=== PATIENT | male | born 1965 | race Caucasian/White ===

== ENCOUNTER 2018-01-01 12:33 | Inpatient (IN) | payer MEDICARE, MEDICAID ==
[~2018-01-01] VITALS: Ht 190.5 cm; Wt 68.2 kg
[2018-01-01] MEDS ORDERED: HYDROmorphone 1mg/ml Carpuject IM ONE (13:00)
[2018-01-01] MEDS ORDERED: Heparin 2000 units/Ns 1000ml INJ ONE (13:15)
[2018-01-01] MEDS ORDERED: Lidocaine 1% Plain 30 ml INJ ONE ×2 (13:15→15:15)
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
[2018-01-01] MEDS ORDERED: Clindamycin 600mg 50 ML IVPB ONE (13:30)
[2018-01-01 13:34] VITALS: BP 93/71
[2018-01-01 13:34] LABS: APPEARANCE,URINE SLIGHTLY CLOUDY; BILIRUBIN, URINE NEGATIVE (NEGATIVE); COLOR,URINE YELLOW; GLUCOSE, URINE (UA) NEGATIVE (NEGATIVE); KETONES,URINE NEGATIVE (NEGATIVE); LEUKOCYTE ESTERASE ,URINE 3+ (NEGATIVE); NITRITE,URINE NEGATIVE (NEGATIVE); PH,URINE 6.5 (4.5-8.0); PROTEIN,URINE 2+ (NEGATIVE); UROBILINOGEN,URINE NORMAL MG/DL (0.0-1.0)
[2018-01-01] MEDS ORDERED: ACETAMINOPHEN325 M1 ORAL (14:00)
[2018-01-01] MEDS ORDERED: MULTIVITAMINS1 EA13 ORAL (14:00)
[2018-01-01] MEDS ORDERED: BACLOFEN10 MG ORAL (14:00)
[2018-01-01] MEDS ORDERED: OXYCODONE HCL10 MG ORAL (14:00)
[2018-01-01] MEDS ORDERED: PEPCID AC20 M2 PO (14:00)
[2018-01-01] MEDS ORDERED: ZINC SULFATE220 M1 ORAL (14:00)
[2018-01-01] MEDS ORDERED: GABAPENTIN600 MG ORAL (14:00)
[2018-01-01] MEDS ORDERED: VITAMIN C500 M1 ORAL (14:00)
[2018-01-01] MEDS ORDERED: NICOTINE1 EAC2 TD (14:02)
[2018-01-01] MEDS ORDERED: MIDODRINE HCL5 MG ORAL (14:02)
[2018-01-01] MEDS ORDERED: BENADRYL25 MG ORAL (14:02)
--- NOTE | 2018-01-01 14:54 | Diagnostic Imaging Report ---
Indication: Chest pain Comparison: None A single view chest radiograph was obtained. Findings: Left hemidiaphragm is elevated. There is a scoliosis versus right convexity of the thoracic spine due to positioning. Heart size is normal. Lungs are clear. Bones are osteopenic. IMPRESSION: No acute disease identified
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
[2018-01-01] MEDS ORDERED: Hydromorphone 0.5mg/0.5ml inj IVP STA (16:30)
[2018-01-01] MEDS ORDERED: Clindamycin 600mg 50 ML IV ONE (16:45)
[2018-01-01 17:10] LABS: HEMATOCRIT 29.9 % (42.0-52.0); HEMOGLOBIN 9.4 G/DL (14.2-18.0); MEAN CORPUSCULAR VOLUME 72 FL (80-99); PLATELET COUNT 716 K/UL (150-450); RED BLOOD COUNT 4.17 M/UL (4.70-6.10); RED CELL DISTRIBUTION WIDTH 18.1 % (11.6-14.8); WHITE BLOOD COUNT 19.2 K/UL (4.8-10.8)
[2018-01-01 17:25] LABS: ANION GAP 13 mmol/L (5-15); BLOOD UREA NITROGEN 35 mg/dL (7-18); CALCIUM 9.7 MG/DL (8.5-10.1); CARBON DIOXIDE 21 MMOL/L (21-32); CHLORIDE 97 MMOL/L (98-107); CREATININE 1.1 MG/DL (0.55-1.30); POTASSIUM 3.7 MMOL/L (3.5-5.1); SODIUM 131 MMOL/L (136-145)
[2018-01-01] MEDS: Docusate 100mg cap ORAL SCH (17:36)
[2018-01-01 17:39] LABS: ALANINE AMINOTRANSFERASE 17 U/L (12-78); ALBUMIN 1.9 G/DL (3.4-5.0); ALBUMIN/GLOBULIN RATIO 0.3 (1.0-2.7); ALKALINE PHOSPHATASE 170 U/L (46-116); ASPARTATE AMINO TRANSFERASE 21 U/L (15-37); BILIRUBIN,TOTAL 0.3 MG/DL (0.2-1.0); CKMB 1.3 NG/ML (0.0-3.6); CREATINE KINASE 50 U/L (26-308)
[2018-01-01 20:00] VITALS: BP 89/56
[2018-01-01] MEDS ORDERED: Dyna-Hex 2% Top Sol 2oz TOPIC SCH (20:00)
[2018-01-01] MEDS: Heparin 5000 units/ml inj SUBQ SCH (20:23)
[2018-01-01] MEDS ORDERED: Ciprofloxacin 500mg tab ORAL SCH (21:00)
[2018-01-02] VITALS (7 sets, daily range): BP systolic 88–125; BP diastolic 51–81
[2018-01-02 06:17] LABS: ANION GAP 10 mmol/L (5-15); BLOOD UREA NITROGEN 26 mg/dL (7-18); CALCIUM 8.4 MG/DL (8.5-10.1); CARBON DIOXIDE 22 MMOL/L (21-32); CHLORIDE 108 MMOL/L (98-107); CREATININE 0.9 MG/DL (0.55-1.30); POTASSIUM 3.3 MMOL/L (3.5-5.1); SODIUM 140 MMOL/L (136-145)
--- NOTE | 2018-01-02 08:33 | Diagnostic Imaging Report ---
Indication: Status post central line insertion Technique: One view of the chest Comparison: 4 hours earlier Findings: Interim placement of right jugular central venous catheter, tip which projects deep within the right atrium. The lungs and pleural spaces are clear. Heart size is normal. There is no pneumothorax Impression: Right jugular central venous catheter placement, tip deep in the right atrium. No radiographically evident complication
[2018-01-02] MEDS: Heparin 5000 units/ml inj SUBQ SCH ×2 (08:52→21:00)
[2018-01-02] MEDS: Docusate 100mg cap ORAL SCH ×2 (08:52→18:00)
[2018-01-02] MEDS ORDERED: Pantoprazole Inj IVP SCH (09:00)
[2018-01-02] MEDS ORDERED: HYDROmorphone 1mg/ml Carpuject IVP SCH (10:45)
[2018-01-02 13:53] LABS: HEMATOCRIT 24.1 % (42.0-52.0); HEMOGLOBIN 7.2 G/DL (14.2-18.0); MEAN CORPUSCULAR VOLUME 71 FL (80-99); PLATELET COUNT 449 K/UL (150-450); RED BLOOD COUNT 3.42 M/UL (4.70-6.10); RED CELL DISTRIBUTION WIDTH 18.2 % (11.6-14.8); WHITE BLOOD COUNT 7.6 K/UL (4.8-10.8)
--- NOTE | 2018-01-02 14:03 | Diagnostic Imaging Report ---
Indication: Reason For Exam: BACT Technique: One view of the chest Comparison: none Findings: Previously demonstrated central venous catheter has pulled back, proximal shaft appearing to be making a loop within the internal jugular vein, tip at the level of the mid superior vena cava. There is a small band of atelectasis at the left lung base. The lungs and pleural spaces are otherwise clear. Heart size is normal. Impression: Unless it has been deliberately pulled back, the right jugular central venous catheter appears to have flipped back upon itself and the proximal shaft is now making a loop within the internal jugular vein. Tip position still satisfactory, at the level of the mid superior vena cava. Otherwise stable findings, as described. Essentially clear lungs
[2018-01-02 14:04] LABS: PHOSPHORUS 2.9 MG/DL (2.5-4.9)
[2018-01-02] MEDS ORDERED: Amikacin Rx to dose MISC PRN (14:45)
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
--- NOTE | 2018-01-02 15:23 | Infectious Diseases Prog Note ---
Assessment/Plan Assessment/Plan Full consult dictated: A) 1) sepsis, gram neg uti, ? gram + bacteremia, leukocytosis 2) hx proteus and enterococcus uti 3) wounds noted - doubt sepsis source 4) pmh noted 5) allergies - pcn, sulfa, zosyn, vancomycin P) 1) amikacin, zyvox 2) f/u on culturs, labs and TTE 3) d/w Dr. Jones 4) thank you Subjective Allergies: Coded Allergies: CEFTRIAXONE (Verified Allergy, Unknown, 01/01/18) CODEINE (Verified Allergy, Unknown, 01/01/18) MORPHINE (Verified Allergy, Unknown, 01/01/18) PIPERACILLIN (Verified Allergy, Unknown, 01/01/18) SULFAMETHOXAZOLE (Verified Allergy, Unknown, 01/01/18) TAZOBACTAM (Verified Allergy, Unknown, 01/01/18) TRIMETHOPRIM (Verified Allergy, Unknown, 01/01/18) VANCOMYCIN (Verified Allergy, Unknown, 01/01/18) Objective Vital Signs Last 24 Hour Vital Signs Date Time Temp Pulse Resp B/P (MAP) Pulse Ox O2 Delivery O2 Flow Rate FiO2 01/02/18 12:00 98.2 95 20 88/59 (69) 100 98.2 01/02/18 12:00 Room Air 01/02/18 08:49 102 01/02/18 08:00 Room Air 01/02/18 08:00 98.5 93 20 104/73 (83) 98 98.5 01/02/18 04:00 Room Air 01/02/18 03:36 113 01/02/18 00:00 98.1 99 20 109/60 (76) 98 98.1 01/02/18 00:00 Room Air 01/01/18 23:32 111 01/01/18 22:22 108 01/01/18 20:00 Room Air 01/01/18 20:00 98.4 101 18 89/56 (67) 97 98.4 01/01/18 20:00 Room Air 01/01/18 19:25 108 01/01/18 18:13 Room Air Height (Feet): 3 Height (Inches): 0.00 Weight (Pounds): 150 Microbiology Date/Time Source Procedure Growth Status 01/01/18 16:20 Blood Blood Culture - Preliminary Resulted 01/01/18 13:15 Urine,Clean Catch Urine Culture - Preliminary Gram Negative Bacillus 1 Resulted Laboratory Tests Test 01/01/18 16:20 01/02/18 05:00 01/02/18 13:30 White Blood Count 19.2 K/UL (4.8-10.8) H 7.6 K/UL (4.8-10.8) # Red Blood Count 4.17 M/UL (4.70-6.10) L 3.42 M/UL (4.70-6.10) L Hemoglobin 9.4 G/DL (14.2-18.0) L 7.2 G/DL (14.2-18.0) L Hematocrit 29.9 % (42.0-52.0) L 24.1 % (42.0-52.0) L Mean Corpuscular Volume 72 FL (80-99) L 71 FL (80-99) L Mean Corpuscular Hemoglobin 22.6 PG (27.0-31.0) L 21.2 PG (27.0-31.0) L Mean Corpuscular Hemoglobin Concent 31.5 G/DL (32.0-36.0) L 30.1 G/DL (32.0-36.0) L Red Cell Distribution Width 18.1 % (11.6-14.8) H 18.2 % (11.6-14.8) H Platelet Count 716 K/UL (150-450) H 449 K/UL (150-450) Mean Platelet Volume 4.8 FL (6.5-10.1) L 4.9 FL (6.5-10.1) L Neutrophils (%) (Auto) % (45.0-75.0) % (45.0-75.0) Lymphocytes (%) (Auto) % (20.0-45.0) % (20.0-45.0) Monocytes (%) (Auto) % (1.0-10.0) % (1.0-10.0) Eosinophils (%) (Auto) % (0.0-3.0) % (0.0-3.0) Basophils (%) (Auto) % (0.0-2.0) % (0.0-2.0) Differential Total Cells Counted 100 100 Neutrophils % (Manual) 78 % (45-75) H 73 % (45-75) Lymphocytes % (Manual) 12 % (20-45) L 15 % (20-45) L Monocytes % (Manual) 6 % (1-10) 9 % (1-10) Eosinophils % (Manual) 3 % (0-3) 3 % (0-3) Basophils % (Manual) 0 % (0-2) 0 % (0-2) Band Neutrophils 1 % (0-8) 0 % (0-8) Platelet Estimate Increased H Adequate Platelet Morphology Normal Normal Polychromasia 1+ Anisocytosis 1+ 2+ Microcytosis 1+ 2+ Sodium Level 131 MMOL/L (136-145) L 140 MMOL/L (136-145) Potassium Level 3.7 MMOL/L (3.5-5.1) 3.3 MMOL/L (3.5-5.1) L Chloride Level 97 MMOL/L (98-107) L 108 MMOL/L (98-107) H Carbon Dioxide Level 21 MMOL/L (21-32) 22 MMOL/L (21-32) Anion Gap 13 mmol/L (5-15) 10 mmol/L (5-15) Blood Urea Nitrogen 35 mg/dL (7-18) H 26 mg/dL (7-18) H Creatinine 1.1 MG/DL (0.55-1.30) 0.9 MG/DL (0.55-1.30) Estimat Glomerular Filtration Rate > 60 mL/min (>60) > 60 mL/min (>60) Glucose Level 104 MG/DL (74-106) 90 MG/DL (74-106) Lactic Acid Level 0.90 mmol/L (0.4-2.0) Calcium Level 9.7 MG/DL (8.5-10.1) 8.4 MG/DL (8.5-10.1) L Magnesium Level 1.9 MG/DL (1.8-2.4) 1.6 MG/DL (1.8-2.4) L Total Bilirubin 0.3 MG/DL (0.2-1.0) Aspartate Amino Transf (AST/SGOT) 21 U/L (15-37) Alanine Aminotransferase (ALT/SGPT) 17 U/L (12-78) Alkaline Phosphatase 170 U/L (46-116) H Total Creatine Kinase 50 U/L (26-308) Creatine Kinase MB 1.3 NG/ML (0.0-3.6) Creatine Kinase MB Relative Index 2.6 Troponin I 0.000 ng/mL (0.000-0.056) Total Protein 8.7 G/DL (6.4-8.2) H Albumin 1.9 G/DL (3.4-5.0) L Globulin 6.8 g/dL Albumin/Globulin Ratio 0.3 (1.0-2.7) L Hypochromasia 3+ Phosphorus Level 2.9 MG/DL (2.5-4.9) Current Medications Medications (Trade) Dose Ordered Sig/Alva Route PRN Reason Start Time Stop Time Status Last Admin Dose Admin Acetaminophen (Tylenol) 650 mg Q6H PRN ORAL Mild Pain/Temp > 100.5 01/02/18 11:00 01/31/18 10:59 Amikacin Protocol (Amikacin pharmacy to dose) 1 ea DAILY PRN MISC Per rx protocol 01/02/18 14:45 02/01/18 14:44 Amikacin Sulfate 600 mg/Sodium Chloride 112.4 ml @ 112.4 mls/ hr ONCE ONCE IV 01/02/18 17:00 01/02/18 17:59 Chlorhexidine Gluconate (Cassandra-Hex 2%) 1 applic DAILY@2000 TOPIC 01/02/18 20:00 01/31/18 19:59 Dextrose (Dextrose 50%) 25 ml Q30M PRN IV Hypoglycemia 01/02/18 10:45 01/31/18 14:44 Dextrose (Dextrose 50%) 50 ml Q30M PRN IV Hypoglycemia 01/02/18 10:45 01/31/18 14:44 Docusate Sodium (Colace) 200 mg TWICE A DAY ORAL 01/02/18 18:00 01/31/18 17:59 Gabapentin (Neurontin) 600 mg QHS ORAL 01/02/18 21:00 01/31/18 20:59 Heparin Sodium (Porcine) (Heparin 5000 units/ml) 5,000 units EVERY 12 HOURS SUBQ 01/02/18 21:00 01/31/18 20:59 Hydromorphone HCl (Dilaudid) 1 mg Q6H PRN IVP SEVERE PAIN 01/02/18 14:03 01/03/18 14:02 Linezolid (Zyvox) 600 mg EVERY 12 HOURS ORAL 01/02/18 21:00 01/07/18 20:59 Multivitamins (Multivitamins) 1 tab DAILY ORAL 01/03/18 09:00 02/01/18 08:59 Nicotine (Nicoderm) 1 patch Q24H TDERMAL 01/02/18 17:00 01/31/18 16:59 Pantoprazole (Protonix) 40 mg DAILY IVP 01/03/18 09:00 02/01/18 08:59 Sodium Chloride 1,000 ml @ 100 mls/hr Q10H IVLG 01/02/18 11:00 01/31/18 10:59 01/02/18 11:17 Joellen Taylor MD Jan 02, 2018 15:23
[2018-01-02] MEDS: HYDROmorphone 1mg/ml Carpuject IVP PRN ×2 (16:12→22:03)
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
[2018-01-02] MEDS ORDERED: Amikacin 600 MG in NS 110 ML IV ONE (17:00)
--- NOTE | 2018-01-02 18:31 | Cardiology Report ---
APPROVED REPORT EKG Measurement Heart [id number] Sinus tachycardia Possible Left atrial enlargement Borderline ECG
[2018-01-02 19:24] LABS: % IRON SATURATION 7 % (15-50); IRON 12 ug/dL (50-175); TOTAL IRON BINDING CAPACITY 178 ug/dL (250-450)
[2018-01-02] MEDS: Dyna-Hex 2% Top Sol 2oz TOPIC SCH (22:21)
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
[2018-01-03] MEDS: HYDROmorphone 1mg/ml Carpuject IVP PRN ×4 (04:07→22:19)
[2018-01-03 04:25] VITALS: BP 98/63
[2018-01-03 05:32] LABS: MEAN CORPUSCULAR VOLUME 71 FL (80-99); PLATELET COUNT 354 K/UL (150-450); RED BLOOD COUNT 2.95 M/UL (4.70-6.10); RED CELL DISTRIBUTION WIDTH 18.9 % (11.6-14.8); WHITE BLOOD COUNT 7.6 K/UL (4.8-10.8)
[2018-01-03 05:35] LABS: ANION GAP 8 mmol/L (5-15); BLOOD UREA NITROGEN 16 mg/dL (7-18); CARBON DIOXIDE 23 MMOL/L (21-32); CHLORIDE 107 MMOL/L (98-107); CREATININE 0.8 MG/DL (0.55-1.30); POTASSIUM 3.4 MMOL/L (3.5-5.1); SODIUM 138 MMOL/L (136-145)
[2018-01-03 06:04] LABS: HEMOGLOBIN 6.5 G/DL (14.2-18.0)
[2018-01-03 08:43] VITALS: BP 89/62
[2018-01-03] MEDS: Heparin 5000 units/ml inj SUBQ SCH ×2 (09:00→22:29)
[2018-01-03] MEDS: Pantoprazole Inj IVP SCH (09:19)
[2018-01-03] MEDS: Docusate 100mg cap ORAL SCH ×2 (09:20→17:51)
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
[2018-01-03 10:29] LABS: HEMATOCRIT 24.8 % (42.0-52.0); HEMOGLOBIN 7.4 G/DL (14.2-18.0); MEAN CORPUSCULAR VOLUME 71 FL (80-99); PLATELET COUNT 366 K/UL (150-450); RED CELL DISTRIBUTION WIDTH 18.5 % (11.6-14.8); WHITE BLOOD COUNT 6.5 K/UL (4.8-10.8)
[2018-01-03 11:06] LABS: % IRON SATURATION 6 % (15-50); IRON 8 ug/dL (50-175); TOTAL IRON BINDING CAPACITY 136 ug/dL (250-450)
[2018-01-03 11:26] VITALS: BP 115/76
--- NOTE | 2018-01-03 13:37 | General Progress Note ---
Assessment/Plan Status: stable Assessment/Plan (1) Anemia of chronic disease due to underlying chronic medical issues. --> Anemia panel has been reviewed. Will trend CBC daily. --> hgb goal >7, transfuse on prn basis --> no etoh or drug abuse, meds reviewed --> Blood tx: 01/03, (2) Leukocytosis is likely due to UTI (urinary tract infection) does have sepsis --> Resolved/Improved. --> smear peripheral has been reviewed --> no schistocytes are noted --> no evidence of malignancy (3) Quadriplegia --> weakness has been chronic (4) Colostomy care (5) Tobacco abuse --> cessation education (6) Dispo --> likely back to [facility] on d/c Greatly appreciate consultation! Subjective Date patient seen: Jan 03, 2018 ROS Limited/Unobtainable: Yes Allergies: Coded Allergies: CEFTRIAXONE (Verified Allergy, Unknown, 01/01/18) CODEINE (Verified Allergy, Unknown, 01/01/18) MORPHINE (Verified Allergy, Unknown, 01/01/18) PIPERACILLIN (Verified Allergy, Unknown, 01/01/18) SULFAMETHOXAZOLE (Verified Allergy, Unknown, 01/01/18) TAZOBACTAM (Verified Allergy, Unknown, 01/01/18) TRIMETHOPRIM (Verified Allergy, Unknown, 01/01/18) VANCOMYCIN (Verified Allergy, Unknown, 01/01/18) Subjective Hgb at 6.5, blood tx ordered. Objective Last 24 Hour Vital Signs Date Time Temp Pulse Resp B/P (MAP) Pulse Ox O2 Delivery O2 Flow Rate FiO2 01/03/18 11:26 98.8 98 18 115/76 (89) 01/03/18 10:37 98.8 01/03/18 08:43 99.6 100 18 89/62 (71) 92 01/03/18 08:30 Room Air 01/03/18 04:25 96.1 108 18 98/63 (75) 96 01/02/18 22:04 98/56 (70) 01/02/18 22:00 Room Air 01/02/18 20:22 97.9 103 18 91/51 (64) 93 01/02/18 17:52 98.1 89 20 125/81 (96) 98 01/02/18 16:00 98.1 89 20 125/81 (96) 98 Intake and Output 01/02/18 01/03/18 19:00 07:00 Intake Total 1550 ml 800 ml Output Total 1200 ml 900 ml Balance 350 ml -100 ml Intake Oral 100 ml IV Total 450 ml 800 ml Other 1000 ml Output Urine Total 1200 ml Other 900 ml Laboratory Tests 01/02/18 19:00: Urine Random Creatinine [Pending], Urine Random Microalbumin [Pending], Urine Microalbumin/Creatinine Ratio [Pending] 01/03/18 05:00: White Blood Count 7.6, Red Blood Count 2.95L, Hemoglobin 6.5*L, Hematocrit 21.0L , Mean Corpuscular Volume 71L, Mean Corpuscular Hemoglobin 21.9L, Mean Corpuscular Hemoglobin Concent 30.8L, Red Cell Distribution Width 18.9H, Platelet Count 354, Mean Platelet Volume 4.9L, Neutrophils (%) (Auto) , Lymphocytes (%) (Auto) , Monocytes (%) (Auto) , Eosinophils (%) (Auto) , Basophils (%) (Auto) , Differential Total Cells Counted 100, Neutrophils % ( Manual) 67, Lymphocytes % (Manual) 27, Monocytes % (Manual) 3, Eosinophils % ( Manual) 3, Basophils % (Manual) 0, Band Neutrophils 0, Platelet Estimate Adequate, Platelet Morphology Normal, Hypochromasia 2+, Anisocytosis 2+, Microcytosis 2+, Sodium Level 138, Potassium Level 3.4L, Chloride Level 107, Carbon Dioxide Level 23, Anion Gap 8, Blood Urea Nitrogen 16, Creatinine 0.8, Estimat Glomerular Filtration Rate > 60, Glucose Level 99, Calcium Level 8.0L, Phosphorus Level 3.4, Magnesium Level 2.2, Iron Level 8L, Total Iron Binding Capacity 136L, Percent Iron Saturation 6L, Unsaturated Iron Binding 128, Free Thyroxine 0.91, Free Triiodothyronine 1.5L, Random Amikacin Level 9.2 01/03/18 10:15: White Blood Count 6.5, Red Blood Count 3.50L, Hemoglobin 7.4L, Hematocrit 24.8L , Mean Corpuscular Volume 71L, Mean Corpuscular Hemoglobin 21.2L, Mean Corpuscular Hemoglobin Concent 30.0L, Red Cell Distribution Width 18.5H, Platelet Count 366, Mean Platelet Volume 4.8L, Neutrophils (%) (Auto) , Lymphocytes (%) (Auto) , Monocytes (%) (Auto) , Eosinophils (%) (Auto) , Basophils (%) (Auto) , Differential Total Cells Counted 100, Neutrophils % ( Manual) 65, Lymphocytes % (Manual) 26, Monocytes % (Manual) 8, Eosinophils % ( Manual) 1, Basophils % (Manual) 0, Band Neutrophils 0, Platelet Estimate Adequate, Platelet Morphology Normal, Hypochromasia 2+, Anisocytosis 1+, Microcytosis 2+ Height (Feet): 3 Height (Inches): 0.00 Weight (Pounds): 150 General Appearance: no apparent distress EENT: PERRL/EOMI Neck: normal alignment Cardiovascular: tachycardia Respiratory/Chest: no respiratory distress Abdomen: soft Rodolfo Scott MD Jan 03, 2018 13:37
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
[2018-01-03 15:27] VITALS: BP 91/63
[2018-01-03] MEDS: DAPTOmycin 400 MG in NS 50 ML IV SCH (15:34)
[2018-01-03] MEDS ORDERED: Amikacin 600 MG in NS 110 ML IV SCH (18:00)
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
[2018-01-03 20:00] VITALS: BP 96/59
[2018-01-03] MEDS: Dyna-Hex 2% Top Sol 2oz TOPIC SCH (22:19)
[2018-01-03] MEDS: Polymyxin B Sulfate 500,000 UNITS in D5W 500ml 550 ML IV SCH (22:36)
[2018-01-04 04:00] VITALS: BP 98/66
[2018-01-04] MEDS: HYDROmorphone 1mg/ml Carpuject IVP PRN ×4 (04:28→22:32)
[2018-01-04 07:38] LABS: ANION GAP 7 mmol/L (5-15); BLOOD UREA NITROGEN 18 mg/dL (7-18); CARBON DIOXIDE 26 MMOL/L (21-32); CHLORIDE 104 MMOL/L (98-107); CREATININE 0.9 MG/DL (0.55-1.30); POTASSIUM 3.4 MMOL/L (3.5-5.1); SODIUM 137 MMOL/L (136-145)
[2018-01-04 07:44] LABS: HEMOGLOBIN 7.9 G/DL (14.2-18.0); MEAN CORPUSCULAR VOLUME 71 FL (80-99); PLATELET COUNT 305 K/UL (150-450); RED BLOOD COUNT 3.66 M/UL (4.70-6.10); RED CELL DISTRIBUTION WIDTH 18.7 % (11.6-14.8); WHITE BLOOD COUNT 6.2 K/UL (4.8-10.8)
[2018-01-04 08:00] VITALS: BP 100/68
[2018-01-04] MEDS: Docusate 100mg cap ORAL SCH ×2 (09:12→17:28)
[2018-01-04] MEDS: Polymyxin B Sulfate 500,000 UNITS in D5W 500ml 550 ML IV SCH ×2 (09:12→20:56)
[2018-01-04] MEDS: Pantoprazole Inj IVP SCH (09:12)
[2018-01-04] MEDS: Heparin 5000 units/ml inj SUBQ SCH ×2 (09:13→20:58)
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
--- NOTE | 2018-01-04 11:06 | General Progress Note ---
Assessment/Plan Status: stable Assessment/Plan (1) Anemia of chronic disease due to underlying chronic medical issues. --> Anemia panel has been reviewed. Will trend CBC daily. --> hgb goal >7, transfuse on prn basis --> no etoh or drug abuse, meds reviewed --> Blood tx: 01/03, (2) Leukocytosis is likely due to UTI (urinary tract infection) does have sepsis --> Resolved/Improved. --> Remains on abx --> smear peripheral has been reviewed --> no schistocytes are noted --> no evidence of malignancy (3) Quadriplegia --> weakness has been chronic (4) Colostomy care (5) Tobacco abuse --> cessation education (6) Dispo --> likely back to [facility] on d/c Greatly appreciate consultation! Subjective Date patient seen: Jan 04, 2018 ROS Limited/Unobtainable: Yes Hematologic/Lymphatic: Reports: anemia Allergies: Coded Allergies: CEFTRIAXONE (Verified Allergy, Unknown, 01/01/18) CODEINE (Verified Allergy, Unknown, 01/01/18) MORPHINE (Verified Allergy, Unknown, 01/01/18) PIPERACILLIN (Verified Allergy, Unknown, 01/01/18) SULFAMETHOXAZOLE (Verified Allergy, Unknown, 01/01/18) TAZOBACTAM (Verified Allergy, Unknown, 01/01/18) TRIMETHOPRIM (Verified Allergy, Unknown, 01/01/18) VANCOMYCIN (Verified Allergy, Unknown, 01/01/18) Subjective Hgb improved to 7.9 Objective Last 24 Hour Vital Signs Date Time Temp Pulse Resp B/P (MAP) Pulse Ox O2 Delivery O2 Flow Rate FiO2 01/04/18 08:00 97.8 99 18 100/68 (79) 98 01/04/18 04:00 99.1 107 18 98/66 (77) 98 01/03/18 21:00 Room Air 01/03/18 20:00 99.9 106 18 96/59 (71) 98 01/03/18 16:37 99.2 01/03/18 15:27 99.2 101 20 91/63 (72) 96 01/03/18 11:26 98.8 98 18 115/76 (89) Intake and Output 01/03/18 01/04/18 18:59 06:59 Intake Total 960 ml 3150 ml Balance 960 ml 3150 ml Intake Oral 960 ml 500 ml IV Total 550 ml Other 2100 ml Laboratory Tests 01/04/18 05:36: White Blood Count 6.2, Red Blood Count 3.66L, Hemoglobin 7.9L, Hematocrit 26.0L , Mean Corpuscular Volume 71L, Mean Corpuscular Hemoglobin 21.6L, Mean Corpuscular Hemoglobin Concent 30.4L, Red Cell Distribution Width 18.7H, Platelet Count 305, Mean Platelet Volume 4.8L, Neutrophils (%) (Auto) , Lymphocytes (%) (Auto) , Monocytes (%) (Auto) , Eosinophils (%) (Auto) , Basophils (%) (Auto) , Differential Total Cells Counted 100, Neutrophils % ( Manual) 79H, Lymphocytes % (Manual) 14L, Monocytes % (Manual) 6, Eosinophils % ( Manual) 1, Basophils % (Manual) 0, Band Neutrophils 0, Platelet Estimate Adequate, Platelet Morphology Normal, Hypochromasia 1+, Anisocytosis 1+, Microcytosis 1+, Sodium Level 137, Potassium Level 3.4L, Chloride Level 104, Carbon Dioxide Level 26, Anion Gap 7, Blood Urea Nitrogen 18, Creatinine 0.9, Estimat Glomerular Filtration Rate > 60, Glucose Level 107H, Calcium Level 8.0L , Phosphorus Level 3.2, Magnesium Level 2.0 Height (Feet): 3 Height (Inches): 0.00 Weight (Pounds): 150 General Appearance: no apparent distress EENT: PERRL/EOMI Neck: normal alignment Cardiovascular: tachycardia Respiratory/Chest: no respiratory distress Abdomen: normal bowel sounds Rodolfo Scott MD Jan 04, 2018 11:06
[2018-01-04 12:00] VITALS: BP 111/93
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
--- NOTE | 2018-01-04 15:21 | General Surgery Progress Note ---
General Surgery-Progress Note Subjective Additional Comments no acute events. stable. tolerating diet. c/o ostomy prolapse Objective Last 24 Hour Vital Signs Date Time Temp Pulse Resp B/P (MAP) Pulse Ox O2 Delivery O2 Flow Rate FiO2 01/04/18 12:00 98.1 97 18 111/93 (99) 98 01/04/18 09:00 Room Air 01/04/18 08:00 97.8 99 18 100/68 (79) 98 01/04/18 04:00 99.1 107 18 98/66 (77) 98 01/03/18 21:00 Room Air 01/03/18 20:00 99.9 106 18 96/59 (71) 98 01/03/18 16:37 99.2 01/03/18 15:27 99.2 101 20 91/63 (72) 96 I&O Intake and Output 01/03/18 01/04/18 19:00 07:00 Intake Total 960 ml 3150 ml Balance 960 ml 3150 ml Intake Oral 960 ml 500 ml IV Total 550 ml Other 2100 ml Dressing: other Wound: other Drains: other Cardiovascular: RSR Respiratory: clear Abdomen: soft, present bowel sounds, other Extremities: other Laboratory Tests Test 01/04/18 05:36 White Blood Count 6.2 K/UL (4.8-10.8) Red Blood Count 3.66 M/UL (4.70-6.10) L Hemoglobin 7.9 G/DL (14.2-18.0) L Hematocrit 26.0 % (42.0-52.0) L Mean Corpuscular Volume 71 FL (80-99) L Mean Corpuscular Hemoglobin 21.6 PG (27.0-31.0) L Mean Corpuscular Hemoglobin Concent 30.4 G/DL (32.0-36.0) L Red Cell Distribution Width 18.7 % (11.6-14.8) H Platelet Count 305 K/UL (150-450) Mean Platelet Volume 4.8 FL (6.5-10.1) L Neutrophils (%) (Auto) % (45.0-75.0) Lymphocytes (%) (Auto) % (20.0-45.0) Monocytes (%) (Auto) % (1.0-10.0) Eosinophils (%) (Auto) % (0.0-3.0) Basophils (%) (Auto) % (0.0-2.0) Differential Total Cells Counted 100 Neutrophils % (Manual) 79 % (45-75) H Lymphocytes % (Manual) 14 % (20-45) L Monocytes % (Manual) 6 % (1-10) Eosinophils % (Manual) 1 % (0-3) Basophils % (Manual) 0 % (0-2) Band Neutrophils 0 % (0-8) Platelet Estimate Adequate Platelet Morphology Normal Hypochromasia 1+ Anisocytosis 1+ Microcytosis 1+ Sodium Level 137 MMOL/L (136-145) Potassium Level 3.4 MMOL/L (3.5-5.1) L Chloride Level 104 MMOL/L (98-107) Carbon Dioxide Level 26 MMOL/L (21-32) Anion Gap 7 mmol/L (5-15) Blood Urea Nitrogen 18 mg/dL (7-18) Creatinine 0.9 MG/DL (0.55-1.30) Estimat Glomerular Filtration Rate > 60 mL/min (>60) Glucose Level 107 MG/DL (74-106) H Calcium Level 8.0 MG/DL (8.5-10.1) L Phosphorus Level 3.2 MG/DL (2.5-4.9) Magnesium Level 2.0 MG/DL (1.8-2.4) Plan Problems: (1) Colostomy prolapse Assessment & Plan: large >10cm prolapse of left lower abdominal ostomy. small stool and gas in bag. patient states present for years and makes him uncomfortable. has desired intervention prior but not discussed or offered long discussion with patient. very complex case given midline wound dehiscence with drainage, prior urostomy, and prolapsed ostomy will review records and see if possible surgical intervention (2) Sepsis (3) Decubital ulcer Assessment & Plan: very large area of skin loss over dorsal trunk, bilateral flank, hips, and amputation stumps, and perineum multiple stages of wounds and healing lots of sloth serous drainage ulcerations please see wound photos bilat AKA. Abd wound noted with moderate amt purulent exudate (L)5cm x (W)3.5cm x (D)1.3cm wound bed pink (+) epibole and with maceration. Periwound skin is pink and intact. Large wound from R to L of buttocks extending into perineum and posterior R thigh (L)15 x (W)25.4cm. Scattered areas of slough, with mixed dusky pink colour in wound bed.(+) maceration.. Moderately exuding serous exudate with mild odor. very complex wounds and case with care. for now was with NS, place xerofoam, and ABDApply Xeroform with Abd pads to wounds on buttocks.Wound cleans with Saline. Apply Xeroform gauze to wound bed .Cavilon wipe applied to borders and cover with ABD pads and reinforced with Transparent drsg. Cleanse abdominal wound with Saline and apply Silvasorb with Calcium alginate. Cavilon skin protectant applied to borders and covered with transparent drsg. skin protectant turn q2h air soft mattress (4) Abdominal wound dehiscence Assessment & Plan: prior distal midline surgical incision wound dehiscences with ulceration and slowly healing wound. some drainage noted. -packing and dressing with gauze BID will follow with recs thank you Atif Luna Jan 04, 2018 15:21
[2018-01-04] MEDS: DAPTOmycin 400 MG in NS 50 ML IV SCH (16:55)
[2018-01-04] MEDS: Dyna-Hex 2% Top Sol 2oz TOPIC SCH (20:56)
[2018-01-04] MEDS: DiphenhydrAMINE 50mg/ml Inj IVP PRN (20:59)
[2018-01-05] VITALS: BP 106/72
[2018-01-05] MEDS: DiphenhydrAMINE 50mg/ml Inj IVP PRN ×3 (03:40→20:11)
[2018-01-05 04:00] VITALS: BP 111/73
[2018-01-05] MEDS: HYDROmorphone 1mg/ml Carpuject IVP PRN ×4 (04:42→22:27)
[2018-01-05 07:40] LABS: HEMATOCRIT 21.1 % (42.0-52.0); MEAN CORPUSCULAR VOLUME 71 FL (80-99); PLATELET COUNT 346 K/UL (150-450); RED BLOOD COUNT 2.98 M/UL (4.70-6.10); RED CELL DISTRIBUTION WIDTH 18.8 % (11.6-14.8); WHITE BLOOD COUNT 6.1 K/UL (4.8-10.8)
[2018-01-05 07:43] LABS: HEMOGLOBIN 6.3 G/DL (14.2-18.0)
[2018-01-05 07:47] LABS: ALANINE AMINOTRANSFERASE 28 U/L (12-78); ALBUMIN 1.4 G/DL (3.4-5.0); ALBUMIN/GLOBULIN RATIO 0.3 (1.0-2.7); ALKALINE PHOSPHATASE 109 U/L (46-116); ANION GAP 7 mmol/L (5-15); ASPARTATE AMINO TRANSFERASE 47 U/L (15-37); BILIRUBIN,TOTAL 0.2 MG/DL (0.2-1.0); BLOOD UREA NITROGEN 21 mg/dL (7-18); CALCIUM 8.4 MG/DL (8.5-10.1); CARBON DIOXIDE 26 MMOL/L (21-32); CHLORIDE 103 MMOL/L (98-107); CREATINE KINASE 14 U/L (26-308); POTASSIUM 4.2 MMOL/L (3.5-5.1); SODIUM 136 MMOL/L (136-145)
[2018-01-05 08:00] VITALS: BP 111/73
[2018-01-05] MEDS: Docusate 100mg cap ORAL SCH ×2 (09:00→17:27)
[2018-01-05] MEDS: Pantoprazole Inj IVP SCH (10:00)
[2018-01-05] MEDS: Polymyxin B Sulfate 500,000 UNITS in D5W 500ml 550 ML IV SCH ×2 (10:02→22:03)
[2018-01-05] MEDS: Heparin 5000 units/ml inj SUBQ SCH ×2 (10:07→21:00)
[2018-01-05] MEDS ORDERED: Tubing IV Secondary IV ONE (10:15)
[2018-01-05] MEDS ORDERED: D5 1/2NS 1000ml IV ONE (10:42)
--- NOTE | 2018-01-05 11:23 | Diagnostic Imaging Report ---
EXAM: CT Abdomen and Pelvis Without Intravenous Contrast CLINICAL HISTORY: ABSCESS TECHNIQUE: Axial computed tomography images of the abdomen and pelvis without intravenous contrast. CTDI is 13.83 mGy and DLP is 703 mGy-cm. One or more of the following dose reduction techniques were used: automated exposure control, adjustment of the mA and/or kV according to patient size, use of iterative reconstruction technique. COMPARISON: No relevant prior studies available. FINDINGS: Lung bases: See below. Pleural space: Trace bilateral dependent pleural effusions, right greater than left. Associated mild adjacent dependent atelectasis. ABDOMEN: Liver: Unremarkable. Gallbladder and bile ducts: Unremarkable. No calcified stones. No ductal dilation. Pancreas: Unremarkable. No ductal dilation. Spleen: Unremarkable. No splenomegaly. Adrenals: Unremarkable. No mass. Kidneys and ureters: Right renal cortical atrophy. Bilateral nephrolithiasis, with largest stone measuring 4 mm in the left lower renal pole. Mild right renal pelviectasis and ureterectasis, nonspecific. No left-sided hydronephrosis. 2.7 cm simple-appearing renal cortical cyst in the mid left kidney. Stomach and bowel: Post surgical changes from ileal conduit formation with right lower quadrant ostomy, partial colonic resection, and left lower quadrant colostomy. Presumed prior cystectomy. Diffuse wall thickening of the rectal pouch, nonspecific. No obstruction. PELVIS: Appendix: The appendix appears normal. Bladder: See above. Reproductive: Unremarkable as visualized. ABDOMEN and PELVIS: Intraperitoneal space: Unremarkable. No free air. No significant fluid collection. Bones/joints: Status post bilateral lower extremity amputation, at the level of the hip joint on the right and at the level of the proximal femoral diaphysis on the left. Associated chronic left hip joint dislocation. Extensive degenerative changes and new bone formation adjacent to left hip and femur. Partial resection of the sacrum. No acute fracture. Soft tissues: Unremarkable. Vasculature: Atherosclerotic calcifications throughout the abdominal aorta and its proximal branches. No abnormal dilatation. Lymph nodes: Unremarkable. No enlarged lymph nodes. Other findings: No visible abscess. IMPRESSION: 1. No visible abscess. 2. Post surgical changes from ileal conduit formation with right lower quadrant ostomy, partial colonic resection, and left lower quadrant colostomy. Presumed prior cystectomy. 3. Diffuse wall thickening of the rectal pouch, nonspecific. 4. Right renal cortical atrophy. 5. Bilateral nephrolithiasis, with largest stone measuring 4 mm in the left lower renal pole. Mild right renal pelviectasis and ureterectasis, nonspecific. No left-sided hydronephrosis. 6. Trace bilateral dependent pleural effusions, right greater than left. Associated mild adjacent dependent atelectasis. 7. Status post bilateral lower extremity amputation, at the level of the hip joint on the right and at the level of the proximal femoral diaphysis on the left. Associated chronic left hip joint dislocation. Extensive degenerative changes and new bone formation adjacent to left hip and femur. Nonspecific abnormal marrow matrix in the residual left femur.
[2018-01-05 12:00] VITALS: BP 102/62
--- NOTE | 2018-01-05 13:16 | General Surgery Progress Note ---
General Surgery-Progress Note Subjective Additional Comments anemia. pain stable. no n/v/f/c. ostomy without significant prolapse today Objective Last 24 Hour Vital Signs Date Time Temp Pulse Resp B/P (MAP) Pulse Ox O2 Delivery O2 Flow Rate FiO2 01/05/18 12:00 98.6 101 18 102/62 (75) 97 01/05/18 11:15 97.9 01/05/18 09:00 Room Air 01/05/18 08:00 97.9 94 21 111/73 (86) 97 01/05/18 04:00 97.9 105 20 111/73 (86) 99 01/05/18 00:00 98.1 109 20 106/72 (83) 95 01/04/18 21:00 Room Air I&O Intake and Output 01/04/18 01/05/18 18:59 06:59 Intake Total 1390 ml Output Total 800 ml 800 ml Balance 590 ml -800 ml Intake Oral 840 ml IV Total 550 ml Output Urine Total 800 ml Other 800 ml Dressing: other Wound: other Drains: other Cardiovascular: RSR Respiratory: clear Abdomen: soft, non-tender, present bowel sounds, other Extremities: other Laboratory Tests Test 01/05/18 06:00 White Blood Count 6.1 K/UL (4.8-10.8) Red Blood Count 2.98 M/UL (4.70-6.10) L Hemoglobin 6.3 G/DL (14.2-18.0) *L Hematocrit 21.1 % (42.0-52.0) L Mean Corpuscular Volume 71 FL (80-99) L Mean Corpuscular Hemoglobin 21.2 PG (27.0-31.0) L Mean Corpuscular Hemoglobin Concent 30.0 G/DL (32.0-36.0) L Red Cell Distribution Width 18.8 % (11.6-14.8) H Platelet Count 346 K/UL (150-450) Mean Platelet Volume 4.5 FL (6.5-10.1) L Neutrophils (%) (Auto) % (45.0-75.0) Lymphocytes (%) (Auto) % (20.0-45.0) Monocytes (%) (Auto) % (1.0-10.0) Eosinophils (%) (Auto) % (0.0-3.0) Basophils (%) (Auto) % (0.0-2.0) Differential Total Cells Counted 100 Neutrophils % (Manual) 61 % (45-75) Lymphocytes % (Manual) 28 % (20-45) Monocytes % (Manual) 5 % (1-10) Eosinophils % (Manual) 5 % (0-3) H Basophils % (Manual) 1 % (0-2) Band Neutrophils 0 % (0-8) Platelet Estimate Adequate Platelet Morphology Normal Hypochromasia 2+ Anisocytosis 2+ Microcytosis 2+ Sodium Level 136 MMOL/L (136-145) Potassium Level 4.2 MMOL/L (3.5-5.1) Chloride Level 103 MMOL/L (98-107) Carbon Dioxide Level 26 MMOL/L (21-32) Anion Gap 7 mmol/L (5-15) Blood Urea Nitrogen 21 mg/dL (7-18) H Creatinine 1.0 MG/DL (0.55-1.30) Estimat Glomerular Filtration Rate > 60 mL/min (>60) Glucose Level 75 MG/DL (74-106) Calcium Level 8.4 MG/DL (8.5-10.1) L Total Bilirubin 0.2 MG/DL (0.2-1.0) Aspartate Amino Transf (AST/SGOT) 47 U/L (15-37) H Alanine Aminotransferase (ALT/SGPT) 28 U/L (12-78) Alkaline Phosphatase 109 U/L (46-116) Total Creatine Kinase 14 U/L (26-308) L Total Protein 6.7 G/DL (6.4-8.2) Albumin 1.4 G/DL (3.4-5.0) L Globulin 5.3 g/dL Albumin/Globulin Ratio 0.3 (1.0-2.7) L Plan Problems: (1) Colostomy prolapse Assessment & Plan: large >10cm prolapse of left lower abdominal ostomy. small stool and gas in bag. patient states present for years and makes him uncomfortable. has desired intervention prior but not discussed or offered long discussion with patient. very complex case given midline wound dehiscence with drainage, prior urostomy, and prolapsed ostomy will review records and see if possible surgical intervention ostomy without significant prolapse today. states that intermittent but does prolapse daily will follow with recs. (2) Sepsis (3) Decubital ulcer Assessment & Plan: very large area of skin loss over dorsal trunk, bilateral flank, hips, and amputation stumps, and perineum multiple stages of wounds and healing lots of sloth serous drainage ulcerations please see wound photos olman AKCecilio. Abd wound noted with moderate amt purulent exudate (L)5cm x (W)3.5cm x (D)1.3cm wound bed pink (+) epibole and with maceration. Periwound skin is pink and intact. Large wound from R to L of buttocks extending into perineum and posterior R thigh (L)15 x (W)25.4cm. Scattered areas of slough, with mixed dusky pink colour in wound bed.(+) maceration.. Moderately exuding serous exudate with mild odor. very complex wounds and case with care. for now was with NS, place xerofoam, and ABDApply Xeroform with Abd pads to wounds on buttocks.Wound cleans with Saline. Apply Xeroform gauze to wound bed .Cavilon wipe applied to borders and cover with ABD pads and reinforced with Transparent drsg. Cleanse abdominal wound with Saline and apply Silvasorb with Calcium alginate. Cavilon skin protectant applied to borders and covered with transparent drsg. skin protectant turn q2h air soft mattress (4) Abdominal wound dehiscence Assessment & Plan: prior distal midline surgical incision wound dehiscences with ulceration and slowly healing wound. some drainage noted. -packing and dressing with gauze BID will follow with recs thank you Atif Luna Jan 05, 2018 13:16
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
[2018-01-05] MEDS ORDERED: Tubing Blood Filter IV ONE (15:04)
[2018-01-05 16:00] VITALS: BP 115/76
--- NOTE | 2018-01-05 18:32 | General Progress Note ---
Assessment/Plan Status: stable Assessment/Plan (1) Anemia of chronic disease due to underlying chronic medical issues. --> Anemia panel has been reviewed. Will trend CBC daily. --> hgb goal >7, transfuse on prn basis --> no etoh or drug abuse, meds reviewed --> Blood tx: 01/03, 01/05, (2) Leukocytosis is likely due to UTI (urinary tract infection) does have sepsis --> Resolved/Improved. --> Remains on abx --> smear peripheral has been reviewed --> no schistocytes are noted --> no evidence of malignancy --> blood culture is positive for gram cocci (3) Quadriplegia --> weakness has been chronic (4) Colostomy care (5) Tobacco abuse --> cessation education (6) Dispo --> likely back to [facility] on d/c Greatly appreciate consultation! Subjective Date patient seen: Jan 05, 2018 ROS Limited/Unobtainable: Yes Hematologic/Lymphatic: Reports: anemia Allergies: Coded Allergies: CEFTRIAXONE (Verified Allergy, Unknown, 01/01/18) CODEINE (Verified Allergy, Unknown, 01/01/18) MORPHINE (Verified Allergy, Unknown, 01/01/18) PIPERACILLIN (Verified Allergy, Unknown, 01/01/18) SULFAMETHOXAZOLE (Verified Allergy, Unknown, 01/01/18) TAZOBACTAM (Verified Allergy, Unknown, 01/01/18) TRIMETHOPRIM (Verified Allergy, Unknown, 01/01/18) VANCOMYCIN (Verified Allergy, Unknown, 01/01/18) Subjective Hgb at 6.3, blood tx ordered. Objective Last 24 Hour Vital Signs Date Time Temp Pulse Resp B/P (MAP) Pulse Ox O2 Delivery O2 Flow Rate FiO2 01/05/18 17:23 97.1 01/05/18 16:00 97.1 72 19 115/76 (89) 97 01/05/18 12:00 98.6 101 18 102/62 (75) 97 01/05/18 09:00 Room Air 01/05/18 08:00 97.9 94 21 111/73 (86) 97 01/05/18 04:00 97.9 105 20 111/73 (86) 99 01/05/18 00:00 98.1 109 20 106/72 (83) 95 01/04/18 21:00 Room Air Intake and Output 01/04/18 01/05/18 19:00 07:00 Intake Total 1390 ml Output Total 800 ml 800 ml Balance 590 ml -800 ml Intake Oral 840 ml IV Total 550 ml Output Urine Total 800 ml Other 800 ml Laboratory Tests 01/05/18 06:00: White Blood Count 6.1, Red Blood Count 2.98L, Hemoglobin 6.3*L, Hematocrit 21.1L , Mean Corpuscular Volume 71L, Mean Corpuscular Hemoglobin 21.2L, Mean Corpuscular Hemoglobin Concent 30.0L, Red Cell Distribution Width 18.8H, Platelet Count 346, Mean Platelet Volume 4.5L, Neutrophils (%) (Auto) , Lymphocytes (%) (Auto) , Monocytes (%) (Auto) , Eosinophils (%) (Auto) , Basophils (%) (Auto) , Differential Total Cells Counted 100, Neutrophils % ( Manual) 61, Lymphocytes % (Manual) 28, Monocytes % (Manual) 5, Eosinophils % ( Manual) 5H, Basophils % (Manual) 1, Band Neutrophils 0, Platelet Estimate Adequate, Platelet Morphology Normal, Hypochromasia 2+, Anisocytosis 2+, Microcytosis 2+, Sodium Level 136, Potassium Level 4.2, Chloride Level 103, Carbon Dioxide Level 26, Anion Gap 7, Blood Urea Nitrogen 21H, Creatinine 1.0, Estimat Glomerular Filtration Rate > 60, Glucose Level 75, Calcium Level 8.4L, Total Bilirubin 0.2, Aspartate Amino Transf (AST/SGOT) 47H, Alanine Aminotransferase (ALT/SGPT) 28, Alkaline Phosphatase 109, Total Creatine Kinase 14L, Total Protein 6.7, Albumin 1.4L, Globulin 5.3, Albumin/Globulin Ratio 0.3L Height (Feet): 3 Height (Inches): 0.00 Weight (Pounds): 150 General Appearance: no apparent distress EENT: PERRL/EOMI Neck: normal alignment Cardiovascular: normal peripheral pulses Respiratory/Chest: no respiratory distress Abdomen: normal bowel sounds Rodolfo Scott MD Jan 05, 2018 18:32
[2018-01-05 20:00] VITALS: BP 131/81
[2018-01-05] MEDS: Dyna-Hex 2% Top Sol 2oz TOPIC SCH (21:56)
[2018-01-06 00:35] LABS: APPEARANCE,URINE SLIGHTLY CLOUDY; BILIRUBIN, URINE NEGATIVE (NEGATIVE); COLOR,URINE PALE YELLOW; GLUCOSE, URINE (UA) NEGATIVE (NEGATIVE); KETONES,URINE NEGATIVE (NEGATIVE); LEUKOCYTE ESTERASE ,URINE 3+ (NEGATIVE); NITRITE,URINE NEGATIVE (NEGATIVE); PH,URINE 6.5 (4.5-8.0); PROTEIN,URINE 1+ (NEGATIVE); UROBILINOGEN,URINE NORMAL MG/DL (0.0-1.0)
[2018-01-06] MEDS: DiphenhydrAMINE 50mg/ml Inj IVP PRN ×4 (03:01→21:51)
[2018-01-06 04:00] VITALS: BP 152/91
[2018-01-06] MEDS: HYDROmorphone 1mg/ml Carpuject IVP PRN ×4 (04:29→23:28)
[2018-01-06 05:12] LABS: BASOPHILS % (AUTO) 0.5 % (0.0-2.0); HEMATOCRIT 32.4 % (42.0-52.0); HEMOGLOBIN 10.4 G/DL (14.2-18.0); LYMPHOCYTES % (AUTO) 21.3 % (20.0-45.0); MEAN CORPUSCULAR VOLUME 74 FL (80-99); MONOCYTES % (AUTO) 10.3 % (1.0-10.0); NEUTROPHILS % (AUTO) 64.9 % (45.0-75.0); PLATELET COUNT 399 K/UL (150-450); RED BLOOD COUNT 4.35 M/UL (4.70-6.10); RED CELL DISTRIBUTION WIDTH 19.3 % (11.6-14.8); WHITE BLOOD COUNT 7.8 K/UL (4.8-10.8)
[2018-01-06 05:23] LABS: ANION GAP 6 mmol/L (5-15); BLOOD UREA NITROGEN 19 mg/dL (7-18); CARBON DIOXIDE 30 MMOL/L (21-32); CHLORIDE 100 MMOL/L (98-107); POTASSIUM 4.3 MMOL/L (3.5-5.1); SODIUM 135 MMOL/L (136-145)
[2018-01-06 08:00] VITALS: BP_SYST 138; BP_SYST 151; BP_SYST 165; BP_DIAS 105; BP_DIAS 106; BP_DIAS 98
[2018-01-06] MEDS: Polymyxin B Sulfate 500,000 UNITS in D5W 500ml 550 ML IV SCH ×2 (08:50→21:56)
[2018-01-06] MEDS: Pantoprazole Inj IVP SCH (08:50)
[2018-01-06] MEDS: Docusate 100mg cap ORAL SCH ×2 (09:10→18:05)
[2018-01-06] MEDS ORDERED: Tubing IV Secondary IV ONE (09:10)
[2018-01-06] MEDS: Heparin 5000 units/ml inj SUBQ SCH ×2 (09:11→21:55)
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
[2018-01-06 12:00] VITALS: BP 102/53
--- NOTE | 2018-01-06 14:36 | General Surgery Progress Note ---
General Surgery-Progress Note Subjective Additional Comments no acute events. stable. comfortable. Objective Last 24 Hour Vital Signs Date Time Temp Pulse Resp B/P (MAP) Pulse Ox O2 Delivery O2 Flow Rate FiO2 01/06/18 12:00 96.4 120 16 102/53 (69) 100 01/06/18 12:00 112 01/06/18 11:41 98.4 01/06/18 08:10 Room Air 01/06/18 08:00 98.4 93 21 165/105 (125) 100 01/06/18 08:00 138/98 (111) 01/06/18 08:00 151/106 (121) 01/06/18 04:00 99.4 96 20 152/91 (111) 98 01/05/18 21:00 Room Air 1.0 01/05/18 20:00 96.6 110 19 131/81 (98) 97 01/05/18 16:00 97.1 72 19 115/76 (89) 97 I&O Intake and Output 01/05/18 01/06/18 18:59 06:59 Intake Total 480 ml 1130 ml Output Total 700 ml 1250 ml Balance -220 ml -120 ml Intake Oral 480 ml 280 ml IV Total 850 ml Output Urine Total 700 ml 1250 ml Dressing: saturated Wound: other Drains: other Cardiovascular: RSR Respiratory: clear Abdomen: soft, non-tender, other - less prolapse today from ostomy. wound stable Extremities: other Laboratory Tests Test 01/05/18 21:35 01/05/18 21:45 01/06/18 04:30 Urine Color Pale yellow Urine Appearance Slightly cloudy Urine pH 6.5 (4.5-8.0) Urine Specific [place] 1.010 (1.005-1.035) Urine Protein 1+ (NEGATIVE) H Urine Glucose (UA) Negative (NEGATIVE) Urine Ketones Negative (NEGATIVE) Urine Blood 1+ (NEGATIVE) H Urine Nitrite Negative (NEGATIVE) Urine Bilirubin Negative (NEGATIVE) Urine Urobilinogen Normal MG/DL (0.0-1.0) Urine Leukocyte Esterase 3+ (NEGATIVE) H Urine RBC 2-4 /HPF (0 - 0) H Urine WBC 30-40 /HPF (0 - 0) H Urine Squamous Epithelial Cells Occasional /LPF Urine Bacteria Few /HPF (NONE) Reticulocyte Count 0.4 % (0.0-2.0) White Blood Count 7.8 K/UL (4.8-10.8) Red Blood Count 4.35 M/UL (4.70-6.10) L Hemoglobin 10.4 G/DL (14.2-18.0) #L Hematocrit 32.4 % (42.0-52.0) #L Mean Corpuscular Volume 74 FL (80-99) L Mean Corpuscular Hemoglobin 23.9 PG (27.0-31.0) L Mean Corpuscular Hemoglobin Concent 32.1 G/DL (32.0-36.0) Red Cell Distribution Width 19.3 % (11.6-14.8) H Platelet Count 399 K/UL (150-450) Mean Platelet Volume 4.7 FL (6.5-10.1) L Neutrophils (%) (Auto) 64.9 % (45.0-75.0) Lymphocytes (%) (Auto) 21.3 % (20.0-45.0) Monocytes (%) (Auto) 10.3 % (1.0-10.0) H Eosinophils (%) (Auto) 3.0 % (0.0-3.0) Basophils (%) (Auto) 0.5 % (0.0-2.0) Sodium Level 135 MMOL/L (136-145) L Potassium Level 4.3 MMOL/L (3.5-5.1) Chloride Level 100 MMOL/L (98-107) Carbon Dioxide Level 30 MMOL/L (21-32) Anion Gap 6 mmol/L (5-15) Blood Urea Nitrogen 19 mg/dL (7-18) H Creatinine 1.0 MG/DL (0.55-1.30) Estimat Glomerular Filtration Rate > 60 mL/min (>60) Glucose Level 76 MG/DL (74-106) Calcium Level 9.0 MG/DL (8.5-10.1) Plan Problems: (1) Colostomy prolapse Assessment & Plan: large >10cm prolapse of left lower abdominal ostomy. small stool and gas in bag. patient states present for years and makes him uncomfortable. has desired intervention prior but not discussed or offered long discussion with patient. very complex case given midline wound dehiscence with drainage, prior urostomy, and prolapsed ostomy will review records and see if possible surgical intervention ostomy without significant prolapse today. states that intermittent but does prolapse daily okay to d/c from surgical standpoint. can consider ostomy revision electively will follow with recs. (2) Sepsis (3) Decubital ulcer Assessment & Plan: very large area of skin loss over dorsal trunk, bilateral flank, hips, and amputation stumps, and perineum multiple stages of wounds and healing lots of sloth serous drainage ulcerations please see wound photos bilat AKA. Abd wound noted with moderate amt purulent exudate (L)5cm x (W)3.5cm x (D)1.3cm wound bed pink (+) epibole and with maceration. Periwound skin is pink and intact. Large wound from R to L of buttocks extending into perineum and posterior R thigh (L)15 x (W)25.4cm. Scattered areas of slough, with mixed dusky pink colour in wound bed.(+) maceration.. Moderately exuding serous exudate with mild odor. very complex wounds and case with care. for now was with NS, place xerofoam, and ABDApply Xeroform with Abd pads to wounds on buttocks.Wound cleans with Saline. Apply Xeroform gauze to wound bed .Cavilon wipe applied to borders and cover with ABD pads and reinforced with Transparent drsg. Cleanse abdominal wound with Saline and apply Silvasorb with Calcium alginate. Cavilon skin protectant applied to borders and covered with transparent drsg. skin protectant turn q2h air soft mattress (4) Abdominal wound dehiscence Assessment & Plan: prior distal midline surgical incision wound dehiscences with ulceration and slowly healing wound. some drainage noted. -packing and dressing with gauze BID will follow with recs thank you Atif Luna Jan 06, 2018 14:36
[2018-01-06 16:08] VITALS: BP 113/69
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
[2018-01-06] MEDS ORDERED: LORazepam 0.5mg tab ORAL PRN (16:41)
[2018-01-06] MEDS: Albuterol/Ipratropium 3ml neb HHN PRN ×2 (17:13→23:00)
--- NOTE | 2018-01-06 18:40 | General Progress Note ---
Assessment/Plan Status: stable Assessment/Plan (1) Anemia of chronic disease due to underlying chronic medical issues. --> Anemia panel has been reviewed. Will trend CBC daily. --> hgb goal >7, transfuse on prn basis --> no etoh or drug abuse, meds reviewed --> Blood tx: 01/03, 01/05, (2) Leukocytosis is likely due to UTI (urinary tract infection) does have sepsis --> Resolved/Improved. --> Remains on abx --> smear peripheral has been reviewed --> no schistocytes are noted --> no evidence of malignancy --> blood culture is positive for gram cocci (3) Quadriplegia --> weakness has been chronic (4) Colostomy care (5) Tobacco abuse --> cessation education (6) Dispo --> likely back to [facility] on d/c Greatly appreciate consultation! Subjective Date patient seen: Jan 06, 2018 ROS Limited/Unobtainable: Yes Hematologic/Lymphatic: Reports: anemia Allergies: Coded Allergies: CEFTRIAXONE (Verified Allergy, Unknown, 01/01/18) CODEINE (Verified Allergy, Unknown, 01/01/18) MORPHINE (Verified Allergy, Unknown, 01/01/18) PIPERACILLIN (Verified Allergy, Unknown, 01/01/18) SULFAMETHOXAZOLE (Verified Allergy, Unknown, 01/01/18) TAZOBACTAM (Verified Allergy, Unknown, 01/01/18) TRIMETHOPRIM (Verified Allergy, Unknown, 01/01/18) VANCOMYCIN (Verified Allergy, Unknown, 01/01/18) Subjective S/P blod tx, Hgb improved to 10.4 Objective Last 24 Hour Vital Signs Date Time Temp Pulse Resp B/P (MAP) Pulse Ox O2 Delivery O2 Flow Rate FiO2 01/06/18 17:40 97.6 01/06/18 17:20 113 22 96 Nasal Cannula 2.0 28 01/06/18 17:13 112 22 Nasal Cannula 2.0 28 01/06/18 17:13 114 22 94 Nasal Cannula 2.0 28 01/06/18 17:13 36 01/06/18 16:08 97.6 96 18 113/69 (84) 98 01/06/18 12:00 96.4 120 16 102/53 (69) 100 01/06/18 12:00 112 01/06/18 08:10 Room Air 01/06/18 08:00 98.4 93 21 165/105 (125) 100 01/06/18 08:00 138/98 (111) 01/06/18 08:00 151/106 (121) 01/06/18 04:00 99.4 96 20 152/91 (111) 98 01/05/18 21:00 Room Air 1.0 01/05/18 20:00 96.6 110 19 131/81 (98) 97 Intake and Output 01/05/18 01/06/18 18:59 06:59 Intake Total 480 ml 1130 ml Output Total 700 ml 1250 ml Balance -220 ml -120 ml Intake Oral 480 ml 280 ml IV Total 850 ml Output Urine Total 700 ml 1250 ml Laboratory Tests 01/05/18 21:35: Urine Color Pale yellow, Urine Appearance Slightly cloudy, Urine pH 6.5, Urine Specific [place] 1.010, Urine Protein 1+H, Urine Glucose (UA) Negative, Urine Ketones Negative, Urine Blood 1+H, Urine Nitrite Negative, Urine Bilirubin Negative, Urine Urobilinogen Normal, Urine Leukocyte Esterase 3+H, Urine RBC 2- 4H, Urine WBC 30-40H, Urine Squamous Epithelial Cells Occasional, Urine Bacteria Few 01/05/18 21:45: Reticulocyte Count 0.4 01/06/18 04:30: White Blood Count 7.8, Red Blood Count 4.35L, Hemoglobin 10.4#L, Hematocrit 32.4 #L, Mean Corpuscular Volume 74L, Mean Corpuscular Hemoglobin 23.9L, Mean Corpuscular Hemoglobin Concent 32.1, Red Cell Distribution Width 19.3H, Platelet Count 399, Mean Platelet Volume 4.7L, Neutrophils (%) (Auto) 64.9, Lymphocytes (%) (Auto) 21.3, Monocytes (%) (Auto) 10.3H, Eosinophils (%) (Auto) 3.0, Basophils (%) (Auto) 0.5, Sodium Level 135L, Potassium Level 4.3, Chloride Level 100, Carbon Dioxide Level 30, Anion Gap 6, Blood Urea Nitrogen 19H, Creatinine 1.0, Estimat Glomerular Filtration Rate > 60, Glucose Level 76, Calcium Level 9.0 Height (Feet): 3 Height (Inches): 0.00 Weight (Pounds): 150 General Appearance: no apparent distress EENT: PERRL/EOMI Neck: normal alignment Cardiovascular: normal peripheral pulses Respiratory/Chest: no respiratory distress Abdomen: normal bowel sounds Rodolfo Scott MD Jan 06, 2018 18:40
[2018-01-06 20:00] VITALS: BP 143/95
[2018-01-06] MEDS: Dyna-Hex 2% Top Sol 2oz TOPIC SCH (21:51)
[2018-01-07] VITALS (8 sets, daily range): BP systolic 85–144; BP diastolic 57–96
[2018-01-07 06:56] LABS: ANION GAP 5 mmol/L (5-15); BLOOD UREA NITROGEN 16 mg/dL (7-18); CALCIUM 8.9 MG/DL (8.5-10.1); CARBON DIOXIDE 30 MMOL/L (21-32); CHLORIDE 97 MMOL/L (98-107); POTASSIUM 4.1 MMOL/L (3.5-5.1); SODIUM 132 MMOL/L (136-145)
[2018-01-07 06:59] LABS: BASOPHILS % (AUTO) 0.7 % (0.0-2.0); EOSINOPHILS % (AUTO) 3.6 % (0.0-3.0); HEMATOCRIT 32.6 % (42.0-52.0); HEMOGLOBIN 10.1 G/DL (14.2-18.0); LYMPHOCYTES % (AUTO) 21.4 % (20.0-45.0); MEAN CORPUSCULAR VOLUME 75 FL (80-99); MONOCYTES % (AUTO) 9.9 % (1.0-10.0); NEUTROPHILS % (AUTO) 64.4 % (45.0-75.0); PLATELET COUNT 383 K/UL (150-450); RED BLOOD COUNT 4.36 M/UL (4.70-6.10); RED CELL DISTRIBUTION WIDTH 19.4 % (11.6-14.8); WHITE BLOOD COUNT 7.8 K/UL (4.8-10.8)
--- NOTE | 2018-01-07 08:53 | General Progress Note ---
Assessment/Plan Status: stable Assessment/Plan (1) Anemia of chronic disease due to underlying chronic medical issues. --> Anemia panel has been reviewed. Will trend CBC daily. --> hgb goal >7, transfuse on prn basis --> no etoh or drug abuse, meds reviewed --> Blood tx: 01/03, 01/05, (2) Leukocytosis is likely due to UTI (urinary tract infection) does have sepsis --> Resolved/Improved. --> Remains on abx --> smear peripheral has been reviewed --> no schistocytes are noted --> no evidence of malignancy --> blood culture is positive for gram cocci (3) Quadriplegia --> weakness has been chronic (4) Colostomy care (5) Tobacco abuse --> cessation education (6) Dispo --> likely back to [facility] on d/c Greatly appreciate consultation! Subjective Date patient seen: Jan 07, 2018 ROS Limited/Unobtainable: Yes Hematologic/Lymphatic: Reports: anemia Allergies: Coded Allergies: CEFTRIAXONE (Verified Allergy, Unknown, 01/01/18) CODEINE (Verified Allergy, Unknown, 01/01/18) MORPHINE (Verified Allergy, Unknown, 01/01/18) PIPERACILLIN (Verified Allergy, Unknown, 01/01/18) SULFAMETHOXAZOLE (Verified Allergy, Unknown, 01/01/18) TAZOBACTAM (Verified Allergy, Unknown, 01/01/18) TRIMETHOPRIM (Verified Allergy, Unknown, 01/01/18) VANCOMYCIN (Verified Allergy, Unknown, 01/01/18) Subjective Pt resting in bed. No acute events. H/H stable. Objective Last 24 Hour Vital Signs Date Time Temp Pulse Resp B/P (MAP) Pulse Ox O2 Delivery O2 Flow Rate FiO2 01/07/18 05:00 97.3 84 20 129/90 (103) 99 01/07/18 04:00 97.2 101 18 97/72 (80) 100 01/07/18 01:30 100 20 111/78 (89) 100 01/07/18 00:00 97.3 107 20 85/57 (66) 100 01/06/18 23:11 78 20 97 Nasal Cannula 2.0 28 01/06/18 23:00 75 20 100 Nasal Cannula 2.0 28 01/06/18 23:00 28 01/06/18 21:00 Nasal Cannula 2.0 01/06/18 20:00 98.7 96 20 143/95 (111) 100 01/06/18 17:40 97.6 01/06/18 17:20 113 22 96 Nasal Cannula 2.0 01/06/18 17:13 112 22 Nasal Cannula 2.0 28 01/06/18 17:13 114 22 94 Nasal Cannula 2.0 28 01/06/18 17:13 36 01/06/18 16:08 97.6 96 18 113/69 (84) 98 01/06/18 12:00 96.4 120 16 102/53 (69) 100 01/06/18 12:00 112 Intake and Output 01/06/18 01/07/18 19:00 07:00 Intake Total 1155 ml 650 ml Output Total 1350 ml 625 ml Balance -195 ml 25 ml Intake Oral 100 ml 100 ml IV Total 355 ml 550 ml Other 700 ml Output Urine Total 1350 ml 625 ml Stool Total 0 ml 0 ml # Voids 1 Laboratory Tests 01/07/18 05:30: White Blood Count 7.8, Red Blood Count 4.36L, Hemoglobin 10.1L, Hematocrit 32.6L , Mean Corpuscular Volume 75L, Mean Corpuscular Hemoglobin 23.3L, Mean Corpuscular Hemoglobin Concent 31.1L, Red Cell Distribution Width 19.4H, Platelet Count 383, Mean Platelet Volume 4.8L, Neutrophils (%) (Auto) 64.4, Lymphocytes (%) (Auto) 21.4, Monocytes (%) (Auto) 9.9, Eosinophils (%) (Auto) 3.6H, Basophils (%) (Auto) 0.7, Sodium Level 132L, Potassium Level 4.1, Chloride Level 97L, Carbon Dioxide Level 30, Anion Gap 5, Blood Urea Nitrogen 16 , Creatinine 1.0, Estimat Glomerular Filtration Rate > 60, Glucose Level 80, Calcium Level 8.9 Height (Feet): 3 Height (Inches): 0.00 Weight (Pounds): 150 General Appearance: no apparent distress EENT: PERRL/EOMI Neck: normal alignment Cardiovascular: normal peripheral pulses Respiratory/Chest: no respiratory distress Abdomen: normal bowel sounds Rodolfo Scott MD Jan 07, 2018 08:53
[2018-01-07] MEDS: HYDROmorphone 1mg/ml Carpuject IVP PRN ×3 (08:56→21:07)
[2018-01-07] MEDS: Docusate 100mg cap ORAL SCH ×2 (09:01→18:31)
[2018-01-07] MEDS: Pantoprazole Inj IVP SCH (09:01)
[2018-01-07] MEDS: Polymyxin B Sulfate 500,000 UNITS in D5W 500ml 550 ML IV SCH ×2 (09:03→21:06)
[2018-01-07] MEDS: Heparin 5000 units/ml inj SUBQ SCH ×2 (09:10→21:00)
[2018-01-07] MEDS: DiphenhydrAMINE 50mg/ml Inj IVP PRN ×2 (09:11→18:31)
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
--- NOTE | 2018-01-07 17:15 | General Surgery Progress Note ---
General Surgery-Progress Note Subjective Additional Comments stoma prolapse further today. CT reviewed. Objective Last 24 Hour Vital Signs Date Time Temp Pulse Resp B/P (MAP) Pulse Ox O2 Delivery O2 Flow Rate FiO2 01/07/18 12:00 97.0 100 18 102/67 (79) 100 01/07/18 09:00 Nasal Cannula 2.0 01/07/18 08:26 97.3 01/07/18 08:00 98.0 98 18 115/57 (76) 99 01/07/18 05:00 97.3 84 20 129/90 (103) 99 01/07/18 04:00 97.2 101 18 97/72 (80) 100 01/07/18 01:30 100 20 111/78 (89) 100 01/07/18 00:00 97.3 107 20 85/57 (66) 100 01/06/18 23:11 78 20 97 Nasal Cannula 2.0 28 01/06/18 23:00 75 20 100 Nasal Cannula 2.0 28 01/06/18 23:00 28 01/06/18 21:00 Nasal Cannula 2.0 01/06/18 20:00 98.7 96 20 143/95 (111) 100 01/06/18 17:20 113 22 96 Nasal Cannula 2.0 28 01/06/18 17:13 112 22 Nasal Cannula 2.0 28 01/06/18 17:13 114 22 94 Nasal Cannula 2.0 28 01/06/18 17:13 36 I&O Intake and Output 01/06/18 01/07/18 18:59 06:59 Intake Total 1155 ml 650 ml Output Total 1350 ml 625 ml Balance -195 ml 25 ml Intake Oral 100 ml 100 ml IV Total 355 ml 550 ml Other 700 ml Output Urine Total 1350 ml 625 ml Stool Total 0 ml 0 ml # Voids 1 Dressing: saturated Wound: other Drains: other Cardiovascular: RSR Respiratory: clear Abdomen: soft, other Extremities: other Laboratory Tests Test 01/07/18 05:30 White Blood Count 7.8 K/UL (4.8-10.8) Red Blood Count 4.36 M/UL (4.70-6.10) L Hemoglobin 10.1 G/DL (14.2-18.0) L Hematocrit 32.6 % (42.0-52.0) L Mean Corpuscular Volume 75 FL (80-99) L Mean Corpuscular Hemoglobin 23.3 PG (27.0-31.0) L Mean Corpuscular Hemoglobin Concent 31.1 G/DL (32.0-36.0) L Red Cell Distribution Width 19.4 % (11.6-14.8) H Platelet Count 383 K/UL (150-450) Mean Platelet Volume 4.8 FL (6.5-10.1) L Neutrophils (%) (Auto) 64.4 % (45.0-75.0) Lymphocytes (%) (Auto) 21.4 % (20.0-45.0) Monocytes (%) (Auto) 9.9 % (1.0-10.0) Eosinophils (%) (Auto) 3.6 % (0.0-3.0) H Basophils (%) (Auto) 0.7 % (0.0-2.0) Sodium Level 132 MMOL/L (136-145) L Potassium Level 4.1 MMOL/L (3.5-5.1) Chloride Level 97 MMOL/L (98-107) L Carbon Dioxide Level 30 MMOL/L (21-32) Anion Gap 5 mmol/L (5-15) Blood Urea Nitrogen 16 mg/dL (7-18) Creatinine 1.0 MG/DL (0.55-1.30) Estimat Glomerular Filtration Rate > 60 mL/min (>60) Glucose Level 80 MG/DL (74-106) Calcium Level 8.9 MG/DL (8.5-10.1) Plan Problems: (1) Colostomy prolapse Assessment & Plan: large >10cm prolapse of left lower abdominal ostomy. small stool and gas in bag. patient states present for years and makes him uncomfortable. has desired intervention prior but not discussed or offered long discussion with patient. very complex case given midline wound dehiscence with drainage, prior urostomy, and prolapsed ostomy will review records and see if possible surgical intervention prolapse worse today. patient states intermittent obstructive symptoms. almost 7-8 inches of prolapse noted today discussed findings with patient. discussed surgical options as well as non surgical. patient states it causes him a significant discomfort would like to proceed with surgery. will plan for debridement of wounds as well while in OR. patient given all risks, benefits, and alternatives. consent obtained surgery scheduled for tomorrow at 11AM npo p mn will follow with recs. (2) Sepsis (3) Decubital ulcer Assessment & Plan: very large area of skin loss over dorsal trunk, bilateral flank, hips, and amputation stumps, and perineum multiple stages of wounds and healing lots of sloth serous drainage ulcerations please see wound photos olman AKCecilio. Abd wound noted with moderate amt purulent exudate (L)5cm x (W)3.5cm x (D)1.3cm wound bed pink (+) epibole and with maceration. Periwound skin is pink and intact. Large wound from R to L of buttocks extending into perineum and posterior R thigh (L)15 x (W)25.4cm. Scattered areas of slough, with mixed dusky pink colour in wound bed.(+) maceration.. Moderately exuding serous exudate with mild odor. very complex wounds and case with care. for now was with NS, place xerofoam, and ABDApply Xeroform with Abd pads to wounds on buttocks.Wound cleans with Saline. Apply Xeroform gauze to wound bed .Cavilon wipe applied to borders and cover with ABD pads and reinforced with Transparent drsg. Cleanse abdominal wound with Saline and apply Silvasorb with Calcium alginate. Cavilon skin protectant applied to borders and covered with transparent drsg. skin protectant turn q2h air soft mattress (4) Abdominal wound dehiscence Assessment & Plan: prior distal midline surgical incision wound dehiscences with ulceration and slowly healing wound. some drainage noted. -packing and dressing with gauze BID will follow with recs thank you Atif Luna Jan 07, 2018 17:15
--- NOTE | 2018-01-07 17:17 | Pre-Procedure Note/Attestation ---
Pre-Procedure Note/Attestation Complete Prior to Procedure Planned Procedure: not applicable Procedure Narrative: 1. revision of colostomy 2. debridement of multiple wounds. Indications for Procedure Pre-Operative Diagnosis: colostomy prolapse causing obstructive symptoms multiple large wounds on back, buttock, sacrum Attestation I attest that I discussed the nature of the procedure; its benefits; risks and complications; and alternatives (and the risks and benefits of such alternatives ), prior to the procedure, with the patient (or the patient's legal national sales representative). I attest that, if there was a reasonable possibility of needing a blood transfusion, the patient (or the patient's legal national sales representative) was given the [place] Department [employer] Services standardized written summary, pursuant to the [employer] [place] Blood Safety Act ([place] Health and Safety Code # 1645, as amended). I attest that I re-evaluated the patient just prior to the surgery and that there has been no change in the patient's H&P, except as documented below: Atif Luna Jan 07, 2018 17:17
[2018-01-07] MEDS ORDERED: Tubing IV Secondary IV ONE (17:32)
[2018-01-07] MEDS: Dyna-Hex 2% Top Sol 2oz TOPIC SCH (21:05)
[2018-01-08] VITALS (11 sets, daily range): BP systolic 88–145; BP diastolic 60–106
[2018-01-08] MEDS: DiphenhydrAMINE 50mg/ml Inj IVP PRN ×3 (00:41→18:16)
[2018-01-08] MEDS: HYDROmorphone 1mg/ml Carpuject IVP PRN ×3 (03:04→14:52)
[2018-01-08 07:08] LABS: BASOPHILS % (AUTO) 0.6 % (0.0-2.0); EOSINOPHILS % (AUTO) 4.6 % (0.0-3.0); HEMATOCRIT 34.8 % (42.0-52.0); HEMOGLOBIN 10.7 G/DL (14.2-18.0); LYMPHOCYTES % (AUTO) 18.3 % (20.0-45.0); MEAN CORPUSCULAR VOLUME 76 FL (80-99); MONOCYTES % (AUTO) 8.2 % (1.0-10.0); NEUTROPHILS % (AUTO) 68.4 % (45.0-75.0); PLATELET COUNT 393 K/UL (150-450); RED CELL DISTRIBUTION WIDTH 19.8 % (11.6-14.8)
[2018-01-08 07:34] LABS: ALANINE AMINOTRANSFERASE 21 U/L (12-78); ALBUMIN 1.7 G/DL (3.4-5.0); ALBUMIN/GLOBULIN RATIO 0.3 (1.0-2.7); ALKALINE PHOSPHATASE 121 U/L (46-116); ANION GAP 8 mmol/L (5-15); ASPARTATE AMINO TRANSFERASE 20 U/L (15-37); BILIRUBIN,TOTAL 0.3 MG/DL (0.2-1.0); BLOOD UREA NITROGEN 27 mg/dL (7-18); CALCIUM 9.1 MG/DL (8.5-10.1); CARBON DIOXIDE 28 MMOL/L (21-32); CHLORIDE 98 MMOL/L (98-107); CREATININE 1.3 MG/DL (0.55-1.30); POTASSIUM 4.6 MMOL/L (3.5-5.1); SODIUM 134 MMOL/L (136-145)
[2018-01-08] MEDS: Heparin 5000 units/ml inj SUBQ SCH ×2 (09:00→21:00)
[2018-01-08] MEDS: Polymyxin B Sulfate 500,000 UNITS in D5W 500ml 550 ML IV SCH ×2 (09:03→22:43)
[2018-01-08] MEDS: Docusate 100mg cap ORAL SCH ×2 (09:03→18:07)
[2018-01-08] MEDS: Pantoprazole Inj IVP SCH (09:03)
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
[2018-01-08] MEDS ORDERED: NeoSporin Gu Irrig 1ml Amp IRRIG ONE (10:20)
[2018-01-08] MEDS ORDERED: Lidocaine 1% 10mg/ml/Epi 0.005mg/ml 30ml vial INJ ONE (10:20)
[2018-01-08] MEDS ORDERED: Bacitracin 50000 Units Vial ONE (10:20)
[2018-01-08] MEDS ORDERED: Zemuron 50mg/5ml Inj IV ONE (10:28)
[2018-01-08] MEDS ORDERED: Midazolam 2mg/2ml Inj ONE (10:39)
[2018-01-08] MEDS ORDERED: fentaNYL 100 mcg/2 mL IV ONE (10:39)
[2018-01-08] MEDS ORDERED: Propofol 200mg/20ml IV ONE (10:40)
[2018-01-08] MEDS ORDERED: Lidocaine 1% MPF 10mg/ml 5ml ONE (10:40)
[2018-01-08] MEDS ORDERED: Sodium Chloride 10ml vial INJ ONE (10:40)
[2018-01-08] MEDS ORDERED: NS Irrig 1000ml ONE (10:57)
[2018-01-08] MEDS ORDERED: Sterile Water Irrig 1000ml IRRIG ONE (10:57)
--- NOTE | 2018-01-08 11:04 | Anethesia Preoperative Eval ---
Anesthesia Pre-op PMH/ROS General Date of Evaluation: Jan 08, 2018 Time of Evaluation: 10:56 Anesthesiologist: Sara ASA Score: ASA 4 Mallampati Score Class I : Soft palate, uvula, fauces, pillars visible Class II: Soft palate, uvula, fauces visible Class III: Soft palate, base of uvula visible Class IV: Only hard plate visible Mallampati Classification: Class III Surgeon: Jessica Diagnosis: Colostomy prolapse, decubitus wounds Surgical Procedure: Coloctomy revision, debridement of decubitus wounds Social History: current smoker Family History: no anesthesia problems Allergies: Coded Allergies: CEFTRIAXONE (Verified Allergy, Unknown, 01/01/18) CODEINE (Verified Allergy, Unknown, 01/01/18) MORPHINE (Verified Allergy, Unknown, 01/01/18) PIPERACILLIN (Verified Allergy, Unknown, 01/01/18) SULFAMETHOXAZOLE (Verified Allergy, Unknown, 01/01/18) TAZOBACTAM (Verified Allergy, Unknown, 01/01/18) TRIMETHOPRIM (Verified Allergy, Unknown, 01/01/18) VANCOMYCIN (Verified Allergy, Unknown, 01/01/18) Patient NPO?: Yes NPO Date: Jan 08, 2018 NPO Time: 0000 Past Medical History Cardiovascular: Denies: HTN, CAD, ND, valve dz, arrhythmia, other Pulmonary: Reports: other - s/p trach reversal; Denies: asthma, COPD, TERA Gastrointestinal/Genitourinary: Reports: GERD; Denies: CRI, ESRD, other Neurologic/Psychiatric: Reports: depression/anxiety, other - paraplegic; Denies: dementia, CVA, TIA Endocrine: Denies: DM, hypothyroidism, steroids, other HEENT: Denies: cataract (L), cataract (R), glaucoma, [place] (L), [place] (R), other Hematology/Immune: Reports: anemia; Denies: DVT, bleeding disorder, other Musculoskeletal/Integumentary: Reports: other - s/p bilateral LE amputation; Denies: OA, RA, DJD, DDD, edema Other: other - malnourished PMH Narrative: as above, admitted with severe anemia, high WBC, sepsis PSxH Narrative: Multiple abdominal surgeries bilateral LE amputation Anesthesia Pre-op Phys. Exam Physician Exam Last Vital Signs Date Time Temp Pulse Resp B/P (MAP) Pulse Ox O2 Delivery O2 Flow Rate FiO2 10/30/18 10:29 98 18 Room Air 21 01/08/18 08:00 100.0 104/67 (79) 99 01/07/18 21:00 2.0 Constitutional: NAD Neurologic: CN 2-12 intact Cardiovascular: RRR Respiratory: other - some wheezing bilateraly Gastrointestinal: other - colostomy and urostomy, multiple scars some wound dehisence Airway Exam Mallampati Score: Class III - possible tracheal stenosis MO: limited Neck: stiff ROM: limited Teeth: missing, broken Dentures: no upper, no lower Anesthesia Pre-op A/P Labs Hematology Test 01/08/18 06:55 White Blood Count 8.0 K/UL (4.8-10.8) Red Blood Count 4.60 M/UL (4.70-6.10) L Hemoglobin 10.7 G/DL (14.2-18.0) L Hematocrit 34.8 % (42.0-52.0) L Mean Corpuscular Volume 76 FL (80-99) L Mean Corpuscular Hemoglobin 23.3 PG (27.0-31.0) L Mean Corpuscular Hemoglobin Concent 30.8 G/DL (32.0-36.0) L Red Cell Distribution Width 19.8 % (11.6-14.8) H Platelet Count 393 K/UL (150-450) Mean Platelet Volume 4.7 FL (6.5-10.1) L Neutrophils (%) (Auto) 68.4 % (45.0-75.0) Lymphocytes (%) (Auto) 18.3 % (20.0-45.0) L Monocytes (%) (Auto) 8.2 % (1.0-10.0) Eosinophils (%) (Auto) 4.6 % (0.0-3.0) H Basophils (%) (Auto) 0.6 % (0.0-2.0) Coagulation Test 01/08/18 06:55 Prothrombin Time 10.4 SEC (9.30-11.50) Prothromb Time International Ratio 1.0 (0.9-1.1) Activated Partial Thromboplast Time 29 SEC (23-33) Chemistry Test 01/08/18 06:55 Sodium Level 134 MMOL/L (136-145) L Potassium Level 4.6 MMOL/L (3.5-5.1) Chloride Level 98 MMOL/L (98-107) Carbon Dioxide Level 28 MMOL/L (21-32) Anion Gap 8 mmol/L (5-15) Blood Urea Nitrogen 27 mg/dL (7-18) H Creatinine 1.3 MG/DL (0.55-1.30) Estimat Glomerular Filtration Rate 58.0 mL/min (>60) Glucose Level 91 MG/DL (74-106) Calcium Level 9.1 MG/DL (8.5-10.1) Total Bilirubin 0.3 MG/DL (0.2-1.0) Aspartate Amino Transf (AST/SGOT) 20 U/L (15-37) Alanine Aminotransferase (ALT/SGPT) 21 U/L (12-78) Alkaline Phosphatase 121 U/L (46-116) H Total Protein 7.7 G/DL (6.4-8.2) Albumin 1.7 G/DL (3.4-5.0) L Globulin 6.0 g/dL Albumin/Globulin Ratio 0.3 (1.0-2.7) L Studies Pre-op Studies: EKG - s/r Risk Assessment & Plan Assessment: ASA 4 Plan: GA with ETT small size tube, possible [id number] support postoperatively Status Change Before Surgery: No Pre-Antibiotics Drug: as scheduled Raghu Ruiz MD Jan 08, 2018 11:04
--- NOTE | 2018-01-08 12:53 | Immediate Post-Op Evaluation ---
Immediate Post-Op Evalulation Immediate Post-Op Evalulation Procedure: Revision of colostomy with bovel resection Date of Evaluation: Jan 08, 2018 Time of Evaluation: 12:52 IV Fluids: 600 Blood Products: Albumin 250cc Estimated Blood Loss: 50 Urinary Output: n/a Blood Pressure Systolic: 93 Blood Pressure Diastolic: 56 Pulse Rate: 98 Respiratory Rate: 20 O2 Sat by Pulse Oximetry: 99 Temperature (Fahrenheit): 97.8 Pain Score (1-10): 2 Nausea: No Vomiting: No Complications none Patient Status: awake, patent, extubated, none Raghu Ruiz MD Jan 08, 2018 12:53
[2018-01-08] MEDS ORDERED: Midazolam 2mg/2ml Inj IVP PRN (13:00)
[2018-01-08] MEDS ORDERED: Hydromorphone 0.5mg/0.5ml inj IVP PRN (13:00)
--- NOTE | 2018-01-08 13:10 | Brief Operative Note ---
Immediate Post Operative Note Operative Note Pre-op Diagnosis: colostomy prolapse causing obstructive symptoms multiple large wounds on back, buttock, sacrum Procedure: 1. colostomy revision with colectomy 2. debridement of sacral, ischial, bilateral buttock, and perineal decubitus ulcers with ostectomy Post-op Diagnosis: colostomy prolapse with obstructive symptoms and large wounds on sacral, ischial , bilateral buttock, and perineal decubitus ulcers Surgeon: birdie Air Tool Operator: kristyn Anesthesiologist: lea Anesthesia: general Specimen: yes Complications: none Condition: stable Fluids: see records Estimated Blood Loss: minimal Drains: none Implant(s) used?: No Atif Luna Jan 08, 2018 13:10
--- NOTE | 2018-01-08 13:32 | Cardiology Report ---
APPROVED REPORT EXAM: Two-dimensional and M-mode echocardiogram with Doppler and color Doppler. INDICATION VEGITATION M-Mode DIMENSIONS IVSd1.4 (0.7-1.1cm)Left Atrium (MM)1.9 (1.6-4.0cm) LVDd4.9 (3.5-5.6cm)Aortic Root4.0 (2.0-3.7cm) PWd1.4 (0.7-1.1cm)Aortic Cusp Exc.2.1 (1.5-2.0cm) IVSs1.8 cm LVDs3.3 (2.5-4.0cm) PWs1.7 cm Normal left ventricular chamber size, systolic function and wall motion. Study quality precludes accurate assessment of regional wall motion. Left ventricular ejection fraction estimated to be 55 %. No evidence of left ventricular hypertrophy by 2-D. No evidence of pericardial effusion. All other cardiac chamber sizes appear to be within normal limits . Mildly Focal aortic valve sclerosis with adequate cusp excursion. Mildly Thickened mitral valve leaflets with normal excursion. Mitral annulus and aortic root calcification. Normal pulmonic valve structure. tricuspid valve structure not well visualized . IVC at size 1.8 cm and non- collapsing with respiration ,suggestive to increase RA pressure . A color flow and spectral Doppler study was performed and revealed: No aortic insufficiency. Normal left ventricular diastolic function . Trace mitral regurgitation. Tricuspid systolic velocities suggests peak right ventricular systolic pressure of 28 mmHg, Mild tricuspid regurgitation .
--- NOTE | 2018-01-08 15:10 | General Progress Note ---
Assessment/Plan Assessment/Plan # Anemia of chronic disease due to underlying chronic medical issues. --> Anemia panel has been reviewed. Will trend CBC daily. --> hgb goal >7, transfuse on prn basis --> no etoh or drug abuse, meds reviewed --> Blood tx: 01/03, 01/05, --> consider iron once infection has cleared # Leukocytosis is likely due to UTI (urinary tract infection) does have sepsis, also could be due to decub --> Resolved/Improved. --> Remains on abx --> smear peripheral has been reviewed --> no schistocytes are noted --> no evidence of malignancy --> blood culture is positive for gram cocci --> appreciate ID recs --> decub surgery as per surgery # Quadriplegia --> weakness has been chronic # Colostomy care --> per surgery # Tobacco abuse --> cessation education # Dispo --> likely back to [facility] on d/c Greatly appreciate consultation! Subjective Constitutional: Denies: no symptoms, chills, diaphoresis, fever, malaise, weakness, other HEENT: Denies: no symptoms, eye pain, blurred vision, tearing, double vision, ear pain, ear discharge, nose pain, nose congestion, throat pain, throat swelling, mouth pain, mouth swelling, other Cardiovascular: Denies: no symptoms, chest pain, edema, irregular heart rate, lightheadedness, palpitations, syncope, other Respiratory: Denies: no symptoms, cough, orthopnea, shortness of breath, SOB with excertion, SOB at rest, sputum, stridor, wheezing, other Genitourinary: Denies: no symptoms, burning, discharge, frequency, flank pain, hematuria, incontinence, pain, urgency, other Endocrine: Denies: no symptoms, excessive sweating, flushing, intolerance to cold, intolerance to heat, increased hunger, increased thirst, increased urine, unexplained weight gain, unexplained weight loss, other Hematologic/Lymphatic: Denies: no symptoms, anemia, easy bleeding, easy bruising, other Allergies: Coded Allergies: CEFTRIAXONE (Verified Allergy, Unknown, 01/01/18) CODEINE (Verified Allergy, Unknown, 01/01/18) MORPHINE (Verified Allergy, Unknown, 01/01/18) PIPERACILLIN (Verified Allergy, Unknown, 01/01/18) SULFAMETHOXAZOLE (Verified Allergy, Unknown, 01/01/18) TAZOBACTAM (Verified Allergy, Unknown, 01/01/18) TRIMETHOPRIM (Verified Allergy, Unknown, 01/01/18) VANCOMYCIN (Verified Allergy, Unknown, 01/01/18) Subjective Pt resting in bed. No acute events. H/H remains stable. Objective Last 24 Hour Vital Signs Date Time Temp Pulse Resp B/P (MAP) Pulse Ox O2 Delivery O2 Flow Rate FiO2 01/08/18 13:25 98.3 98 16 105/77 100 Nasal Cannula 3 01/08/18 13:10 102 19 98/63 100 Nasal Cannula 3 01/08/18 13:00 100 23 88/65 100 Nasal Cannula 3 01/08/18 12:53 98 20 99 01/08/18 12:50 103 15 92/62 100 Simple Mask 6 01/08/18 12:45 101 15 91/65 100 Simple Mask 6 01/08/18 12:40 98.1 96 22 93/69 100 Simple Mask 6 01/08/18 10:29 98 18 Room Air 21 01/08/18 09:22 98.6 01/08/18 09:20 100.0 01/08/18 09:00 Nasal Cannula 2.0 01/08/18 08:00 100.0 90 18 104/67 (79) 99 01/08/18 04:00 97.6 101 19 92/60 (71) 97 01/08/18 00:00 97.9 101 19 145/89 (107) 100 01/07/18 21:00 Nasal Cannula 2.0 01/07/18 20:40 100 16 Room Air 21 01/07/18 20:00 98.4 106 19 116/88 (97) 100 01/07/18 16:00 95.9 91 18 144/96 (112) 98 Intake and Output 01/07/18 01/08/18 19:00 07:00 Intake Total 2690 ml Output Total 1000 ml Balance 2690 ml -1000 ml Intake Oral 1840 ml IV Total 850 ml Output Urine Total 1000 ml # Voids 6 Laboratory Tests 01/08/18 06:55: White Blood Count 8.0, Red Blood Count 4.60L, Hemoglobin 10.7L, Hematocrit 34.8L , Mean Corpuscular Volume 76L, Mean Corpuscular Hemoglobin 23.3L, Mean Corpuscular Hemoglobin Concent 30.8L, Red Cell Distribution Width 19.8H, Platelet Count 393, Mean Platelet Volume 4.7L, Neutrophils (%) (Auto) 68.4, Lymphocytes (%) (Auto) 18.3L, Monocytes (%) (Auto) 8.2, Eosinophils (%) (Auto) 4.6H, Basophils (%) (Auto) 0.6, Prothrombin Time 10.4, Prothromb Time International Ratio 1.0, Activated Partial Thromboplast Time 29, Sodium Level 134L, Potassium Level 4.6, Chloride Level 98, Carbon Dioxide Level 28, Anion Gap 8, Blood Urea Nitrogen 27H, Creatinine 1.3, Estimat Glomerular Filtration Rate 58.0, Glucose Level 91, Calcium Level 9.1, Total Bilirubin 0.3, Aspartate Amino Transf (AST/SGOT) 20, Alanine Aminotransferase (ALT/SGPT) 21, Alkaline Phosphatase 121H, Total Protein 7.7, Albumin 1.7L, Globulin 6.0, Albumin/ Globulin Ratio 0.3L Height (Feet): 3 Height (Inches): 0.00 Weight (Pounds): 150 General Appearance: no apparent distress, mild distress EENT: TMs normal Neck: supple Cardiovascular: regular rhythm Respiratory/Chest: chest wall non-tender Abdomen: non tender Extremities: non-tender Edema: 1+ Leg (L), 1+ Leg (R) Edema: mild edema Neurologic: alert Skin: warm/dry Rodolfo Scott MD Jan 08, 2018 15:10
[2018-01-08] MEDS ORDERED: HYDROmorphone 1mg/ml Carpuject IM SCH (17:30)
[2018-01-08] MEDS ORDERED: HYDROmorphone 1mg/ml Carpuject IVP SCH (18:00)
[2018-01-08] MEDS: Dyna-Hex 2% Top Sol 2oz TOPIC SCH (22:44)
[2018-01-08] MEDS ORDERED: HYDROmorphone 1mg/ml Carpuject IM PRN (23:30)
[2018-01-09] VITALS: BP 119/80
--- NOTE | 2018-01-09 03:00 | Operative Note - Dictated ---
DATE OF OPERATION: 01/08/2018 PREOPERATIVE DIAGNOSES: 1. Colostomy prolapse causing obstructive symptoms. 2. Multiple large wounds on back, buttock, sacrum, and perineum. POSTOPERATIVE DIAGNOSES: 1. Colostomy prolapse causing obstructive symptoms. 2. Multiple large wounds on back, buttock, sacrum,and perineum with exposed bone and osteomyelitis OPERATIONS PERFORMED: 1. Colostomy revision with colectomy. 2. Debridement of sacral, ischial, bilateral buttock, and perineal decubitus ulcers with ostectomy. ATTENDING SURGEON: Atif Luna M.D. BISQUE BRUSHER: Candelario Moreno M.D. ANESTHESIOLOGIST: Raghu Ruiz M.D. ANESTHESIA: General ONSITE CASE MANAGER. ESTIMATED BLOOD LOSS: 25 mL. IV FLUIDS: Please see anesthesia records. COMPLICATIONS: None. SPECIMENS: Ostectomy sent to pathology for review. CONDITION: Stable. DRAINS: None. IMPLANTS: None. WOUND CLASSIFICATION: Class III. ANTIBIOTICS: The patient is on scheduled IV antibiotics for acute active inflammatory process INDICATIONS FOR PROCEDURE: Patient with a right abdominal ileal conduit, a left abdominal colostomy with prolapse, a lower midline abdominal slow-healing surgical wound, and multiple large decubitus ulcers in the sacral area, bilateral buttocks, ischial area, perineum, and lower extremity stumps. Has been having more recurrent obstructive symptoms from prolapse. Initially treated in the hospital conservatively, but was noted to have worsening prolapse and intermittent obstructive symptoms, and discussion was had with the patient regarding condition and plans and the patient strongly advocated for surgical intervention given his history and significantly worsening prolapse with worsening obstructive symptoms. In discussing surgical options, we discussed options for colostomy revision that would be safe as given the patient 's complex surgical history and then as well debridement of his multiple ulcers and wounds. The patient expressed understanding and strongly desired to proceed with surgery. Consent was obtained. Surgery is planned for 01/08/2018. OPERATIVE NOTE: The patient was taken to the operating room and placed on the operating table in supine position with bilateral arms out. All bony prominences were well padded. The patient has an urostomy with a bag on the right abdomen and a colostomy on the left. Multiple wounds on the posterior aspect. Preoperative time-out was taken identifying the patient, procedure, operative staff, and surgical staff. The patient was already on scheduled IV antibiotics prior to entering the operating room. General anesthesia was induced and the patient was intubated. At this time, we discussed prior surgical options and decision was made to do a trans-colostomy revision given a midline laparotomy would be very dangerous with his history as well as any injury to the ileal conduit would be disastrous and given the amount of prolapse, likely does have a fairly clear opening in the colostomy site. The abdomen was then clipped, prepped, and draped in a standard surgical fashion. The [place]'s were placed at the edge of the colostomy prolapse, and using a #10 scalpel and electrocautery, the mucosa, submucosa and muscularis of the colon were incised at the level of the colocutaneous colostomy. This was circumferentially completed until the colon was freed from the dermal attachments and easily protruded a significant portion approximately 8 inches of colon through the patient's colostomy site. There were very minimal attachments to the peritoneum and the fascia, and it was notable circumferentially free and mobile. At this time, a level of division of the colon was identified after the significant portion of the redundant colon was pulled through the colostomy. Once no redundancy was noted, a resection level was identified and the mesentery until this level was divided using multiple 2-0 silk ties. Once this completed, the bowel was divided using scalpel and electrocautery for hemostasis. [place] was placed at the end of the bowel to ensure it does not fall back into the abdomen. Once this was completed, a new colostomy was matured using multiple 3-0 vicryl sutures. A new colostomy was intubated and noted to be patent and viable. At this time, a new colostomy bag was placed, and we turned our attention to the patient's multiple wounds for debridement. The midline lower wound was noted to have a very old Prolene suture as a foreign body, and this was excised. The remaining granulation bed was debrided until healthy bleeding tissue and gauze dressing was applied. The patient was then turned on to the right lateral decubitus position, and prior wound dressings removed and multiple large wounds were noted in significant extent. Please refer to prior notes for details. 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 A right BKA stump wound down to the ischial tuberosity, a left ischial wound down to the ischial tuberosity with bone exposed, bilateral buttock decubitus ulcers and perineal decubitus ulcers. Discussion was had prior with the patient given no tissue remaining for flap closures, and therefore significant excision was not recommended rather just nonexcisional debridement of a significant portion of these wounds were completed. There were areas of fibrinous slough and debris that required excisional debridement using Metzenbaum surgical scissors. In the left ischial tuberosity, there was exposed bone and some broken bones, likely with osteo and portions of broken bone were sticking out as foreign bodies. An ostectomy was performed down and bone sent to pathology for review. The wound was shaved down smoothly until a healthy bleeding tissue was identified and surrounding tissues were noted to be with good healthy viable tissue as well. Once significant portion of slough and fibrinous necrotic tissues were excised and debrided as well as removal of bone, the wounds were washed, cleansed, and redressed with Xeroform gauze followed by gauze dressing and ABD and skin tape. The patient tolerated the procedure well, was extubated and taken to the postanesthetic care unit in stable condition. Atif Luna M.D. DR: MALCOLM JOB#: [id number] CC: CELSO
[2018-01-09 04:00] VITALS: BP 98/74
--- NOTE | 2018-01-09 06:23 | General Progress Note ---
Assessment/Plan Assessment/Plan # Anemia of chronic disease due to underlying chronic medical issues. --> Anemia panel has been reviewed. Will trend as needed --> hgb goal >7, transfuse on prn basis --> no etoh or drug abuse, meds reviewed --> Blood tx: 01/03, 01/05, --> consider iron once infection has cleared # Leukocytosis is likely due to UTI (urinary tract infection) does have sepsis, also could be due to decub --> Resolved/Improved. --> Remains on abx --> smear peripheral has been reviewed --> no schistocytes are noted --> no evidence of malignancy --> blood culture is positive for gram cocci --> appreciate ID recs --> decub surgery as per surgery # Quadriplegia --> weakness has been chronic # Colostomy care, s/p colostomy revision and bowel resection on 01/09/18 --> per surgery # Tobacco abuse --> cessation education # Dispo --> likely back to [facility] on d/ Greatly appreciate consultation! Subjective Constitutional: Denies: no symptoms, chills, diaphoresis, fever, malaise, weakness, other HEENT: Denies: no symptoms, eye pain, blurred vision, tearing, double vision, ear pain, ear discharge, nose pain, nose congestion, throat pain, throat swelling, mouth pain, mouth swelling, other Cardiovascular: Denies: no symptoms, chest pain, edema, irregular heart rate, lightheadedness, palpitations, syncope, other Respiratory: Denies: no symptoms, cough, orthopnea, shortness of breath, SOB with excertion, SOB at rest, sputum, stridor, wheezing, other Gastrointestinal/Abdominal: Denies: no symptoms, abdomen distended, abdominal pain, black stools, tarry stools, blood in stool, constipated, diarrhea, difficulty swallowing, nausea, poor appetite, poor fluid intake, rectal bleeding , vomiting, other Neurologic/Psychiatric: Denies: no symptoms, anxiety, depressed, emotional problems, headache, numbness, paresthesia, pre-existing deficit, seizure, tingling, tremors, weakness, other Hematologic/Lymphatic: Denies: no symptoms, anemia, easy bleeding, easy bruising, other Allergies: Coded Allergies: CEFTRIAXONE (Verified Allergy, Unknown, 01/01/18) CODEINE (Verified Allergy, Unknown, 01/01/18) MORPHINE (Verified Allergy, Unknown, 01/01/18) PIPERACILLIN (Verified Allergy, Unknown, 01/01/18) SULFAMETHOXAZOLE (Verified Allergy, Unknown, 01/01/18) TAZOBACTAM (Verified Allergy, Unknown, 01/01/18) TRIMETHOPRIM (Verified Allergy, Unknown, 01/01/18) VANCOMYCIN (Verified Allergy, Unknown, 01/01/18) Subjective Pt resting in bed. No acute events. H/H remains stable. Labs reviewed Objective Last 24 Hour Vital Signs Date Time Temp Pulse Resp B/P (MAP) Pulse Ox O2 Delivery O2 Flow Rate FiO2 01/09/18 04:00 100.0 107 20 98/74 (82) 98 01/09/18 00:41 100.0 01/09/18 00:00 102.2 101 20 119/80 (93) 98 01/08/18 21:11 85 20 Room Air 21 01/08/18 21:00 Nasal Cannula 2.0 01/08/18 20:00 99.1 83 18 112/73 (86) 98 01/08/18 18:36 96.1 01/08/18 16:00 96.1 67 19 142/106 (118) 95 01/08/18 15:22 98.3 01/08/18 13:25 98.3 98 16 105/77 100 Nasal Cannula 3 01/08/18 13:10 102 19 98/63 100 Nasal Cannula 3 01/08/18 13:00 100 23 88/65 100 Nasal Cannula 3 01/08/18 12:53 98 20 99 01/08/18 12:50 103 15 92/62 100 Simple Mask 6 01/08/18 12:45 101 15 91/65 100 Simple Mask 6 01/08/18 12:40 98.1 96 22 93/69 100 Simple Mask 6 01/08/18 10:29 98 18 Room Air 21 01/08/18 09:00 Nasal Cannula 2.0 01/08/18 08:00 100.0 90 18 104/67 (79) 99 Intake and Output 01/08/18 01/09/18 19:00 07:00 Intake Total 2920 ml 850 ml Output Total 300 ml Balance 2620 ml 850 ml Intake Oral 820 ml IV Total 1850 ml 850 ml Other 250 ml Output Urine Total 300 ml Laboratory Tests 01/08/18 06:55: White Blood Count 8.0, Red Blood Count 4.60L, Hemoglobin 10.7L, Hematocrit 34.8L , Mean Corpuscular Volume 76L, Mean Corpuscular Hemoglobin 23.3L, Mean Corpuscular Hemoglobin Concent 30.8L, Red Cell Distribution Width 19.8H, Platelet Count 393, Mean Platelet Volume 4.7L, Neutrophils (%) (Auto) 68.4, Lymphocytes (%) (Auto) 18.3L, Monocytes (%) (Auto) 8.2, Eosinophils (%) (Auto) 4.6H, Basophils (%) (Auto) 0.6, Prothrombin Time 10.4, Prothromb Time International Ratio 1.0, Activated Partial Thromboplast Time 29, Sodium Level 134L, Potassium Level 4.6, Chloride Level 98, Carbon Dioxide Level 28, Anion Gap 8, Blood Urea Nitrogen 27H, Creatinine 1.3, Estimat Glomerular Filtration Rate 58.0, Glucose Level 91, Calcium Level 9.1, Total Bilirubin 0.3, Aspartate Amino Transf (AST/SGOT) 20, Alanine Aminotransferase (ALT/SGPT) 21, Alkaline Phosphatase 121H, Total Protein 7.7, Albumin 1.7L, Globulin 6.0, Albumin/ Globulin Ratio 0.3L Height (Feet): 3 Height (Inches): 0.00 Weight (Pounds): 150 General Appearance: no apparent distress EENT: TMs normal Neck: supple Cardiovascular: regular rhythm Respiratory/Chest: normal breath sounds Abdomen: soft Extremities: normal inspection Edema: 1+ Leg (L), 1+ Leg (R) Edema: mild edema Neurologic: alert Skin: warm/dry Rodolfo Scott MD Jan 09, 2018 06:23
[2018-01-09] MEDS: HYDROmorphone 1mg/ml Carpuject IVP PRN ×5 (06:26→20:25)
[2018-01-09 08:00] VITALS: BP 122/52
[2018-01-09] MEDS ORDERED: Lidocaine 1% Plain 30 ml INJ PRN (08:15)
[2018-01-09] MEDS ORDERED: Heparin 2000 units/Ns 1000ml INJ PRN (08:15)
[2018-01-09] MEDS: Pantoprazole Inj IVP SCH (09:00)
--- NOTE | 2018-01-09 09:02 | 48 Hour Post Anesthesia Eval ---
Post Anesthesia Evaluation Procedure: Revision of colostomy with bovel resection Date of Evaluation: Jan 09, 2018 Time of Evaluation: 08:00 Blood Pressure Systolic: 122 0: 52 Pulse Rate: 69 Respiratory Rate: 20 Temperature (Fahrenheit): 97 O2 Sat by Pulse Oximetry: 98 Airway: patent Nausea: No Vomiting: No Pain Intensity: 0 Hydration Status: adequate Cardiopulmonary Status: at baseline Mental Status/LOC: patient returned to baseline Post-Anesthesia Complications: 0 Follow-up care needed: N/A - further care as per primary team Amita Painter MD Jan 09, 2018 09:02
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
[2018-01-09] MEDS: Docusate 100mg cap ORAL SCH ×2 (10:33→17:27)
[2018-01-09] MEDS: Heparin 5000 units/ml inj SUBQ SCH ×2 (10:35→20:26)
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
[2018-01-09 12:00] VITALS: BP 113/81
[2018-01-09 12:45] LABS: APPEARANCE,URINE CLEAR; BILIRUBIN, URINE NEGATIVE (NEGATIVE); COLOR,URINE PALE YELLOW; GLUCOSE, URINE (UA) NEGATIVE (NEGATIVE); KETONES,URINE NEGATIVE (NEGATIVE); LEUKOCYTE ESTERASE ,URINE 3+ (NEGATIVE); NITRITE,URINE POSITIVE (NEGATIVE); PH,URINE 8 (4.5-8.0); PROTEIN,URINE 2+ (NEGATIVE); UROBILINOGEN,URINE NORMAL MG/DL (0.0-1.0)
--- NOTE | 2018-01-09 12:52 | General Progress Note ---
Progress Note Progress Note Surgery: doing well. comfortable. minimal pain. febrile resolving. no n/v. ostomy clean and viable with gas in bag tolerating clears wound dressings changed. wounds much improved now that sloth removed. -advance diet -activity as tolerated -dressing daily -okay for wound vac placement thank you Atif Luna Jan 09, 2018 12:52
--- NOTE | 2018-01-09 13:29 | Pre-Procedure Note/Attestation ---
Pre-Procedure Note/Attestation Complete Prior to Procedure Planned Procedure: not applicable Procedure Narrative: PICC Indications for Procedure Pre-Operative Diagnosis: sepsis Attestation I attest that I discussed the nature of the procedure; its benefits; risks and complications; and alternatives (and the risks and benefits of such alternatives ), prior to the procedure, with the patient (or the patient's legal fundraising sale representative). I attest that, if there was a reasonable possibility of needing a blood transfusion, the patient (or the patient's legal fundraising sale representative) was given the [facility] standardized written summary, pursuant to the Viral [place] Blood Safety Act ([place] Health and Safety Code # 1645, as amended). I attest that I re-evaluated the patient just prior to the surgery and that there has been no change in the patient's H&P, except as documented below: d/w pt. at commencement of procedure Manuel Romo MD Jan 09, 2018 13:29
--- NOTE | 2018-01-09 13:31 | Brief Operative Note ---
Immediate Post Operative Note Operative Note Chief Complaint: sepsis Pre-op Diagnosis: sepsis Procedure: PICC L arm Post-op Diagnosis: same Anesthesia: local Specimen: none Complications: none Condition: stable Fluids: none Implant(s) used?: No Manuel Romo MD Jan 09, 2018 13:31
--- NOTE | 2018-01-09 13:49 | Diagnostic Imaging Report ---
Indications: Needs long-term IV access Technique: Ultrasound confirms patent compressible left basilic vein. Total sterile technique, including sterile probe cover and sterile gel, hat, mask, sterile gown, large sterile drape, and preparation with 2% chlorhexidine utilized. Local anesthesia with 1% lidocaine. Under real-time ultrasound guidance, puncture left basilic vein using 21-gauge needle, documented and archived, passage 0.018 guidewire under direct fluoroscopy, which was used to determine appropriate catheter length, exchange for 5 Upper Sorbian peel-away sheath. 5 Upper Sorbian Bard dual-lumen power PICC cut to 50 cm. It was inserted through the peel-away sheath. Peel-away sheath and guidewire removed. Catheter fixed to the skin. Both catheter ports aspirated and flushed. Patient tolerated procedure well, without immediate complication. Digital radiograph documents satisfactory catheter tip position, at the cavoatrial junction. Total fluoroscopy time 0.2 minutes. Total dose area product 5. dGycm2 Total number of images: 1 Impression: Successful placement of left arm PICC under sonographic and fluoroscopic guidance, as described above.
[2018-01-09 16:00] VITALS: BP 126/81
[2018-01-09 20:00] VITALS: BP 120/88
[2018-01-09] MEDS ORDERED: Dyna-Hex 2% Top Sol 2oz TOPIC SCH (20:00)
[2018-01-09] MEDS: Polymyxin B Sulfate 500,000 UNITS in D5W 500ml 550 ML IV SCH (20:25)
[2018-01-09] MEDS: Dyna-Hex 2% Top Sol 2oz TOPIC SCH (20:25)
[2018-01-10] VITALS: BP 96/58
[2018-01-10] MEDS: HYDROmorphone 1mg/ml Carpuject IVP PRN ×6 (00:03→21:52)
[2018-01-10 04:00] VITALS: BP 93/54
[2018-01-10] MEDS ORDERED: Tigecycline 50 MG in NS 110 ML IVPB SCH (05:00)
[2018-01-10 07:32] LABS: HEMATOCRIT 25.9 % (42.0-52.0); HEMOGLOBIN 7.9 G/DL (14.2-18.0); MEAN CORPUSCULAR VOLUME 76 FL (80-99); PLATELET COUNT 286 K/UL (150-450); RED BLOOD COUNT 3.42 M/UL (4.70-6.10); WHITE BLOOD COUNT 11.3 K/UL (4.8-10.8)
[2018-01-10 08:14] LABS: ANION GAP 8 mmol/L (5-15); BLOOD UREA NITROGEN 40 mg/dL (7-18); CALCIUM 8.5 MG/DL (8.5-10.1); CARBON DIOXIDE 27 MMOL/L (21-32); CHLORIDE 98 MMOL/L (98-107); CREATININE 1.9 MG/DL (0.55-1.30); PHOSPHORUS 4.9 MG/DL (2.5-4.9); POTASSIUM 4.2 MMOL/L (3.5-5.1); SODIUM 133 MMOL/L (136-145)
[2018-01-10] MEDS: Docusate 100mg cap ORAL SCH ×2 (08:29→17:07)
[2018-01-10] MEDS: Heparin 5000 units/ml inj SUBQ SCH ×2 (08:35→20:28)
[2018-01-10] MEDS: Polymyxin B Sulfate 500,000 UNITS in D5W 500ml 550 ML IV SCH (10:30)
--- NOTE | 2018-01-10 10:47 | General Progress Note ---
Assessment/Plan Assessment/Plan # Anemia of chronic disease due to underlying chronic medical issues. --> Anemia panel has been reviewed, will trend as needed --> hgb goal >7, transfuse on prn basis --> no etoh or drug abuse, meds reviewed --> Blood tx: 01/03, 01/05 --> consider iron once infection has cleared # Leukocytosis is likely due to UTI (urinary tract infection) does have sepsis, also could be due to decub --> Resolved/Improved --> Remains on antibiotics --> smear peripheral has been reviewed --> no schistocytes are noted --> no evidence of malignancy --> blood culture is positive for gram cocci --> appreciate ID recs --> decub surgery as per surgery # LINDSEY -- currently worse --> continue to monitor # Quadriplegia --> weakness has been chronic # Colostomy care, s/p colostomy revision and bowel resection on 01/09/18 --> per surgery # Tobacco abuse --> cessation education # Dispo --> likely back to [facility] on d/c Greatly appreciate consultation! Subjective Constitutional: Denies: no symptoms, chills, diaphoresis, fever, malaise, weakness, other HEENT: Denies: no symptoms, eye pain, blurred vision, tearing, double vision, ear pain, ear discharge, nose pain, nose congestion, throat pain, throat swelling, mouth pain, mouth swelling, other Cardiovascular: Denies: no symptoms, chest pain, edema, irregular heart rate, lightheadedness, palpitations, syncope, other Respiratory: Denies: no symptoms, cough, orthopnea, shortness of breath, SOB with excertion, SOB at rest, sputum, stridor, wheezing, other Gastrointestinal/Abdominal: Denies: no symptoms, abdomen distended, abdominal pain, black stools, tarry stools, blood in stool, constipated, diarrhea, difficulty swallowing, nausea, poor appetite, poor fluid intake, rectal bleeding , vomiting, other Allergies: Coded Allergies: CEFTRIAXONE (Verified Allergy, Unknown, 01/01/18) CODEINE (Verified Allergy, Unknown, 01/01/18) MORPHINE (Verified Allergy, Unknown, 01/01/18) PIPERACILLIN (Verified Allergy, Unknown, 01/01/18) SULFAMETHOXAZOLE (Verified Allergy, Unknown, 01/01/18) TAZOBACTAM (Verified Allergy, Unknown, 01/01/18) TRIMETHOPRIM (Verified Allergy, Unknown, 01/01/18) VANCOMYCIN (Verified Allergy, Unknown, 01/01/18) Subjective Pt resting in bed. H/H remains stable. Labs reviewed. Is comfortable. Objective Last 24 Hour Vital Signs Date Time Temp Pulse Resp B/P (MAP) Pulse Ox O2 Delivery O2 Flow Rate FiO2 01/10/18 07:23 114 18 Room Air 21 01/10/18 04:00 117 18 93/54 (67) 96 01/10/18 00:00 117 18 96/58 (71) 94 01/09/18 21:00 Nasal Cannula 2.0 01/09/18 20:00 98.9 117 20 120/88 (99) 98 01/09/18 19:55 97 20 Room Air 21 01/09/18 16:00 97.0 110 20 126/81 (96) 98 01/09/18 12:00 97.3 94 20 113/81 (92) 98 Intake and Output 01/09/18 01/10/18 19:00 07:00 Intake Total 1038 ml 550 ml Output Total 1200 ml Balance 1038 ml -650 ml Intake Oral 1038 ml IV Total 550 ml Output Urine Total 1200 ml # Voids 4 Laboratory Tests 01/09/18 11:30: Urine Color Pale yellow, Urine Appearance Clear, Urine pH 8, Urine Specific [place] 1.010, Urine Protein 2+H, Urine Glucose (UA) Negative, Urine Ketones Negative, Urine Blood 1+H, Urine Nitrite PositiveH, Urine Bilirubin Negative, Urine Urobilinogen Normal, Urine Leukocyte Esterase 3+H, Urine RBC 2-4H, Urine WBC 15-20H, Urine Squamous Epithelial Cells Occasional, Urine Amorphous Sediment FewH, Urine Bacteria ModerateH, Urine Fine Granular Casts 0-2H 01/10/18 06:15: White Blood Count 11.3H, Red Blood Count 3.42L, Hemoglobin 7.9L, Hematocrit 25.9L, Mean Corpuscular Volume 76L, Mean Corpuscular Hemoglobin 23.0L, Mean Corpuscular Hemoglobin Concent 30.4L, Red Cell Distribution Width 20.0H, Platelet Count 286, Mean Platelet Volume 4.7L, Neutrophils (%) (Auto) , Lymphocytes (%) (Auto) , Monocytes (%) (Auto) , Eosinophils (%) (Auto) , Basophils (%) (Auto) , Differential Total Cells Counted 100, Neutrophils % ( Manual) 70, Lymphocytes % (Manual) 20, Monocytes % (Manual) 7, Eosinophils % ( Manual) 3, Basophils % (Manual) 0, Band Neutrophils 0, Platelet Estimate Adequate, Platelet Morphology Normal, Hypochromasia 3+, Anisocytosis 2+, Microcytosis 1+, Sodium Level 133L, Potassium Level 4.2, Chloride Level 98, Carbon Dioxide Level 27, Anion Gap 8, Blood Urea Nitrogen 40H, Creatinine 1.9H, Estimat Glomerular Filtration Rate 37.4, Glucose Level 110H, Calcium Level 8.5, Phosphorus Level 4.9, Magnesium Level 1.7L Height (Feet): 3 Height (Inches): 0.00 Weight (Pounds): 150 General Appearance: no apparent distress EENT: pharynx normal Neck: normal alignment Cardiovascular: regular rhythm Respiratory/Chest: no respiratory distress Abdomen: non tender Extremities: non-tender Edema: mild edema Neurologic: oriented x 3 Rodolfo Scott MD Jan 10, 2018 10:47
[2018-01-10] MEDS: DiphenhydrAMINE 50mg/ml Inj IVP PRN ×2 (10:54→17:07)
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
[2018-01-10 12:00] VITALS: BP 85/54
--- NOTE | 2018-01-10 12:44 | General Progress Note ---
Assessment/Plan Problem List: (1) Anxiety disorder ICD Codes: F41.9 - Anxiety disorder, unspecified SNOMED: 170354061 (2) Drug abuse ICD Codes: F19.10 - Other psychoactive substance abuse, uncomplicated SNOMED: 98504742 (3) Insomnia ICD Codes: G47.00 - Insomnia, unspecified SNOMED: 085671257 Status: stable Assessment/Plan (1) Anxiety disorder ICD Codes: F41.9 - Anxiety disorder, unspecified SNOMED: 650278299 (2) Drug abuse ICD Codes: F19.10 - Other psychoactive substance abuse, uncomplicated SNOMED: 80357672 (3) Insomnia ICD Codes: G47.00 - Insomnia, unspecified SNOMED: 491385219 Assessment/Plan cont ativan the pt is reluctant to other meds Subjective Date patient seen: Jan 10, 2018 Neurologic/Psychiatric: Reports: anxiety, depressed, emotional problems Allergies: Coded Allergies: CEFTRIAXONE (Verified Allergy, Unknown, 01/01/18) CODEINE (Verified Allergy, Unknown, 01/01/18) MORPHINE (Verified Allergy, Unknown, 01/01/18) PIPERACILLIN (Verified Allergy, Unknown, 01/01/18) SULFAMETHOXAZOLE (Verified Allergy, Unknown, 01/01/18) TAZOBACTAM (Verified Allergy, Unknown, 01/01/18) TRIMETHOPRIM (Verified Allergy, Unknown, 01/01/18) VANCOMYCIN (Verified Allergy, Unknown, 01/01/18) Objective Last 24 Hour Vital Signs Date Time Temp Pulse Resp B/P (MAP) Pulse Ox O2 Delivery O2 Flow Rate FiO2 01/10/18 09:02 98.9 01/10/18 07:23 114 18 Room Air 21 01/10/18 04:00 117 18 93/54 (67) 96 01/10/18 00:00 117 18 96/58 (71) 94 01/09/18 21:00 Nasal Cannula 2.0 01/09/18 20:00 98.9 117 20 120/88 (99) 98 01/09/18 19:55 97 20 Room Air 21 01/09/18 16:00 97.0 110 20 126/81 (96) 98 Intake and Output 01/09/18 01/10/18 19:00 07:00 Intake Total 1038 ml 550 ml Output Total 1200 ml Balance 1038 ml -650 ml Intake Oral 1038 ml IV Total 550 ml Output Urine Total 1200 ml # Voids 4 Laboratory Tests 01/10/18 06:15: White Blood Count 11.3H, Red Blood Count 3.42L, Hemoglobin 7.9L, Hematocrit 25.9L, Mean Corpuscular Volume 76L, Mean Corpuscular Hemoglobin 23.0L, Mean Corpuscular Hemoglobin Concent 30.4L, Red Cell Distribution Width 20.0H, Platelet Count 286, Mean Platelet Volume 4.7L, Neutrophils (%) (Auto) , Lymphocytes (%) (Auto) , Monocytes (%) (Auto) , Eosinophils (%) (Auto) , Basophils (%) (Auto) , Differential Total Cells Counted 100, Neutrophils % ( Manual) 70, Lymphocytes % (Manual) 20, Monocytes % (Manual) 7, Eosinophils % ( Manual) 3, Basophils % (Manual) 0, Band Neutrophils 0, Platelet Estimate Adequate, Platelet Morphology Normal, Hypochromasia 3+, Anisocytosis 2+, Microcytosis 1+, Sodium Level 133L, Potassium Level 4.2, Chloride Level 98, Carbon Dioxide Level 27, Anion Gap 8, Blood Urea Nitrogen 40H, Creatinine 1.9H, Estimat Glomerular Filtration Rate 37.4, Glucose Level 110H, Calcium Level 8.5, Phosphorus Level 4.9, Magnesium Level 1.7L 01/10/18 11:15: Urine Osmolality [Pending], Urine Random Creatinine [Pending], Urine Random Sodium 55, Urine Creatinine 40.8, Urine Uric Acid [Pending] Height (Feet): 3 Height (Inches): 0.00 Weight (Pounds): 150 General Appearance: no apparent distress, alert Neurologic: oriented x 3, responsive, depressed affect Vazquez Johnson MD Jan 10, 2018 12:44
[2018-01-10 16:00] VITALS: BP 102/59
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
[2018-01-10] MEDS ORDERED: Tigecycline 100 MG in NS 110 ML IVPB SCH (17:00)
[2018-01-10 20:00] VITALS: BP 96/66
[2018-01-10] MEDS: Dyna-Hex 2% Top Sol 2oz TOPIC SCH (20:26)
[2018-01-11] VITALS: BP 97/64
[2018-01-11] MEDS: HYDROmorphone 1mg/ml Carpuject IVP PRN ×6 (01:54→22:34)
[2018-01-11 04:00] VITALS: BP 116/82
[2018-01-11] MEDS: DiphenhydrAMINE 50mg/ml Inj IVP PRN (04:22)
[2018-01-11] MEDS ORDERED: Tigecycline 50 MG in NS 110 ML IVPB SCH (05:00)
[2018-01-11 08:00] VITALS: BP 92/60
[2018-01-11] MEDS: Docusate 100mg cap ORAL SCH ×2 (08:39→17:33)
[2018-01-11] MEDS: Heparin 5000 units/ml inj SUBQ SCH ×2 (08:47→20:55)
--- NOTE | 2018-01-11 09:30 | General Progress Note ---
Assessment/Plan Assessment/Plan # Anemia of chronic disease due to underlying chronic medical issues. --> Anemia panel has been reviewed, will trend as needed --> hgb goal >7, transfuse on prn basis --> no etoh or drug abuse, meds reviewed --> Blood tx: 01/03, 01/05 --> consider iron once infection has cleared # Leukocytosis is likely due to UTI (urinary tract infection) does have sepsis, also could be due to decub --> Resolved/Improved --> Remains on antibiotics --> smear peripheral has been reviewed --> no schistocytes are noted --> no evidence of malignancy --> blood culture is positive for gram cocci --> appreciate ID recs --> decub surgery as per surgery recs # LINDSEY -- currently worse --> continue to monitor # Quadriplegia --> weakness has been chronic # Colostomy care, s/p colostomy revision and bowel resection on 01/09/18 --> per surgery # Tobacco abuse --> cessation education # Dispo --> likely back to [facility] on d/c Greatly appreciate consultation! Subjective HEENT: Reports: no symptoms Cardiovascular: Reports: no symptoms Respiratory: Reports: no symptoms Gastrointestinal/Abdominal: Reports: poor appetite Genitourinary: Reports: no symptoms Neurologic/Psychiatric: Reports: no symptoms Endocrine: Reports: unexplained weight loss Hematologic/Lymphatic: Reports: anemia Allergies: Coded Allergies: CEFTRIAXONE (Verified Allergy, Unknown, 01/01/18) CODEINE (Verified Allergy, Unknown, 01/01/18) MORPHINE (Verified Allergy, Unknown, 01/01/18) PIPERACILLIN (Verified Allergy, Unknown, 01/01/18) SULFAMETHOXAZOLE (Verified Allergy, Unknown, 01/01/18) TAZOBACTAM (Verified Allergy, Unknown, 01/01/18) TRIMETHOPRIM (Verified Allergy, Unknown, 01/01/18) VANCOMYCIN (Verified Allergy, Unknown, 01/01/18) Subjective Pt resting in bed. H/H remains stable. Labs reviewed. Remains comfortable. Objective Last 24 Hour Vital Signs Date Time Temp Pulse Resp B/P (MAP) Pulse Ox O2 Delivery O2 Flow Rate FiO2 01/11/18 08:00 98.1 51 20 92/60 (71) 99 01/11/18 07:38 105 20 Room Air 21 01/11/18 04:00 99.0 106 19 116/82 (93) 99 01/11/18 00:00 98.0 107 19 97/64 (75) 95 01/10/18 21:00 Room Air 01/10/18 20:00 98.4 113 20 96/66 (76) 100 01/10/18 18:40 108 18 Room Air 21 01/10/18 18:19 98.2 01/10/18 16:00 98.2 106 20 102/59 (73) 96 01/10/18 12:00 97.7 111 20 85/54 (64) 98 Intake and Output 01/10/18 01/11/18 19:00 07:00 Intake Total 1100 ml 1810 ml Output Total 450 ml 995 ml Balance 650 ml 815 ml Intake Oral 240 ml 300 ml IV Total 860 ml 1510 ml Output Urine Total 400 ml Drainage Total 50 ml 95 ml Other 900 ml Laboratory Tests 01/10/18 11:15: Urine Osmolality 289L, Urine Random Sodium 55, Urine Creatinine 40.8 Height (Feet): 3 Height (Inches): 0.00 Weight (Pounds): 150 General Appearance: lethargic EENT: PERRL/EOMI Neck: supple Cardiovascular: regular rhythm Respiratory/Chest: normal breath sounds Abdomen: non tender Extremities: non-tender Edema: 1+ Leg (L), 1+ Leg (R) Edema: mild edema Neurologic: oriented x 3 Skin: normal pigmentation Rodolfo Scott MD Jan 11, 2018 09:30
[2018-01-11 10:33] LABS: BASOPHILS % (AUTO) 0.4 % (0.0-2.0); EOSINOPHILS % (AUTO) 4.2 % (0.0-3.0); HEMATOCRIT 27.5 % (42.0-52.0); HEMOGLOBIN 8.5 G/DL (14.2-18.0); LYMPHOCYTES % (AUTO) 12.5 % (20.0-45.0); MEAN CORPUSCULAR VOLUME 75 FL (80-99); PLATELET COUNT 272 K/UL (150-450); RED BLOOD COUNT 3.66 M/UL (4.70-6.10); RED CELL DISTRIBUTION WIDTH 20.5 % (11.6-14.8); WHITE BLOOD COUNT 10.7 K/UL (4.8-10.8)
[2018-01-11 10:40] LABS: ANION GAP 9 mmol/L (5-15); BLOOD UREA NITROGEN 41 mg/dL (7-18); CALCIUM 8.1 MG/DL (8.5-10.1); CARBON DIOXIDE 23 MMOL/L (21-32); CHLORIDE 103 MMOL/L (98-107); CREATININE 1.6 MG/DL (0.55-1.30); POTASSIUM 3.8 MMOL/L (3.5-5.1); SODIUM 134 MMOL/L (136-145)
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
--- NOTE | 2018-01-11 11:43 | General Progress Note ---
Progress Note Progress Note Surgery: doing much better. pain minimal. non/v/f/c. tolerating diet. active as possible wound VAC placed yesterday and holding. ostomy viable and functional diet as tolerated d/c planning thank you Atif Luna Jan 11, 2018 11:43
--- NOTE | 2018-01-11 11:58 | Consultation ---
Consult Note Consult Note asked to eval for rising Cr chart reviewed discussed with RN patient examined Assessment/Plan Acute renal failure UTI / Bacterimia / Sepsis Quadroplegia Colostomy SupraPubic Anemia HypoAlbuminemia Albumin bolus Urine studies Midodrine avoid nephrotoxics check labs in am Isaiah Yun MD Jan 11, 2018 11:58
[2018-01-11 12:00] VITALS: BP 97/57
[2018-01-11] MEDS ORDERED: Albumin Human 5% 250ml IV ONE (12:00)
[2018-01-11 12:06] LABS: ALANINE AMINOTRANSFERASE 10 U/L (12-78); ALBUMIN 1.5 G/DL (3.4-5.0); ALKALINE PHOSPHATASE 102 U/L (46-116); ASPARTATE AMINO TRANSFERASE 16 U/L (15-37); BILIRUBIN,DIRECT < 0.1 MG/DL (0.0-0.3); BILIRUBIN,TOTAL 0.1 MG/DL (0.2-1.0); CREATINE KINASE 10 U/L (26-308); GAMMA GLUTAMYL TRANSPEPTIDASE 20 U/L (5-85); PHOSPHORUS 4.4 MG/DL (2.5-4.9)
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
[2018-01-11] MEDS ORDERED: Albumin Human 5% 500ml IV ONE (13:00)
[2018-01-11] MEDS: D5NS 1,000 ML IV SCH (14:00)
[2018-01-11 16:00] VITALS: BP 118/59
[2018-01-11] MEDS: Dyna-Hex 2% Top Sol 2oz TOPIC SCH (20:52)
[2018-01-12] VITALS: BP 104/59
[2018-01-12] MEDS: D5NS 1,000 ML IV SCH ×3 (01:30→22:29)
[2018-01-12] MEDS: DiphenhydrAMINE 50mg/ml Inj IVP PRN ×3 (01:32→16:33)
[2018-01-12] MEDS: HYDROmorphone 1mg/ml Carpuject IVP PRN ×5 (03:04→19:38)
[2018-01-12 06:38] LABS: BASOPHILS % (AUTO) 0.4 % (0.0-2.0); EOSINOPHILS % (AUTO) 4.3 % (0.0-3.0); HEMATOCRIT 28.7 % (42.0-52.0); HEMOGLOBIN 8.8 G/DL (14.2-18.0); LYMPHOCYTES % (AUTO) 10.5 % (20.0-45.0); MEAN CORPUSCULAR VOLUME 76 FL (80-99); MONOCYTES % (AUTO) 6.1 % (1.0-10.0); NEUTROPHILS % (AUTO) 78.7 % (45.0-75.0); PLATELET COUNT 274 K/UL (150-450); RED BLOOD COUNT 3.77 M/UL (4.70-6.10); RED CELL DISTRIBUTION WIDTH 19.8 % (11.6-14.8); WHITE BLOOD COUNT 9.4 K/UL (4.8-10.8)
[2018-01-12 06:48] LABS: CHLORIDE 106 MMOL/L (98-107); SODIUM 139 MMOL/L (136-145)
[2018-01-12 06:56] LABS: IRON 12 ug/dL (50-175); TOTAL IRON BINDING CAPACITY 89 ug/dL (250-450)
[2018-01-12 07:08] LABS: % IRON SATURATION 13 % (15-50)
[2018-01-12 07:13] LABS: ALANINE AMINOTRANSFERASE 11 U/L (12-78); ALBUMIN 1.8 G/DL (3.4-5.0); ALBUMIN/GLOBULIN RATIO 0.4 (1.0-2.7); ALKALINE PHOSPHATASE 102 U/L (46-116); ANION GAP 10 mmol/L (5-15); ASPARTATE AMINO TRANSFERASE 15 U/L (15-37); BILIRUBIN,TOTAL 0.2 MG/DL (0.2-1.0); BLOOD UREA NITROGEN 38 mg/dL (7-18); CALCIUM 8.8 MG/DL (8.5-10.1); CARBON DIOXIDE 24 MMOL/L (21-32); CREATININE 1.6 MG/DL (0.55-1.30); FERRITIN 417 NG/ML (8-388); PHOSPHORUS 4.4 MG/DL (2.5-4.9)
[2018-01-12 08:00] VITALS: BP 129/60
--- NOTE | 2018-01-12 08:59 | General Progress Note ---
Assessment/Plan Assessment/Plan # Anemia of chronic disease due to underlying chronic medical issues. --> Anemia panel has been reviewed, will trend as needed --> hgb goal >7, transfuse on prn basis --> no etoh or drug abuse, meds reviewed --> Blood tx: 01/03, 01/05 --> consider iron once infection has cleared # Leukocytosis is likely due to UTI (urinary tract infection) does have sepsis, also could be due to decub --> Resolved/Improved --> Remains on antibiotics --> smear peripheral has been reviewed --> no schistocytes are noted --> no evidence of malignancy --> blood culture is positive for gram cocci --> appreciate ID recs --> decub surgery as per surgery recs # LINDSEY -- currently worse --> continue to monitor # Quadriplegia --> weakness has been chronic # Colostomy care, s/p colostomy revision and bowel resection on 01/09/18 --> per surgery # Tobacco abuse --> cessation education # Dispo --> likely back to [facility] on d/c # DVT ppx with heparin sq Greatly appreciate consultation! Subjective Constitutional: Denies: no symptoms, chills, diaphoresis, fever, malaise, weakness, other HEENT: Denies: no symptoms, eye pain, blurred vision, tearing, double vision, ear pain, ear discharge, nose pain, nose congestion, throat pain, throat swelling, mouth pain, mouth swelling, other Cardiovascular: Denies: no symptoms, chest pain, edema, irregular heart rate, lightheadedness, palpitations, syncope, other Respiratory: Denies: no symptoms, cough, orthopnea, shortness of breath, SOB with excertion, SOB at rest, sputum, stridor, wheezing, other Gastrointestinal/Abdominal: Denies: no symptoms, abdomen distended, abdominal pain, black stools, tarry stools, blood in stool, constipated, diarrhea, difficulty swallowing, nausea, poor appetite, poor fluid intake, rectal bleeding , vomiting, other Genitourinary: Denies: no symptoms, burning, discharge, frequency, flank pain, hematuria, incontinence, pain, urgency, other Neurologic/Psychiatric: Denies: no symptoms, anxiety, depressed, emotional problems, headache, numbness, paresthesia, pre-existing deficit, seizure, tingling, tremors, weakness, other Endocrine: Denies: no symptoms, excessive sweating, flushing, intolerance to cold, intolerance to heat, increased hunger, increased thirst, increased urine, unexplained weight gain, unexplained weight loss, other Hematologic/Lymphatic: Denies: no symptoms, anemia, easy bleeding, easy bruising, other Allergies: Coded Allergies: CEFTRIAXONE (Verified Allergy, Unknown, 01/01/18) CODEINE (Verified Allergy, Unknown, 01/01/18) MORPHINE (Verified Allergy, Unknown, 01/01/18) PIPERACILLIN (Verified Allergy, Unknown, 01/01/18) SULFAMETHOXAZOLE (Verified Allergy, Unknown, 01/01/18) TAZOBACTAM (Verified Allergy, Unknown, 01/01/18) TRIMETHOPRIM (Verified Allergy, Unknown, 01/01/18) VANCOMYCIN (Verified Allergy, Unknown, 01/01/18) Subjective Pt resting in bed. H/H remains stable. Labs reviewed. Remains comfortable. Awaiting d/c soon Objective Last 24 Hour Vital Signs Date Time Temp Pulse Resp B/P (MAP) Pulse Ox O2 Delivery O2 Flow Rate FiO2 01/12/18 08:00 97.5 93 18 129/60 (83) 97 01/12/18 04:00 18 01/12/18 00:00 97.7 93 18 104/59 (74) 97 01/11/18 21:00 Room Air 01/11/18 20:52 86 20 Room Air 21 01/11/18 20:00 18 01/11/18 18:58 97.4 01/11/18 16:00 97.4 68 19 118/59 (78) 95 01/11/18 12:00 97.1 60 19 97/57 (70) 97 01/11/18 09:00 Room Air Intake and Output 01/11/18 01/12/18 18:59 06:59 Intake Total 700 ml 1450 ml Output Total 1400 ml 1200 ml Balance -700 ml 250 ml Intake Oral 350 ml IV Total 700 ml 1100 ml Output Urine Total 1400 ml Drainage Total 150 ml Other 1050 ml # Bowel Movements 1 Laboratory Tests 01/11/18 10:00: White Blood Count 10.7, Red Blood Count 3.66L, Hemoglobin 8.5L, Hematocrit 27.5L , Mean Corpuscular Volume 75L, Mean Corpuscular Hemoglobin 23.1L, Mean Corpuscular Hemoglobin Concent 30.8L, Red Cell Distribution Width 20.5H, Platelet Count 272, Mean Platelet Volume 4.6L, Neutrophils (%) (Auto) 76.0H, Lymphocytes (%) (Auto) 12.5L, Monocytes (%) (Auto) 7.0, Eosinophils (%) (Auto) 4.2H, Basophils (%) (Auto) 0.4, Sodium Level 134L, Potassium Level 3.8, Chloride Level 103, Carbon Dioxide Level 23, Anion Gap 9, Blood Urea Nitrogen 41H, Creatinine 1.6H, Estimat Glomerular Filtration Rate 45.6, Glucose Level 142H, Uric Acid 4.8, Calcium Level 8.1L, Phosphorus Level 4.4, Magnesium Level 2.1, Total Bilirubin 0.1L, Direct Bilirubin < 0.1, Gamma Glutamyl Transpeptidase 20, Aspartate Amino Transf (AST/SGOT) 16, Alanine Aminotransferase (ALT/SGPT) 10L, Alkaline Phosphatase 102, Total Creatine Kinase 10L, C-Reactive Protein, Quantitative 48.2H, Total Protein 6.6, Albumin 1.5L 01/11/18 13:30: Urine Random Sodium 82 01/12/18 05:45: White Blood Count 9.4, Red Blood Count 3.77L, Hemoglobin 8.8L, Hematocrit 28.7L , Mean Corpuscular Volume 76L, Mean Corpuscular Hemoglobin 23.3L, Mean Corpuscular Hemoglobin Concent 30.6L, Red Cell Distribution Width 19.8H, Platelet Count 274, Mean Platelet Volume 4.6L, Neutrophils (%) (Auto) 78.7H, Lymphocytes (%) (Auto) 10.5L, Monocytes (%) (Auto) 6.1, Eosinophils (%) (Auto) 4.3H, Basophils (%) (Auto) 0.4, Sodium Level 139, Potassium Level 4.0, Chloride Level 106, Carbon Dioxide Level 24, Anion Gap 10, Blood Urea Nitrogen 38H, Creatinine 1.6H, Estimat Glomerular Filtration Rate 45.6, Glucose Level 93, Uric Acid 4.5, Calcium Level 8.8, Phosphorus Level 4.4, Magnesium Level 1.8, Total Bilirubin 0.2, Aspartate Amino Transf (AST/SGOT) 15, Alanine Aminotransferase (ALT/SGPT) 11L, Alkaline Phosphatase 102, Total Protein 6.8, Albumin 1.8L, Urine Eosinophils [Pending], Iron Level 12L, Total Iron Binding Capacity 89L, Percent Iron Saturation 13L, Unsaturated Iron Binding 77L, Ferritin 417H, Globulin 5.0, Albumin/Globulin Ratio 0.4L, Vitamin B12 Level 1077H, Folate 15.3 Height (Feet): 3 Height (Inches): 0.00 Weight (Pounds): 150 General Appearance: no apparent distress EENT: normal ENT inspection Neck: normal inspection Cardiovascular: regular rhythm Respiratory/Chest: normal breath sounds Abdomen: soft Extremities: non-tender Edema: no edema noted Leg (L), no edema noted Leg (R) Edema: mild edema Neurologic: alert Skin: normal pigmentation Rodolfo Scott MD Jan 12, 2018 08:59
[2018-01-12] MEDS: Heparin 5000 units/ml inj SUBQ SCH ×2 (09:00→21:05)
[2018-01-12] MEDS: Docusate 100mg cap ORAL SCH ×2 (09:00→17:32)
--- NOTE | 2018-01-12 09:32 | General Progress Note ---
Progress Note Progress Note Surgery: doing well. pain minimal. non/v/f/c. tolerating diet. active as possible wound VAC holding well. ostomy viable and functional diet as tolerated wound VAC change sunday d/c planning thank you Atif Luna Jan 12, 2018 09:32
[2018-01-12 12:00] VITALS: BP 150/97
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
--- NOTE | 2018-01-12 15:14 | Nephrology Progress Note ---
Assessment/Plan Problem List: (1) LINDSEY (acute kidney injury) (2) Hypoalbuminemia (3) Sepsis (4) Quadriplegia Assessment Acute renal failure Cr 1.6 stable UTI / Bacterimia / Sepsis Quadroplegia Colostomy SupraPubic Anemia HypoAlbuminemia Plan Albumin bolus Urine studies Midodrine avoid nephrotoxics check labs in am IV Venofer Subjective ROS Limited/Unobtainable: No Constitutional: Reports: malaise Objective Objective Last 24 Hour Vital Signs Date Time Temp Pulse Resp B/P (MAP) Pulse Ox O2 Delivery O2 Flow Rate FiO2 01/12/18 12:00 98.7 100 18 150/97 (114) 97 01/12/18 09:00 Room Air 01/12/18 08:00 97.5 93 18 129/60 (83) 97 01/12/18 04:00 18 01/12/18 00:00 97.7 93 18 104/59 (74) 97 01/11/18 21:00 Room Air 01/11/18 20:52 86 20 Room Air 21 01/11/18 20:00 18 01/11/18 18:58 97.4 01/11/18 16:00 97.4 68 19 118/59 (78) 95 Intake and Output 01/11/18 01/12/18 19:00 07:00 Intake Total 775 ml 1375 ml Output Total 1500 ml 1100 ml Balance -725 ml 275 ml Intake Oral 350 ml IV Total 775 ml 1025 ml Output Urine Total 1400 ml Drainage Total 100 ml 50 ml Other 1050 ml # Bowel Movements 1 Laboratory Tests 01/12/18 05:45: White Blood Count 9.4, Red Blood Count 3.77L, Hemoglobin 8.8L, Hematocrit 28.7L , Mean Corpuscular Volume 76L, Mean Corpuscular Hemoglobin 23.3L, Mean Corpuscular Hemoglobin Concent 30.6L, Red Cell Distribution Width 19.8H, Platelet Count 274, Mean Platelet Volume 4.6L, Neutrophils (%) (Auto) 78.7H, Lymphocytes (%) (Auto) 10.5L, Monocytes (%) (Auto) 6.1, Eosinophils (%) (Auto) 4.3H, Basophils (%) (Auto) 0.4, Urine Eosinophils None seen, Sodium Level 139, Potassium Level 4.0, Chloride Level 106, Carbon Dioxide Level 24, Anion Gap 10, Blood Urea Nitrogen 38H, Creatinine 1.6H, Estimat Glomerular Filtration Rate 45.6, Glucose Level 93, Uric Acid 4.5, Calcium Level 8.8, Phosphorus Level 4.4, Magnesium Level 1.8, Iron Level 12L, Total Iron Binding Capacity 89L, Percent Iron Saturation 13L, Unsaturated Iron Binding 77L, Ferritin 417H, Total Bilirubin 0.2, Aspartate Amino Transf (AST/SGOT) 15, Alanine Aminotransferase ( ALT/SGPT) 11L, Alkaline Phosphatase 102, Total Protein 6.8, Albumin 1.8L, Globulin 5.0, Albumin/Globulin Ratio 0.4L, Vitamin B12 Level 1077H, Folate 15.3 Height (Feet): 3 Height (Inches): 0.00 Weight (Pounds): 150 General Appearance: no apparent distress Objective no change Isaiah Yun MD Jan 12, 2018 15:14
[2018-01-12] MEDS ORDERED: Iron Sucrose 200 MG in NS 110 ML IV SCH (15:30)
[2018-01-12 15:51] VITALS: BP 127/97
[2018-01-12] MEDS ORDERED: Albumin Human 5% 500ml IV SCH (16:00)
[2018-01-12] MEDS: Dyna-Hex 2% Top Sol 2oz TOPIC SCH (19:38)
[2018-01-12 20:00] VITALS: BP 158/99
[2018-01-13] MEDS: HYDROmorphone 1mg/ml Carpuject IVP PRN ×6 (00:01→22:10)
[2018-01-13 04:00] VITALS: BP 149/101
[2018-01-13] MEDS: DiphenhydrAMINE 50mg/ml Inj IVP PRN ×3 (05:45→23:50)
[2018-01-13 07:02] LABS: BASOPHILS % (AUTO) 0.7 % (0.0-2.0); EOSINOPHILS % (AUTO) 10.2 % (0.0-3.0); HEMATOCRIT 26.9 % (42.0-52.0); HEMOGLOBIN 8.2 G/DL (14.2-18.0); LYMPHOCYTES % (AUTO) 16.7 % (20.0-45.0); MEAN CORPUSCULAR VOLUME 76 FL (80-99); MONOCYTES % (AUTO) 9.3 % (1.0-10.0); NEUTROPHILS % (AUTO) 63.2 % (45.0-75.0); PLATELET COUNT 265 K/UL (150-450); RED BLOOD COUNT 3.54 M/UL (4.70-6.10); RED CELL DISTRIBUTION WIDTH 20.3 % (11.6-14.8); WHITE BLOOD COUNT 5.5 K/UL (4.8-10.8)
[2018-01-13 07:04] LABS: ALANINE AMINOTRANSFERASE 10 U/L (12-78); ALBUMIN 2.2 G/DL (3.4-5.0); ALBUMIN/GLOBULIN RATIO 0.4 (1.0-2.7); ALKALINE PHOSPHATASE 93 U/L (46-116); ANION GAP 7 mmol/L (5-15); ASPARTATE AMINO TRANSFERASE 15 U/L (15-37); BILIRUBIN,TOTAL 0.2 MG/DL (0.2-1.0); BLOOD UREA NITROGEN 23 mg/dL (7-18); CALCIUM 8.5 MG/DL (8.5-10.1); CARBON DIOXIDE 24 MMOL/L (21-32); CHLORIDE 110 MMOL/L (98-107); CREATININE 1.3 MG/DL (0.55-1.30); PHOSPHORUS 3.6 MG/DL (2.5-4.9); POTASSIUM 3.8 MMOL/L (3.5-5.1); SODIUM 141 MMOL/L (136-145)
[2018-01-13 08:00] VITALS: BP 132/86
--- NOTE | 2018-01-13 09:07 | General Progress Note ---
Assessment/Plan Assessment/Plan # Anemia of chronic disease due to underlying chronic medical issues. --> Anemia panel has been reviewed, will trend as needed --> hgb goal >7, transfuse on prn basis --> no etoh or drug abuse, meds reviewed --> Blood tx: 01/03, 01/05 --> consider iron once infection has cleared # Leukocytosis is likely due to UTI (urinary tract infection) does have sepsis, also could be due to decub --> Resolved/Improved --> Remains on antibiotics --> smear peripheral has been reviewed --> no schistocytes are noted --> no evidence of malignancy --> blood culture is positive for gram cocci --> appreciate ID recs --> decub surgery as per surgery recs # LINDSEY -- currently worse --> continue to monitor # Quadriplegia --> weakness has been chronic # Colostomy care, s/p colostomy revision and bowel resection on 01/09/18 --> per surgery # Tobacco abuse --> cessation education # Dispo --> [facility] # DVT ppx with heparin sq Greatly appreciate consultation! Subjective Constitutional: Reports: no symptoms Cardiovascular: Reports: no symptoms Respiratory: Reports: no symptoms Gastrointestinal/Abdominal: Reports: no symptoms Genitourinary: Reports: no symptoms Neurologic/Psychiatric: Reports: no symptoms Endocrine: Reports: no symptoms Hematologic/Lymphatic: Reports: anemia Allergies: Coded Allergies: CEFTRIAXONE (Verified Allergy, Unknown, 01/01/18) CODEINE (Verified Allergy, Unknown, 01/01/18) MORPHINE (Verified Allergy, Unknown, 01/01/18) PIPERACILLIN (Verified Allergy, Unknown, 01/01/18) SULFAMETHOXAZOLE (Verified Allergy, Unknown, 01/01/18) TAZOBACTAM (Verified Allergy, Unknown, 01/01/18) TRIMETHOPRIM (Verified Allergy, Unknown, 01/01/18) VANCOMYCIN (Verified Allergy, Unknown, 01/01/18) Subjective Pt resting in bed. H/H remains stable. Labs reviewed. Remains comfortable. ++ colostomy functioning Objective Last 24 Hour Vital Signs Date Time Temp Pulse Resp B/P (MAP) Pulse Ox O2 Delivery O2 Flow Rate FiO2 01/13/18 08:00 98.6 108 16 132/86 (101) 98 11/4/18 04:00 97.9 103 20 149/101 (117) 100 01/13/18 00:00 18 01/12/18 21:00 Room Air 01/12/18 20:00 97.9 100 18 158/99 (118) 97 01/12/18 19:30 101 18 Room Air 21 01/12/18 15:51 97.3 100 18 127/97 (107) 97 01/12/18 12:00 98.7 100 18 150/97 (114) 97 Intake and Output 01/12/18 01/13/18 18:59 06:59 Intake Total 720 ml 1640 ml Output Total 1000 ml 1300 ml Balance -280 ml 340 ml Intake Oral 720 ml 240 ml IV Total 1400 ml Output Urine Total 1000 ml 1200 ml Drainage Total 100 ml # Bowel Movements 2 Laboratory Tests 01/13/18 05:35: White Blood Count 5.5, Red Blood Count 3.54L, Hemoglobin 8.2L, Hematocrit 26.9L , Mean Corpuscular Volume 76L, Mean Corpuscular Hemoglobin 23.1L, Mean Corpuscular Hemoglobin Concent 30.5L, Red Cell Distribution Width 20.3H, Platelet Count 265, Mean Platelet Volume 4.6L, Neutrophils (%) (Auto) 63.2, Lymphocytes (%) (Auto) 16.7L, Monocytes (%) (Auto) 9.3, Eosinophils (%) (Auto) 10.2H, Basophils (%) (Auto) 0.7, Sodium Level 141, Potassium Level 3.8, Chloride Level 110H, Carbon Dioxide Level 24, Anion Gap 7, Blood Urea Nitrogen 23H, Creatinine 1.3, Estimat Glomerular Filtration Rate 58.0, Glucose Level 72L , Uric Acid 3.5, Calcium Level 8.5, Phosphorus Level 3.6, Magnesium Level 1.7L, Total Bilirubin 0.2, Aspartate Amino Transf (AST/SGOT) 15, Alanine Aminotransferase (ALT/SGPT) 10L, Alkaline Phosphatase 93, Total Protein 7.2, Albumin 2.2L, Globulin 5.0, Albumin/Globulin Ratio 0.4L 01/13/18 05:38: Urine Eosinophils None seen Height (Feet): 3 Height (Inches): 0.00 Weight (Pounds): 150 Rodolfo Scott MD Jan 13, 2018 09:07
[2018-01-13] MEDS: Docusate 100mg cap ORAL SCH ×2 (09:42→18:00)
[2018-01-13] MEDS: Heparin 5000 units/ml inj SUBQ SCH ×2 (09:44→20:58)
--- NOTE | 2018-01-13 10:20 | Nephrology Progress Note ---
Assessment/Plan Problem List: (1) LINDSEY (acute kidney injury) (2) Hypoalbuminemia (3) Sepsis (4) Quadriplegia Assessment Acute renal failure Cr now wnl UTI / Bacterimia / Sepsis Quadroplegia Colostomy SupraPubic Anemia HypoAlbuminemia Plan Albumin bolus prn Urine studies Midodrine with parameters avoid nephrotoxics check labs in am IV Venofer Subjective ROS Limited/Unobtainable: No Constitutional: Reports: malaise Objective Objective Last 24 Hour Vital Signs Date Time Temp Pulse Resp B/P (MAP) Pulse Ox O2 Delivery O2 Flow Rate FiO2 01/13/18 08:00 98.6 108 16 132/86 (101) 98 01/13/18 04:00 97.9 103 20 149/101 (117) 100 01/13/18 00:00 18 01/12/18 21:00 Room Air 01/12/18 20:00 97.9 100 18 158/99 (118) 97 01/12/18 19:30 101 18 Room Air 21 01/12/18 15:51 97.3 100 18 127/97 (107) 97 01/12/18 12:00 98.7 100 18 150/97 (114) 97 Intake and Output 01/12/18 01/13/18 18:59 06:59 Intake Total 720 ml 1640 ml Output Total 1000 ml 1300 ml Balance -280 ml 340 ml Intake Oral 720 ml 240 ml IV Total 1400 ml Output Urine Total 1000 ml 1200 ml Drainage Total 100 ml # Bowel Movements 2 Laboratory Tests 01/13/18 05:35: White Blood Count 5.5, Red Blood Count 3.54L, Hemoglobin 8.2L, Hematocrit 26.9L , Mean Corpuscular Volume 76L, Mean Corpuscular Hemoglobin 23.1L, Mean Corpuscular Hemoglobin Concent 30.5L, Red Cell Distribution Width 20.3H, Platelet Count 265, Mean Platelet Volume 4.6L, Neutrophils (%) (Auto) 63.2, Lymphocytes (%) (Auto) 16.7L, Monocytes (%) (Auto) 9.3, Eosinophils (%) (Auto) 10.2H, Basophils (%) (Auto) 0.7, Sodium Level 141, Potassium Level 3.8, Chloride Level 110H, Carbon Dioxide Level 24, Anion Gap 7, Blood Urea Nitrogen 23H, Creatinine 1.3, Estimat Glomerular Filtration Rate 58.0, Glucose Level 72L , Uric Acid 3.5, Calcium Level 8.5, Phosphorus Level 3.6, Magnesium Level 1.7L, Total Bilirubin 0.2, Aspartate Amino Transf (AST/SGOT) 15, Alanine Aminotransferase (ALT/SGPT) 10L, Alkaline Phosphatase 93, Total Protein 7.2, Albumin 2.2L, Globulin 5.0, Albumin/Globulin Ratio 0.4L 01/13/18 05:38: Urine Eosinophils None seen Height (Feet): 3 Height (Inches): 0.00 Weight (Pounds): 150 General Appearance: no apparent distress Objective no change Isaiah Yun MD Jan 13, 2018 10:20
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
[2018-01-13 12:00] VITALS: BP 156/100
--- NOTE | 2018-01-13 12:42 | General Progress Note ---
Progress Note Progress Note Surgery: improving. labs okay. exam stable wound vac in place and functional ostomy viable with stool in bag -d/c planning -can d/c with VAC or gauze dressings. Atif Luna Jan 13, 2018 12:42
[2018-01-13 16:00] VITALS: BP 142/102
[2018-01-13] MEDS: D5NS 1,000 ML IV SCH ×2 (17:20→23:03)
[2018-01-13 20:00] VITALS: BP 144/106
[2018-01-13] MEDS: Dyna-Hex 2% Top Sol 2oz TOPIC SCH (20:57)
[2018-01-13] MEDS ORDERED: Iron Sucrose 100 MG in NS 55 ML IV SCH (21:00)
[2018-01-14] MEDS: HYDROmorphone 1mg/ml Carpuject IVP PRN ×4 (02:22→16:34)
[2018-01-14 05:52] LABS: BASOPHILS % (AUTO) 0.9 % (0.0-2.0); EOSINOPHILS % (AUTO) 9.7 % (0.0-3.0); HEMATOCRIT 28.1 % (42.0-52.0); HEMOGLOBIN 8.8 G/DL (14.2-18.0); LYMPHOCYTES % (AUTO) 20.7 % (20.0-45.0); MEAN CORPUSCULAR VOLUME 76 FL (80-99); MONOCYTES % (AUTO) 9.6 % (1.0-10.0); NEUTROPHILS % (AUTO) 59.1 % (45.0-75.0); PLATELET COUNT 235 K/UL (150-450); RED BLOOD COUNT 3.72 M/UL (4.70-6.10); RED CELL DISTRIBUTION WIDTH 19.8 % (11.6-14.8); WHITE BLOOD COUNT 6.1 K/UL (4.8-10.8)
[2018-01-14 06:03] LABS: ANION GAP 6 mmol/L (5-15); BLOOD UREA NITROGEN 19 mg/dL (7-18); CALCIUM 8.6 MG/DL (8.5-10.1); CARBON DIOXIDE 25 MMOL/L (21-32); CHLORIDE 108 MMOL/L (98-107); CREATININE 1.3 MG/DL (0.55-1.30); POTASSIUM 4.1 MMOL/L (3.5-5.1); SODIUM 139 MMOL/L (136-145)
[2018-01-14 08:00] VITALS: BP 102/58
[2018-01-14] MEDS: Docusate 100mg cap ORAL SCH (09:00)
--- NOTE | 2018-01-14 09:06 | Nephrology Progress Note ---
Assessment/Plan Problem List: (1) LINDSEY (acute kidney injury) (2) Hypoalbuminemia (3) Sepsis (4) Quadriplegia Assessment Acute renal failure Cr now wnl UTI / Bacterimia / Sepsis Quadroplegia Colostomy SupraPubic Anemia HypoAlbuminemia Plan Albumin bolus prn Urine studies Midodrine with parameters avoid nephrotoxics check labs in am IV Venofer Subjective ROS Limited/Unobtainable: No Constitutional: Reports: malaise Objective Objective Last 24 Hour Vital Signs Date Time Temp Pulse Resp B/P (MAP) Pulse Ox O2 Delivery O2 Flow Rate FiO2 01/14/18 08:00 97.7 64 20 102/58 (73) 98 01/14/18 04:00 18 01/14/18 00:00 18 01/13/18 21:00 Room Air 01/13/18 20:00 97.6 101 18 144/106 (119) 97 01/13/18 18:39 97.0 01/13/18 16:00 97.0 107 16 142/102 (115) 98 01/13/18 12:00 97.3 100 14 156/100 (118) 96 Intake and Output 01/13/18 01/14/18 19:00 07:00 Intake Total 2075 ml 1880 ml Output Total 3850 ml 2500 ml Balance -1775 ml -620 ml Intake Oral 700 ml 220 ml IV Total 1125 ml 1410 ml Other 250 ml 250 ml Output Urine Total 2650 ml 1300 ml Stool Total 50 ml 50 ml Drainage Total 100 ml 100 ml Other 1050 ml 1050 ml # Voids 6 2 # Bowel Movements 4 1 Laboratory Tests 01/14/18 05:30: White Blood Count 6.1, Red Blood Count 3.72L, Hemoglobin 8.8L, Hematocrit 28.1L , Mean Corpuscular Volume 76L, Mean Corpuscular Hemoglobin 23.7L, Mean Corpuscular Hemoglobin Concent 31.3L, Red Cell Distribution Width 19.8H, Platelet Count 235, Mean Platelet Volume 4.8L, Neutrophils (%) (Auto) 59.1, Lymphocytes (%) (Auto) 20.7, Monocytes (%) (Auto) 9.6, Eosinophils (%) (Auto) 9.7H, Basophils (%) (Auto) 0.9, Urine Eosinophils None seen, Sodium Level 139, Potassium Level 4.1, Chloride Level 108H, Carbon Dioxide Level 25, Anion Gap 6, Blood Urea Nitrogen 19H, Creatinine 1.3, Estimat Glomerular Filtration Rate 58.0 , Glucose Level 76, Calcium Level 8.6, Magnesium Level 2.1 Height (Feet): 3 Height (Inches): 0.00 Weight (Pounds): 150 General Appearance: no apparent distress Objective no change Isaiah Yun MD Jan 14, 2018 09:06
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
[2018-01-14] MEDS ORDERED: PRO-AMATINE2.5 MG ORAL (09:13)
[2018-01-14] MEDS ORDERED: ZYVOX600 MG/300 IVPB (09:13)
[2018-01-14] MEDS ORDERED: ZOFRAN 4 MG4 MG/2 ML IVP (09:13)
[2018-01-14] MEDS: DiphenhydrAMINE 50mg/ml Inj IVP PRN (09:15)
--- NOTE | 2018-01-14 09:15 | Discharge Instructions ---
Discharge Instructions Discharge Instructions Follow up with: surgery in 1 -2 weeks , and primary care in 1 week Services at Discharge: other - wound vac and IV abx Diet: regular Resume Normal Activity?: Yes Activity: resume normal activities Special Instructions You will need to continue antibiotics for 30 more days to be completed on 02/13 you also will have labs drawn including cbc and bmp to check that your blood levels are normal on these antibiotics For Surgical Patients Contact your physician for: bleeding, pain, tenderness, redness, swelling, yellowish discharge in the op. site For Congestive Heart Failure Reminder Report to your physician any weight gain of 5 pounds or more in one week. Betsy Jones DO Jan 14, 2018 09:15
[2018-01-14] MEDS: Heparin 5000 units/ml inj SUBQ SCH (09:17)
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
--- NOTE | 2018-01-14 11:45 | General Progress Note ---
Assessment/Plan Assessment/Plan # Anemia of chronic disease due to underlying chronic medical issues --> Anemia panel has been reviewed, will trend as required --> hgb goal >7, transfuse on prn basis --> no etoh or drug abuse, meds reviewed --> Blood tx as needed: 01/03, 01/05 --> consider iron once infection has cleared # Leukocytosis is likely due to UTI (urinary tract infection) does have sepsis, also could be due to decub --> Resolved/Improved wbc --> Remains on antibiotics --> smear peripheral has been reviewed --> no schistocytes are noted --> no evidence of malignancy --> blood culture is positive for gram cocci, management as per ID --> appreciate ID recs --> decub surgery as per surgery recs # LINDSEY -- currently worse --> continue to monitor # Quadriplegia --> weakness has been chronic # Colostomy care, s/p colostomy revision and bowel resection on 01/09/18 --> per surgery # Tobacco abuse --> cessation education # Dispo --> likely back to [facility] on d/c # DVT ppx with heparin sq Greatly appreciate consultation! Subjective Allergies: Coded Allergies: CEFTRIAXONE (Verified Allergy, Unknown, 01/01/18) CODEINE (Verified Allergy, Unknown, 01/01/18) MORPHINE (Verified Allergy, Unknown, 01/01/18) PIPERACILLIN (Verified Allergy, Unknown, 01/01/18) SULFAMETHOXAZOLE (Verified Allergy, Unknown, 01/01/18) TAZOBACTAM (Verified Allergy, Unknown, 01/01/18) TRIMETHOPRIM (Verified Allergy, Unknown, 01/01/18) VANCOMYCIN (Verified Allergy, Unknown, 01/01/18) Subjective Pt resting in bed. H/H remains stable. Labs reviewed. ++ colostomy functioning + + wound vac Objective Last 24 Hour Vital Signs Date Time Temp Pulse Resp B/P (MAP) Pulse Ox O2 Delivery O2 Flow Rate FiO2 01/14/18 08:00 97.7 64 20 102/58 (73) 98 01/14/18 04:00 18 01/14/18 00:00 18 01/13/18 21:00 Room Air 01/13/18 20:00 97.6 101 18 144/106 (119) 97 01/13/18 18:39 97.0 01/13/18 16:00 97.0 107 16 142/102 (115) 98 01/13/18 12:00 97.3 100 14 156/100 (118) 96 Intake and Output 01/13/18 01/14/18 19:00 07:00 Intake Total 2075 ml 1880 ml Output Total 3850 ml 2500 ml Balance -1775 ml -620 ml Intake Oral 700 ml 220 ml IV Total 1125 ml 1410 ml Other 250 ml 250 ml Output Urine Total 2650 ml 1300 ml Stool Total 50 ml 50 ml Drainage Total 100 ml 100 ml Other 1050 ml 1050 ml # Voids 6 2 # Bowel Movements 4 1 Laboratory Tests 01/14/18 05:30: White Blood Count 6.1, Red Blood Count 3.72L, Hemoglobin 8.8L, Hematocrit 28.1L , Mean Corpuscular Volume 76L, Mean Corpuscular Hemoglobin 23.7L, Mean Corpuscular Hemoglobin Concent 31.3L, Red Cell Distribution Width 19.8H, Platelet Count 235, Mean Platelet Volume 4.8L, Neutrophils (%) (Auto) 59.1, Lymphocytes (%) (Auto) 20.7, Monocytes (%) (Auto) 9.6, Eosinophils (%) (Auto) 9.7H, Basophils (%) (Auto) 0.9, Urine Eosinophils None seen, Sodium Level 139, Potassium Level 4.1, Chloride Level 108H, Carbon Dioxide Level 25, Anion Gap 6, Blood Urea Nitrogen 19H, Creatinine 1.3, Estimat Glomerular Filtration Rate 58.0 , Glucose Level 76, Calcium Level 8.6, Magnesium Level 2.1 Height (Feet): 3 Height (Inches): 0.00 Weight (Pounds): 150 General Appearance: no apparent distress EENT: normal ENT inspection Neck: supple Cardiovascular: regular rhythm Respiratory/Chest: normal breath sounds Abdomen: other - colostomy Genitourinary/Rectal: heme negative stool Extremities: non-tender Edema: 1+ Leg (L), 1+ Leg (R) Edema: mild edema Neurologic: alert Rodolfo Scott MD Jan 14, 2018 11:45
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
[2018-01-14 12:00] VITALS: BP 105/61
[2018-01-14] MEDS ORDERED: INVANZ1 GM IVPB (12:11)
--- NOTE | 2018-01-14 13:01 | General Progress Note ---
Progress Note Progress Note Surgery: doing better. no n/v/f/c. tolerating diet. ostomy with stool. wounds improved. path acute osteo d/c planning okay to remove wound vac and place gauze dressings for discharge to facility can cont with gauze packing and dressings TID or preferred if able to place wound VAC in facility thank you Atif Luna Jan 14, 2018 13:01
[2018-01-14] MEDS ORDERED: HYDROmorphone 1mg/ml Carpuject IVP SCH (13:19)
[2018-01-14 16:00] VITALS: BP 122/63
== END 2018-01-14 17:00 | DRG 853 ==
LOC: EDBD 12:33 → EMR 13:15 → 2W 13:27 → EDBEDREQSVC 13:27 → EDBEDREQ 14:00 → 4E 01-02 10:29
PROC: 05HM33Z Insertion of Infusion Device into Right Internal Jugular Vein, Percutaneous Approach (ICD-10-PCS; principal; 2018-01-01)
PROC: 0QD10ZZ Extraction of Sacrum, Open Approach (ICD-10-PCS; 2018-01-08)
PROC: 0DBE4ZZ Excision of Large Intestine, Percutaneous Endoscopic Approach (ICD-10-PCS; 2018-01-08)
PROC: 0JDM3ZZ Extraction of Left Upper Leg Subcutaneous Tissue and Fascia, Percutaneous Approach (ICD-10-PCS; 2018-01-08)
PROC: 0HD7XZZ Extraction of Abdomen Skin, External Approach (ICD-10-PCS; 2018-01-08)
PROC: 0JDL3ZZ Extraction of Right Upper Leg Subcutaneous Tissue and Fascia, Percutaneous Approach (ICD-10-PCS; 2018-01-08)
PROC: 0JD93ZZ Extraction of Buttock Subcutaneous Tissue and Fascia, Percutaneous Approach (ICD-10-PCS; 2018-01-08)
PROC: 0QB33ZZ Excision of Left Pelvic Bone, Percutaneous Approach (ICD-10-PCS; 2018-01-08)
PROC: B518ZZA Fluoroscopy of Superior Vena Cava, Guidance (ICD-10-PCS; 2018-01-09)
PROC: 02HV33Z Insertion of Infusion Device into Superior Vena Cava, Percutaneous Approach (ICD-10-PCS; 2018-01-09)
DX: A41.02 Sepsis due to Methicillin resistant Staphylococcus aureus (principal); L89.153 Pressure ulcer of sacral region, stage 3; G82.50 Quadriplegia, unspecified; N39.0 Urinary tract infection, site not specified; K94.09 Other complications of colostomy; T81.30XA Disruption of wound, unspecified, initial encounter; N17.9 Acute kidney failure, unspecified; M86.9 Osteomyelitis, unspecified; E46 Unspecified protein-calorie malnutrition; Z68.1 Body mass index [BMI] 19.9 or less, adult; S14.109S Unspecified injury at unspecified level of cervical spinal cord, sequela; X93.XXXS Assault by handgun discharge, sequela; Z72.0 Tobacco use; Z89.612 Acquired absence of left leg above knee; Z89.611 Acquired absence of right leg above knee; D64.9 Anemia, unspecified; F41.9 Anxiety disorder, unspecified; G47.00 Insomnia, unspecified; F19.10 Other psychoactive substance abuse, uncomplicated; E88.09 Other disorders of plasma-protein metabolism, not elsewhere classified; E87.6 Hypokalemia; L89.329 Pressure ulcer of left buttock, unspecified stage; L89.319 Pressure ulcer of right buttock, unspecified stage
CPT/HCPCS: 36415; 36569; 71045; 74176; 76937; 80048; 80053; 80076; 80150; 81001; 81003; 82043; 82550; 82553; 82570; 82607; 82728; 82746; 82977; 83540; 83550; 83605; 83615; 83735; 83935; 84100; 84300; 84439; 84443; 84481; 84484; 84550; 85007; 85025; 85044; 85060; 85610; 85730; 86140; 86850; 86880; 86900; 86901; 86920; 87040; 87086; 87181; 89050; 93005; 93306; 94003; 94150; 94640; 94664; 96361; 96365; 96372; 99285; J2250; J7620; J8499; S0077

== ENCOUNTER 2018-01-24 10:40 | Emergency (ER) | payer MEDICARE, MEDICAID ==
[~2018-01-24] VITALS: Ht 121.9 cm; Wt 56.7 kg
[~2018-01-24 10:40] MED LIST: ACETAMINOPHEN325 M1 ORAL; BACLOFEN10 MG ORAL; BENADRYL25 MG ORAL; GABAPENTIN600 MG ORAL; INVANZ1 GM IVPB; MIDODRINE HCL5 MG ORAL; MULTIVITAMINS1 EA13 ORAL; NICOTINE1 EAC2 TD; OXYCODONE HCL10 MG ORAL; PEPCID AC20 M2 PO; PRO-AMATINE2.5 MG ORAL; VITAMIN C500 M1 ORAL; ZINC SULFATE220 M1 ORAL; ZOFRAN 4 MG4 MG/2 ML IVP; ZYVOX600 MG/300 IVPB
[2018-01-24] MEDS ORDERED: Ketorolac 60mg Inj IM ONE (11:15)
--- NOTE | 2018-01-24 12:13 | Diagnostic Imaging Report ---
Indications: Pain, status post fall, head pain Technique: Spiral acquisitions obtained through the brain. Angled axial and coronal 5 x 5 mm slices were reconstructed. Total dose length product 1414.79 mGycm. CTDI vol(s) 70.38 mGy. Dose reduction achieved using automated exposure control Comparison: Findings: There is frontal cortical volume loss as well as mild cerebellar volume loss. There is an old lacunar infarct in the anterior right basal ganglia region which results in ex vacuo dilatation of the frontal horn of the right lateral ventricle. No acute intracranial hemorrhage nor edema, mass effect, nor midline shift. Normal zavala-white differentiation. Intact calvarium. Mastoids are clear. Visualized orbits and sinuses are unremarkable. Impression: Frontal cortical and cerebellar volume loss, somewhat striking for age Negative for acute intracranial bleed or mass effect Old right basal ganglia lacunar infarct The CT scanner at [facility] is accredited by the [employer] and the scans are performed using protocols designed to limit radiation exposure to as low as reasonably achievable to attain images of sufficient resolution adequate for diagnostic evaluation.
--- NOTE | 2018-01-24 12:22 | Diagnostic Imaging Report ---
Indication: Trauma, status post fall out of bed, neck pain Technique: Spiral acquisitions obtained through the cervical spine. No IV contrast utilized. Multiplanar reconstructions were generated. Total dose length product 381.73 mGycm. CTDIvol(s) 18 mGy. Dose reduction achieved using automated exposure control. Comparison: none Findings: There are is slight reversal of the normal cervical lordosis. There is very slight anterior offset of C2 on C3 and slight posterior offset of C4 on C5. There is ankylosis of the C7 and T1 vertebral bodies and posterior elements. This appears to be likely postsurgical as what appear to be old screw holes are demonstrated within the C7 vertebral body. There is slight superior endplate depression of the C7 vertebral body, appears to be chronic and related to prior surgery rather than acute. No acute fractures. No dislocations. The vertebral body heights are preserved. There is mild degenerative disc narrowing at C3-4. No significant disc bulge or protrusion, spinal stenosis, or neural foraminal stenosis. There is moderate degenerative disc narrowing at C4-5. There is mild narrowing of the right neural foramen. No significant disc bulge or protrusion. Posterior osteophytes may impinge slightly on the anterior cortex of the left of midline. There is mild degenerative disc narrowing at C5-6. The neural foramina are preserved. There is borderline spinal stenosis due to posterior osteophytes. There is mild left neural foraminal narrowing at C7-T1. At the remaining disc levels, no significant disc bulge or protrusion, spinal stenosis, or neural foraminal stenosis The included extraspinal soft tissues are unremarkable. Impression: Negative for acute bony trauma Evidence of ankylosis of the C7-T1 disc and posterior elements, presumably postsurgical. Correlate with surgical history Degenerative changes, as described The CT scanner at [facility] is accredited by the [employer] and the scans are performed using protocols designed to limit radiation exposure to as low as reasonably achievable to attain images of sufficient resolution adequate for diagnostic evaluation.
--- NOTE | 2018-01-24 12:34 | Diagnostic Imaging Report ---
Indication: Back pain status post fall out of bed Technique: Spiral acquisitions obtained through the thoracic spine. No IV contrast utilized. Multiplanar reconstructions were generated. Total dose length product 1087.98 mGycm. CTDIvol(s) 24.91 mGy. Dose reduction achieved using automated exposure control Comparison: Reference made to abdomen pelvis CT 01/05/2018 Findings: There is slight upper thoracic scoliotic deformity. Uncertain as to whether renal or artifact of positioning. Otherwise normal bony alignment. There is slight superior endplate depression and very slight loss of height of the T12 vertebral body. The remaining vertebral body heights are preserved. As described in the cervical spine CT report, there is ankylosis of the C7-T1 disc as well as the C7-T1 posterior elements. No other evidence of acute fracture. 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 No significant disc bulge or protrusion, spinal stenosis, or neural foraminal stenosis. The right kidney appears atrophic and calcified. It is incompletely included in the imaging volume. There is a left chest pacemaker. The esophagus is gas-filled Impression: Slight compression fracture deformity of the T12 vertebral body. Acuity is indeterminate, but this is also evident in retrospect on a recent abdomen pelvis CT of 01/05/2018 so is at least 3 weeks old. If clinically indicated, MRI may be useful to better determine acuity No other acute bony trauma. 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
--- NOTE | 2018-01-24 12:42 | Diagnostic Imaging Report ---
Indications: Back pain, status post fall out of bed Technique: Spiral acquisitions obtained through the lumbar spine. Multiplanar reconstructions were generated. No IV contrast utilized. Total dose length product 426.62 mGycm. CTDIvol(s) 14.62 mGy. Dose reduction achieved using automated exposure control Comparison: Reference made to CT abdomen and pelvis dated 01/05/2018 Findings: Patient is status post resection of the sacrum immediately below the level of the S1-S2 disc. As previously, the right distal sacrum is immediately adjacent to the skin surface. There is marked chronic deformity of the right hemipelvis, incompletely included an better characterized on the prior abdomen pelvis CT. There is slight superior endplate depression of the L3 vertebral body which is unchanged. The bony alignment is normal. The remaining vertebral body heights are preserved. There is no evidence of acute fracture. No dislocations. There is incomplete fusion of the bilateral L1 transverse processes. There is ankylosis of the L4, L5, and S1 spinous processes. There is also evidence of partial ankylosis of the L3-4, L4-5, and L5-S1 facets. The disc spaces are preserved. No significant disc bulge or protrusion, spinal stenosis, or neural foraminal stenosis. Extensive retroperitoneal surgical clips are noted. The right kidney is markedly abnormal. This is also described on prior abdomen pelvis CT report. There is mild left hydronephrosis, also previously reported and unchanged. Calculi are seen in the lower pole of the left renal collecting system. There is evidence of a prior Humphreys procedure with wall thickening of the rectal stump, also previously demonstrated. There is chronic thickening of the Impression: No definite acute bony trauma Extensive postsurgical and chronic changes as described above and on prior abdomen pelvis CT The CT scanner at [facility] is accredited by the [employer] and the scans are performed using protocols designed to limit radiation exposure to as low as reasonably achievable to attain images of sufficient resolution adequate for diagnostic evaluation.
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
[2018-01-24 13:51] VITALS: BP 120/80
[2018-01-24 16:28] VITALS: BP 120/80
== END 2018-01-24 16:29 | disposition home or self-care (01) ==
LOC: EDUNIT# 10:40 → EDBD 10:40 → EMR 12:01
DX: M54.2 Cervicalgia (principal); M54.9 Dorsalgia, unspecified; W06.XXXA Fall from bed, initial encounter; Y92.122 Bedroom in nursing home as the place of occurrence of the external cause; G82.20 Paraplegia, unspecified; I10 Essential (primary) hypertension; M50.31 Other cervical disc degeneration, high cervical region; Z89.612 Acquired absence of left leg above knee; Z89.611 Acquired absence of right leg above knee; Z88.2 Allergy status to sulfonamides; Z88.5 Allergy status to narcotic agent; Z88.1 Allergy status to other antibiotic agents
CPT/HCPCS: 70450; 72125; 72128; 72131; 96372; 99284

== ENCOUNTER 2018-04-04 21:05 | Inpatient (IN) | payer MEDICARE, MEDICAID ==
[~2018-04-04] VITALS: Ht 99.1 cm; Wt 48.5 kg
[2018-04-04 21:17] VITALS: BP 97/65
[2018-04-04] MEDS ORDERED: PERI-COLACE1 EA ORAL (21:27)
[2018-04-04] MEDS ORDERED: [UNRECOGNIZED DRUG - OTHER] MC (21:27)
[2018-04-04] MEDS ORDERED: NITROGLYCERIN2.5 M1 PO (21:27)
[2018-04-04] MEDS ORDERED: Sodium Chloride 1,400 ML IVLG ONE (21:45)
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
[2018-04-04 23:47] LABS: BASOPHILS % (AUTO) 0.3 % (0.0-2.0); HEMATOCRIT 27.6 % (42.0-52.0); HEMOGLOBIN 8.5 G/DL (14.2-18.0); LYMPHOCYTES % (AUTO) 11.7 % (20.0-45.0); MEAN CORPUSCULAR VOLUME 73 FL (80-99); NEUTROPHILS % (AUTO) 76.9 % (45.0-75.0); PLATELET COUNT 523 K/UL (150-450); RED BLOOD COUNT 3.76 M/UL (4.70-6.10); RED CELL DISTRIBUTION WIDTH 18.7 % (11.6-14.8)
[2018-04-05] VITALS (45 sets, daily range): BP systolic 56–172; BP diastolic 36–105
[2018-04-05 00:04] LABS: ANION GAP 13 mmol/L (5-15); BLOOD UREA NITROGEN 55 mg/dL (7-18); CALCIUM 9.7 MG/DL (8.5-10.1); CARBON DIOXIDE 22 MMOL/L (21-32); CHLORIDE 103 MMOL/L (98-107); CREATININE 1.4 MG/DL (0.55-1.30); POTASSIUM 3.6 MMOL/L (3.5-5.1); SODIUM 138 MMOL/L (136-145)
[2018-04-05 00:18] LABS: ALANINE AMINOTRANSFERASE 25 U/L (12-78); ALBUMIN 1.8 G/DL (3.4-5.0); ALBUMIN/GLOBULIN RATIO 0.3 (1.0-2.7); ALKALINE PHOSPHATASE 238 U/L (46-116); ASPARTATE AMINO TRANSFERASE 35 U/L (15-37); BILIRUBIN,TOTAL 0.2 MG/DL (0.2-1.0); CKMB 0.6 NG/ML (0.0-3.6); CREATINE KINASE 10 U/L (26-308)
[2018-04-05 00:26] LABS: APPEARANCE,URINE CLOUDY; BILIRUBIN, URINE NEGATIVE (NEGATIVE); COLOR,URINE PALE YELLOW; GLUCOSE, URINE (UA) NEGATIVE (NEGATIVE); KETONES,URINE NEGATIVE (NEGATIVE); LEUKOCYTE ESTERASE ,URINE 3+ (NEGATIVE); NITRITE,URINE NEGATIVE (NEGATIVE); PH,URINE 7 (4.5-8.0); PROTEIN,URINE 3+ (NEGATIVE); UROBILINOGEN,URINE NORMAL MG/DL (0.0-1.0)
[2018-04-05] MEDS ORDERED: Ertapenem 1 GM in NS 55 ML IV ONE (00:45)
[2018-04-05 08:10] LABS: FERRITIN 491 NG/ML (8-388); LACTATE DEHYDROGENASE 86 U/L (81-234)
[2018-04-05 08:13] LABS: % IRON SATURATION 33 % (15-50); IRON 31 ug/dL (50-175); TOTAL IRON BINDING CAPACITY 95 ug/dL (250-450)
--- NOTE | 2018-04-05 08:21 | General Progress Note ---
Advance Care Planning Advance Care Planning Advance Care Planning [facility] An independent Hospitalist group, where every patient is our [facility] Internal Medicine Hospitalist Advanced Care Planning Note Please contact us at Date of Discussion: A [id number] discussion with the patient regarding the patient's advanced care planning took place during this hospitalization on the above date. The discussion included the explanation and discussion of advance directives and associated forms/documents, as well as the patient's current code status. We also discussed at length the patient's medical conditions (both acute and chronic), general prognosis, treatment options, and goals of care. The following summarizes the discussion: Advance Care Planning/Goals of Care: - Will attempt to fill out an AD and/or POLST with the patient prior to discharge, if not already completed - Continue current evaluation and management of any acute and chronic medical issues - Will continue to support the patient/family - Will continue to discuss both short- and long-term goals of care DPOA-HC/Surrogate Decision Maker: None currently appointed Code Status: Full Code Advanced Care Planning Forms/Documents Completed: Deferred until later encounter/visit A total of 35 minutes was spent on this discussion, including counseling, answering questions, and completing, if any, pertinent advanced care planning forms/documents. Time of note may not reflect time of encounter. Gissel Coe MD Apr 05, 2018 08:21
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
[2018-04-05] MEDS: HYDROmorphone 2mg tab ORAL PRN ×2 (09:54→14:18)
[2018-04-05] MEDS: Pantoprazole Inj IVP SCH (09:55)
[2018-04-05] MEDS: Heparin 5000 units/ml inj SUBQ SCH ×2 (10:00→20:04)
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
--- NOTE | 2018-04-05 10:55 | Diagnostic Imaging Report ---
Indication: Shortness of breath Technique: One view of the chest Comparison: 01/02/2018 Findings: There is apparent thoracic scoliotic deformity, may in part be an artifact of positioning. Lungs and pleural spaces are clear. Right jugular central venous catheter demonstrated previously is no longer evident. Impression: No acute process
--- NOTE | 2018-04-05 11:14 | Diagnostic Imaging Report ---
Indication: Postoperative, post line placement Technique: One view of the chest Comparison: 2 hours earlier Findings: Interim placement right jugular central venous catheter, tip projecting at level of the right atrium. The lungs and pleural spaces are clear. The heart size is upper limits normal. There is thoracic scoliotic deformity. No pneumothorax Impression: Right jugular central venous catheter placement, tip in the right atrium. No radiographically evident complication. No acute process or significant interim slip box changer 2 hours
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
[2018-04-05] MEDS: Dyna-Hex 2% Top Sol 2oz TOPIC SCH (20:00)
[2018-04-06] VITALS (48 sets, daily range): BP systolic 67–156; BP diastolic 41–103
[2018-04-06] MEDS ORDERED: Ertapenem 1 GM in NS 55 ML IVPB SCH ×2
[2018-04-06 07:27] LABS: HEMATOCRIT 26.1 % (42.0-52.0); HEMOGLOBIN 7.6 G/DL (14.2-18.0); MEAN CORPUSCULAR VOLUME 75 FL (80-99); PLATELET COUNT 383 K/UL (150-450); RED BLOOD COUNT 3.46 M/UL (4.70-6.10); RED CELL DISTRIBUTION WIDTH 18.9 % (11.6-14.8); WHITE BLOOD COUNT 9.9 K/UL (4.8-10.8)
[2018-04-06 07:34] LABS: ANION GAP 11 mmol/L (5-15); BLOOD UREA NITROGEN 27 mg/dL (7-18); CALCIUM 8.8 MG/DL (8.5-10.1); CARBON DIOXIDE 20 MMOL/L (21-32); CHLORIDE 105 MMOL/L (98-107); CREATININE 1.4 MG/DL (0.55-1.30); SODIUM 136 MMOL/L (136-145)
[2018-04-06] MEDS: Heparin 5000 units/ml inj SUBQ SCH ×2 (08:53→20:03)
[2018-04-06] MEDS: Pantoprazole Inj IVP SCH (09:00)
--- NOTE | 2018-04-06 09:40 | General Progress Note ---
Assessment/Plan Assessment/Plan #Septic Shock #Hypotension #Infected Decubitus Ulcer #Cellulitis #Stage IV Decubitus Ulcer #quadriplegia - Invanz, allergic to many abx. ID consult - Levophed, cont pressure support, 4mcg/hr, wean as tolerated - bcx x 2 - daily labs - tele - i/o - fluids #Microcytic Anemia - stable - no acute bleeding - hematology consult - iron panel ppx: hsq diet: regular Code Status: Full Hospital Classification Declaration: Based on this initial evaluation, and depending on the patient's clinical course, I anticipate that this patient will require hospitalization for 3-4 days for sepsis managemetn and close respiratory /hemodynamic monitoring. Disposition: Once the patient is stable to leave the hospital, I anticipate the patient will likely be discharged to the following environment: home with vs SNF I spent 55 minutes on this patient's case, and 30 minutes were dedicated to counseling and/or care coordination. Discussed with patient/family, nursing staff, SW/CM, [] regarding clinical status, treatment course, and disposition planning. Over 30 minutes of critical care time have been spent on this patient , managing pressures and sepsis management. Time of note may not reflect time of encounter. Subjective Date patient seen: Apr 06, 2018 Time patient seen: 09:39 Allergies: Coded Allergies: CEFTRIAXONE (Verified Allergy, Unknown, 01/01/18) CODEINE (Verified Allergy, Unknown, 01/01/18) MORPHINE (Verified Allergy, Unknown, 01/01/18) PIPERACILLIN (Verified Allergy, Unknown, 01/01/18) SULFAMETHOXAZOLE (Verified Allergy, Unknown, 01/01/18) TAZOBACTAM (Verified Allergy, Unknown, 01/01/18) TRIMETHOPRIM (Verified Allergy, Unknown, 01/01/18) VANCOMYCIN (Verified Allergy, Unknown, 01/01/18) Subjective f/u sepsis , hypotension still on levophed DU being managed by wound care on abx ID consulted pain well controlled now ROS: 14 point ROS neg except per above Objective Last 24 Hour Vital Signs Date Time Temp Pulse Resp B/P (MAP) Pulse Ox O2 Delivery O2 Flow Rate FiO2 04/06/18 07:20 97.6 04/06/18 07:00 88 15 87/58 (68) 97 04/06/18 06:30 91 15 127/90 (102) 97 04/06/18 06:00 92 15 127/77 (94) 97 04/06/18 05:30 94 15 105/72 (83) 96 04/06/18 05:00 101 22 103/61 (75) 96 04/06/18 05:00 103/61 04/06/18 04:30 107 15 130/89 (103) 96 04/06/18 04:00 Room Air 04/06/18 04:00 97.9 89 15 102/72 (82) 97 04/06/18 04:00 130/89 04/06/18 04:00 84 04/06/18 03:30 84 22 90/54 (66) 95 04/06/18 03:00 90/54 04/06/18 03:00 86 14 86/58 (67) 95 04/06/18 02:30 95 18 112/70 (84) 96 04/06/18 02:00 97 16 115/68 (84) 96 04/06/18 02:00 112/70 04/06/18 01:30 100 15 125/75 (92) 96 04/06/18 01:00 125/75 04/06/18 01:00 93 16 102/65 (77) 95 04/06/18 00:30 90 16 103/65 (78) 96 04/06/18 00:00 89 13 104/73 (83) 96 04/06/18 00:00 103/65 04/06/18 00:00 97.6 89 13 104/73 (83) 96 04/06/18 00:00 Room Air 04/06/18 00:00 85 04/05/18 23:30 84 11 93/74 (80) 96 04/05/18 23:00 86 10 74/51 (59) 94 04/05/18 23:00 74/51 04/05/18 22:30 89 14 99/66 (77) 97 04/05/18 22:00 121/68 04/05/18 22:00 89 15 121/68 (85) 96 04/05/18 21:30 90 14 98/70 (79) 97 04/05/18 21:00 98/70 04/05/18 21:00 89 12 108/68 (81) 97 04/05/18 20:30 90 12 105/66 (79) 97 04/05/18 20:00 126/89 04/05/18 20:00 83 04/05/18 20:00 Room Air 04/05/18 20:00 97.9 87 13 126/89 (101) 98 04/05/18 19:30 84 15 92/65 (74) 99 04/05/18 19:00 84 16 85/55 (65) 96 04/05/18 19:00 85/55 04/05/18 18:30 84 17 172/105 (127) 96 04/05/18 18:00 91 17 108/70 (83) 98 04/05/18 17:30 93 17 108/70 (83) 97 04/05/18 17:00 86 16 109/63 (78) 97 04/05/18 16:30 85 15 113/71 (85) 97 04/05/18 16:03 107/71 04/05/18 16:00 97.9 85 14 107/71 (83) 97 04/05/18 16:00 Room Air 04/05/18 16:00 87 04/05/18 15:41 117/77 04/05/18 15:30 88 20 67/39 (48) 96 04/05/18 15:00 82 16 80/42 (55) 95 04/05/18 14:30 85 14 97/53 (68) 97 04/05/18 14:23 91 19 103/69 (80) 98 04/05/18 14:00 87 12 84/55 (65) 97 04/05/18 14:00 84/55 04/05/18 13:30 87 12 108/66 (80) 99 04/05/18 13:00 106/65 04/05/18 13:00 84 13 95/66 (76) 97 04/05/18 12:49 85/56 04/05/18 12:30 79 13 56/36 (43) 97 04/05/18 12:00 97.6 80 13 82/56 (65) 98 04/05/18 12:00 83 04/05/18 12:00 Room Air 04/05/18 11:30 78 14 72/55 (61) 96 04/05/18 11:00 89/59 04/05/18 11:00 86 20 89/59 (69) 98 04/05/18 10:30 96 16 118/76 (90) 98 04/05/18 10:00 91 16 113/84 (94) 96 04/05/18 10:00 134/98 Intake and Output 04/05/18 04/06/18 19:00 07:00 Intake Total 525.0 ml 505 ml Output Total 500 ml 900 ml Balance 25.0 ml -395 ml Intake Oral 420 ml 300 ml IV Total 105.0 ml 205 ml Output Other 500 ml 900 ml Laboratory Tests 04/05/18 10:29: Urine Total Protein [Pending], Urine Albumin (%) [Pending], Urine Alpha-1- Globulins (%) [Pending], Urine Kskaj-1-Xmyowmgte (%) [Pending], Urine Beta- Globulin (%) [Pending], Urine Gamma Globulin (%) [Pending], Ur Protein Electrophoresis M-Fredy [Pending], Urine Protein Electrophoresis Intrp [Pending] 04/06/18 05:00: White Blood Count 9.9, Red Blood Count 3.46L, Hemoglobin 7.6L, Hematocrit 26.1L , Mean Corpuscular Volume 75L, Mean Corpuscular Hemoglobin 22.1L, Mean Corpuscular Hemoglobin Concent 29.3L, Red Cell Distribution Width 18.9H, Platelet Count 383, Mean Platelet Volume 4.1L, Neutrophils (%) (Auto) , Lymphocytes (%) (Auto) , Monocytes (%) (Auto) , Eosinophils (%) (Auto) , Basophils (%) (Auto) , Differential Total Cells Counted 100, Neutrophils % ( Manual) 73, Lymphocytes % (Manual) 13L, Monocytes % (Manual) 11H, Eosinophils % (Manual) 2, Basophils % (Manual) 0, Band Neutrophils 1, Platelet Estimate Adequate, Platelet Morphology Normal, Hypochromasia 2+, Anisocytosis 2+, Microcytosis 2+, Sodium Level 136, Potassium Level 3.0L, Chloride Level 105, Carbon Dioxide Level 20L, Anion Gap 11, Blood Urea Nitrogen 27H, Creatinine 1.4H , Estimat Glomerular Filtration Rate 53.2, Glucose Level 111H, Calcium Level 8.8 Height (Feet): 3 Height (Inches): 3.00 Weight (Pounds): 109 Objective General appearance: alert, cooperative, no distress, appears stated age Head: Normocephalic, without obvious abnormality, atraumatic Eyes: conjunctivae/corneas clear. PERRL, EOM's intact. Fundi benign Throat: Lips, mucosa, and tongue normal. Teeth and gums normal Neck: supple, symmetrical, trachea midline, no adenopathy, thyroid: not enlarged, symmetric, no tenderness/mass/nodules, no carotid bruit and no JVD Lungs: clear to auscultation bilaterally Heart: regular rate and rhythm, S1, S2 normal, no murmur, click, rub or gallop Abdomen: soft, non-tender. Bowel sounds normal. No masses, no organomegaly Extremities: extremities normal, atraumatic, no cyanosis or edema. stage 4 decub ulcers, sloughing, oozing Pulses: 2+ and symmetric Skin: Skin color, texture, turgor normal. No rashes or lesions Neurologic: Grossly normal Gissel Coe MD Apr 06, 2018 09:40
[2018-04-06] MEDS ORDERED: Tubing IV Secondary IV ONE (17:13)
[2018-04-06] MEDS ORDERED: NS 275ml ONE (17:13)
--- NOTE | 2018-04-06 17:46 | Pulmonolgy Critical Care Note ---
Critical Care - Asmt/Plan Assessment/Plan: 1. Septic shock 2. Infected stage IV decubitus ulcer 3. 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 chronic pain 5. microcytic anemia 6. multiple antibiotic allergies 7. Hx MRSA colonization Plan: -levophed, wean as tolerated, almost off -abx: Invanz, needs MRSA coverage, consider linezolid, ID to see -f/u cultures -decubitus ulcer wound care, surgery to see -pain control Respiratory: CXR, ABG Cardiac: continue pressors Renal: F/U I&O, keep IV fluid Gastrointestinal: hold feedings Neurologic: PRN Morphine Disposition: keep in ICU Time Spent (Minutes): 40 Discussed with: nurses Critical Care - Objective Last 24 Hour Vital Signs Date Time Temp Pulse Resp B/P (MAP) Pulse Ox O2 Delivery O2 Flow Rate FiO2 04/06/18 16:30 97.6 91 13 127/85 (99) 98 04/06/18 15:33 98.0 04/06/18 15:32 83 15 87/45 (59) 97 04/06/18 15:00 87 20 87/41 (56) 97 04/06/18 14:30 85 18 152/84 (106) 97 04/06/18 14:00 88 18 129/93 (105) 97 04/06/18 13:30 92 15 87/54 (65) 97 04/06/18 13:00 89 15 145/65 (91) 97 04/06/18 12:30 85 15 105/66 (79) 97 04/06/18 12:00 Room Air 04/06/18 12:00 86 04/06/18 12:00 98.3 94 14 67/41 (50) 96 04/06/18 11:30 91 14 117/76 (90) 97 04/06/18 11:00 91 14 103/68 (80) 97 04/06/18 10:30 91 14 138/87 (104) 99 04/06/18 10:00 82 18 142/90 (107) 99 04/06/18 09:30 77 18 135/86 (102) 99 04/06/18 09:00 91 14 74/42 (53) 98 04/06/18 08:30 97 14 96/61 (73) 98 04/06/18 08:00 Room Air 04/06/18 08:00 98.0 97 16 131/89 (103) 99 04/06/18 08:00 89 04/06/18 07:30 97 16 93/64 (74) 97 04/06/18 07:00 88 15 87/58 (68) 97 04/06/18 06:30 91 15 127/90 (102) 97 04/06/18 06:00 92 15 127/77 (94) 97 04/06/18 05:30 94 15 105/72 (83) 96 04/06/18 05:00 101 22 103/61 (75) 96 04/06/18 05:00 103/61 04/06/18 04:30 107 15 130/89 (103) 96 04/06/18 04:00 Room Air 04/06/18 04:00 97.9 89 15 102/72 (82) 97 04/06/18 04:00 130/89 04/06/18 04:00 84 04/06/18 03:30 84 22 90/54 (66) 95 04/06/18 03:00 90/54 04/06/18 03:00 86 14 86/58 (67) 95 04/06/18 02:30 95 18 112/70 (84) 96 04/06/18 02:00 97 16 115/68 (84) 96 04/06/18 02:00 112/70 04/06/18 01:30 100 15 125/75 (92) 96 04/06/18 01:00 125/75 04/06/18 01:00 93 16 102/65 (77) 95 04/06/18 00:30 90 16 103/65 (78) 96 04/06/18 00:00 89 13 104/73 (83) 96 04/06/18 00:00 103/65 04/06/18 00:00 97.6 89 13 104/73 (83) 96 04/06/18 00:00 Room Air 04/06/18 00:00 85 04/05/18 23:30 84 11 93/74 (80) 96 04/05/18 23:00 86 10 74/51 (59) 94 04/05/18 23:00 74/51 04/05/18 22:30 89 14 99/66 (77) 97 04/05/18 22:00 121/68 04/05/18 22:00 89 15 121/68 (85) 96 04/05/18 21:30 90 14 98/70 (79) 97 04/05/18 21:00 98/70 04/05/18 21:00 89 12 108/68 (81) 97 04/05/18 20:30 90 12 105/66 (79) 97 04/05/18 20:00 126/89 04/05/18 20:00 83 04/05/18 20:00 Room Air 04/05/18 20:00 97.9 87 13 126/89 (101) 98 04/05/18 19:30 84 15 92/65 (74) 99 04/05/18 19:00 84 16 85/55 (65) 96 04/05/18 19:00 85/55 04/05/18 18:30 84 17 172/105 (127) 96 04/05/18 18:00 91 17 108/70 (83) 98 Status: awake Condition: improving Heart: HR/BP unstable Abdomen: soft, non-tender Decubiti: location Micro: Microbiology Date/Time Source Procedure Growth Status 04/04/18 22:50 Blood Blood Culture - Preliminary NO GROWTH AFTER 24 HOURS Resulted 04/04/18 22:45 Blood Blood Culture - Preliminary NO GROWTH AFTER 24 HOURS Resulted 04/04/18 21:33 Other Gram Stain - Final Resulted 04/04/18 21:33 Wound Culture - Preliminary Gram Negative Bacillus 1 Resulted 04/04/18 22:40 Nasal Nares Influenza Types A,B Antigen (ANA) - Final Complete 04/05/18 00:00 Indwelling Cath Urine Culture - Preliminary Mixed Urogenital Contaminants Resulted 04/05/18 03:41 Rectum Received Critical Care - Subjective ROS Limited/Unobtainable: Yes Condition: critical I&O: Intake and Output 04/05/18 04/06/18 19:00 07:00 Intake Total 525.0 ml 505 ml Output Total 500 ml 900 ml Balance 25.0 ml -395 ml Intake Oral 420 ml 300 ml IV Total 105.0 ml 205 ml Output Other 500 ml 900 ml Subjective: remains on pressors compalins of severe pain not getting oob no cp nv or bleeding no fever psoitive uop and bm Labs: Current Medications Medications (Trade) Dose Ordered Sig/Alva Route PRN Reason Start Time Stop Time Status Last Admin Dose Admin Acetaminophen (Tylenol) 650 mg Q6H PRN ORAL Mild Pain/Temp > 100.5 04/05/18 06:45 05/05/18 06:44 Chlorhexidine Gluconate (Cassandra-Hex 2%) 1 applic DAILY@2000 TOPIC 04/05/18 20:00 05/05/18 19:59 04/05/18 20:00 Ertapenem 1 gm/ Sodium Chloride 55 ml @ 110 mls/hr Q24H IVPB 04/06/18 00:00 04/06/18 23:59 04/06/18 00:10 Folic Acid (Folate) 1 mg DAILY ORAL 04/07/18 09:00 05/07/18 08:59 Heparin Sodium (Porcine) (Heparin 5000 units/ml) 5,000 units EVERY 12 HOURS SUBQ 04/05/18 09:00 05/05/18 08:59 04/05/18 20:04 Hydromorphone HCl (Dilaudid) 1.5 mg Q4H PRN IVP Severe breakthrough pain 04/05/18 17:30 04/12/18 17:29 04/06/18 15:03 Norepinephrine Bitartrate 4 mg/ Dextrose 250 ml @ 0 mls/hr Q24H IV 04/05/18 06:45 05/05/18 06:44 04/05/18 15:41 Pantoprazole (Protonix) 40 mg DAILY IVP 04/05/18 09:00 05/05/18 08:59 04/06/18 09:00 Laboratory Tests Test 04/06/18 05:00 White Blood Count 9.9 K/UL (4.8-10.8) Red Blood Count 3.46 M/UL (4.70-6.10) L Hemoglobin 7.6 G/DL (14.2-18.0) L Hematocrit 26.1 % (42.0-52.0) L Mean Corpuscular Volume 75 FL (80-99) L Mean Corpuscular Hemoglobin 22.1 PG (27.0-31.0) L Mean Corpuscular Hemoglobin Concent 29.3 G/DL (32.0-36.0) L Red Cell Distribution Width 18.9 % (11.6-14.8) H Platelet Count 383 K/UL (150-450) Mean Platelet Volume 4.1 FL (6.5-10.1) L Neutrophils (%) (Auto) % (45.0-75.0) Lymphocytes (%) (Auto) % (20.0-45.0) Monocytes (%) (Auto) % (1.0-10.0) Eosinophils (%) (Auto) % (0.0-3.0) Basophils (%) (Auto) % (0.0-2.0) Differential Total Cells Counted 100 Neutrophils % (Manual) 73 % (45-75) Lymphocytes % (Manual) 13 % (20-45) L Monocytes % (Manual) 11 % (1-10) H Eosinophils % (Manual) 2 % (0-3) Basophils % (Manual) 0 % (0-2) Band Neutrophils 1 % (0-8) Platelet Estimate Adequate Platelet Morphology Normal Hypochromasia 2+ Anisocytosis 2+ Microcytosis 2+ Sodium Level 136 MMOL/L (136-145) Potassium Level 3.0 MMOL/L (3.5-5.1) L Chloride Level 105 MMOL/L (98-107) Carbon Dioxide Level 20 MMOL/L (21-32) L Anion Gap 11 mmol/L (5-15) Blood Urea Nitrogen 27 mg/dL (7-18) H Creatinine 1.4 MG/DL (0.55-1.30) H Estimat Glomerular Filtration Rate 53.2 mL/min (>60) Glucose Level 111 MG/DL (74-106) H Calcium Level 8.8 MG/DL (8.5-10.1) Ghada Gonzalez DO Apr 06, 2018 17:46
--- NOTE | 2018-04-06 18:42 | Surgery Progress Note ---
Surgery Progress Note Subjective Additional Comments no acute events. leukocytosis resolved Objective Last 24 Hour Vital Signs Date Time Temp Pulse Resp B/P (MAP) Pulse Ox O2 Delivery O2 Flow Rate FiO2 04/06/18 18:30 95 15 132/96 (108) 98 04/06/18 18:00 91 15 140/80 (100) 98 04/06/18 17:30 91 15 147/96 (113) 98 04/06/18 17:00 92 15 128/89 (102) 98 04/06/18 16:30 97.6 91 13 127/85 (99) 98 04/06/18 16:00 Room Air 04/06/18 16:00 91 04/06/18 15:33 98.0 04/06/18 15:32 83 15 87/45 (59) 97 04/06/18 15:00 87 20 87/41 (56) 97 04/06/18 14:30 85 18 152/84 (106) 97 04/06/18 14:00 88 18 129/93 (105) 97 04/06/18 13:30 92 15 87/54 (65) 97 04/06/18 13:00 89 15 145/65 (91) 97 04/06/18 12:30 85 15 105/66 (79) 97 04/06/18 12:00 Room Air 04/06/18 12:00 86 04/06/18 12:00 98.3 94 14 67/41 (50) 96 04/06/18 11:30 91 14 117/76 (90) 97 04/06/18 11:00 91 14 103/68 (80) 97 04/06/18 10:30 91 14 138/87 (104) 99 04/06/18 10:00 82 18 142/90 (107) 99 04/06/18 09:30 77 18 135/86 (102) 99 04/06/18 09:00 91 14 74/42 (53) 98 04/06/18 08:30 97 14 96/61 (73) 98 04/06/18 08:00 Room Air 04/06/18 08:00 98.0 97 16 131/89 (103) 99 04/06/18 08:00 89 04/06/18 07:30 97 16 93/64 (74) 97 04/06/18 07:00 88 15 87/58 (68) 97 04/06/18 06:30 91 15 127/90 (102) 97 04/06/18 06:00 92 15 127/77 (94) 97 04/06/18 05:30 94 15 105/72 (83) 96 04/06/18 05:00 101 22 103/61 (75) 96 04/06/18 05:00 103/61 04/06/18 04:30 107 15 130/89 (103) 96 04/06/18 04:00 Room Air 04/06/18 04:00 97.9 89 15 102/72 (82) 97 04/06/18 04:00 130/89 04/06/18 04:00 84 04/06/18 03:30 84 22 90/54 (66) 95 04/06/18 03:00 90/54 04/06/18 03:00 86 14 86/58 (67) 95 04/06/18 02:30 95 18 112/70 (84) 96 04/06/18 02:00 97 16 115/68 (84) 96 04/06/18 02:00 112/70 04/06/18 01:30 100 15 125/75 (92) 96 04/06/18 01:00 125/75 04/06/18 01:00 93 16 102/65 (77) 95 04/06/18 00:30 90 16 103/65 (78) 96 04/06/18 00:00 89 13 104/73 (83) 96 04/06/18 00:00 103/65 04/06/18 00:00 97.6 89 13 104/73 (83) 96 04/06/18 00:00 Room Air 04/06/18 00:00 85 04/05/18 23:30 84 11 93/74 (80) 96 04/05/18 23:00 86 10 74/51 (59) 94 04/05/18 23:00 74/51 04/05/18 22:30 89 14 99/66 (77) 97 04/05/18 22:00 121/68 04/05/18 22:00 89 15 121/68 (85) 96 04/05/18 21:30 90 14 98/70 (79) 97 04/05/18 21:00 98/70 04/05/18 21:00 89 12 108/68 (81) 97 04/05/18 20:30 90 12 105/66 (79) 97 04/05/18 20:00 126/89 04/05/18 20:00 83 04/05/18 20:00 Room Air 04/05/18 20:00 97.9 87 13 126/89 (101) 98 04/05/18 19:30 84 15 92/65 (74) 99 04/05/18 19:00 84 16 85/55 (65) 96 04/05/18 19:00 85/55 I&O Intake and Output 04/05/18 04/06/18 19:00 07:00 Intake Total 525.0 ml 505 ml Output Total 500 ml 900 ml Balance 25.0 ml -395 ml Intake Oral 420 ml 300 ml IV Total 105.0 ml 205 ml Output Other 500 ml 900 ml Dressing: other Wound: other Drains: other Cardiovascular: RSR Respiratory: clear, decreased breath sounds Abdomen: soft, present bowel sounds, other, non-distended Extremities: other Laboratory Tests Test 04/06/18 05:00 White Blood Count 9.9 K/UL (4.8-10.8) Red Blood Count 3.46 M/UL (4.70-6.10) L Hemoglobin 7.6 G/DL (14.2-18.0) L Hematocrit 26.1 % (42.0-52.0) L Mean Corpuscular Volume 75 FL (80-99) L Mean Corpuscular Hemoglobin 22.1 PG (27.0-31.0) L Mean Corpuscular Hemoglobin Concent 29.3 G/DL (32.0-36.0) L Red Cell Distribution Width 18.9 % (11.6-14.8) H Platelet Count 383 K/UL (150-450) Mean Platelet Volume 4.1 FL (6.5-10.1) L Neutrophils (%) (Auto) % (45.0-75.0) Lymphocytes (%) (Auto) % (20.0-45.0) Monocytes (%) (Auto) % (1.0-10.0) Eosinophils (%) (Auto) % (0.0-3.0) Basophils (%) (Auto) % (0.0-2.0) Differential Total Cells Counted 100 Neutrophils % (Manual) 73 % (45-75) Lymphocytes % (Manual) 13 % (20-45) L Monocytes % (Manual) 11 % (1-10) H Eosinophils % (Manual) 2 % (0-3) Basophils % (Manual) 0 % (0-2) Band Neutrophils 1 % (0-8) Platelet Estimate Adequate Platelet Morphology Normal Hypochromasia 2+ Anisocytosis 2+ Microcytosis 2+ Sodium Level 136 MMOL/L (136-145) Potassium Level 3.0 MMOL/L (3.5-5.1) L Chloride Level 105 MMOL/L (98-107) Carbon Dioxide Level 20 MMOL/L (21-32) L Anion Gap 11 mmol/L (5-15) Blood Urea Nitrogen 27 mg/dL (7-18) H Creatinine 1.4 MG/DL (0.55-1.30) H Estimat Glomerular Filtration Rate 53.2 mL/min (>60) Glucose Level 111 MG/DL (74-106) H Calcium Level 8.8 MG/DL (8.5-10.1) Plan Problems: (1) Decubital ulcer Assessment & Plan: multiple large decubitus chronic ulcers well known to me from prior admission have used wound VAC in past but difficult given size and location of wounds please refer to wound care photos for details will follow with recs. thank you (2) Septic shock (3) Colostomy prolapse Assessment & Plan: resolved without recurrence since prior surgery. ostomy viable and functional now. looks good. Atif Luna Apr 06, 2018 18:42
[2018-04-06] MEDS: Dyna-Hex 2% Top Sol 2oz TOPIC SCH (19:30)
--- NOTE | 2018-04-06 20:28 | General Progress Note ---
Assessment/Plan Assessment/Plan # Anemia of chronic disease due to underlying chronic medical issues --> Anemia panel has been reviewed, will trend as required --> hgb goal >7, transfuse on prn basis --> no etoh or drug abuse, meds reviewed --> Blood tx performed in the past --> consider iron once infection has cleared # Leukocytosis is likely due to cellulitis, does have sepsis, also could be due to decub --> Resolved/Improved wbc --> Remains on antibiotics --> smear peripheral has been reviewed --> no schistocytes are noted --> no evidence of malignancy --> blood culture is positive for gram cocci, management as per ID --> appreciate ID recs --> decub surgery as per surgery recs # LINDSEY -- currently worse --> continue to monitor # Quadriplegia --> weakness has been chronic # Colostomy care, s/p colostomy revision and bowel resection on 01/09/18 --> per surgery # Tobacco abuse --> cessation education # Dispo --> likely back to [facility] on d/c # DVT ppx with heparin sq Greatly appreciate consultation! Subjective Constitutional: Denies: no symptoms, chills, diaphoresis, fever, malaise, weakness, other HEENT: Denies: no symptoms, eye pain, blurred vision, tearing, double vision, ear pain, ear discharge, nose pain, nose congestion, throat pain, throat swelling, mouth pain, mouth swelling, other Cardiovascular: Denies: no symptoms, chest pain, edema, irregular heart rate, lightheadedness, palpitations, syncope, other Respiratory: Denies: no symptoms, cough, orthopnea, shortness of breath, SOB with excertion, SOB at rest, sputum, stridor, wheezing, other Gastrointestinal/Abdominal: Denies: no symptoms, abdomen distended, abdominal pain, black stools, tarry stools, blood in stool, constipated, diarrhea, difficulty swallowing, nausea, poor appetite, poor fluid intake, rectal bleeding , vomiting, other Genitourinary: Denies: no symptoms, burning, discharge, frequency, flank pain, hematuria, incontinence, pain, urgency, other Neurologic/Psychiatric: Denies: no symptoms, anxiety, depressed, emotional problems, headache, numbness, paresthesia, pre-existing deficit, seizure, tingling, tremors, weakness, other Endocrine: Denies: no symptoms, excessive sweating, flushing, intolerance to cold, intolerance to heat, increased hunger, increased thirst, increased urine, unexplained weight gain, unexplained weight loss, other Hematologic/Lymphatic: Denies: no symptoms, anemia, easy bleeding, easy bruising, other Allergies: Coded Allergies: CEFTRIAXONE (Verified Allergy, Unknown, 01/01/18) CODEINE (Verified Allergy, Unknown, 01/01/18) MORPHINE (Verified Allergy, Unknown, 01/01/18) PIPERACILLIN (Verified Allergy, Unknown, 01/01/18) SULFAMETHOXAZOLE (Verified Allergy, Unknown, 01/01/18) TAZOBACTAM (Verified Allergy, Unknown, 01/01/18) TRIMETHOPRIM (Verified Allergy, Unknown, 01/01/18) VANCOMYCIN (Verified Allergy, Unknown, 01/01/18) Subjective 04/06: awake and comfortable, no fevers or chills, denies acute distress. hgb 7.6 , plt 383. Objective Last 24 Hour Vital Signs Date Time Temp Pulse Resp B/P (MAP) Pulse Ox O2 Delivery O2 Flow Rate FiO2 04/06/18 20:01 97.8 88 12 85/61 (69) 94 04/06/18 20:00 88 04/06/18 20:00 97.6 04/06/18 20:00 87 15 93 04/06/18 20:00 Room Air 04/06/18 19:30 101 12 105/77 (86) 96 04/06/18 19:00 92 15 130/96 (107) 98 04/06/18 18:30 95 15 132/96 (108) 98 04/06/18 18:00 91 15 140/80 (100) 98 04/06/18 17:30 91 15 147/96 (113) 98 04/06/18 17:00 92 15 128/89 (102) 98 04/06/18 16:30 97.6 91 13 127/85 (99) 98 04/06/18 16:00 Room Air 04/06/18 16:00 91 04/06/18 15:32 83 15 87/45 (59) 97 04/06/18 15:00 87 20 87/41 (56) 97 04/06/18 14:30 85 18 152/84 (106) 97 04/06/18 14:00 88 18 129/93 (105) 97 04/06/18 13:30 92 15 87/54 (65) 97 04/06/18 13:00 89 15 145/65 (91) 97 04/06/18 13:00 130/96 04/06/18 12:30 85 15 105/66 (79) 97 04/06/18 12:00 Room Air 04/06/18 12:00 86 04/06/18 12:00 98.3 94 14 67/41 (50) 96 04/06/18 11:30 91 14 117/76 (90) 97 04/06/18 11:00 91 14 103/68 (80) 97 04/06/18 10:30 91 14 138/87 (104) 99 04/06/18 10:00 82 18 142/90 (107) 99 04/06/18 09:30 77 18 135/86 (102) 99 04/06/18 09:00 91 14 74/42 (53) 98 04/06/18 08:30 97 14 96/61 (73) 98 04/06/18 08:00 Room Air 04/06/18 08:00 98.0 97 16 131/89 (103) 99 04/06/18 08:00 89 04/06/18 07:30 97 16 93/64 (74) 97 04/06/18 07:00 88 15 87/58 (68) 97 04/06/18 06:30 91 15 127/90 (102) 97 04/06/18 06:00 92 15 127/77 (94) 97 04/06/18 05:30 94 15 105/72 (83) 96 04/06/18 05:00 101 22 103/61 (75) 96 04/06/18 05:00 103/61 04/06/18 04:30 107 15 130/89 (103) 96 04/06/18 04:00 Room Air 04/06/18 04:00 97.9 89 15 102/72 (82) 97 04/06/18 04:00 130/89 04/06/18 04:00 84 04/06/18 03:30 84 22 90/54 (66) 95 04/06/18 03:00 90/54 04/06/18 03:00 86 14 86/58 (67) 95 04/06/18 02:30 95 18 112/70 (84) 96 04/06/18 02:00 97 16 115/68 (84) 96 04/06/18 02:00 112/70 04/06/18 01:30 100 15 125/75 (92) 96 04/06/18 01:00 125/75 04/06/18 01:00 93 16 102/65 (77) 95 04/06/18 00:30 90 16 103/65 (78) 96 04/06/18 00:00 89 13 104/73 (83) 96 04/06/18 00:00 103/65 04/06/18 00:00 97.6 89 13 104/73 (83) 96 04/06/18 00:00 Room Air 04/06/18 00:00 85 04/05/18 23:30 84 11 93/74 (80) 96 04/05/18 23:00 86 10 74/51 (59) 94 04/05/18 23:00 74/51 04/05/18 22:30 89 14 99/66 (77) 97 04/05/18 22:00 121/68 04/05/18 22:00 89 15 121/68 (85) 96 04/05/18 21:30 90 14 98/70 (79) 97 04/05/18 21:00 98/70 04/05/18 21:00 89 12 108/68 (81) 97 04/05/18 20:30 90 12 105/66 (79) 97 Intake and Output 04/05/18 04/06/18 19:00 07:00 Intake Total 525.0 ml 505 ml Output Total 500 ml 900 ml Balance 25.0 ml -395 ml Intake Oral 420 ml 300 ml IV Total 105.0 ml 205 ml Output Other 500 ml 900 ml Laboratory Tests 04/06/18 05:00: White Blood Count 9.9, Red Blood Count 3.46L, Hemoglobin 7.6L, Hematocrit 26.1L , Mean Corpuscular Volume 75L, Mean Corpuscular Hemoglobin 22.1L, Mean Corpuscular Hemoglobin Concent 29.3L, Red Cell Distribution Width 18.9H, Platelet Count 383, Mean Platelet Volume 4.1L, Neutrophils (%) (Auto) , Lymphocytes (%) (Auto) , Monocytes (%) (Auto) , Eosinophils (%) (Auto) , Basophils (%) (Auto) , Differential Total Cells Counted 100, Neutrophils % ( Manual) 73, Lymphocytes % (Manual) 13L, Monocytes % (Manual) 11H, Eosinophils % (Manual) 2, Basophils % (Manual) 0, Band Neutrophils 1, Platelet Estimate Adequate, Platelet Morphology Normal, Hypochromasia 2+, Anisocytosis 2+, Microcytosis 2+, Sodium Level 136, Potassium Level 3.0L, Chloride Level 105, Carbon Dioxide Level 20L, Anion Gap 11, Blood Urea Nitrogen 27H, Creatinine 1.4H , Estimat Glomerular Filtration Rate 53.2, Glucose Level 111H, Calcium Level 8.8 Height (Feet): 3 Height (Inches): 3.00 Weight (Pounds): 109 Objective Physical Exam General Appearance: WD/WN, no apparent distress, alert Vitals: reviewed HEENT: normocephalic, atraumatic, dry muscous membranes Neck: non-tender, normal alignment, supple Respiratory/Chest: chest wall nt, lungs clear Cardiovascular/Chest: rrr, no gallop/murmur Abdomen: normal bowel sounds, non tender, soft, no organomegaly, no mass, other - urostomy with dark urine, colostomy with no feces, cystomy site clean Extremities: other - contracture of BL digits, Bilateral AKA Skin Exam: normal pigmentation, warm/dry 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
[2018-04-07] VITALS (66 sets, daily range): BP systolic 59–177; BP diastolic 32–124
[2018-04-07 07:05] LABS: BASOPHILS % (AUTO) 0.2 % (0.0-2.0); EOSINOPHILS % (AUTO) 1.8 % (0.0-3.0); HEMATOCRIT 28.2 % (42.0-52.0); HEMOGLOBIN 8.3 G/DL (14.2-18.0); LYMPHOCYTES % (AUTO) 8.2 % (20.0-45.0); MEAN CORPUSCULAR VOLUME 76 FL (80-99); MONOCYTES % (AUTO) 6.1 % (1.0-10.0); NEUTROPHILS % (AUTO) 83.8 % (45.0-75.0); PLATELET COUNT 396 K/UL (150-450); RED CELL DISTRIBUTION WIDTH 19.6 % (11.6-14.8); WHITE BLOOD COUNT 13.3 K/UL (4.8-10.8)
[2018-04-07 07:10] LABS: ANION GAP 11 mmol/L (5-15); BLOOD UREA NITROGEN 20 mg/dL (7-18); CALCIUM 9.2 MG/DL (8.5-10.1); CARBON DIOXIDE 19 MMOL/L (21-32); CHLORIDE 106 MMOL/L (98-107); CREATININE 0.9 MG/DL (0.55-1.30); POTASSIUM 3.5 MMOL/L (3.5-5.1); SODIUM 136 MMOL/L (136-145)
--- NOTE | 2018-04-07 08:48 | General Progress Note ---
Assessment/Plan Status: stable Assessment/Plan #Septic Shock #Hypotension #Infected Decubitus Ulcer #Cellulitis #Stage IV Decubitus Ulcer #quadriplegia - Invanz, allergic to many abx. ID consult, consider linezolid - Levophed, cont pressure support, 4mcg/hr, wean as tolerated - bcx x 2 - daily labs - tele - i/o - fluids - wound care, surgery eval #Microcytic Anemia - stable - no acute bleeding - hematology consult - iron panel ppx: hsq diet: regular Code Status: Full Hospital Classification Declaration: Based on this initial evaluation, and depending on the patient's clinical course, I anticipate that this patient will require hospitalization for 3-4 days for sepsis managemetn and close respiratory /hemodynamic monitoring. Disposition: Once the patient is stable to leave the hospital, I anticipate the patient will likely be discharged to the following environment: home with vs SNF I spent 55 minutes on this patient's case, and 30 minutes were dedicated to counseling and/or care coordination. Discussed with patient/family, nursing staff, SW/CM, and consultants regarding clinical status, treatment course, and disposition planning. Over 30 minutes of critical care time have been spent on this patient, managing pressures and sepsis management. Time of note may not reflect time of encounter. Subjective Date patient seen: Apr 07, 2018 Time patient seen: 08:46 Allergies: Coded Allergies: CEFTRIAXONE (Verified Allergy, Unknown, 01/01/18) CODEINE (Verified Allergy, Unknown, 01/01/18) MORPHINE (Verified Allergy, Unknown, 01/01/18) PIPERACILLIN (Verified Allergy, Unknown, 01/01/18) SULFAMETHOXAZOLE (Verified Allergy, Unknown, 01/01/18) TAZOBACTAM (Verified Allergy, Unknown, 01/01/18) TRIMETHOPRIM (Verified Allergy, Unknown, 01/01/18) VANCOMYCIN (Verified Allergy, Unknown, 01/01/18) Subjective f/u sepsis , hypotension still on levophed DU being managed by wound care on abx ID consulted pain well controlled now ROS: 14 point ROS neg except per above Objective Last 24 Hour Vital Signs Date Time Temp Pulse Resp B/P (MAP) Pulse Ox O2 Delivery O2 Flow Rate FiO2 04/07/18 08:00 Room Air 04/07/18 07:00 117/73 04/07/18 07:00 97 15 117/73 (88) 100 04/07/18 06:30 93 13 90/61 (71) 99 04/07/18 06:00 90/61 04/07/18 06:00 91 19 120/79 (93) 97 04/07/18 05:30 95 12 112/70 (84) 97 04/07/18 05:09 128/72 04/07/18 05:00 101 15 128/72 (90) 98 04/07/18 04:30 84 16 82/52 (62) 95 04/07/18 04:06 97.8 04/07/18 04:00 Room Air 04/07/18 04:00 97.8 88 16 77/56 (63) 94 04/07/18 04:00 89 04/07/18 03:30 100 18 131/92 (105) 97 04/07/18 03:00 103 19 129/83 (98) 98 04/07/18 02:30 106 12 123/83 (96) 97 04/07/18 02:00 95 19 96 04/07/18 01:30 95 17 103/77 (86) 96 04/07/18 01:00 92 16 88/70 (76) 96 04/07/18 00:30 107 19 105/70 (82) 95 04/07/18 00:10 97.8 116 21 94/59 (71) 04/07/18 00:10 116 21 94/59 (71) 04/07/18 00:00 Room Air 04/07/18 00:00 100 04/06/18 23:30 94 18 148/103 (118) 97 04/06/18 23:18 105 26 156/89 (111) 98 04/06/18 22:30 88 12 103/67 (79) 97 04/06/18 22:17 91 12 118/78 (91) 96 04/06/18 22:00 83 13 146/93 (110) 97 04/06/18 21:30 88 13 117/84 (95) 96 04/06/18 21:00 82 12 76/48 (57) 95 04/06/18 20:30 84 13 77/50 (59) 95 04/06/18 20:01 97.8 88 12 85/61 (69) 94 04/06/18 20:00 88 04/06/18 20:00 87 15 93 04/06/18 20:00 Room Air 04/06/18 19:30 101 12 105/77 (86) 96 04/06/18 19:00 92 15 130/96 (107) 98 04/06/18 18:30 95 15 132/96 (108) 98 04/06/18 18:00 91 15 140/80 (100) 98 04/06/18 17:30 91 15 147/96 (113) 98 04/06/18 17:00 92 15 128/89 (102) 98 04/06/18 16:30 97.6 91 13 127/85 (99) 98 04/06/18 16:00 Room Air 04/06/18 16:00 91 04/06/18 15:32 83 15 87/45 (59) 97 04/06/18 15:00 87 20 87/41 (56) 97 04/06/18 14:30 85 18 152/84 (106) 97 04/06/18 14:00 88 18 129/93 (105) 97 04/06/18 13:30 92 15 87/54 (65) 97 04/06/18 13:00 89 15 145/65 (91) 97 04/06/18 13:00 130/96 04/06/18 12:30 85 15 105/66 (79) 97 04/06/18 12:00 Room Air 04/06/18 12:00 86 04/06/18 12:00 98.3 94 14 67/41 (50) 96 04/06/18 11:30 91 14 117/76 (90) 97 04/06/18 11:00 91 14 103/68 (80) 97 04/06/18 10:30 91 14 138/87 (104) 99 04/06/18 10:00 82 18 142/90 (107) 99 04/06/18 09:30 77 18 135/86 (102) 99 04/06/18 09:00 91 14 74/42 (53) 98 Intake and Output 04/06/18 04/07/18 19:00 07:00 Intake Total 165 ml 183.75 ml Output Total 700 ml 800 ml Balance -535 ml -616.25 ml IV Total 165 ml 183.75 ml Output Other 700 ml 800 ml Laboratory Tests 04/07/18 05:00: White Blood Count 13.3H, Red Blood Count 3.70L, Hemoglobin 8.3L, Hematocrit 28.2L, Mean Corpuscular Volume 76L, Mean Corpuscular Hemoglobin 22.5L, Mean Corpuscular Hemoglobin Concent 29.5L, Red Cell Distribution Width 19.6H, Platelet Count 396, Mean Platelet Volume 4.2L, Neutrophils (%) (Auto) 83.8H, Lymphocytes (%) (Auto) 8.2L, Monocytes (%) (Auto) 6.1, Eosinophils (%) (Auto) 1.8, Basophils (%) (Auto) 0.2, Sodium Level 136, Potassium Level 3.5, Chloride Level 106, Carbon Dioxide Level 19L, Anion Gap 11, Blood Urea Nitrogen 20H, Creatinine 0.9, Estimat Glomerular Filtration Rate > 60, Glucose Level 104, Calcium Level 9.2 Height (Feet): 3 Height (Inches): 3.00 Weight (Pounds): 109 Objective General appearance: alert, cooperative, no distress, appears stated age Head: Normocephalic, without obvious abnormality, atraumatic Eyes: conjunctivae/corneas clear. PERRL, EOM's intact. Fundi benign Throat: Lips, mucosa, and tongue normal. Teeth and gums normal Neck: supple, symmetrical, trachea midline, no adenopathy, thyroid: not enlarged, symmetric, no tenderness/mass/nodules, no carotid bruit and no JVD Lungs: clear to auscultation bilaterally Heart: regular rate and rhythm, S1, S2 normal, no murmur, click, rub or gallop Abdomen: soft, non-tender. Bowel sounds normal. No masses, no organomegaly Extremities: extremities normal, atraumatic, no cyanosis or edema. stage 4 decub ulcers, sloughing, oozing Pulses: 2+ and symmetric Skin: Skin color, texture, turgor normal. No rashes or lesions Neurologic: Grossly normal Gissel Coe MD Apr 07, 2018 08:48
[2018-04-07] MEDS: Heparin 5000 units/ml inj SUBQ SCH ×2 (09:00→20:48)
[2018-04-07] MEDS: Pantoprazole Inj IVP SCH (09:08)
[2018-04-07] MEDS: Ertapenem 1 GM in NS 55 ML IVPB SCH (10:23)
--- NOTE | 2018-04-07 11:12 | Cardiology Report ---
APPROVED REPORT EKG Measurement Heart [id number] Normal sinus rhythm Biatrial enlargement Abnormal ECG
--- NOTE | 2018-04-07 15:07 | Infectious Diseases Prog Note ---
Assessment/Plan Assessment/Plan Full consult dictated: A) 1) sepsis, shock, uti, sacral/bilateral hip wounds, chest x-ray negative 2) hx mrsa bacteremia and sacral osteo - s/p abx course 3) allergies - noted P) 1) zyvox and invanz 2) f/u on cultures and labs 3) d/w RN and pharmacy 4) thank you Subjective Allergies: Coded Allergies: CEFTRIAXONE (Verified Allergy, Unknown, 01/01/18) CODEINE (Verified Allergy, Unknown, 01/01/18) MORPHINE (Verified Allergy, Unknown, 01/01/18) PIPERACILLIN (Verified Allergy, Unknown, 01/01/18) SULFAMETHOXAZOLE (Verified Allergy, Unknown, 01/01/18) TAZOBACTAM (Verified Allergy, Unknown, 01/01/18) TRIMETHOPRIM (Verified Allergy, Unknown, 01/01/18) VANCOMYCIN (Verified Allergy, Unknown, 01/01/18) Objective Vital Signs Last 24 Hour Vital Signs Date Time Temp Pulse Resp B/P (MAP) Pulse Ox O2 Delivery O2 Flow Rate FiO2 04/07/18 14:00 92 17 82/49 (60) 94 04/07/18 13:45 100 17 99/65 (76) 94 04/07/18 13:30 94 15 134/86 (102) 94 04/07/18 13:15 92 11 143/83 (103) 100 04/07/18 13:00 94 11 106/68 (81) 100 04/07/18 13:00 106/68 04/07/18 12:45 91 14 142/85 (104) 100 04/07/18 12:30 89 14 59/32 (41) 100 04/07/18 12:15 91 15 84/55 (65) 99 04/07/18 12:04 97.8 04/07/18 12:00 Room Air 04/07/18 12:00 60/42 04/07/18 12:00 94 15 60/42 (48) 100 04/07/18 11:45 94 16 95/57 (70) 100 04/07/18 11:30 94 15 147/98 (114) 100 04/07/18 11:00 94 15 123/76 (92) 100 04/07/18 11:00 82 04/07/18 11:00 123/76 04/07/18 10:30 89 15 79/56 (64) 100 04/07/18 10:00 135/91 04/07/18 10:00 88 15 135/91 (106) 100 04/07/18 09:30 89 12 102/69 (80) 100 04/07/18 09:00 82/65 04/07/18 09:00 88 13 82/65 (71) 100 04/07/18 08:30 89 15 105/69 (81) 100 04/07/18 08:00 Room Air 04/07/18 08:00 88 14 92/68 (76) 100 04/07/18 08:00 107/70 04/07/18 07:30 98.6 95 13 147/98 (114) 100 04/07/18 07:00 117/73 04/07/18 07:00 97 15 117/73 (88) 100 04/07/18 06:30 93 13 90/61 (71) 99 04/07/18 06:00 90/61 04/07/18 06:00 91 19 120/79 (93) 97 04/07/18 05:30 95 12 112/70 (84) 97 04/07/18 05:09 128/72 04/07/18 05:00 101 15 128/72 (90) 98 04/07/18 04:30 84 16 82/52 (62) 95 04/07/18 04:00 Room Air 04/07/18 04:00 97.8 88 16 77/56 (63) 94 04/07/18 04:00 89 04/07/18 03:30 100 18 131/92 (105) 97 04/07/18 03:00 103 19 129/83 (98) 98 04/07/18 02:30 106 12 123/83 (96) 97 04/07/18 02:00 95 19 96 04/07/18 01:30 95 17 103/77 (86) 96 04/07/18 01:00 92 16 88/70 (76) 96 04/07/18 00:30 107 19 105/70 (82) 95 04/07/18 00:10 97.8 116 21 94/59 (71) 04/07/18 00:10 116 21 94/59 (71) 04/07/18 00:00 Room Air 04/07/18 00:00 100 04/06/18 23:30 94 18 148/103 (118) 97 04/06/18 23:18 105 26 156/89 (111) 98 04/06/18 22:30 88 12 103/67 (79) 97 04/06/18 22:17 91 12 118/78 (91) 96 04/06/18 22:00 83 13 146/93 (110) 97 04/06/18 21:30 88 13 117/84 (95) 96 04/06/18 21:00 82 12 76/48 (57) 95 04/06/18 20:30 84 13 77/50 (59) 95 04/06/18 20:01 97.8 88 12 85/61 (69) 94 04/06/18 20:00 88 04/06/18 20:00 87 15 93 04/06/18 20:00 Room Air 04/06/18 19:30 101 12 105/77 (86) 96 04/06/18 19:00 92 15 130/96 (107) 98 04/06/18 18:30 95 15 132/96 (108) 98 04/06/18 18:00 91 15 140/80 (100) 98 04/06/18 17:30 91 15 147/96 (113) 98 04/06/18 17:00 92 15 128/89 (102) 98 04/06/18 16:30 97.6 91 13 127/85 (99) 98 04/06/18 16:00 Room Air 04/06/18 16:00 91 04/06/18 15:32 83 15 87/45 (59) 97 04/06/18 15:00 87 20 87/41 (56) 97 Height (Feet): 3 Height (Inches): 3.00 Weight (Pounds): 109 Microbiology Date/Time Source Procedure Growth Status 04/04/18 22:50 Blood Blood Culture - Preliminary NO GROWTH AFTER 48 HOURS Resulted 04/04/18 22:45 Blood Blood Culture - Preliminary NO GROWTH AFTER 48 HOURS Resulted 04/04/18 21:33 Other Gram Stain - Final Resulted 04/04/18 21:33 Wound Culture - Preliminary Escherichia Coli Proteus Mirabilis Staphylococcus Aureus Resulted 04/05/18 03:41 Nasal Nares MRSA Culture - Final Staphylococcus Aureus - Mrsa Complete 04/04/18 22:40 Nasal Nares Influenza Types A,B Antigen (ANA) - Final Complete 04/05/18 00:00 Indwelling Cath Urine Culture - Preliminary Mixed Urogenital Contaminants Resulted 04/05/18 03:41 Rectum VRE Culture - Final Enterococcus Faecalis - Vre Enterococcus Faecium - Vre Complete Laboratory Tests Test 04/07/18 05:00 White Blood Count 13.3 K/UL (4.8-10.8) H Red Blood Count 3.70 M/UL (4.70-6.10) L Hemoglobin 8.3 G/DL (14.2-18.0) L Hematocrit 28.2 % (42.0-52.0) L Mean Corpuscular Volume 76 FL (80-99) L Mean Corpuscular Hemoglobin 22.5 PG (27.0-31.0) L Mean Corpuscular Hemoglobin Concent 29.5 G/DL (32.0-36.0) L Red Cell Distribution Width 19.6 % (11.6-14.8) H Platelet Count 396 K/UL (150-450) Mean Platelet Volume 4.2 FL (6.5-10.1) L Neutrophils (%) (Auto) 83.8 % (45.0-75.0) H Lymphocytes (%) (Auto) 8.2 % (20.0-45.0) L Monocytes (%) (Auto) 6.1 % (1.0-10.0) Eosinophils (%) (Auto) 1.8 % (0.0-3.0) Basophils (%) (Auto) 0.2 % (0.0-2.0) Sodium Level 136 MMOL/L (136-145) Potassium Level 3.5 MMOL/L (3.5-5.1) Chloride Level 106 MMOL/L (98-107) Carbon Dioxide Level 19 MMOL/L (21-32) L Anion Gap 11 mmol/L (5-15) Blood Urea Nitrogen 20 mg/dL (7-18) H Creatinine 0.9 MG/DL (0.55-1.30) Estimat Glomerular Filtration Rate > 60 mL/min (>60) Glucose Level 104 MG/DL (74-106) Calcium Level 9.2 MG/DL (8.5-10.1) Current Medications Medications (Trade) Dose Ordered Sig/Alva Route PRN Reason Start Time Stop Time Status Last Admin Dose Admin Acetaminophen (Tylenol) 650 mg Q6H PRN ORAL Mild Pain/Temp > 100.5 04/05/18 06:45 05/05/18 06:44 Chlorhexidine Gluconate (Cassandra-Hex 2%) 1 applic DAILY@2000 TOPIC 04/05/18 20:00 05/05/18 19:59 04/06/18 19:30 Ertapenem 1 gm/ Sodium Chloride 55 ml @ 110 mls/hr Q24H IVPB 04/07/18 10:00 04/12/18 09:59 04/07/18 10:23 Folic Acid (Folate) 1 mg DAILY ORAL 04/07/18 09:00 05/07/18 08:59 04/07/18 09:08 Heparin Sodium (Porcine) (Heparin 5000 units/ml) 5,000 units EVERY 12 HOURS SUBQ 04/05/18 09:00 05/05/18 08:59 04/05/18 20:04 Hydromorphone HCl (Dilaudid) 1.5 mg Q4H PRN IVP Severe breakthrough pain 04/05/18 17:30 04/12/18 17:29 04/07/18 11:34 Norepinephrine Bitartrate 4 mg/ Dextrose 250 ml @ 0 mls/hr Q24H IV 04/05/18 06:45 05/05/18 06:44 04/07/18 05:09 Pantoprazole (Protonix) 40 mg DAILY IVP 04/05/18 09:00 05/05/18 08:59 04/07/18 09:08 Joellen Taylor MD Apr 07, 2018 15:07
[2018-04-07] MEDS ORDERED: Vancomycin 1gm/D5W 275ml IVPB ONE ×2 (16:00)
--- NOTE | 2018-04-07 16:42 | Surgery Progress Note ---
Surgery Progress Note Subjective Additional Comments no acute events. still on pressors. Objective Last 24 Hour Vital Signs Date Time Temp Pulse Resp B/P (MAP) Pulse Ox O2 Delivery O2 Flow Rate FiO2 04/07/18 16:08 97.8 04/07/18 16:00 Room Air 04/07/18 14:30 90 18 89/69 (76) 94 04/07/18 14:00 92 17 82/49 (60) 94 04/07/18 13:45 100 17 99/65 (76) 94 04/07/18 13:30 94 15 134/86 (102) 94 04/07/18 13:15 92 11 143/83 (103) 100 04/07/18 13:00 94 11 106/68 (81) 100 04/07/18 13:00 106/68 04/07/18 12:45 91 14 142/85 (104) 100 04/07/18 12:30 89 14 59/32 (41) 100 04/07/18 12:15 91 15 84/55 (65) 99 04/07/18 12:00 Room Air 04/07/18 12:00 60/42 04/07/18 12:00 94 15 60/42 (48) 100 04/07/18 11:45 94 16 95/57 (70) 100 04/07/18 11:30 94 15 147/98 (114) 100 04/07/18 11:00 94 15 123/76 (92) 100 04/07/18 11:00 82 04/07/18 11:00 123/76 04/07/18 10:30 89 15 79/56 (64) 100 04/07/18 10:00 135/91 04/07/18 10:00 88 15 135/91 (106) 100 04/07/18 09:30 89 12 102/69 (80) 100 04/07/18 09:00 82/65 04/07/18 09:00 88 13 82/65 (71) 100 04/07/18 08:30 89 15 105/69 (81) 100 04/07/18 08:00 Room Air 04/07/18 08:00 88 14 92/68 (76) 100 04/07/18 08:00 107/70 04/07/18 07:30 98.6 95 13 147/98 (114) 100 04/07/18 07:00 117/73 04/07/18 07:00 97 15 117/73 (88) 100 04/07/18 06:30 93 13 90/61 (71) 99 04/07/18 06:00 90/61 04/07/18 06:00 91 19 120/79 (93) 97 04/07/18 05:30 95 12 112/70 (84) 97 04/07/18 05:09 128/72 04/07/18 05:00 101 15 128/72 (90) 98 04/07/18 04:30 84 16 82/52 (62) 95 04/07/18 04:00 Room Air 04/07/18 04:00 97.8 88 16 77/56 (63) 94 04/07/18 04:00 89 04/07/18 03:30 100 18 131/92 (105) 97 04/07/18 03:00 103 19 129/83 (98) 98 04/07/18 02:30 106 12 123/83 (96) 97 04/07/18 02:00 95 19 96 04/07/18 01:30 95 17 103/77 (86) 96 04/07/18 01:00 92 16 88/70 (76) 96 04/07/18 00:30 107 19 105/70 (82) 95 04/07/18 00:10 97.8 116 21 94/59 (71) 04/07/18 00:10 116 21 94/59 (71) 04/07/18 00:00 Room Air 04/07/18 00:00 100 04/06/18 23:30 94 18 148/103 (118) 97 04/06/18 23:18 105 26 156/89 (111) 98 04/06/18 22:30 88 12 103/67 (79) 97 04/06/18 22:17 91 12 118/78 (91) 96 04/06/18 22:00 83 13 146/93 (110) 97 04/06/18 21:30 88 13 117/84 (95) 96 04/06/18 21:00 82 12 76/48 (57) 95 04/06/18 20:30 84 13 77/50 (59) 95 04/06/18 20:01 97.8 88 12 85/61 (69) 94 04/06/18 20:00 88 04/06/18 20:00 87 15 93 04/06/18 20:00 Room Air 04/06/18 19:30 101 12 105/77 (86) 96 04/06/18 19:00 92 15 130/96 (107) 98 04/06/18 18:30 95 15 132/96 (108) 98 04/06/18 18:00 91 15 140/80 (100) 98 04/06/18 17:30 91 15 147/96 (113) 98 04/06/18 17:00 92 15 128/89 (102) 98 I&O Intake and Output 04/06/18 04/07/18 18:59 06:59 Intake Total 150 ml 183.75 ml Output Total 700 ml 800 ml Balance -550 ml -616.25 ml IV Total 150 ml 183.75 ml Output Other 700 ml 800 ml Dressing: saturated Wound: other Drains: other Cardiovascular: RSR Respiratory: clear Abdomen: soft, non-tender, present bowel sounds, other, non-distended Extremities: other Laboratory Tests Test 04/07/18 05:00 White Blood Count 13.3 K/UL (4.8-10.8) H Red Blood Count 3.70 M/UL (4.70-6.10) L Hemoglobin 8.3 G/DL (14.2-18.0) L Hematocrit 28.2 % (42.0-52.0) L Mean Corpuscular Volume 76 FL (80-99) L Mean Corpuscular Hemoglobin 22.5 PG (27.0-31.0) L Mean Corpuscular Hemoglobin Concent 29.5 G/DL (32.0-36.0) L Red Cell Distribution Width 19.6 % (11.6-14.8) H Platelet Count 396 K/UL (150-450) Mean Platelet Volume 4.2 FL (6.5-10.1) L Neutrophils (%) (Auto) 83.8 % (45.0-75.0) H Lymphocytes (%) (Auto) 8.2 % (20.0-45.0) L Monocytes (%) (Auto) 6.1 % (1.0-10.0) Eosinophils (%) (Auto) 1.8 % (0.0-3.0) Basophils (%) (Auto) 0.2 % (0.0-2.0) Sodium Level 136 MMOL/L (136-145) Potassium Level 3.5 MMOL/L (3.5-5.1) Chloride Level 106 MMOL/L (98-107) Carbon Dioxide Level 19 MMOL/L (21-32) L Anion Gap 11 mmol/L (5-15) Blood Urea Nitrogen 20 mg/dL (7-18) H Creatinine 0.9 MG/DL (0.55-1.30) Estimat Glomerular Filtration Rate > 60 mL/min (>60) Glucose Level 104 MG/DL (74-106) Calcium Level 9.2 MG/DL (8.5-10.1) Plan Problems: (1) Decubital ulcer Assessment & Plan: multiple large decubitus chronic ulcers well known to me from prior admission have used wound VAC in past but difficult given size and location of wounds please refer to wound care photos for details cont with xeroform, gauze dressings, abx daily will follow with recs. thank you (2) Septic shock (3) Colostomy prolapse Assessment & Plan: resolved without recurrence since prior surgery. ostomy viable and functional now. looks good. Atif Luna Apr 07, 2018 16:42
[2018-04-07] MEDS ORDERED: NS 275ml ONE (17:19)
[2018-04-07] MEDS: Dyna-Hex 2% Top Sol 2oz TOPIC SCH (19:47)
--- NOTE | 2018-04-07 20:55 | Pulmonolgy Critical Care Note ---
Critical Care - Asmt/Plan Assessment/Plan: 1. Septic shock 2. Infected stage IV decubitus ulcer 3. 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 chronic pain 5. microcytic anemia 6. multiple antibiotic allergies 7. 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 Discussed with: nurses Critical Care - Objective Last 24 Hour Vital Signs Date Time Temp Pulse Resp B/P (MAP) Pulse Ox O2 Delivery O2 Flow Rate FiO2 04/07/18 20:23 97.6 04/07/18 20:00 Room Air 04/07/18 18:36 71/45 04/07/18 18:30 83 11 71/45 (54) 99 04/07/18 18:00 100/71 04/07/18 18:00 83 18 100/71 (81) 99 04/07/18 17:30 113 18 155/124 (134) 94 04/07/18 17:00 111/79 04/07/18 17:00 77 18 177/114 (135) 94 04/07/18 16:45 92 11 111/79 (90) 94 04/07/18 16:30 77 18 121/91 (101) 94 04/07/18 16:15 97.6 99 17 141/93 (109) 98 04/07/18 16:00 89 04/07/18 16:00 129/81 04/07/18 16:00 92 18 129/81 (97) 94 04/07/18 16:00 Room Air 04/07/18 15:45 93 18 93/65 (74) 98 04/07/18 15:30 93 18 75/49 (58) 94 04/07/18 15:15 90 12 87/56 (66) 98 04/07/18 15:00 84/53 04/07/18 15:00 98.6 90 18 84/53 (63) 94 04/07/18 14:45 90 18 88/56 (67) 94 04/07/18 14:30 90 18 89/69 (76) 94 04/07/18 14:00 80/57 04/07/18 14:00 92 17 82/49 (60) 94 04/07/18 13:45 100 17 99/65 (76) 94 04/07/18 13:30 94 15 134/86 (102) 94 04/07/18 13:15 92 11 143/83 (103) 100 04/07/18 13:00 94 11 106/68 (81) 100 04/07/18 13:00 106/68 04/07/18 12:45 91 14 142/85 (104) 100 04/07/18 12:30 89 14 59/32 (41) 100 04/07/18 12:15 91 15 84/55 (65) 99 04/07/18 12:00 Room Air 04/07/18 12:00 60/42 04/07/18 12:00 94 15 60/42 (48) 100 04/07/18 12:00 92 04/07/18 11:45 94 16 95/57 (70) 100 04/07/18 11:30 94 15 147/98 (114) 100 04/07/18 11:00 94 15 123/76 (92) 100 04/07/18 11:00 82 04/07/18 11:00 123/76 04/07/18 10:30 89 15 79/56 (64) 100 04/07/18 10:00 135/91 04/07/18 10:00 88 15 135/91 (106) 100 04/07/18 09:30 89 12 102/69 (80) 100 04/07/18 09:00 82/65 04/07/18 09:00 88 13 82/65 (71) 100 04/07/18 08:30 89 15 105/69 (81) 100 04/07/18 08:00 Room Air 04/07/18 08:00 88 14 92/68 (76) 100 04/07/18 08:00 107/70 04/07/18 07:30 98.6 95 13 147/98 (114) 100 04/07/18 07:00 117/73 04/07/18 07:00 97 15 117/73 (88) 100 04/07/18 06:30 93 13 90/61 (71) 99 04/07/18 06:00 90/61 04/07/18 06:00 91 19 120/79 (93) 97 04/07/18 05:30 95 12 112/70 (84) 97 04/07/18 05:09 128/72 04/07/18 05:00 101 15 128/72 (90) 98 04/07/18 04:30 84 16 82/52 (62) 95 04/07/18 04:00 Room Air 04/07/18 04:00 97.8 88 16 77/56 (63) 94 04/07/18 04:00 89 04/07/18 03:30 100 18 131/92 (105) 97 04/07/18 03:00 103 19 129/83 (98) 98 04/07/18 02:30 106 12 123/83 (96) 97 04/07/18 02:00 95 19 96 04/07/18 01:30 95 17 103/77 (86) 96 04/07/18 01:00 92 16 88/70 (76) 96 04/07/18 00:30 107 19 105/70 (82) 95 04/07/18 00:10 97.8 116 21 94/59 (71) 04/07/18 00:10 116 21 94/59 (71) 04/07/18 00:00 Room Air 04/07/18 00:00 100 04/06/18 23:30 94 18 148/103 (118) 97 04/06/18 23:18 105 26 156/89 (111) 98 04/06/18 22:30 88 12 103/67 (79) 97 04/06/18 22:17 91 12 118/78 (91) 96 04/06/18 22:00 83 13 146/93 (110) 97 04/06/18 21:30 88 13 117/84 (95) 96 04/06/18 21:00 82 12 76/48 (57) 95 Status: awake Condition: improving Lungs: clear Heart: HR/BP unstable Abdomen: soft, non-tender Micro: Microbiology Date/Time Source Procedure Growth Status 04/04/18 22:50 Blood Blood Culture - Preliminary NO GROWTH AFTER 48 HOURS Resulted 04/04/18 22:45 Blood Blood Culture - Preliminary NO GROWTH AFTER 48 HOURS Resulted 04/04/18 21:33 Other Gram Stain - Final Resulted 04/04/18 21:33 Wound Culture - Preliminary Escherichia Coli Proteus Mirabilis Staphylococcus Aureus Resulted 04/05/18 03:41 Nasal Nares MRSA Culture - Final Staphylococcus Aureus - Mrsa Complete 04/04/18 22:40 Nasal Nares Influenza Types A,B Antigen (ANA) - Final Complete 04/05/18 00:00 Indwelling Cath Urine Culture - Preliminary Mixed Urogenital Contaminants Resulted 04/05/18 03:41 Rectum VRE Culture - Final Enterococcus Faecalis - Vre Enterococcus Faecium - Vre Complete Critical Care - Subjective ROS Limited/Unobtainable: Yes Condition: improving I&O: Intake and Output 04/06/18 04/07/18 19:00 07:00 Intake Total 165 ml 183.75 ml Output Total 700 ml 800 ml Balance -535 ml -616.25 ml IV Total 165 ml 183.75 ml Other 700 ml 800 ml Subjective: remains on pressors complains of severe pain not getting oob no cp nv or bleeding no fever positive uop and bm Labs: Current Medications Medications (Trade) Dose Ordered Sig/Alva Route PRN Reason Start Time Stop Time Status Last Admin Dose Admin Acetaminophen (Tylenol) 650 mg Q6H PRN ORAL Mild Pain/Temp > 100.5 04/05/18 06:45 05/05/18 06:44 Chlorhexidine Gluconate (Cassandra-Hex 2%) 1 applic DAILY@2000 TOPIC 04/05/18 20:00 05/05/18 19:59 04/07/18 19:47 Ertapenem 1 gm/ Sodium Chloride 55 ml @ 110 mls/hr Q24H IVPB 04/07/18 10:00 04/12/18 09:59 04/07/18 10:23 Folic Acid (Folate) 1 mg DAILY ORAL 04/07/18 09:00 05/07/18 08:59 04/07/18 09:08 Heparin Sodium (Porcine) (Heparin 5000 units/ml) 5,000 units EVERY 12 HOURS SUBQ 04/05/18 09:00 05/05/18 08:59 04/07/18 20:48 Hydromorphone HCl (Dilaudid) 1.5 mg Q4H PRN IVP Severe breakthrough pain 04/05/18 17:30 04/12/18 17:29 04/07/18 19:47 Linezolid 300 ml @ 300 mls/hr EVERY 12 HOURS IVPB 04/07/18 17:00 04/14/18 16:59 04/07/18 16:21 Norepinephrine Bitartrate 4 mg/ Dextrose 250 ml @ 0 mls/hr Q24H IV 04/05/18 06:45 05/05/18 06:44 04/07/18 05:09 Pantoprazole (Protonix) 40 mg DAILY IVP 04/05/18 09:00 05/05/18 08:59 04/07/18 09:08 Laboratory Tests Test 04/07/18 05:00 White Blood Count 13.3 K/UL (4.8-10.8) H Red Blood Count 3.70 M/UL (4.70-6.10) L Hemoglobin 8.3 G/DL (14.2-18.0) L Hematocrit 28.2 % (42.0-52.0) L Mean Corpuscular Volume 76 FL (80-99) L Mean Corpuscular Hemoglobin 22.5 PG (27.0-31.0) L Mean Corpuscular Hemoglobin Concent 29.5 G/DL (32.0-36.0) L Red Cell Distribution Width 19.6 % (11.6-14.8) H Platelet Count 396 K/UL (150-450) Mean Platelet Volume 4.2 FL (6.5-10.1) L Neutrophils (%) (Auto) 83.8 % (45.0-75.0) H Lymphocytes (%) (Auto) 8.2 % (20.0-45.0) L Monocytes (%) (Auto) 6.1 % (1.0-10.0) Eosinophils (%) (Auto) 1.8 % (0.0-3.0) Basophils (%) (Auto) 0.2 % (0.0-2.0) Sodium Level 136 MMOL/L (136-145) Potassium Level 3.5 MMOL/L (3.5-5.1) Chloride Level 106 MMOL/L (98-107) Carbon Dioxide Level 19 MMOL/L (21-32) L Anion Gap 11 mmol/L (5-15) Blood Urea Nitrogen 20 mg/dL (7-18) H Creatinine 0.9 MG/DL (0.55-1.30) Estimat Glomerular Filtration Rate > 60 mL/min (>60) Glucose Level 104 MG/DL (74-106) Calcium Level 9.2 MG/DL (8.5-10.1) Ghada Gonzalez DO Apr 07, 2018 20:55
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
[2018-04-08] VITALS (56 sets, daily range): BP systolic 60–176; BP diastolic 37–104
[2018-04-08] MEDS ORDERED: Vancomycin 500mg/D5W 110ml IVPB SCH ×2 (04:00)
[2018-04-08 05:37] LABS: BASOPHILS % (AUTO) 0.5 % (0.0-2.0); EOSINOPHILS % (AUTO) 4.3 % (0.0-3.0); HEMATOCRIT 29.6 % (42.0-52.0); HEMOGLOBIN 8.7 G/DL (14.2-18.0); LYMPHOCYTES % (AUTO) 19.5 % (20.0-45.0); MEAN CORPUSCULAR VOLUME 75 FL (80-99); MONOCYTES % (AUTO) 6.6 % (1.0-10.0); NEUTROPHILS % (AUTO) 69.1 % (45.0-75.0); PLATELET COUNT 392 K/UL (150-450); RED BLOOD COUNT 3.93 M/UL (4.70-6.10); RED CELL DISTRIBUTION WIDTH 19.1 % (11.6-14.8); WHITE BLOOD COUNT 7.3 K/UL (4.8-10.8)
[2018-04-08 06:00] LABS: ANION GAP 12 mmol/L (5-15); BLOOD UREA NITROGEN 18 mg/dL (7-18); CALCIUM 9.3 MG/DL (8.5-10.1); CARBON DIOXIDE 19 MMOL/L (21-32); CHLORIDE 103 MMOL/L (98-107); CREATININE 0.9 MG/DL (0.55-1.30); POTASSIUM 3.1 MMOL/L (3.5-5.1); SODIUM 134 MMOL/L (136-145)
[2018-04-08] MEDS: Pantoprazole Inj IVP SCH (08:10)
[2018-04-08] MEDS: Heparin 5000 units/ml inj SUBQ SCH ×2 (08:13→20:39)
--- NOTE | 2018-04-08 09:31 | General Progress Note ---
Assessment/Plan Status: stable Assessment/Plan #Septic Shock #Hypotension #Infected Decubitus Ulcer #Cellulitis #Stage IV Decubitus Ulcer #quadriplegia - Invanz, allergic to many abx. ID consult, consider linezolid - Levophed, cont pressure support, 4mcg/hr, wean as tolerated.. resume home midodrine 2.5mg tid today - bcx x 2 - daily labs - tele - i/o - fluids - wound care, surgery eval - pain management consult #hypokalemia - K 3.1 - replenish - check mg #Microcytic Anemia - stable - no acute bleeding - hematology consult - iron panel ppx: hsq diet: regular Code Status: Full Hospital Classification Declaration: Based on this initial evaluation, and depending on the patient's clinical course, I anticipate that this patient will require hospitalization for 3-4 days for sepsis managemetn and close respiratory /hemodynamic monitoring. Disposition: Once the patient is stable to leave the hospital, I anticipate the patient will likely be discharged to the following environment: home with vs SNF (from [facility]) I spent 50 minutes on this patient's case, and 30 minutes were dedicated to counseling and/or care coordination. Discussed with patient/family, nursing staff, SW/CM, and consultants regarding clinical status, treatment course, and disposition planning. Over 30 minutes of critical care time have been spent on this patient, managing pressures and sepsis management. Time of note may not reflect time of encounter. Subjective Date patient seen: Apr 08, 2018 Time patient seen: 09:30 Allergies: Coded Allergies: CEFTRIAXONE (Verified Allergy, Unknown, 01/01/18) CODEINE (Verified Allergy, Unknown, 01/01/18) MORPHINE (Verified Allergy, Unknown, 01/01/18) PIPERACILLIN (Verified Allergy, Unknown, 01/01/18) SULFAMETHOXAZOLE (Verified Allergy, Unknown, 01/01/18) TAZOBACTAM (Verified Allergy, Unknown, 01/01/18) TRIMETHOPRIM (Verified Allergy, Unknown, 01/01/18) VANCOMYCIN (Verified Allergy, Unknown, 01/01/18) Subjective f/u sepsis , hypotension still on levophed DU being managed by wound care on abx ID consulted pain well controlled now ROS: 14 point ROS neg except per above Objective Last 24 Hour Vital Signs Date Time Temp Pulse Resp B/P (MAP) Pulse Ox O2 Delivery O2 Flow Rate FiO2 04/08/18 09:00 96 15 116/80 (92) 98 04/08/18 08:38 97.6 04/08/18 08:30 99 18 113/74 (87) 99 04/08/18 08:00 97.6 88 13 113/75 (88) 97 04/08/18 08:00 Room Air 04/08/18 07:30 94 14 127/83 (98) 97 04/08/18 07:00 87 12 121/71 (88) 97 04/08/18 06:00 83 12 80/54 (63) 97 04/08/18 05:45 82 11 86/53 (64) 97 04/08/18 05:30 83 11 93/76 (82) 98 04/08/18 05:00 86 15 80/67 (71) 98 04/08/18 05:00 80/67 04/08/18 04:45 76/40 04/08/18 04:45 93 15 76/61 (66) 98 04/08/18 04:30 98 16 60/37 (45) 98 04/08/18 04:15 93 18 90/56 (67) 97 04/08/18 04:00 Room Air 04/08/18 04:00 97 04/08/18 04:00 98.6 109 19 70/48 (55) 97 04/08/18 04:00 90/56 04/08/18 03:30 116 15 131/70 (90) 98 04/08/18 03:15 95 11 112/75 (87) 97 04/08/18 03:00 87 14 144/83 (103) 96 04/08/18 03:00 112/75 04/08/18 02:45 77 13 152/90 (110) 96 04/08/18 02:30 90 12 86/57 (67) 97 04/08/18 02:15 90 12 86/57 (67) 97 04/08/18 02:00 88 11 130/83 (99) 96 04/08/18 02:00 86/57 04/08/18 01:45 90 12 121/80 (94) 97 04/08/18 01:30 93 14 97/63 (74) 100 04/08/18 01:00 89/67 04/08/18 00:15 93 14 97/63 (74) 100 04/08/18 00:00 Room Air 04/08/18 00:00 98.3 86 22 176/90 (118) 100 04/08/18 00:00 105 04/08/18 00:00 97/63 04/07/18 23:45 74 16 155/95 (115) 100 04/07/18 23:30 90 15 120/83 (95) 100 04/07/18 23:15 87 13 99/79 (86) 100 04/07/18 23:00 93 15 101/78 (86) 100 04/07/18 23:00 99/79 04/07/18 22:45 86 15 143/92 (109) 100 04/07/18 22:30 93 12 127/82 (97) 100 04/07/18 22:15 90 13 121/83 (96) 99 04/07/18 22:00 85 12 88/64 (72) 100 04/07/18 22:00 121/83 04/07/18 21:30 84 13 120/81 (94) 99 04/07/18 21:15 84 14 89/63 (72) 100 04/07/18 21:00 85 14 79/53 (62) 99 04/07/18 21:00 94/62 04/07/18 20:45 88 14 113/72 (86) 99 04/07/18 20:30 84 16 94/65 (75) 99 04/07/18 20:15 84 11 84/58 (67) 100 04/07/18 20:00 83 04/07/18 20:00 87 16 94/52 (66) 100 04/07/18 20:00 84/58 04/07/18 20:00 Room Air 04/07/18 19:45 89 14 107/64 (78) 100 04/07/18 19:30 91 12 95/67 (76) 100 04/07/18 19:15 79 13 128/88 (101) 100 04/07/18 19:00 83 12 112/77 (89) 100 04/07/18 19:00 112/77 04/07/18 18:36 71/45 04/07/18 18:30 83 11 71/45 (54) 99 04/07/18 18:00 100/71 04/07/18 18:00 83 18 100/71 (81) 99 04/07/18 17:30 113 18 155/124 (134) 94 04/07/18 17:00 111/79 04/07/18 17:00 77 18 177/114 (135) 94 04/07/18 16:45 92 11 111/79 (90) 94 04/07/18 16:30 77 18 121/91 (101) 94 04/07/18 16:15 97.6 99 17 141/93 (109) 98 04/07/18 16:00 89 04/07/18 16:00 129/81 04/07/18 16:00 92 18 129/81 (97) 94 04/07/18 16:00 Room Air 04/07/18 15:45 93 18 93/65 (74) 98 04/07/18 15:30 93 18 75/49 (58) 94 04/07/18 15:15 90 12 87/56 (66) 98 04/07/18 15:00 84/53 04/07/18 15:00 98.6 90 18 84/53 (63) 94 04/07/18 14:45 90 18 88/56 (67) 94 04/07/18 14:30 90 18 89/69 (76) 94 04/07/18 14:00 80/57 04/07/18 14:00 92 17 82/49 (60) 94 04/07/18 13:45 100 17 99/65 (76) 94 04/07/18 13:30 94 15 134/86 (102) 94 04/07/18 13:15 92 11 143/83 (103) 100 04/07/18 13:00 94 11 106/68 (81) 100 04/07/18 13:00 106/68 04/07/18 12:45 91 14 142/85 (104) 100 04/07/18 12:30 89 14 59/32 (41) 100 04/07/18 12:15 91 15 84/55 (65) 99 04/07/18 12:00 Room Air 04/07/18 12:00 60/42 04/07/18 12:00 94 15 60/42 (48) 100 04/07/18 12:00 92 04/07/18 11:45 94 16 95/57 (70) 100 04/07/18 11:30 94 15 147/98 (114) 100 04/07/18 11:00 94 15 123/76 (92) 100 04/07/18 11:00 82 04/07/18 11:00 123/76 04/07/18 10:30 89 15 79/56 (64) 100 04/07/18 10:00 135/91 04/07/18 10:00 88 15 135/91 (106) 100 Intake and Output 04/07/18 04/08/18 19:00 07:00 Intake Total 457.50 ml 112.50 ml Output Total 950 ml 700 ml Balance -492.50 ml -587.50 ml Intake Oral 300 ml IV Total 157.50 ml 112.50 ml Output Stool Total 0 ml Other 950 ml 700 ml Laboratory Tests 04/08/18 04:00: White Blood Count 7.3, Red Blood Count 3.93L, Hemoglobin 8.7L, Hematocrit 29.6L , Mean Corpuscular Volume 75L, Mean Corpuscular Hemoglobin 22.3L, Mean Corpuscular Hemoglobin Concent 29.6L, Red Cell Distribution Width 19.1H, Platelet Count 392, Mean Platelet Volume 4.2L, Neutrophils (%) (Auto) 69.1, Lymphocytes (%) (Auto) 19.5L, Monocytes (%) (Auto) 6.6, Eosinophils (%) (Auto) 4.3H, Basophils (%) (Auto) 0.5, Sodium Level 134L, Potassium Level 3.1L, Chloride Level 103, Carbon Dioxide Level 19L, Anion Gap 12, Blood Urea Nitrogen 18, Creatinine 0.9, Estimat Glomerular Filtration Rate > 60, Glucose Level 116H , Calcium Level 9.3 Height (Feet): 3 Height (Inches): 3.00 Weight (Pounds): 109 Objective General appearance: alert, cooperative, no distress, appears stated age Head: Normocephalic, without obvious abnormality, atraumatic Eyes: conjunctivae/corneas clear. PERRL, EOM's intact. Fundi benign Throat: Lips, mucosa, and tongue normal. Teeth and gums normal Neck: supple, symmetrical, trachea midline, no adenopathy, thyroid: not enlarged, symmetric, no tenderness/mass/nodules, no carotid bruit and no JVD Lungs: clear to auscultation bilaterally Heart: regular rate and rhythm, S1, S2 normal, no murmur, click, rub or gallop Abdomen: soft, non-tender. Bowel sounds normal. No masses, no organomegaly Extremities: extremities normal, atraumatic, no cyanosis or edema. stage 4 decub ulcers, sloughing, oozing Pulses: 2+ and symmetric Skin: Skin color, texture, turgor normal. No rashes or lesions Neurologic: Grossly normal Gissel Coe MD Apr 08, 2018 09:31
[2018-04-08] MEDS: Ertapenem 1 GM in NS 55 ML IVPB SCH (10:45)
--- NOTE | 2018-04-08 12:36 | Surgery Progress Note ---
Surgery Progress Note Subjective Additional Comments no acute events. leukocytosis resolved. comfortable. Objective Last 24 Hour Vital Signs Date Time Temp Pulse Resp B/P (MAP) Pulse Ox O2 Delivery O2 Flow Rate FiO2 04/08/18 12:00 116/80 04/08/18 11:30 93 13 100/69 (79) 04/08/18 11:00 87 14 153/89 (110) 100 04/08/18 11:00 153/89 04/08/18 10:30 91 12 164/102 (122) 99 04/08/18 10:30 164/102 04/08/18 10:00 123/98 04/08/18 10:00 90 12 123/98 (106) 100 04/08/18 09:30 96 12 113/71 (85) 100 04/08/18 09:00 116/80 04/08/18 09:00 96 15 116/80 (92) 98 04/08/18 08:38 97.6 04/08/18 08:30 99 18 113/74 (87) 99 04/08/18 08:00 97.6 88 13 113/75 (88) 97 04/08/18 08:00 Room Air 04/08/18 08:00 91 04/08/18 08:00 113/75 04/08/18 07:30 94 14 127/83 (98) 97 04/08/18 07:00 121/71 04/08/18 07:00 87 12 121/71 (88) 97 04/08/18 06:00 83 12 80/54 (63) 97 04/08/18 05:45 82 11 86/53 (64) 97 04/08/18 05:30 83 11 93/76 (82) 98 04/08/18 05:00 86 15 80/67 (71) 98 04/08/18 05:00 80/67 04/08/18 04:45 76/40 04/08/18 04:45 93 15 76/61 (66) 98 04/08/18 04:30 98 16 60/37 (45) 98 04/08/18 04:15 93 18 90/56 (67) 97 04/08/18 04:00 Room Air 04/08/18 04:00 97 04/08/18 04:00 98.6 109 19 70/48 (55) 97 04/08/18 04:00 90/56 04/08/18 03:30 116 15 131/70 (90) 98 04/08/18 03:15 95 11 112/75 (87) 97 04/08/18 03:00 87 14 144/83 (103) 96 04/08/18 03:00 112/75 04/08/18 02:45 77 13 152/90 (110) 96 04/08/18 02:30 90 12 86/57 (67) 97 04/08/18 02:15 90 12 86/57 (67) 97 04/08/18 02:00 88 11 130/83 (99) 96 04/08/18 02:00 86/57 04/08/18 01:45 90 12 121/80 (94) 97 04/08/18 01:30 93 14 97/63 (74) 100 04/08/18 01:00 89/67 04/08/18 00:15 93 14 97/63 (74) 100 04/08/18 00:00 Room Air 04/08/18 00:00 98.3 86 22 176/90 (118) 100 04/08/18 00:00 105 04/08/18 00:00 97/63 04/07/18 23:45 74 16 155/95 (115) 100 04/07/18 23:30 90 15 120/83 (95) 100 04/07/18 23:15 87 13 99/79 (86) 100 04/07/18 23:00 93 15 101/78 (86) 100 04/07/18 23:00 99/79 04/07/18 22:45 86 15 143/92 (109) 100 04/07/18 22:30 93 12 127/82 (97) 100 04/07/18 22:15 90 13 121/83 (96) 99 04/07/18 22:00 85 12 88/64 (72) 100 04/07/18 22:00 121/83 04/07/18 21:30 84 13 120/81 (94) 99 04/07/18 21:15 84 14 89/63 (72) 100 04/07/18 21:00 85 14 79/53 (62) 99 04/07/18 21:00 94/62 04/07/18 20:45 88 14 113/72 (86) 99 04/07/18 20:30 84 16 94/65 (75) 99 04/07/18 20:15 84 11 84/58 (67) 100 04/07/18 20:00 83 04/07/18 20:00 87 16 94/52 (66) 100 04/07/18 20:00 84/58 04/07/18 20:00 Room Air 04/07/18 19:45 89 14 107/64 (78) 100 04/07/18 19:30 91 12 95/67 (76) 100 04/07/18 19:15 79 13 128/88 (101) 100 04/07/18 19:00 83 12 112/77 (89) 100 04/07/18 19:00 112/77 04/07/18 18:36 71/45 04/07/18 18:30 83 11 71/45 (54) 99 04/07/18 18:00 100/71 04/07/18 18:00 83 18 100/71 (81) 99 04/07/18 17:30 113 18 155/124 (134) 94 04/07/18 17:00 111/79 04/07/18 17:00 77 18 177/114 (135) 94 04/07/18 16:45 92 11 111/79 (90) 94 04/07/18 16:30 77 18 121/91 (101) 94 04/07/18 16:15 97.6 99 17 141/93 (109) 98 04/07/18 16:00 89 04/07/18 16:00 129/81 04/07/18 16:00 92 18 129/81 (97) 94 04/07/18 16:00 Room Air 04/07/18 15:45 93 18 93/65 (74) 98 04/07/18 15:30 93 18 75/49 (58) 94 04/07/18 15:15 90 12 87/56 (66) 98 04/07/18 15:00 84/53 04/07/18 15:00 98.6 90 18 84/53 (63) 94 04/07/18 14:45 90 18 88/56 (67) 94 04/07/18 14:30 90 18 89/69 (76) 94 04/07/18 14:00 80/57 04/07/18 14:00 92 17 82/49 (60) 94 04/07/18 13:45 100 17 99/65 (76) 94 04/07/18 13:30 94 15 134/86 (102) 94 04/07/18 13:15 92 11 143/83 (103) 100 04/07/18 13:00 94 11 106/68 (81) 100 04/07/18 13:00 106/68 04/07/18 12:45 91 14 142/85 (104) 100 I&O Intake and Output 04/07/18 04/08/18 19:00 07:00 Intake Total 457.50 ml 123.75 ml Output Total 950 ml 700 ml Balance -492.50 ml -576.25 ml Intake Oral 300 ml IV Total 157.50 ml 123.75 ml Output Stool Total 0 ml Other 950 ml 700 ml Dressing: saturated Wound: other Drains: other Cardiovascular: RSR Respiratory: clear Abdomen: soft, non-tender, other, non-distended Extremities: other Laboratory Tests Test 04/08/18 04:00 White Blood Count 7.3 K/UL (4.8-10.8) Red Blood Count 3.93 M/UL (4.70-6.10) L Hemoglobin 8.7 G/DL (14.2-18.0) L Hematocrit 29.6 % (42.0-52.0) L Mean Corpuscular Volume 75 FL (80-99) L Mean Corpuscular Hemoglobin 22.3 PG (27.0-31.0) L Mean Corpuscular Hemoglobin Concent 29.6 G/DL (32.0-36.0) L Red Cell Distribution Width 19.1 % (11.6-14.8) H Platelet Count 392 K/UL (150-450) Mean Platelet Volume 4.2 FL (6.5-10.1) L Neutrophils (%) (Auto) 69.1 % (45.0-75.0) Lymphocytes (%) (Auto) 19.5 % (20.0-45.0) L Monocytes (%) (Auto) 6.6 % (1.0-10.0) Eosinophils (%) (Auto) 4.3 % (0.0-3.0) H Basophils (%) (Auto) 0.5 % (0.0-2.0) Sodium Level 134 MMOL/L (136-145) L Potassium Level 3.1 MMOL/L (3.5-5.1) L Chloride Level 103 MMOL/L (98-107) Carbon Dioxide Level 19 MMOL/L (21-32) L Anion Gap 12 mmol/L (5-15) Blood Urea Nitrogen 18 mg/dL (7-18) Creatinine 0.9 MG/DL (0.55-1.30) Estimat Glomerular Filtration Rate > 60 mL/min (>60) Glucose Level 116 MG/DL (74-106) H Calcium Level 9.3 MG/DL (8.5-10.1) Magnesium Level 1.8 MG/DL (1.8-2.4) Plan Problems: (1) Decubital ulcer Assessment & Plan: multiple large decubitus chronic ulcers well known to me from prior admission have used wound VAC in past but difficult given size and location of wounds please refer to wound care photos for details cont with xeroform, gauze dressings, abx daily wean pressors stable in ICU will follow with recs. thank you (2) Septic shock (3) Colostomy prolapse Assessment & Plan: resolved without recurrence since prior surgery. ostomy viable and functional now. looks good. Atif Luna Apr 08, 2018 12:36
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
--- NOTE | 2018-04-08 15:45 | Pulmonolgy Critical Care Note ---
Critical Care - Asmt/Plan Assessment/Plan: Problem List: 1. Septic shock 2. Infected stage IV decubitus ulcer 3. 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 chronic pain 5. microcytic anemia 6. multiple antibiotic allergies 7. Hx MRSA colonization 8. UTI Plan: -levophed, wean as tolerated, almost off -midodrine 2.5 mg tid -abx: Ertapenem/zyvox -f/u cultures -decubitus ulcer wound care, surgery following -pain control Cardiac: continue pressors Infectious Disease: continue antibiotics Disposition: keep in ICU Time Spent (Minutes): 40 Notes Reviewed: career services manager, ID Discussed with: nurses Critical Care - Objective Last 24 Hour Vital Signs Date Time Temp Pulse Resp B/P (MAP) Pulse Ox O2 Delivery O2 Flow Rate FiO2 04/08/18 14:30 74 12 140/83 (102) 96 04/08/18 14:00 90 14 84/60 (68) 99 04/08/18 13:30 92 14 93/64 (74) 99 04/08/18 13:00 129 20 111/75 (87) 98 04/08/18 13:00 93/64 04/08/18 12:49 97.6 04/08/18 12:30 101 15 110/78 (89) 99 04/08/18 12:00 98.6 112 17 124/71 (88) 100 04/08/18 12:00 116/80 04/08/18 12:00 72 04/08/18 12:00 Room Air 04/08/18 11:30 93 13 100/69 (79) 99 04/08/18 11:00 87 14 153/89 (110) 100 04/08/18 11:00 153/89 04/08/18 10:30 91 12 164/102 (122) 99 04/08/18 10:30 164/102 04/08/18 10:00 123/98 04/08/18 10:00 90 12 123/98 (106) 100 04/08/18 09:30 96 12 113/71 (85) 100 04/08/18 09:00 116/80 04/08/18 09:00 96 15 116/80 (92) 98 04/08/18 08:30 99 18 113/74 (87) 99 04/08/18 08:00 97.6 88 13 113/75 (88) 97 04/08/18 08:00 Room Air 04/08/18 08:00 91 04/08/18 08:00 113/75 04/08/18 07:30 94 14 127/83 (98) 97 04/08/18 07:00 121/71 04/08/18 07:00 87 12 121/71 (88) 97 04/08/18 06:00 83 12 80/54 (63) 97 04/08/18 05:45 82 11 86/53 (64) 97 04/08/18 05:30 83 11 93/76 (82) 98 04/08/18 05:00 86 15 80/67 (71) 98 04/08/18 05:00 80/67 04/08/18 04:45 76/40 04/08/18 04:45 93 15 76/61 (66) 98 04/08/18 04:30 98 16 60/37 (45) 98 04/08/18 04:15 93 18 90/56 (67) 97 04/08/18 04:00 Room Air 04/08/18 04:00 97 04/08/18 04:00 98.6 109 19 70/48 (55) 97 04/08/18 04:00 90/56 04/08/18 03:30 116 15 131/70 (90) 98 04/08/18 03:15 95 11 112/75 (87) 97 04/08/18 03:00 87 14 144/83 (103) 96 04/08/18 03:00 112/75 04/08/18 02:45 77 13 152/90 (110) 96 04/08/18 02:30 90 12 86/57 (67) 97 04/08/18 02:15 90 12 86/57 (67) 97 04/08/18 02:00 88 11 130/83 (99) 96 04/08/18 02:00 86/57 04/08/18 01:45 90 12 121/80 (94) 97 04/08/18 01:30 93 14 97/63 (74) 100 04/08/18 01:00 89/67 04/08/18 00:15 93 14 97/63 (74) 100 04/08/18 00:00 Room Air 04/08/18 00:00 98.3 86 22 176/90 (118) 100 04/08/18 00:00 105 04/08/18 00:00 97/63 04/07/18 23:45 74 16 155/95 (115) 100 04/07/18 23:30 90 15 120/83 (95) 100 04/07/18 23:15 87 13 99/79 (86) 100 04/07/18 23:00 93 15 101/78 (86) 100 04/07/18 23:00 99/79 04/07/18 22:45 86 15 143/92 (109) 100 04/07/18 22:30 93 12 127/82 (97) 100 04/07/18 22:15 90 13 121/83 (96) 99 04/07/18 22:00 85 12 88/64 (72) 100 04/07/18 22:00 121/83 04/07/18 21:30 84 13 120/81 (94) 99 04/07/18 21:15 84 14 89/63 (72) 100 04/07/18 21:00 85 14 79/53 (62) 99 04/07/18 21:00 94/62 04/07/18 20:45 88 14 113/72 (86) 99 04/07/18 20:30 84 16 94/65 (75) 99 04/07/18 20:15 84 11 84/58 (67) 100 04/07/18 20:00 83 04/07/18 20:00 87 16 94/52 (66) 100 04/07/18 20:00 84/58 04/07/18 20:00 Room Air 04/07/18 19:45 89 14 107/64 (78) 100 04/07/18 19:30 91 12 95/67 (76) 100 04/07/18 19:15 79 13 128/88 (101) 100 04/07/18 19:00 83 12 112/77 (89) 100 04/07/18 19:00 112/77 04/07/18 18:36 71/45 04/07/18 18:30 83 11 71/45 (54) 99 04/07/18 18:00 100/71 04/07/18 18:00 83 18 100/71 (81) 99 04/07/18 17:30 113 18 155/124 (134) 94 04/07/18 17:00 111/79 04/07/18 17:00 77 18 177/114 (135) 94 04/07/18 16:45 92 11 111/79 (90) 94 04/07/18 16:30 77 18 121/91 (101) 94 04/07/18 16:15 97.6 99 17 141/93 (109) 98 04/07/18 16:00 89 04/07/18 16:00 129/81 04/07/18 16:00 92 18 129/81 (97) 94 04/07/18 16:00 Room Air 04/07/18 15:45 93 18 93/65 (74) 98 Status: awake Condition: improving HEENT: atraumatic Lungs: clear Heart: regular Abdomen: soft, non-tender Extremities: other - b/l AKA at pelvis Decubiti: stage - iv Micro: Microbiology Date/Time Source Procedure Growth Status 04/07/18 18:00 Indwelling Cath Urine Culture - Preliminary Resulted Critical Care - Subjective ROS Limited/Unobtainable: No Interval Events: Tolerating antibiotics. Weaning low dose pressors. Midodrine 2.5 mg tid started. Having pain after recent dressing change. Condition: stable IV Access: central EKG Rhythm: Sinus Rhythm I&O: Intake and Output 04/07/18 04/08/18 18:59 06:59 Intake Total 461.25 ml 123.75 ml Output Total 950 ml 700 ml Balance -488.75 ml -576.25 ml Intake Oral 300 ml IV Total 161.25 ml 123.75 ml Output Stool Total 0 ml Other 950 ml 700 ml Diego Saldaña MD Apr 08, 2018 15:45
--- NOTE | 2018-04-08 17:56 | General Progress Note ---
Assessment/Plan Assessment/Plan # Anemia of chronic disease due to underlying chronic medical issues --> Anemia panel has been reviewed, will trend as required --> hgb goal >7, transfuse on prn basis --> no etoh or drug abuse, meds reviewed --> Blood tx performed in the past --> consider iron once infection has cleared # Leukocytosis is likely due to cellulitis, does have sepsis, also could be due to decub --> Resolved/Improved wbc --> Remains on antibiotics --> smear peripheral has been reviewed --> no schistocytes are noted --> no evidence of malignancy --> blood culture is positive for gram cocci, management as per ID --> appreciate ID recs --> decub surgery as per surgery recs # LINDSEY -- currently worse --> continue to monitor # Quadriplegia --> weakness has been chronic # Colostomy care, s/p colostomy revision and bowel resection on 01/09/18 --> per surgery # Tobacco abuse --> cessation education # Dispo --> likely back to [facility] on d/c # DVT ppx with heparin sq Greatly appreciate consultation! Subjective Constitutional: Denies: no symptoms, chills, diaphoresis, fever, malaise, weakness, other HEENT: Denies: no symptoms, eye pain, blurred vision, tearing, double vision, ear pain, ear discharge, nose pain, nose congestion, throat pain, throat swelling, mouth pain, mouth swelling, other Cardiovascular: Denies: no symptoms, chest pain, edema, irregular heart rate, lightheadedness, palpitations, syncope, other Respiratory: Denies: no symptoms, cough, orthopnea, shortness of breath, SOB with excertion, SOB at rest, sputum, stridor, wheezing, other Gastrointestinal/Abdominal: Denies: no symptoms, abdomen distended, abdominal pain, black stools, tarry stools, blood in stool, constipated, diarrhea, difficulty swallowing, nausea, poor appetite, poor fluid intake, rectal bleeding , vomiting, other Genitourinary: Denies: no symptoms, burning, discharge, frequency, flank pain, hematuria, incontinence, pain, urgency, other Neurologic/Psychiatric: Denies: no symptoms, anxiety, depressed, emotional problems, headache, numbness, paresthesia, pre-existing deficit, seizure, tingling, tremors, weakness, other Endocrine: Denies: no symptoms, excessive sweating, flushing, intolerance to cold, intolerance to heat, increased hunger, increased thirst, increased urine, unexplained weight gain, unexplained weight loss, other Hematologic/Lymphatic: Denies: no symptoms, anemia, easy bleeding, easy bruising, other Allergies: Coded Allergies: CEFTRIAXONE (Verified Allergy, Unknown, 01/01/18) CODEINE (Verified Allergy, Unknown, 01/01/18) MORPHINE (Verified Allergy, Unknown, 01/01/18) PIPERACILLIN (Verified Allergy, Unknown, 01/01/18) SULFAMETHOXAZOLE (Verified Allergy, Unknown, 01/01/18) TAZOBACTAM (Verified Allergy, Unknown, 01/01/18) TRIMETHOPRIM (Verified Allergy, Unknown, 01/01/18) VANCOMYCIN (Verified Allergy, Unknown, 01/01/18) Subjective 04/06: awake and comfortable, no fevers or chills, denies acute distress. hgb 7.6 , plt 383. 04/08: no acute events. leukocytosis resolved. comfortable. Objective Last 24 Hour Vital Signs Date Time Temp Pulse Resp B/P (MAP) Pulse Ox O2 Delivery O2 Flow Rate FiO2 04/08/18 16:00 135/89 04/08/18 16:00 Room Air 04/08/18 15:30 64 19 170/95 (120) 100 04/08/18 15:00 92 12 113/74 (87) 98 04/08/18 15:00 170/95 04/08/18 14:45 95 13 99/71 (80) 98 04/08/18 14:30 74 12 140/83 (102) 96 04/08/18 14:15 89 16 115/77 (90) 04/08/18 14:00 84/60 04/08/18 14:00 90 14 84/60 (68) 99 04/08/18 13:30 92 14 93/64 (74) 99 04/08/18 13:00 129 20 111/75 (87) 98 04/08/18 13:00 93/64 04/08/18 12:49 97.6 04/08/18 12:30 101 15 110/78 (89) 99 04/08/18 12:00 98.6 112 17 124/71 (88) 100 04/08/18 12:00 116/80 04/08/18 12:00 72 04/08/18 12:00 Room Air 04/08/18 11:30 93 13 100/69 (79) 99 04/08/18 11:00 87 14 153/89 (110) 100 04/08/18 11:00 153/89 04/08/18 10:30 91 12 164/102 (122) 99 04/08/18 10:30 164/102 04/08/18 10:00 123/98 04/08/18 10:00 90 12 123/98 (106) 100 04/08/18 09:30 96 12 113/71 (85) 100 04/08/18 09:00 116/80 04/08/18 09:00 96 15 116/80 (92) 98 04/08/18 08:30 99 18 113/74 (87) 99 04/08/18 08:00 97.6 88 13 113/75 (88) 97 04/08/18 08:00 Room Air 04/08/18 08:00 91 04/08/18 08:00 113/75 04/08/18 07:30 94 14 127/83 (98) 97 04/08/18 07:00 121/71 04/08/18 07:00 87 12 121/71 (88) 97 04/08/18 06:00 83 12 80/54 (63) 97 04/08/18 05:45 82 11 86/53 (64) 97 04/08/18 05:30 83 11 93/76 (82) 98 04/08/18 05:00 86 15 80/67 (71) 98 04/08/18 05:00 80/67 04/08/18 04:45 76/40 04/08/18 04:45 93 15 76/61 (66) 98 04/08/18 04:30 98 16 60/37 (45) 98 04/08/18 04:15 93 18 90/56 (67) 97 04/08/18 04:00 Room Air 04/08/18 04:00 97 04/08/18 04:00 98.6 109 19 70/48 (55) 97 04/08/18 04:00 90/56 04/08/18 03:30 116 15 131/70 (90) 98 04/08/18 03:15 95 11 112/75 (87) 97 04/08/18 03:00 87 14 144/83 (103) 96 04/08/18 03:00 112/75 04/08/18 02:45 77 13 152/90 (110) 96 04/08/18 02:30 90 12 86/57 (67) 97 04/08/18 02:15 90 12 86/57 (67) 97 04/08/18 02:00 88 11 130/83 (99) 96 04/08/18 02:00 86/57 04/08/18 01:45 90 12 121/80 (94) 97 04/08/18 01:30 93 14 97/63 (74) 100 04/08/18 01:00 89/67 04/08/18 00:15 93 14 97/63 (74) 100 04/08/18 00:00 Room Air 04/08/18 00:00 98.3 86 22 176/90 (118) 100 04/08/18 00:00 105 04/08/18 00:00 97/63 04/07/18 23:45 74 16 155/95 (115) 100 04/07/18 23:30 90 15 120/83 (95) 100 04/07/18 23:15 87 13 99/79 (86) 100 04/07/18 23:00 93 15 101/78 (86) 100 04/07/18 23:00 99/79 04/07/18 22:45 86 15 143/92 (109) 100 04/07/18 22:30 93 12 127/82 (97) 100 04/07/18 22:15 90 13 121/83 (96) 99 04/07/18 22:00 85 12 88/64 (72) 100 04/07/18 22:00 121/83 04/07/18 21:30 84 13 120/81 (94) 99 04/07/18 21:15 84 14 89/63 (72) 100 04/07/18 21:00 85 14 79/53 (62) 99 04/07/18 21:00 94/62 04/07/18 20:45 88 14 113/72 (86) 99 04/07/18 20:30 84 16 94/65 (75) 99 04/07/18 20:15 84 11 84/58 (67) 100 04/07/18 20:00 83 04/07/18 20:00 87 16 94/52 (66) 100 04/07/18 20:00 84/58 04/07/18 20:00 Room Air 04/07/18 19:45 89 14 107/64 (78) 100 04/07/18 19:30 91 12 95/67 (76) 100 04/07/18 19:15 79 13 128/88 (101) 100 04/07/18 19:00 83 12 112/77 (89) 100 04/07/18 19:00 112/77 04/07/18 18:36 71/45 04/07/18 18:30 83 11 71/45 (54) 99 04/07/18 18:00 100/71 04/07/18 18:00 83 18 100/71 (81) 99 Intake and Output 04/07/18 04/08/18 18:59 06:59 Intake Total 461.25 ml 123.75 ml Output Total 950 ml 700 ml Balance -488.75 ml -576.25 ml Intake Oral 300 ml IV Total 161.25 ml 123.75 ml Output Stool Total 0 ml Other 950 ml 700 ml Laboratory Tests 04/08/18 04:00: White Blood Count 7.3, Red Blood Count 3.93L, Hemoglobin 8.7L, Hematocrit 29.6L , Mean Corpuscular Volume 75L, Mean Corpuscular Hemoglobin 22.3L, Mean Corpuscular Hemoglobin Concent 29.6L, Red Cell Distribution Width 19.1H, Platelet Count 392, Mean Platelet Volume 4.2L, Neutrophils (%) (Auto) 69.1, Lymphocytes (%) (Auto) 19.5L, Monocytes (%) (Auto) 6.6, Eosinophils (%) (Auto) 4.3H, Basophils (%) (Auto) 0.5, Sodium Level 134L, Potassium Level 3.1L, Chloride Level 103, Carbon Dioxide Level 19L, Anion Gap 12, Blood Urea Nitrogen 18, Creatinine 0.9, Estimat Glomerular Filtration Rate > 60, Glucose Level 116H , Calcium Level 9.3, Magnesium Level 1.8 Height (Feet): 3 Height (Inches): 3.00 Weight (Pounds): 109 Objective Physical Exam General Appearance: WD/WN, no apparent distress, alert Vitals: reviewed HEENT: normocephalic, atraumatic, dry muscous membranes Neck: non-tender, normal alignment, supple Respiratory/Chest: chest wall nt, lungs clear Cardiovascular/Chest: rrr, no gallop/murmur Abdomen: normal bowel sounds, non tender, soft, no organomegaly, no mass, other - urostomy with dark urine, colostomy with no feces, cystomy site clean Extremities: other - contracture of BL digits, Bilateral AKA Skin Exam: normal pigmentation, warm/dry 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
[2018-04-08] MEDS: Dyna-Hex 2% Top Sol 2oz TOPIC SCH (19:53)
[2018-04-09] VITALS (48 sets, daily range): BP systolic 54–160; BP diastolic 35–110
[2018-04-09 05:52] LABS: BASOPHILS % (AUTO) 0.5 % (0.0-2.0); EOSINOPHILS % (AUTO) 4.9 % (0.0-3.0); HEMATOCRIT 30.3 % (42.0-52.0); LYMPHOCYTES % (AUTO) 20.6 % (20.0-45.0); MEAN CORPUSCULAR VOLUME 76 FL (80-99); MONOCYTES % (AUTO) 7.3 % (1.0-10.0); NEUTROPHILS % (AUTO) 66.8 % (45.0-75.0); PLATELET COUNT 428 K/UL (150-450); RED BLOOD COUNT 4.01 M/UL (4.70-6.10); RED CELL DISTRIBUTION WIDTH 19.1 % (11.6-14.8); WHITE BLOOD COUNT 8.3 K/UL (4.8-10.8)
[2018-04-09 06:17] LABS: ALANINE AMINOTRANSFERASE 10 U/L (12-78); ALBUMIN 1.7 G/DL (3.4-5.0); ALBUMIN/GLOBULIN RATIO 0.3 (1.0-2.7); ALKALINE PHOSPHATASE 165 U/L (46-116); ANION GAP 10 mmol/L (5-15); ASPARTATE AMINO TRANSFERASE 12 U/L (15-37); BLOOD UREA NITROGEN 15 mg/dL (7-18); CALCIUM 9.1 MG/DL (8.5-10.1); CARBON DIOXIDE 21 MMOL/L (21-32); CHLORIDE 104 MMOL/L (98-107); POTASSIUM 3.6 MMOL/L (3.5-5.1); SODIUM 135 MMOL/L (136-145)
[2018-04-09 07:54] LABS: BILIRUBIN,TOTAL 0.3 MG/DL (0.2-1.0)
[2018-04-09] MEDS: Pantoprazole Inj IVP SCH (08:33)
[2018-04-09] MEDS: Heparin 5000 units/ml inj SUBQ SCH ×2 (08:38→20:37)
[2018-04-09] MEDS: Ertapenem 1 GM in NS 55 ML IVPB SCH (09:10)
--- NOTE | 2018-04-09 12:00 | Surgery Progress Note ---
Surgery Progress Note Subjective Additional Comments no acute events. improving Objective Last 24 Hour Vital Signs Date Time Temp Pulse Resp B/P (MAP) Pulse Ox O2 Delivery O2 Flow Rate FiO2 04/09/18 11:00 80 17 130/75 (93) 100 04/09/18 10:30 82 17 90/68 (75) 100 04/09/18 10:00 78 17 86/66 (73) 99 04/09/18 09:30 82 17 116/84 (95) 99 04/09/18 09:00 85 17 110/80 (90) 99 04/09/18 08:30 84 17 120/84 (96) 99 04/09/18 08:00 Room Air 04/09/18 08:00 82 04/09/18 08:00 98.6 80 16 115/80 (92) 99 04/09/18 07:30 82 17 118/82 (94) 99 04/09/18 07:00 85 17 110/70 (83) 99 04/09/18 06:30 87 17 85/63 (70) 99 04/09/18 06:00 85 17 81/63 (69) 99 04/09/18 06:00 87/55 04/09/18 05:30 82 16 54/35 (41) 99 04/09/18 05:00 82/54 04/09/18 05:00 100 14 82/54 (63) 100 04/09/18 04:30 75 14 160/87 (111) 100 04/09/18 04:05 84 20 Room Air 21 04/09/18 04:00 85 04/09/18 04:00 98.4 75 14 128/110 (116) 100 04/09/18 04:00 154/94 04/09/18 04:00 Room Air 04/09/18 03:30 75 14 154/94 (114) 99 04/09/18 03:00 77 14 140/82 (101) 99 04/09/18 03:00 115/60 04/09/18 02:30 86 14 109/83 (92) 99 04/09/18 02:21 100/85 04/09/18 02:00 92 14 110/70 (83) 99 04/09/18 02:00 110/70 04/09/18 01:30 91 16 137/85 (102) 98 04/09/18 01:00 93 16 126/85 (99) 98 04/09/18 00:30 99 14 155/82 (106) 98 04/09/18 00:00 80 04/09/18 00:00 Room Air 04/09/18 00:00 165/96 04/09/18 00:00 98.8 80 14 150/82 (104) 100 04/08/18 23:30 77 14 138/95 (109) 99 04/08/18 23:00 85 16 129/85 (100) 99 04/08/18 23:00 158/95 04/08/18 22:30 75 16 120/80 (93) 95 04/08/18 22:00 120/85 04/08/18 22:00 78 16 153/89 (110) 95 04/08/18 21:30 84 16 71/50 (57) 99 04/08/18 21:00 82 16 90/63 (72) 99 04/08/18 21:00 70/47 04/08/18 20:30 83 16 70/47 (55) 99 04/08/18 20:00 98.0 87 16 97/77 (84) 99 04/08/18 20:00 77/39 04/08/18 20:00 85 04/08/18 20:00 Room Air 04/08/18 19:30 86 16 117/84 (95) 98 04/08/18 19:00 91 17 91/65 (74) 98 04/08/18 18:30 63 14 137/104 (115) 99 04/08/18 18:00 83 18 116/74 (88) 04/08/18 18:00 116/74 04/08/18 17:30 84 20 84/54 (64) 85 04/08/18 17:00 92 12 95/75 (82) 99 04/08/18 17:00 137/104 04/08/18 16:30 95 18 83/53 (63) 97 04/08/18 16:00 87 04/08/18 16:00 135/89 04/08/18 16:00 Room Air 04/08/18 16:00 97.6 94 12 137/98 (111) 100 04/08/18 15:30 64 19 170/95 (120) 100 04/08/18 15:00 92 12 113/74 (87) 98 04/08/18 15:00 170/95 04/08/18 14:45 95 13 99/71 (80) 98 04/08/18 14:30 74 12 140/83 (102) 96 04/08/18 14:15 89 16 115/77 (90) 04/08/18 14:00 84/60 04/08/18 14:00 90 14 84/60 (68) 99 04/08/18 13:30 92 14 93/64 (74) 99 04/08/18 13:00 129 20 111/75 (87) 98 04/08/18 13:00 93/64 04/08/18 12:49 97.6 04/08/18 12:30 101 15 110/78 (89) 99 04/08/18 12:00 98.6 112 17 124/71 (88) 100 04/08/18 12:00 116/80 04/08/18 12:00 72 04/08/18 12:00 Room Air I&O Intake and Output 04/08/18 04/09/18 19:00 07:00 Intake Total 581.875 ml 471.25 ml Output Total 960 ml 650 ml Balance -378.125 ml -178.75 ml Intake Oral 100 ml 70 ml IV Total 481.875 ml 401.25 ml Other 960 ml 650 ml Dressing: saturated Wound: other Drains: other Cardiovascular: RSR Respiratory: clear Abdomen: soft, present bowel sounds, other, non-distended Extremities: other Laboratory Tests Test 04/09/18 05:00 White Blood Count 8.3 K/UL (4.8-10.8) Red Blood Count 4.01 M/UL (4.70-6.10) L Hemoglobin 9.0 G/DL (14.2-18.0) L Hematocrit 30.3 % (42.0-52.0) L Mean Corpuscular Volume 76 FL (80-99) L Mean Corpuscular Hemoglobin 22.4 PG (27.0-31.0) L Mean Corpuscular Hemoglobin Concent 29.6 G/DL (32.0-36.0) L Red Cell Distribution Width 19.1 % (11.6-14.8) H Platelet Count 428 K/UL (150-450) Mean Platelet Volume 4.3 FL (6.5-10.1) L Neutrophils (%) (Auto) 66.8 % (45.0-75.0) Lymphocytes (%) (Auto) 20.6 % (20.0-45.0) Monocytes (%) (Auto) 7.3 % (1.0-10.0) Eosinophils (%) (Auto) 4.9 % (0.0-3.0) H Basophils (%) (Auto) 0.5 % (0.0-2.0) Sodium Level 135 MMOL/L (136-145) L Potassium Level 3.6 MMOL/L (3.5-5.1) Chloride Level 104 MMOL/L (98-107) Carbon Dioxide Level 21 MMOL/L (21-32) Anion Gap 10 mmol/L (5-15) Blood Urea Nitrogen 15 mg/dL (7-18) Creatinine 1.0 MG/DL (0.55-1.30) Estimat Glomerular Filtration Rate > 60 mL/min (>60) Glucose Level 98 MG/DL (74-106) Calcium Level 9.1 MG/DL (8.5-10.1) Total Bilirubin 0.3 MG/DL (0.2-1.0) Aspartate Amino Transf (AST/SGOT) 12 U/L (15-37) L Alanine Aminotransferase (ALT/SGPT) 10 U/L (12-78) L Alkaline Phosphatase 165 U/L (46-116) H Total Protein 7.6 G/DL (6.4-8.2) Albumin 1.7 G/DL (3.4-5.0) L Globulin 5.9 g/dL Albumin/Globulin Ratio 0.3 (1.0-2.7) L Plan Problems: (1) Decubital ulcer Assessment & Plan: Pt presents with complex pressure injuries involving buttocks extending into bilat groin areas that were surgically debrided last admission.Partial assessment of wound completed due to pt became diaphoretic while positioned on L side.Assessment of Buttocks to R groin completed (L)12cm x (W)18cm with mesurable depth at sacrum of 1.5cm and depth of 2.5cm at R groin area.scattered threads of yellow slough throughout base of wound with granular areas also noted. No odor noted. Moderate serous exudate noted.Full thickness pressure injuries(2 sites)in close proximity posterior R AKA (L)1.5cm x (W) 4.5cm x(D)1.6cm. Both wounds moist- viable.Minimal sanguineous exudate .Edges adherent and flat .Non-blanchable erythema periwound without induration or elevation in skin temp. Assessment of wound L buttocks and L groin not completed. Will attempt to see pt next rounds if stable. Cleanse wounds with Saline.Loose pack with Hydrogel impregnated Kerlix gauze.Apply Cavilon Skin Barrier periwound.Cover with ABD pads and secure with Tegaderms drsgs Daily and prn. Reposition at least every 2hours or as tolerated. Air fluidized mattress. wean pressors stable in ICU will follow with recs. thank you (2) Septic shock (3) Colostomy prolapse Assessment & Plan: resolved without recurrence since prior surgery. ostomy viable and functional now. looks good. Atif Luna Apr 09, 2018 12:00
--- NOTE | 2018-04-09 12:39 | Pulmonolgy Critical Care Note ---
Critical Care - Asmt/Plan Assessment/Plan: Problem List: 1. Septic shock 2. Infected stage IV decubitus ulcer 3. 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 chronic pain 5. microcytic anemia 6. multiple antibiotic allergies 7. Hx MRSA colonization 8. UTI Plan: -levophed, wean as tolerated, almost off -midodrine to 5 mg tid -abx: Ertapenem/zyvox -f/u cultures -decubitus ulcer wound care, surgery following -pain control but diludid dropping BP, consider switching to home meds with PO control especially if pain seems to be at chronic sites. Respiratory: monitor respiratory rate Cardiac: continue pressors Renal: F/U I&O Infectious Disease: continue antibiotics Neurologic: keep patient comfortable Disposition: keep in ICU Time Spent (Minutes): 40 Discussed with: nurses Critical Care - Objective Last 24 Hour Vital Signs Date Time Temp Pulse Resp B/P (MAP) Pulse Ox O2 Delivery O2 Flow Rate FiO2 04/09/18 12:00 Room Air 04/09/18 12:00 98.5 78 17 108/62 (77) 100 04/09/18 11:30 82 17 110/62 (78) 100 04/09/18 11:00 80 17 130/75 (93) 100 04/09/18 10:30 82 17 90/68 (75) 100 04/09/18 10:00 78 17 86/66 (73) 99 04/09/18 09:30 82 17 116/84 (95) 99 04/09/18 09:00 85 17 110/80 (90) 99 04/09/18 08:30 84 17 120/84 (96) 99 04/09/18 08:00 Room Air 04/09/18 08:00 82 04/09/18 08:00 98.6 80 16 115/80 (92) 99 04/09/18 07:30 82 17 118/82 (94) 99 04/09/18 07:00 85 17 110/70 (83) 99 04/09/18 06:30 87 17 85/63 (70) 99 04/09/18 06:00 85 17 81/63 (69) 99 04/09/18 06:00 87/55 04/09/18 05:30 82 16 54/35 (41) 99 04/09/18 05:00 82/54 04/09/18 05:00 100 14 82/54 (63) 100 04/09/18 04:30 75 14 160/87 (111) 100 04/09/18 04:05 84 20 Room Air 21 04/09/18 04:00 85 04/09/18 04:00 98.4 75 14 128/110 (116) 100 04/09/18 04:00 154/94 04/09/18 04:00 Room Air 04/09/18 03:30 75 14 154/94 (114) 99 04/09/18 03:00 77 14 140/82 (101) 99 04/09/18 03:00 115/60 04/09/18 02:30 86 14 109/83 (92) 99 04/09/18 02:21 100/85 04/09/18 02:00 92 14 110/70 (83) 99 04/09/18 02:00 110/70 04/09/18 01:30 91 16 137/85 (102) 98 04/09/18 01:00 93 16 126/85 (99) 98 04/09/18 00:30 99 14 155/82 (106) 98 04/09/18 00:00 80 04/09/18 00:00 Room Air 04/09/18 00:00 165/96 04/09/18 00:00 98.8 80 14 150/82 (104) 100 04/08/18 23:30 77 14 138/95 (109) 99 04/08/18 23:00 85 16 129/85 (100) 99 04/08/18 23:00 158/95 04/08/18 22:30 75 16 120/80 (93) 95 04/08/18 22:00 120/85 04/08/18 22:00 78 16 153/89 (110) 95 04/08/18 21:30 84 16 71/50 (57) 99 04/08/18 21:00 82 16 90/63 (72) 99 04/08/18 21:00 70/47 04/08/18 20:30 83 16 70/47 (55) 99 04/08/18 20:00 98.0 87 16 97/77 (84) 99 04/08/18 20:00 77/39 04/08/18 20:00 85 04/08/18 20:00 Room Air 04/08/18 19:30 86 16 117/84 (95) 98 04/08/18 19:00 91 17 91/65 (74) 98 04/08/18 18:30 63 14 137/104 (115) 99 04/08/18 18:00 83 18 116/74 (88) 04/08/18 18:00 116/74 04/08/18 17:30 84 20 84/54 (64) 85 04/08/18 17:00 92 12 95/75 (82) 99 04/08/18 17:00 137/104 04/08/18 16:30 95 18 83/53 (63) 97 04/08/18 16:00 87 04/08/18 16:00 135/89 04/08/18 16:00 Room Air 04/08/18 16:00 97.6 94 12 137/98 (111) 100 04/08/18 15:30 64 19 170/95 (120) 100 04/08/18 15:00 92 12 113/74 (87) 98 04/08/18 15:00 170/95 04/08/18 14:45 95 13 99/71 (80) 98 04/08/18 14:30 74 12 140/83 (102) 96 04/08/18 14:15 89 16 115/77 (90) 04/08/18 14:00 84/60 04/08/18 14:00 90 14 84/60 (68) 99 04/08/18 13:30 92 14 93/64 (74) 99 04/08/18 13:00 129 20 111/75 (87) 98 04/08/18 13:00 93/64 04/08/18 12:49 97.6 Status: awake HEENT: atraumatic Lungs: clear Heart: regular Abdomen: soft, non-tender Micro: Microbiology Date/Time Source Procedure Growth Status 04/07/18 18:00 Indwelling Cath Urine Culture - Preliminary Gram Negative Bacillus 1 Resulted Critical Care - Subjective ROS Limited/Unobtainable: No Interval Events: Unable to wean levophed. Getting dilaudid 1.5 mg q4, BP dropping with these episodes. Pain is in neck and abdomen but not complaining of pain at his decub site. FI02: 21 Sputum Amount: None I&O: Intake and Output 04/08/18 04/09/18 19:00 07:00 Intake Total 581.875 ml 471.25 ml Output Total 960 ml 650 ml Balance -378.125 ml -178.75 ml Intake Oral 100 ml 70 ml IV Total 481.875 ml 401.25 ml Other 960 ml 650 ml Diego Saldaña MD Apr 09, 2018 12:39
--- NOTE | 2018-04-09 17:12 | Consultation ---
History of Present Illness General Date patient seen: Apr 09, 2018 Chief Complaint: Reason for Consultation: Present Illness Allergies: Coded Allergies: CEFTRIAXONE (Verified Allergy, Unknown, 01/01/18) CODEINE (Verified Allergy, Unknown, 01/01/18) MORPHINE (Verified Allergy, Unknown, 01/01/18) PIPERACILLIN (Verified Allergy, Unknown, 01/01/18) SULFAMETHOXAZOLE (Verified Allergy, Unknown, 01/01/18) TAZOBACTAM (Verified Allergy, Unknown, 01/01/18) TRIMETHOPRIM (Verified Allergy, Unknown, 01/01/18) VANCOMYCIN (Verified Allergy, Unknown, 01/01/18) Medication History Scheduled Ascorbic Acid* (Vitamin C*), 500 MG ORAL TWICE A DAY, (Reported) Baclofen* (Baclofen*), 10 MG ORAL THREE TIMES A DAY, (Reported) Docusate Sod/Senna (Docusate Sodium-Senna Tablet), 1 CAP ORAL TWICE A DAY, ( Reported) Ertapenem Sodium* (INVanz*), 1 GM IVPB Q24H Famotidine (Pepcid Ac), 20 MG PO BID, (Reported) Gabapentin* (Gabapentin*), 600 MG ORAL BEDTIME, (Reported) Linezolid (Zyvox), 600 MG IVPB EVERY 12 HOURS Midodrine (Midodrine HCl), 2.5 MG ORAL THREE TIMES A DAY Multivitamin with Minerals (Multivitamins with Minerals), 1 TAB ORAL DAILY, ( Reported) Nicotine (Nicotine), 1 EACH TD DAILY, (Reported) Zinc Sulfate (Zinc Sulfate*), 220 MG ORAL DAILY, (Reported) Scheduled PRN Acetaminophen* (Acetaminophen 325MG Tablet*), 650 MG ORAL Q6H PRN for For Pain, (Reported) Diphenhydramine Hcl* (Benadryl*), 25 MG ORAL Q6H PRN for Itching, (Reported) Ondansetron* (Zofran*), 4 MG IVP Q6H PRN Oxycodone Hcl* (Oxycodone Hcl*), 10 MG ORAL Q6HR PRN for For Pain, (Reported) Miscellaneous Medications Ferric Subsulfate (Ferric Subsulfate), 120 GM MC, (Reported) Nitroglycerin (Nitroglycerin), 2.5 MG PO, (Reported) Patient History Healthcare decision maker self Resuscitation status Full Code Advanced Directive on File No Physical Exam Last 24 Hour Vital Signs Date Time Temp Pulse Resp B/P (MAP) Pulse Ox O2 Delivery O2 Flow Rate FiO2 04/09/18 16:30 98.5 90 17 128/66 (86) 100 04/09/18 16:02 97 04/09/18 16:00 Room Air 04/09/18 16:00 92 14 117/68 (84) 97 04/09/18 15:30 90 13 132/87 (102) 100 04/09/18 15:00 94 14 121/77 (92) 100 04/09/18 14:30 68 17 151/84 (106) 100 04/09/18 14:00 76 16 127/83 (98) 100 04/09/18 13:30 75 18 84/54 (64) 100 04/09/18 13:00 91 16 139/82 (101) 100 04/09/18 12:30 80 17 115/65 (82) 100 04/09/18 12:00 Room Air 04/09/18 12:00 98.5 78 17 108/62 (77) 100 04/09/18 12:00 80 04/09/18 11:30 82 17 110/62 (78) 100 04/09/18 11:00 80 17 130/75 (93) 100 04/09/18 10:30 82 17 90/68 (75) 100 04/09/18 10:00 78 17 86/66 (73) 99 04/09/18 09:30 82 17 116/84 (95) 99 04/09/18 09:00 85 17 110/80 (90) 99 04/09/18 08:30 84 17 120/84 (96) 99 04/09/18 08:00 Room Air 04/09/18 08:00 82 04/09/18 08:00 98.6 80 16 115/80 (92) 99 04/09/18 07:30 82 17 118/82 (94) 99 04/09/18 07:00 85 17 110/70 (83) 99 04/09/18 06:30 87 17 85/63 (70) 99 04/09/18 06:00 85 17 81/63 (69) 99 04/09/18 06:00 87/55 04/09/18 05:30 82 16 54/35 (41) 99 04/09/18 05:00 82/54 04/09/18 05:00 100 14 82/54 (63) 100 04/09/18 04:30 75 14 160/87 (111) 100 04/09/18 04:05 84 20 Room Air 21 04/09/18 04:00 85 04/09/18 04:00 98.4 75 14 128/110 (116) 100 04/09/18 04:00 154/94 04/09/18 04:00 Room Air 04/09/18 03:30 75 14 154/94 (114) 99 04/09/18 03:00 77 14 140/82 (101) 99 04/09/18 03:00 115/60 04/09/18 02:30 86 14 109/83 (92) 99 04/09/18 02:21 100/85 04/09/18 02:00 92 14 110/70 (83) 99 04/09/18 02:00 110/70 04/09/18 01:30 91 16 137/85 (102) 98 04/09/18 01:00 93 16 126/85 (99) 98 04/09/18 00:30 99 14 155/82 (106) 98 04/09/18 00:00 80 04/09/18 00:00 Room Air 04/09/18 00:00 165/96 04/09/18 00:00 98.8 80 14 150/82 (104) 100 04/08/18 23:30 77 14 138/95 (109) 99 04/08/18 23:00 85 16 129/85 (100) 99 04/08/18 23:00 158/95 04/08/18 22:30 75 16 120/80 (93) 95 04/08/18 22:00 120/85 04/08/18 22:00 78 16 153/89 (110) 95 04/08/18 21:30 84 16 71/50 (57) 99 04/08/18 21:00 82 16 90/63 (72) 99 04/08/18 21:00 70/47 04/08/18 20:30 83 16 70/47 (55) 99 04/08/18 20:00 98.0 87 16 97/77 (84) 99 04/08/18 20:00 77/39 04/08/18 20:00 85 04/08/18 20:00 Room Air 04/08/18 19:30 86 16 117/84 (95) 98 04/08/18 19:00 91 17 91/65 (74) 98 04/08/18 18:30 63 14 137/104 (115) 99 04/08/18 18:00 83 18 116/74 (88) 04/08/18 18:00 116/74 04/08/18 17:30 84 20 84/54 (64) 85 Intake and Output 04/08/18 04/09/18 19:00 07:00 Intake Total 581.875 ml 471.25 ml Output Total 960 ml 650 ml Balance -378.125 ml -178.75 ml Intake Oral 100 ml 70 ml IV Total 481.875 ml 401.25 ml Other 960 ml 650 ml Laboratory Tests Test 04/09/18 05:00 White Blood Count 8.3 K/UL (4.8-10.8) Red Blood Count 4.01 M/UL (4.70-6.10) L Hemoglobin 9.0 G/DL (14.2-18.0) L Hematocrit 30.3 % (42.0-52.0) L Mean Corpuscular Volume 76 FL (80-99) L Mean Corpuscular Hemoglobin 22.4 PG (27.0-31.0) L Mean Corpuscular Hemoglobin Concent 29.6 G/DL (32.0-36.0) L Red Cell Distribution Width 19.1 % (11.6-14.8) H Platelet Count 428 K/UL (150-450) Mean Platelet Volume 4.3 FL (6.5-10.1) L Neutrophils (%) (Auto) 66.8 % (45.0-75.0) Lymphocytes (%) (Auto) 20.6 % (20.0-45.0) Monocytes (%) (Auto) 7.3 % (1.0-10.0) Eosinophils (%) (Auto) 4.9 % (0.0-3.0) H Basophils (%) (Auto) 0.5 % (0.0-2.0) Sodium Level 135 MMOL/L (136-145) L Potassium Level 3.6 MMOL/L (3.5-5.1) Chloride Level 104 MMOL/L (98-107) Carbon Dioxide Level 21 MMOL/L (21-32) Anion Gap 10 mmol/L (5-15) Blood Urea Nitrogen 15 mg/dL (7-18) Creatinine 1.0 MG/DL (0.55-1.30) Estimat Glomerular Filtration Rate > 60 mL/min (>60) Glucose Level 98 MG/DL (74-106) Calcium Level 9.1 MG/DL (8.5-10.1) Total Bilirubin 0.3 MG/DL (0.2-1.0) Aspartate Amino Transf (AST/SGOT) 12 U/L (15-37) L Alanine Aminotransferase (ALT/SGPT) 10 U/L (12-78) L Alkaline Phosphatase 165 U/L (46-116) H Total Protein 7.6 G/DL (6.4-8.2) Albumin 1.7 G/DL (3.4-5.0) L Globulin 5.9 g/dL Albumin/Globulin Ratio 0.3 (1.0-2.7) L Height (Feet): 3 Height (Inches): 3.00 Weight (Pounds): 107 Medications Current Medications Medications (Trade) Dose Ordered Sig/Alva Route PRN Reason Start Time Stop Time Status Last Admin Dose Admin Acetaminophen (Tylenol) 650 mg Q6H PRN ORAL Mild Pain/Temp > 100.5 04/05/18 06:45 05/05/18 06:44 Chlorhexidine Gluconate (Cassandra-Hex 2%) 1 applic DAILY@2000 TOPIC 04/05/18 20:00 05/05/18 19:59 04/08/18 19:53 Diphenhydramine HCl (Benadryl) 25 mg HSPRN PRN ORAL Insomnia 04/07/18 22:45 05/07/18 22:44 04/08/18 23:44 Ertapenem 1 gm/ Sodium Chloride 55 ml @ 110 mls/hr Q24H IVPB 04/07/18 10:00 04/12/18 09:59 04/09/18 09:10 Folic Acid (Folate) 1 mg DAILY ORAL 04/07/18 09:00 05/07/18 08:59 04/09/18 08:35 Heparin Sodium (Porcine) (Heparin 5000 units/ml) 5,000 units EVERY 12 HOURS SUBQ 04/05/18 09:00 2/24/19 08:59 04/09/18 08:38 Hydromorphone HCl (Dilaudid) 1.5 mg Q4H PRN IVP Severe breakthrough pain 04/05/18 17:30 04/12/18 17:29 04/09/18 16:54 Linezolid 300 ml @ 300 mls/hr EVERY 12 HOURS IVPB 04/07/18 17:00 04/14/18 16:59 04/09/18 09:18 Midodrine (Pro-Amatine) 5 mg THREE TIMES A DAY ORAL 04/09/18 13:00 05/08/18 12:59 04/09/18 12:44 Norepinephrine Bitartrate 4 mg/ Dextrose 250 ml @ 0 mls/hr Q24H IV 04/05/18 06:45 05/05/18 06:44 04/09/18 02:21 Pantoprazole (Protonix) 40 mg DAILY IVP 04/05/18 09:00 05/05/18 08:59 04/09/18 08:33 Assessment/Plan Assessment/Plan (1) Sacral decubitus ulcer (2) SCI (3) Quadriplegia (4) B/L AKA (5) Neuropathic pain seen dictated Sharad Hillman Apr 09, 2018 17:12
--- NOTE | 2018-04-09 17:46 | General Progress Note ---
Assessment/Plan Status: progressing Assessment/Plan #Septic Shock #Hypotension #Infected Decubitus Ulcer #Cellulitis #Stage IV Decubitus Ulcer #quadriplegia - Invanz, allergic to many abx. ID consult, consider linezolid - Levophed, cont pressure support, 4mcg/hr, wean as tolerated.. cont home midodrine 2.5mg tid - bcx x 2 - daily labs - tele - i/o - fluids - wound care, surgery eval - pain management consult #hypokalemia - K and MG WNL - CTM #Microcytic Anemia - stable - no acute bleeding - hematology consult - iron panel ppx: hsq diet: regular Subjective Constitutional: Denies: no symptoms, chills, diaphoresis, fever, malaise, weakness, other HEENT: Denies: no symptoms, eye pain, blurred vision, tearing, double vision, ear pain, ear discharge, nose pain, nose congestion, throat pain, throat swelling, mouth pain, mouth swelling, other Cardiovascular: Denies: no symptoms, chest pain, edema, irregular heart rate, lightheadedness, palpitations, syncope, other Respiratory: Denies: no symptoms, cough, orthopnea, shortness of breath, SOB with excertion, SOB at rest, sputum, stridor, wheezing, other Gastrointestinal/Abdominal: Reports: abdominal pain Genitourinary: Denies: no symptoms, burning, discharge, frequency, flank pain, hematuria, incontinence, pain, urgency, other Neurologic/Psychiatric: Denies: no symptoms, anxiety, depressed, emotional problems, headache, numbness, paresthesia, pre-existing deficit, seizure, tingling, tremors, weakness, other Endocrine: Denies: no symptoms, excessive sweating, flushing, intolerance to cold, intolerance to heat, increased hunger, increased thirst, increased urine, unexplained weight gain, unexplained weight loss, other Hematologic/Lymphatic: Denies: no symptoms, anemia, easy bleeding, easy bruising, other Allergies: Coded Allergies: CEFTRIAXONE (Verified Allergy, Unknown, 01/01/18) CODEINE (Verified Allergy, Unknown, 01/01/18) MORPHINE (Verified Allergy, Unknown, 01/01/18) PIPERACILLIN (Verified Allergy, Unknown, 01/01/18) SULFAMETHOXAZOLE (Verified Allergy, Unknown, 01/01/18) TAZOBACTAM (Verified Allergy, Unknown, 01/01/18) TRIMETHOPRIM (Verified Allergy, Unknown, 01/01/18) VANCOMYCIN (Verified Allergy, Unknown, 01/01/18) Subjective Pt complains of neck and abd pain, moderately controlled with current regimen. Otherwise no other complaints Objective Last 24 Hour Vital Signs Date Time Temp Pulse Resp B/P (MAP) Pulse Ox O2 Delivery O2 Flow Rate FiO2 04/09/18 17:00 107 14 128/74 (92) 98 04/09/18 16:30 98.5 90 17 128/66 (86) 100 04/09/18 16:02 97 04/09/18 16:00 Room Air 04/09/18 16:00 92 14 117/68 (84) 97 04/09/18 15:30 90 13 132/87 (102) 100 04/09/18 15:00 94 14 121/77 (92) 100 04/09/18 14:30 68 17 151/84 (106) 100 04/09/18 14:00 76 16 127/83 (98) 100 04/09/18 13:30 75 18 84/54 (64) 100 04/09/18 13:00 91 16 139/82 (101) 100 04/09/18 12:30 80 17 115/65 (82) 100 04/09/18 12:00 Room Air 04/09/18 12:00 98.5 78 17 108/62 (77) 100 04/09/18 12:00 80 04/09/18 11:30 82 17 110/62 (78) 100 04/09/18 11:00 80 17 130/75 (93) 100 04/09/18 10:30 82 17 90/68 (75) 100 04/09/18 10:00 78 17 86/66 (73) 99 04/09/18 09:30 82 17 116/84 (95) 99 04/09/18 09:00 85 17 110/80 (90) 99 04/09/18 08:30 84 17 120/84 (96) 99 04/09/18 08:00 Room Air 04/09/18 08:00 82 04/09/18 08:00 98.6 80 16 115/80 (92) 99 04/09/18 07:30 82 17 118/82 (94) 99 04/09/18 07:00 85 17 110/70 (83) 99 04/09/18 06:30 87 17 85/63 (70) 99 04/09/18 06:00 85 17 81/63 (69) 99 04/09/18 06:00 87/55 04/09/18 05:30 82 16 54/35 (41) 99 04/09/18 05:00 82/54 04/09/18 05:00 100 14 82/54 (63) 100 04/09/18 04:30 75 14 160/87 (111) 100 04/09/18 04:05 84 20 Room Air 21 04/09/18 04:00 85 04/09/18 04:00 98.4 75 14 128/110 (116) 100 04/09/18 04:00 154/94 04/09/18 04:00 Room Air 04/09/18 03:30 75 14 154/94 (114) 99 04/09/18 03:00 77 14 140/82 (101) 99 04/09/18 03:00 115/60 04/09/18 02:30 86 14 109/83 (92) 99 04/09/18 02:21 100/85 04/09/18 02:00 92 14 110/70 (83) 99 04/09/18 02:00 110/70 04/09/18 01:30 91 16 137/85 (102) 98 04/09/18 01:00 93 16 126/85 (99) 98 04/09/18 00:30 99 14 155/82 (106) 98 04/09/18 00:00 80 04/09/18 00:00 Room Air 04/09/18 00:00 165/96 04/09/18 00:00 98.8 80 14 150/82 (104) 100 04/08/18 23:30 77 14 138/95 (109) 99 04/08/18 23:00 85 16 129/85 (100) 99 04/08/18 23:00 158/95 04/08/18 22:30 75 16 120/80 (93) 95 04/08/18 22:00 120/85 04/08/18 22:00 78 16 153/89 (110) 95 04/08/18 21:30 84 16 71/50 (57) 99 04/08/18 21:00 82 16 90/63 (72) 99 04/08/18 21:00 70/47 04/08/18 20:30 83 16 70/47 (55) 99 04/08/18 20:00 98.0 87 16 97/77 (84) 99 04/08/18 20:00 77/39 04/08/18 20:00 85 04/08/18 20:00 Room Air 04/08/18 19:30 86 16 117/84 (95) 98 04/08/18 19:00 91 17 91/65 (74) 98 04/08/18 18:30 63 14 137/104 (115) 99 04/08/18 18:00 83 18 116/74 (88) 04/08/18 18:00 116/74 Intake and Output 04/08/18 04/09/18 18:59 06:59 Intake Total 593.125 ml 471.25 ml Output Total 960 ml 650 ml Balance -366.875 ml -178.75 ml Intake Oral 100 ml 70 ml IV Total 493.125 ml 401.25 ml Other 960 ml 650 ml Laboratory Tests 04/09/18 05:00: White Blood Count 8.3, Red Blood Count 4.01L, Hemoglobin 9.0L, Hematocrit 30.3L , Mean Corpuscular Volume 76L, Mean Corpuscular Hemoglobin 22.4L, Mean Corpuscular Hemoglobin Concent 29.6L, Red Cell Distribution Width 19.1H, Platelet Count 428, Mean Platelet Volume 4.3L, Neutrophils (%) (Auto) 66.8, Lymphocytes (%) (Auto) 20.6, Monocytes (%) (Auto) 7.3, Eosinophils (%) (Auto) 4.9H, Basophils (%) (Auto) 0.5, Sodium Level 135L, Potassium Level 3.6, Chloride Level 104, Carbon Dioxide Level 21, Anion Gap 10, Blood Urea Nitrogen 15, Creatinine 1.0, Estimat Glomerular Filtration Rate > 60, Glucose Level 98, Calcium Level 9.1, Total Bilirubin 0.3, Aspartate Amino Transf (AST/SGOT) 12L, Alanine Aminotransferase (ALT/SGPT) 10L, Alkaline Phosphatase 165H, Total Protein 7.6, Albumin 1.7L, Globulin 5.9, Albumin/Globulin Ratio 0.3L Height (Feet): 3 Height (Inches): 3.00 Weight (Pounds): 107 Objective General appearance: alert, cooperative, no distress, appears stated age Head: Normocephalic, without obvious abnormality, atraumatic Eyes: conjunctivae/corneas clear. PERRL, EOM's intact. Fundi benign Throat: Lips, mucosa, and tongue normal. Teeth and gums normal Neck: supple, symmetrical, trachea midline, no adenopathy, thyroid: not enlarged, symmetric, no tenderness/mass/nodules, no carotid bruit and no JVD Lungs: clear to auscultation bilaterally Heart: regular rate and rhythm, S1, S2 normal, no murmur, click, rub or gallop Abdomen: soft, non-tender. Bowel sounds normal. No masses, no organomegaly Extremities: extremities normal, atraumatic, no cyanosis or edema. stage 4 decub ulcers, sloughing, oozing Pulses: 2+ and symmetric Skin: Skin color, texture, turgor normal. No rashes or lesions Neurologic: Grossly normal Rena Gupta MD Apr 09, 2018 17:46
[2018-04-09] MEDS: Dyna-Hex 2% Top Sol 2oz TOPIC SCH (20:19)
--- NOTE | 2018-04-09 21:12 | General Progress Note ---
Assessment/Plan Assessment/Plan # Anemia of chronic disease due to underlying chronic medical issues --> Anemia panel has been reviewed, will trend as required --> hgb goal >7, transfuse on prn basis --> no etoh or drug abuse, meds reviewed --> Blood tx performed in the past --> consider iron once infection has cleared # Leukocytosis is likely due to cellulitis, does have sepsis, also could be due to decub --> Resolved/Improved wbc --> Remains on antibiotics --> smear peripheral has been reviewed --> no schistocytes are noted --> no evidence of malignancy --> blood culture is positive for gram cocci, management as per ID --> appreciate ID recs --> decub surgery as per surgery recs # LINDSEY -- currently worse --> continue to monitor # Quadriplegia --> weakness has been chronic # Colostomy care, s/p colostomy revision and bowel resection on 01/09/18 --> per surgery # Tobacco abuse --> cessation education # Dispo --> likely back to [facility] on d/c # DVT ppx with heparin sq Greatly appreciate consultation! Subjective Constitutional: Denies: no symptoms, chills, diaphoresis, fever, malaise, weakness, other HEENT: Denies: no symptoms, eye pain, blurred vision, tearing, double vision, ear pain, ear discharge, nose pain, nose congestion, throat pain, throat swelling, mouth pain, mouth swelling, other Cardiovascular: Denies: no symptoms, chest pain, edema, irregular heart rate, lightheadedness, palpitations, syncope, other Gastrointestinal/Abdominal: Denies: no symptoms, abdomen distended, abdominal pain, black stools, tarry stools, blood in stool, constipated, diarrhea, difficulty swallowing, nausea, poor appetite, poor fluid intake, rectal bleeding , vomiting, other Genitourinary: Denies: no symptoms, burning, discharge, frequency, flank pain, hematuria, incontinence, pain, urgency, other Endocrine: Denies: no symptoms, excessive sweating, flushing, intolerance to cold, intolerance to heat, increased hunger, increased thirst, increased urine, unexplained weight gain, unexplained weight loss, other Hematologic/Lymphatic: Denies: no symptoms, anemia, easy bleeding, easy bruising, other Allergies: Coded Allergies: CEFTRIAXONE (Verified Allergy, Unknown, 10/23/18) CODEINE (Verified Allergy, Unknown, 01/01/18) MORPHINE (Verified Allergy, Unknown, 01/01/18) PIPERACILLIN (Verified Allergy, Unknown, 01/01/18) SULFAMETHOXAZOLE (Verified Allergy, Unknown, 01/01/18) TAZOBACTAM (Verified Allergy, Unknown, 01/01/18) TRIMETHOPRIM (Verified Allergy, Unknown, 01/01/18) VANCOMYCIN (Verified Allergy, Unknown, 01/01/18) Subjective 04/06: awake and comfortable, no fevers or chills, denies acute distress. hgb 7.6 , plt 383. 04/08: no acute events. leukocytosis resolved. comfortable. 04/09: seen by bedside, unable to wean levophed. Pain is in neck and abdomen but not complaining of pain at his decub site. Objective Last 24 Hour Vital Signs Date Time Temp Pulse Resp B/P (MAP) Pulse Ox O2 Delivery O2 Flow Rate FiO2 04/09/18 19:00 89 15 118/70 (86) 98 04/09/18 18:30 92 14 122/72 (89) 98 04/09/18 18:00 92 17 119/89 (99) 98 04/09/18 17:30 98 14 88/46 (60) 98 04/09/18 17:30 104 14 115/70 (85) 98 04/09/18 17:00 107 14 128/74 (92) 98 04/09/18 16:30 98.5 90 17 128/66 (86) 100 04/09/18 16:02 97 04/09/18 16:00 Room Air 04/09/18 16:00 92 14 117/68 (84) 97 04/09/18 15:30 90 13 132/87 (102) 100 04/09/18 15:00 94 14 121/77 (92) 100 04/09/18 14:30 68 17 151/84 (106) 100 04/09/18 14:00 76 16 127/83 (98) 100 04/09/18 13:30 75 18 84/54 (64) 100 04/09/18 13:00 91 16 139/82 (101) 100 04/09/18 12:30 80 17 115/65 (82) 100 04/09/18 12:00 Room Air 04/09/18 12:00 98.5 78 17 108/62 (77) 100 04/09/18 12:00 80 04/09/18 11:30 82 17 110/62 (78) 100 04/09/18 11:00 80 17 130/75 (93) 100 04/09/18 10:30 82 17 90/68 (75) 100 04/09/18 10:00 78 17 86/66 (73) 99 04/09/18 09:30 82 17 116/84 (95) 99 04/09/18 09:00 85 17 110/80 (90) 99 04/09/18 08:30 84 17 120/84 (96) 99 04/09/18 08:00 Room Air 04/09/18 08:00 82 04/09/18 08:00 98.6 80 16 115/80 (92) 99 04/09/18 07:30 82 17 118/82 (94) 99 04/09/18 07:00 85 17 110/70 (83) 99 04/09/18 06:30 87 17 85/63 (70) 99 04/09/18 06:00 85 17 81/63 (69) 99 04/09/18 06:00 87/55 04/09/18 05:30 82 16 54/35 (41) 99 04/09/18 05:00 82/54 04/09/18 05:00 100 14 82/54 (63) 100 04/09/18 04:30 75 14 160/87 (111) 100 04/09/18 04:05 84 20 Room Air 21 04/09/18 04:00 85 04/09/18 04:00 98.4 75 14 128/110 (116) 100 04/09/18 04:00 154/94 04/09/18 04:00 Room Air 04/09/18 03:30 75 14 154/94 (114) 99 04/09/18 03:00 77 14 140/82 (101) 99 04/09/18 03:00 115/60 04/09/18 02:30 86 14 109/83 (92) 99 04/09/18 02:21 100/85 04/09/18 02:00 92 14 110/70 (83) 99 04/09/18 02:00 110/70 04/09/18 01:30 91 16 137/85 (102) 98 04/09/18 01:00 93 16 126/85 (99) 98 04/09/18 00:30 99 14 155/82 (106) 98 04/09/18 00:00 80 04/09/18 00:00 Room Air 04/09/18 00:00 165/96 04/09/18 00:00 98.8 80 14 150/82 (104) 100 04/08/18 23:30 77 14 138/95 (109) 99 04/08/18 23:00 85 16 129/85 (100) 99 04/08/18 23:00 158/95 04/08/18 22:30 75 16 120/80 (93) 95 04/08/18 22:00 120/85 04/08/18 22:00 78 16 153/89 (110) 95 04/08/18 21:30 84 16 71/50 (57) 99 Intake and Output 04/08/18 04/09/18 18:59 06:59 Intake Total 593.125 ml 471.25 ml Output Total 960 ml 650 ml Balance -366.875 ml -178.75 ml Intake Oral 100 ml 70 ml IV Total 493.125 ml 401.25 ml Other 960 ml 650 ml Laboratory Tests 04/09/18 05:00: White Blood Count 8.3, Red Blood Count 4.01L, Hemoglobin 9.0L, Hematocrit 30.3L , Mean Corpuscular Volume 76L, Mean Corpuscular Hemoglobin 22.4L, Mean Corpuscular Hemoglobin Concent 29.6L, Red Cell Distribution Width 19.1H, Platelet Count 428, Mean Platelet Volume 4.3L, Neutrophils (%) (Auto) 66.8, Lymphocytes (%) (Auto) 20.6, Monocytes (%) (Auto) 7.3, Eosinophils (%) (Auto) 4.9H, Basophils (%) (Auto) 0.5, Sodium Level 135L, Potassium Level 3.6, Chloride Level 104, Carbon Dioxide Level 21, Anion Gap 10, Blood Urea Nitrogen 15, Creatinine 1.0, Estimat Glomerular Filtration Rate > 60, Glucose Level 98, Calcium Level 9.1, Total Bilirubin 0.3, Aspartate Amino Transf (AST/SGOT) 12L, Alanine Aminotransferase (ALT/SGPT) 10L, Alkaline Phosphatase 165H, Total Protein 7.6, Albumin 1.7L, Globulin 5.9, Albumin/Globulin Ratio 0.3L Height (Feet): 3 Height (Inches): 3.00 Weight (Pounds): 107 Objective Physical Exam General Appearance: WD/WN, no apparent distress, alert Vitals: reviewed HEENT: normocephalic, atraumatic, dry muscous membranes Neck: non-tender, normal alignment, supple Respiratory/Chest: chest wall nt, lungs clear Cardiovascular/Chest: rrr, no gallop/murmur Abdomen: normal bowel sounds, non tender, soft, no organomegaly, no mass, other - urostomy with dark urine, colostomy with no feces, cystomy site clean Extremities: other - contracture of BL digits, Bilateral AKA Skin Exam: normal pigmentation, warm/dry 

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
[2018-04-10] VITALS (33 sets, daily range): BP systolic 69–176; BP diastolic 38–124
[2018-04-10] MEDS: Pantoprazole Inj IVP SCH (08:43)
[2018-04-10] MEDS: Heparin 5000 units/ml inj SUBQ SCH ×2 (08:46→21:12)
--- NOTE | 2018-04-10 08:48 | General Progress Note ---
Assessment/Plan Status: stable Assessment/Plan #Septic Shock #Hypotension #Infected Decubitus Ulcer #Cellulitis #Stage IV Decubitus Ulcer #quadriplegia - Invanz, allergic to many abx. ID consult, consider linezolid - stop levophed today, inc midodrine, remains asympatomatic, bp drops with dilaudid - bcx x 2 - daily labs - tele - i/o - fluids - wound care, surgery eval - pain management consult #hypokalemia - stable #Microcytic Anemia - stable - no acute bleeding - hematology consult - iron panel ppx: hsq diet: regular Code Status: Full Hospital Classification Declaration: Based on this initial evaluation, and depending on the patient's clinical course, I anticipate that this patient will require hospitalization for 3-4 days for sepsis managemetn and close respiratory /hemodynamic monitoring. Disposition: Once the patient is stable to leave the hospital, I anticipate the patient will likely be discharged to the following environment: home with vs SNF (from [facility]) I spent 50 minutes on this patient's case, and 30 minutes were dedicated to counseling and/or care coordination. Discussed with patient/family, nursing staff, SW/CM, and consultants regarding clinical status, treatment course, and disposition planning. Over 30 minutes of critical care time have been spent on this patient, managing pressures and sepsis management. Time of note may not reflect time of encounter. Subjective Date patient seen: Apr 10, 2018 Time patient seen: 08:46 Allergies: Coded Allergies: CEFTRIAXONE (Verified Allergy, Unknown, 01/01/18) CODEINE (Verified Allergy, Unknown, 01/01/18) MORPHINE (Verified Allergy, Unknown, 01/01/18) PIPERACILLIN (Verified Allergy, Unknown, 01/01/18) SULFAMETHOXAZOLE (Verified Allergy, Unknown, 01/01/18) TAZOBACTAM (Verified Allergy, Unknown, 01/01/18) TRIMETHOPRIM (Verified Allergy, Unknown, 01/01/18) VANCOMYCIN (Verified Allergy, Unknown, 01/01/18) Subjective f/u sepsis , hypotension still on levophed, weaned down to 2. will dc and cont midodrine patient b/p remains stable low bp however dips down when receiving dilaudid however remains asymptomatic . If remains stable today off pressors then can transfer to the floor. DU being managed by wound care on abx ID consulted, apprecaite recs pain well controlled now patient states difficult with sitting up, has had prolapsed stoma in the past , not eating much , surg made aware denies any complaints, states pain well controlled ROS: 14 point ROS neg except per above Objective Last 24 Hour Vital Signs Date Time Temp Pulse Resp B/P (MAP) Pulse Ox O2 Delivery O2 Flow Rate FiO2 04/10/18 07:30 101 19 90/58 (69) 99 04/10/18 07:00 83 19 85/53 (64) 99 04/10/18 06:30 69 19 100/89 (93) 99 04/10/18 06:00 70 19 125/89 (101) 99 04/10/18 05:30 75 19 133/89 (104) 99 04/10/18 05:00 118 19 73/52 (59) 99 04/10/18 04:30 71 19 73/53 (60) 99 04/10/18 04:00 82 04/10/18 04:00 98.1 69 15 176/89 (118) 100 04/10/18 04:00 Room Air 04/10/18 03:30 65 16 160/98 (118) 100 04/10/18 03:00 75 14 131/90 (104) 99 04/10/18 02:30 99 15 105/74 (84) 100 04/10/18 02:00 76 14 138/92 (107) 100 04/10/18 01:30 101 16 106/73 (84) 98 04/10/18 01:00 105 18 108/76 (87) 99 04/10/18 00:30 101 17 102/77 (85) 100 04/10/18 00:00 Room Air 04/10/18 00:00 98.0 74 17 144/124 (131) 99 04/10/18 00:00 92 04/09/18 23:30 63 18 157/85 (109) 99 04/09/18 23:00 81 14 157/85 (109) 98 04/09/18 22:30 81 14 87/61 (70) 98 04/09/18 22:00 86 15 74/46 (55) 98 04/09/18 21:30 80 15 121/81 (94) 96 04/09/18 21:00 83 15 81/49 (60) 98 04/09/18 20:30 99 17 68/52 (57) 99 04/09/18 20:00 90 04/09/18 20:00 98.0 96 17 99/68 (78) 99 04/09/18 20:00 Room Air 04/09/18 19:30 84 17 113/78 (90) 99 04/09/18 19:00 89 15 118/70 (86) 98 04/09/18 18:30 92 14 122/72 (89) 98 04/09/18 18:00 92 17 119/89 (99) 98 04/09/18 17:30 98 14 88/46 (60) 98 04/09/18 17:30 104 14 115/70 (85) 98 04/09/18 17:00 107 14 128/74 (92) 98 04/09/18 16:30 98.5 90 17 128/66 (86) 100 04/09/18 16:02 97 04/09/18 16:00 Room Air 04/09/18 16:00 92 14 117/68 (84) 97 04/09/18 15:30 90 13 132/87 (102) 100 04/09/18 15:00 94 14 121/77 (92) 100 04/09/18 14:30 68 17 151/84 (106) 100 04/09/18 14:00 76 16 127/83 (98) 100 04/09/18 13:30 75 18 84/54 (64) 100 04/09/18 13:00 91 16 139/82 (101) 100 04/09/18 12:30 80 17 115/65 (82) 100 04/09/18 12:00 Room Air 04/09/18 12:00 98.5 78 17 108/62 (77) 100 04/09/18 12:00 80 04/09/18 11:30 82 17 110/62 (78) 100 04/09/18 11:00 80 17 130/75 (93) 100 04/09/18 10:30 82 17 90/68 (75) 100 04/09/18 10:00 78 17 86/66 (73) 99 04/09/18 09:30 82 17 116/84 (95) 99 04/09/18 09:00 85 17 110/80 (90) 99 Intake and Output 04/09/18 04/10/18 19:00 07:00 Intake Total 452.5 ml 600.0 ml Output Total 550 ml 650 ml Balance -97.5 ml -50.0 ml Intake Oral 210 ml IV Total 452.5 ml 390.0 ml Other 550 ml 650 ml Height (Feet): 3 Height (Inches): 3.00 Weight (Pounds): 105 Objective General appearance: alert, cooperative, no distress, appears stated age Head: Normocephalic, without obvious abnormality, atraumatic Eyes: conjunctivae/corneas clear. PERRL, EOM's intact. Fundi benign Throat: Lips, mucosa, and tongue normal. Teeth and gums normal Neck: supple, symmetrical, trachea midline, no adenopathy, thyroid: not enlarged, symmetric, no tenderness/mass/nodules, no carotid bruit and no JVD Lungs: clear to auscultation bilaterally Heart: regular rate and rhythm, S1, S2 normal, no murmur, click, rub or gallop Abdomen: soft, non-tender. Bowel sounds normal. No masses, no organomegaly Extremities: extremities normal, atraumatic, no cyanosis or edema. stage 4 decub ulcers, sloughing, oozing Pulses: 2+ and symmetric Skin: Skin color, texture, turgor normal. No rashes or lesions Neurologic: Grossly normal Gissel Coe MD Apr 10, 2018 08:48
--- NOTE | 2018-04-10 08:48 | General Progress Note ---
Assessment/Plan Assessment/Plan (1) Sacral decubitus ulcer (2) SCI (3) Quadriplegia (4) B/L AKA (5) Neuropathic pain Patient to be continued on Dilaudid D/w Dr. Pham and he concurred. Subjective Date patient seen: Apr 10, 2018 Time patient seen: 07:45 - am Allergies: Coded Allergies: CEFTRIAXONE (Verified Allergy, Unknown, 01/01/18) CODEINE (Verified Allergy, Unknown, 01/01/18) MORPHINE (Verified Allergy, Unknown, 01/01/18) PIPERACILLIN (Verified Allergy, Unknown, 01/01/18) SULFAMETHOXAZOLE (Verified Allergy, Unknown, 01/01/18) TAZOBACTAM (Verified Allergy, Unknown, 01/01/18) TRIMETHOPRIM (Verified Allergy, Unknown, 01/01/18) VANCOMYCIN (Verified Allergy, Unknown, 01/01/18) Subjective REVIEW OF SYSTEMS: Denies rash, fever, chills, sweating, dizziness, drowsiness, blurred vision, sore throat, or change in weight. No shortness of breath or chest pain. Denies nausea, vomiting, diarrhea, or blood in the stool or urine. No bowel or bladder incontinence. No dysuria. He is complaining of generalized body pain. SUBJECTIVE: In bed pain is tolerated on the Dilaudid. No new complaints at this time. Objective Last 24 Hour Vital Signs Date Time Temp Pulse Resp B/P (MAP) Pulse Ox O2 Delivery O2 Flow Rate FiO2 04/10/18 07:30 101 19 90/58 (69) 99 04/10/18 07:00 83 19 85/53 (64) 99 04/10/18 06:45 145/96 04/10/18 06:30 69 19 100/89 (93) 99 04/10/18 06:00 70 19 125/89 (101) 99 04/10/18 05:30 75 19 133/89 (104) 99 04/10/18 05:00 118 19 73/52 (59) 99 04/10/18 04:30 71 19 73/53 (60) 99 04/10/18 04:00 82 04/10/18 04:00 98.1 69 15 176/89 (118) 100 04/10/18 04:00 Room Air 04/10/18 03:30 65 16 160/98 (118) 100 04/10/18 03:00 75 14 131/90 (104) 99 04/10/18 02:30 99 15 105/74 (84) 100 04/10/18 02:00 76 14 138/92 (107) 100 04/10/18 01:30 101 16 106/73 (84) 98 04/10/18 01:00 105 18 108/76 (87) 99 04/10/18 00:30 101 17 102/77 (85) 100 04/10/18 00:00 Room Air 04/10/18 00:00 98.0 74 17 144/124 (131) 99 04/10/18 00:00 92 04/09/18 23:30 63 18 157/85 (109) 99 04/09/18 23:00 81 14 157/85 (109) 98 04/09/18 22:30 81 14 87/61 (70) 98 04/09/18 22:00 86 15 74/46 (55) 98 04/09/18 21:30 80 15 121/81 (94) 96 04/09/18 21:00 83 15 81/49 (60) 98 04/09/18 20:30 99 17 68/52 (57) 99 04/09/18 20:00 90 04/09/18 20:00 98.0 96 17 99/68 (78) 99 04/09/18 20:00 Room Air 04/09/18 19:30 84 17 113/78 (90) 99 04/09/18 19:00 89 15 118/70 (86) 98 04/09/18 18:30 92 14 122/72 (89) 98 04/09/18 18:00 92 17 119/89 (99) 98 04/09/18 17:30 98 14 88/46 (60) 98 04/09/18 17:30 104 14 115/70 (85) 98 04/09/18 17:00 107 14 128/74 (92) 98 04/09/18 16:30 98.5 90 17 128/66 (86) 100 04/09/18 16:02 97 04/09/18 16:00 Room Air 04/09/18 16:00 92 14 117/68 (84) 97 04/09/18 15:30 90 13 132/87 (102) 100 04/09/18 15:00 94 14 121/77 (92) 100 04/09/18 14:30 68 17 151/84 (106) 100 04/09/18 14:00 76 16 127/83 (98) 100 04/09/18 13:30 75 18 84/54 (64) 100 04/09/18 13:00 91 16 139/82 (101) 100 04/09/18 12:30 80 17 115/65 (82) 100 04/09/18 12:00 Room Air 04/09/18 12:00 98.5 78 17 108/62 (77) 100 04/09/18 12:00 80 04/09/18 11:30 82 17 110/62 (78) 100 04/09/18 11:00 80 17 130/75 (93) 100 04/09/18 10:30 82 17 90/68 (75) 100 04/09/18 10:00 78 17 86/66 (73) 99 04/09/18 09:30 82 17 116/84 (95) 99 04/09/18 09:00 85 17 110/80 (90) 99 Intake and Output 04/09/18 04/10/18 19:00 07:00 Intake Total 452.5 ml 600.0 ml Output Total 550 ml 650 ml Balance -97.5 ml -50.0 ml Intake Oral 210 ml IV Total 452.5 ml 390.0 ml Other 550 ml 650 ml Height (Feet): 3 Height (Inches): 3.00 Weight (Pounds): 105 Objective GENERAL: Alert, awake, and oriented x3. LUNGS: Decreased breath sounds bilaterally. HEART: Regular. ABDOMEN: Colostomy and urostomy noted. Tenderness to palpation. EXTREMITIES: Lower extremity [id number] amputation noted bilaterally. Sharad Hillman Apr 10, 2018 08:48
[2018-04-10] MEDS: Ertapenem 1 GM in NS 55 ML IVPB SCH (10:00)
[2018-04-10] MEDS ORDERED: Gastrograffin 30ml ORAL PRN (11:00)
[2018-04-10] MEDS ORDERED: Isovue-300 100ml vial INJ PRN (11:00)
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
[2018-04-10] MEDS ORDERED: Tigecycline 100 MG in NS 110 ML IVPB ONE (12:30)
--- NOTE | 2018-04-10 13:03 | General Progress Note ---
Assessment/Plan Assessment/Plan # Anemia of chronic disease due to underlying chronic medical issues --> Anemia panel has been reviewed, will trend as required --> hgb goal >7, transfuse on prn basis --> no etoh or drug abuse, meds reviewed --> Blood tx performed in the past --> consider iron once infection has cleared # Leukocytosis is likely due to cellulitis, does have sepsis, also could be due to decub --> Resolved/Improved wbc --> Remains on antibiotics --> smear peripheral has been reviewed --> no schistocytes are noted --> no evidence of malignancy --> blood culture is positive for gram cocci, management as per ID --> appreciate ID recs --> decub surgery as per surgery recs # LINDSEY -- currently worse --> continue to monitor # Quadriplegia --> weakness has been chronic # Colostomy care, s/p colostomy revision and bowel resection on 01/09/18 --> per surgery # Tobacco abuse --> cessation education # Dispo --> likely back to [facility] on d/c # DVT ppx with heparin sq Greatly appreciate consultation! Subjective Constitutional: Denies: no symptoms, chills, diaphoresis, fever, malaise, weakness, other HEENT: Denies: no symptoms, eye pain, blurred vision, tearing, double vision, ear pain, ear discharge, nose pain, nose congestion, throat pain, throat swelling, mouth pain, mouth swelling, other Cardiovascular: Denies: no symptoms, chest pain, edema, irregular heart rate, lightheadedness, palpitations, syncope, other Respiratory: Denies: no symptoms, cough, orthopnea, shortness of breath, SOB with excertion, SOB at rest, sputum, stridor, wheezing, other Gastrointestinal/Abdominal: Denies: no symptoms, abdomen distended, abdominal pain, black stools, tarry stools, blood in stool, constipated, diarrhea, difficulty swallowing, nausea, poor appetite, poor fluid intake, rectal bleeding , vomiting, other Genitourinary: Denies: no symptoms, burning, discharge, frequency, flank pain, hematuria, incontinence, pain, urgency, other Endocrine: Denies: no symptoms, excessive sweating, flushing, intolerance to cold, intolerance to heat, increased hunger, increased thirst, increased urine, unexplained weight gain, unexplained weight loss, other Hematologic/Lymphatic: Denies: no symptoms, anemia, easy bleeding, easy bruising, other Allergies: Coded Allergies: CEFTRIAXONE (Verified Allergy, Unknown, 01/01/18) CODEINE (Verified Allergy, Unknown, 01/01/18) MORPHINE (Verified Allergy, Unknown, 01/01/18) PIPERACILLIN (Verified Allergy, Unknown, 01/01/18) SULFAMETHOXAZOLE (Verified Allergy, Unknown, 01/01/18) TAZOBACTAM (Verified Allergy, Unknown, 01/01/18) TRIMETHOPRIM (Verified Allergy, Unknown, 01/01/18) VANCOMYCIN (Verified Allergy, Unknown, 01/01/18) Subjective 04/06: awake and comfortable, no fevers or chills, denies acute distress. hgb 7.6 , plt 383. 04/08: no acute events. leukocytosis resolved. comfortable. 04/09: seen by bedside, unable to wean levophed. Pain is in neck and abdomen but not complaining of pain at his decub site. 04/10: pt is seen in the room, resting in bed, awake, comfortable, no events Objective Last 24 Hour Vital Signs Date Time Temp Pulse Resp B/P (MAP) Pulse Ox O2 Delivery O2 Flow Rate FiO2 04/10/18 12:00 89 16 95/62 (73) 99 04/10/18 12:00 94 04/10/18 11:00 88 19 110/65 (80) 99 04/10/18 10:00 85 19 104/60 (75) 99 04/10/18 09:30 88 19 105/65 (78) 99 04/10/18 09:00 98 19 115/70 (85) 99 04/10/18 08:30 90 19 100/62 (75) 99 04/10/18 08:00 97 04/10/18 08:00 98.8 95 19 98/60 (73) 99 04/10/18 08:00 Room Air 04/10/18 07:30 101 19 90/58 (69) 99 04/10/18 07:00 83 19 85/53 (64) 99 04/10/18 06:45 145/96 04/10/18 06:30 69 19 100/89 (93) 99 04/10/18 06:00 70 19 125/89 (101) 99 04/10/18 05:30 75 19 133/89 (104) 99 04/10/18 05:00 118 19 73/52 (59) 99 04/10/18 04:30 71 19 73/53 (60) 99 04/10/18 04:00 82 04/10/18 04:00 98.1 69 15 176/89 (118) 100 04/10/18 04:00 Room Air 04/10/18 03:30 65 16 160/98 (118) 100 04/10/18 03:00 75 14 131/90 (104) 99 04/10/18 02:30 99 15 105/74 (84) 100 04/10/18 02:00 76 14 138/92 (107) 100 04/10/18 01:30 101 16 106/73 (84) 98 04/10/18 01:00 105 18 108/76 (87) 99 04/10/18 00:30 101 17 102/77 (85) 100 04/10/18 00:00 Room Air 04/10/18 00:00 98.0 74 17 144/124 (131) 99 04/10/18 00:00 92 04/09/18 23:30 63 18 157/85 (109) 99 04/09/18 23:00 81 14 157/85 (109) 98 04/09/18 22:30 81 14 87/61 (70) 98 04/09/18 22:00 86 15 74/46 (55) 98 04/09/18 21:30 80 15 121/81 (94) 96 04/09/18 21:00 83 15 81/49 (60) 98 04/09/18 20:30 99 17 68/52 (57) 99 04/09/18 20:00 90 04/09/18 20:00 98.0 96 17 99/68 (78) 99 04/09/18 20:00 Room Air 04/09/18 19:30 84 17 113/78 (90) 99 04/09/18 19:00 89 15 118/70 (86) 98 04/09/18 18:30 92 14 122/72 (89) 98 04/09/18 18:00 92 17 119/89 (99) 98 04/09/18 17:30 98 14 88/46 (60) 98 04/09/18 17:30 104 14 115/70 (85) 98 04/09/18 17:00 107 14 128/74 (92) 98 04/09/18 16:30 98.5 90 17 128/66 (86) 100 04/09/18 16:02 97 04/09/18 16:00 Room Air 04/09/18 16:00 92 14 117/68 (84) 97 04/09/18 15:30 90 13 132/87 (102) 100 04/09/18 15:00 94 14 121/77 (92) 100 04/09/18 14:30 68 17 151/84 (106) 100 04/09/18 14:00 76 16 127/83 (98) 100 04/09/18 13:30 75 18 84/54 (64) 100 Intake and Output 04/09/18 04/10/18 19:00 07:00 Intake Total 452.5 ml 600.0 ml Output Total 550 ml 650 ml Balance -97.5 ml -50.0 ml Intake Oral 210 ml IV Total 452.5 ml 390.0 ml Other 550 ml 650 ml Height (Feet): 3 Height (Inches): 3.00 Weight (Pounds): 105 Objective Physical Exam General Appearance: WD/WN, no apparent distress, alert Vitals: reviewed HEENT: normocephalic, atraumatic, dry muscous membranes Neck: non-tender, normal alignment, supple Respiratory/Chest: chest wall nt, lungs clear Cardiovascular/Chest: rrr, no gallop/murmur Abdomen: normal bowel sounds, non tender, soft, no organomegaly, no mass, other - urostomy with dark urine, colostomy with no feces, cystomy site clean Extremities: other - contracture of BL digits, Bilateral AKA Skin Exam: normal pigmentation, warm/dry 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
--- NOTE | 2018-04-10 14:25 | Pulmonolgy Critical Care Note ---
Critical Care - Asmt/Plan Assessment/Plan: Problem List: 1. Septic shock 2. Infected stage IV decubitus ulcer 3. 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 chronic pain 5. microcytic anemia 6. multiple antibiotic allergies 7. Hx MRSA colonization 8. UTI Plan: -monitor off pressors -midodrine 5 mg tid, attempt to get down to home dose 2.5 mg tid -Abx per ID -decubitus ulcer wound care, surgery following -pain control but diludid dropping BP, consider switching to home meds with PO control especially if pain seems to be at chronic sites. Cardiac: continue to monitor HR/BP Infectious Disease: continue antibiotics Neurologic: keep patient comfortable Time Spent (Minutes): 40 Discussed with: nurses Critical Care - Objective Last 24 Hour Vital Signs Date Time Temp Pulse Resp B/P (MAP) Pulse Ox O2 Delivery O2 Flow Rate FiO2 04/10/18 13:00 88 14 93/63 (73) 98 04/10/18 12:00 89 16 95/62 (73) 99 04/10/18 12:00 94 04/10/18 11:00 88 19 110/65 (80) 99 04/10/18 10:00 85 19 104/60 (75) 99 04/10/18 09:30 88 19 105/65 (78) 99 04/10/18 09:00 98 19 115/70 (85) 99 04/10/18 08:30 90 19 100/62 (75) 99 04/10/18 08:00 97 04/10/18 08:00 98.8 95 19 98/60 (73) 99 04/10/18 08:00 Room Air 04/10/18 07:30 101 19 90/58 (69) 99 04/10/18 07:00 83 19 85/53 (64) 99 04/10/18 06:45 145/96 04/10/18 06:30 69 19 100/89 (93) 99 04/10/18 06:00 70 19 125/89 (101) 99 04/10/18 05:30 75 19 133/89 (104) 99 04/10/18 05:00 118 19 73/52 (59) 99 04/10/18 04:30 71 19 73/53 (60) 99 04/10/18 04:00 82 04/10/18 04:00 98.1 69 15 176/89 (118) 100 04/10/18 04:00 Room Air 04/10/18 03:30 65 16 160/98 (118) 100 04/10/18 03:00 75 14 131/90 (104) 99 04/10/18 02:30 99 15 105/74 (84) 100 04/10/18 02:00 76 14 138/92 (107) 100 04/10/18 01:30 101 16 106/73 (84) 98 04/10/18 01:00 105 18 108/76 (87) 99 04/10/18 00:30 101 17 102/77 (85) 100 04/10/18 00:00 Room Air 04/10/18 00:00 98.0 74 17 144/124 (131) 99 04/10/18 00:00 92 04/09/18 23:30 63 18 157/85 (109) 99 04/09/18 23:00 81 14 157/85 (109) 98 04/09/18 22:30 81 14 87/61 (70) 98 04/09/18 22:00 86 15 74/46 (55) 98 04/09/18 21:30 80 15 121/81 (94) 96 04/09/18 21:00 83 15 81/49 (60) 98 04/09/18 20:30 99 17 68/52 (57) 99 04/09/18 20:00 90 04/09/18 20:00 98.0 96 17 99/68 (78) 99 04/09/18 20:00 Room Air 04/09/18 19:30 84 17 113/78 (90) 99 04/09/18 19:00 89 15 118/70 (86) 98 04/09/18 18:30 92 14 122/72 (89) 98 04/09/18 18:00 92 17 119/89 (99) 98 04/09/18 17:30 98 14 88/46 (60) 98 04/09/18 17:30 104 14 115/70 (85) 98 04/09/18 17:00 107 14 128/74 (92) 98 04/09/18 16:30 98.5 90 17 128/66 (86) 100 04/09/18 16:02 97 04/09/18 16:00 Room Air 04/09/18 16:00 92 14 117/68 (84) 97 04/09/18 15:30 90 13 132/87 (102) 100 04/09/18 15:00 94 14 121/77 (92) 100 04/09/18 14:30 68 17 151/84 (106) 100 Status: awake Condition: improving Lungs: clear Heart: HR/BP stable Abdomen: soft Micro: Microbiology Date/Time Source Procedure Growth Status 04/07/18 18:00 Indwelling Cath Urine Culture - Preliminary A.[email or web address] Complx - Mdr Resulted Critical Care - Subjective ROS Limited/Unobtainable: No Interval Events: Weaned off pressors this morning. Pressure does drop with dilaudid IV. No fevers. Condition: improving, stable EKG Rhythm: Sinus Bradycardia FI02: 21 Sputum Amount: None I&O: Intake and Output 04/09/18 04/10/18 19:00 07:00 Intake Total 452.5 ml 600.0 ml Output Total 550 ml 650 ml Balance -97.5 ml -50.0 ml Intake Oral 210 ml IV Total 452.5 ml 390.0 ml Other 550 ml 650 ml Diego Saldaña MD Apr 10, 2018 14:25
--- NOTE | 2018-04-10 16:10 | Surgery Progress Note ---
Surgery Progress Note Subjective Additional Comments doing okay but still with some mild abd pain. not much out of ostomy. labs okay Objective Last 24 Hour Vital Signs Date Time Temp Pulse Resp B/P (MAP) Pulse Ox O2 Delivery O2 Flow Rate FiO2 04/10/18 15:00 82 14 96/62 (73) 98 04/10/18 14:00 98.8 85 15 98/65 (76) 98 04/10/18 13:00 88 14 93/63 (73) 98 04/10/18 12:00 89 16 95/62 (73) 99 04/10/18 12:00 Room Air 04/10/18 12:00 94 04/10/18 11:00 88 19 110/65 (80) 99 04/10/18 10:00 85 19 104/60 (75) 99 04/10/18 09:30 88 19 105/65 (78) 99 04/10/18 09:00 98 19 115/70 (85) 99 04/10/18 08:30 90 19 100/62 (75) 99 04/10/18 08:00 97 04/10/18 08:00 98.8 95 19 98/60 (73) 99 04/10/18 08:00 Room Air 04/10/18 07:30 101 19 90/58 (69) 99 04/10/18 07:00 83 19 85/53 (64) 99 04/10/18 06:45 145/96 04/10/18 06:30 69 19 100/89 (93) 99 04/10/18 06:00 70 19 125/89 (101) 99 04/10/18 05:30 75 19 133/89 (104) 99 04/10/18 05:00 118 19 73/52 (59) 99 04/10/18 04:30 71 19 73/53 (60) 99 04/10/18 04:00 82 04/10/18 04:00 98.1 69 15 176/89 (118) 100 04/10/18 04:00 Room Air 04/10/18 03:30 65 16 160/98 (118) 100 04/10/18 03:00 75 14 131/90 (104) 99 04/10/18 02:30 99 15 105/74 (84) 100 04/10/18 02:00 76 14 138/92 (107) 100 04/10/18 01:30 101 16 106/73 (84) 98 04/10/18 01:00 105 18 108/76 (87) 99 04/10/18 00:30 101 17 102/77 (85) 100 04/10/18 00:00 Room Air 04/10/18 00:00 98.0 74 17 144/124 (131) 99 04/10/18 00:00 92 04/09/18 23:30 63 18 157/85 (109) 99 04/09/18 23:00 81 14 157/85 (109) 98 04/09/18 22:30 81 14 87/61 (70) 98 04/09/18 22:00 86 15 74/46 (55) 98 04/09/18 21:30 80 15 121/81 (94) 96 04/09/18 21:00 83 15 81/49 (60) 98 04/09/18 20:30 99 17 68/52 (57) 99 04/09/18 20:00 90 04/09/18 20:00 98.0 96 17 99/68 (78) 99 04/09/18 20:00 Room Air 04/09/18 19:30 84 17 113/78 (90) 99 04/09/18 19:00 89 15 118/70 (86) 98 04/09/18 18:30 92 14 122/72 (89) 98 04/09/18 18:00 92 17 119/89 (99) 98 04/09/18 17:30 98 14 88/46 (60) 98 04/09/18 17:30 104 14 115/70 (85) 98 04/09/18 17:00 107 14 128/74 (92) 98 04/09/18 16:30 98.5 90 17 128/66 (86) 100 I&O Intake and Output 04/09/18 04/10/18 19:00 07:00 Intake Total 452.5 ml 600.0 ml Output Total 550 ml 650 ml Balance -97.5 ml -50.0 ml Intake Oral 210 ml IV Total 452.5 ml 390.0 ml Other 550 ml 650 ml Dressing: other Wound: other Drains: other Cardiovascular: RSR Respiratory: clear Abdomen: soft, non-tender, present bowel sounds, other, non-distended Extremities: other Plan Problems: (1) Decubital ulcer Assessment & Plan: Pt presents with complex pressure injuries involving buttocks extending into bilat groin areas that were surgically debrided last admission.Partial assessment of wound completed due to pt became diaphoretic while positioned on L side.Assessment of Buttocks to R groin completed (L)12cm x (W)18cm with mesurable depth at sacrum of 1.5cm and depth of 2.5cm at R groin area.scattered threads of yellow slough throughout base of wound with granular areas also noted. No odor noted. Moderate serous exudate noted.Full thickness pressure injuries(2 sites)in close proximity posterior R AKA (L)1.5cm x (W) 4.5cm x(D)1.6cm. Both wounds moist- viable.Minimal sanguineous exudate .Edges adherent and flat .Non-blanchable erythema periwound without induration or elevation in skin temp. Assessment of wound L buttocks and L groin not completed. Will attempt to see pt next rounds if stable. Cleanse wounds with Saline.Loose pack with Hydrogel impregnated Kerlix gauze.Apply Cavilon Skin Barrier periwound.Cover with ABD pads and secure with Tegaderms drsgs Daily and prn. Reposition at least every 2hours or as tolerated. Air fluidized mattress. CT ordered to ensure no intraabdominal pathology - pending results stable in ICU will follow with recs. thank you (2) Septic shock (3) Colostomy prolapse Assessment & Plan: resolved without recurrence since prior surgery. ostomy viable and functional now. looks good. Atif Luna Apr 10, 2018 16:10
--- NOTE | 2018-04-10 16:22 | Diagnostic Imaging Report ---
Indication: Abdominal pain Technique: Continuous helical transaxial imaging of the abdomen and pelvis was obtained from the lung bases to the pubic symphysis. No intravenous contrast was administered. Coronal 2-D reformats were also obtained. Automatic Exposure Control was utilized. Total Dose length Product (DLP): 749.[address] Dose Index Volume (CTDIvol): 15.7 mGy Comparison: 01/05/2018 Findings: Trace left pleural fluid noted. Mild posterior basilar atelectasis is present. Atrophic likely nonfunctional right kidney again demonstrated. Left lower quadrant colostomy noted. Gallbladder is grossly unremarkable. The colon is previously demonstrated small nonobstructive stone in the lower pole calyx of the left kidney is no longer visualized. There is no obvious intraureteral stone. The patient has had ureteral diversion surgery with the left ureter entering what appears to be an ileal conduit in the right aspect of the abdomen. This extends to the right lower quadrant stoma. Cholecystectomy noted once again. There is a moderate retention of feces within distended distal sigmoid colon and rectal stump which shows moderate wall thickening. There is a left lower quadrant diverting colostomy again noted. Once again, there is severe pelvic deformity with absence of the coccyx and lower sacrum which has a either been eroded due to chronic osteomyelitis or partially resected. Much of the ileum is hypoplastic and eroded. The ischia appear eroded and not visualized. There are extensive sacral decubitus ulcerations again demonstrated bilaterally. With respect to part of the right ilium, there appears to be further erosion of the medial part of the right ilium adjacent to the upper part of the sacroiliac joint which is largely absent on the right. Areas of mixed sclerosis and the lytic changes are noted within the pelvis and the upper sacrum indicative of chronic osteomyelitis. The right hip is not seen. On the left side there is destruction of the left hip joint with superolaterally dislocation of the femoral head. The femoral head is destroyed with multiple bone fragments. There is development of air associated with the dislocated eroded femoral head. Infection is suspected. IMPRESSION: Suspected acute on chronic osteomyelitis of a dislocated left hip with soft tissue air suspicious for gas gangrene. The left hip joint is chronically eroded and dislocated. Suspected acute on chronic osteomyelitis involving the medial portion of the right ilium adjacent to the residual sacroiliac joint, most of which is destroyed. Severe chronic osteomyelitis with erosion of the coccyx, most of the sacrum, ischia, and large portions of the iliac bones bilaterally. Status post total cystectomy with ureteral diversion as described above. Right lower quadrant urinary stoma noted. Resection of the sigmoid colon. Rectosigmoid stump with moderate wall thickening and retention of stool demonstrated once again. Left lower quadrant diverting colostomy again noted. Trace left pleural effusion Hiatal hernia. Atherosclerotic disease. Atrophic nonfunctional right kidney. Suggestion of bilateral renal cysts and nonobstructive stones. The CT scanner at [facility] is accredited by the [employer] and the scans are performed using dose optimization techniques as appropriate to a performed exam including Automatic Exposure control.
[2018-04-10] MEDS: Dyna-Hex 2% Top Sol 2oz TOPIC SCH (19:48)
[2018-04-11] VITALS (19 sets, daily range): BP systolic 78–182; BP diastolic 37–110
[2018-04-11] MEDS: Tigecycline 50 MG in NS 110 ML IVPB SCH ×2 (00:29→12:26)
[2018-04-11 05:25] LABS: BASOPHILS % (AUTO) 0.6 % (0.0-2.0); EOSINOPHILS % (AUTO) 3.4 % (0.0-3.0); HEMATOCRIT 31.6 % (42.0-52.0); HEMOGLOBIN 9.3 G/DL (14.2-18.0); LYMPHOCYTES % (AUTO) 20.6 % (20.0-45.0); MEAN CORPUSCULAR VOLUME 76 FL (80-99); MONOCYTES % (AUTO) 6.8 % (1.0-10.0); NEUTROPHILS % (AUTO) 68.6 % (45.0-75.0); PLATELET COUNT 364 K/UL (150-450); RED BLOOD COUNT 4.19 M/UL (4.70-6.10); RED CELL DISTRIBUTION WIDTH 18.8 % (11.6-14.8); WHITE BLOOD COUNT 8.5 K/UL (4.8-10.8)
[2018-04-11 05:56] LABS: ALANINE AMINOTRANSFERASE 13 U/L (12-78); ALBUMIN 1.8 G/DL (3.4-5.0); ALBUMIN/GLOBULIN RATIO 0.3 (1.0-2.7); ALKALINE PHOSPHATASE 155 U/L (46-116); ANION GAP 9 mmol/L (5-15); ASPARTATE AMINO TRANSFERASE 14 U/L (15-37); BILIRUBIN,TOTAL < 0.1 MG/DL (0.2-1.0); BLOOD UREA NITROGEN 28 mg/dL (7-18); CALCIUM 8.6 MG/DL (8.5-10.1); CARBON DIOXIDE 25 MMOL/L (21-32); CHLORIDE 106 MMOL/L (98-107); POTASSIUM 4.2 MMOL/L (3.5-5.1); SODIUM 140 MMOL/L (136-145)
[2018-04-11] MEDS: Pantoprazole Inj IVP SCH (08:36)
--- NOTE | 2018-04-11 08:50 | General Progress Note ---
Assessment/Plan Assessment/Plan (1) Sacral decubitus ulcer (2) SCI (3) Quadriplegia (4) B/L AKA (5) Neuropathic pain Patient to be continued on Dilaudid D/w Dr. Pham and he concurred. Subjective Date patient seen: Apr 11, 2018 Time patient seen: 08:00 - am Allergies: Coded Allergies: CEFTRIAXONE (Verified Allergy, Unknown, 01/01/18) CODEINE (Verified Allergy, Unknown, 01/01/18) MORPHINE (Verified Allergy, Unknown, 01/01/18) PIPERACILLIN (Verified Allergy, Unknown, 01/01/18) SULFAMETHOXAZOLE (Verified Allergy, Unknown, 01/01/18) TAZOBACTAM (Verified Allergy, Unknown, 01/01/18) TRIMETHOPRIM (Verified Allergy, Unknown, 01/01/18) VANCOMYCIN (Verified Allergy, Unknown, 01/01/18) Subjective REVIEW OF SYSTEMS: Denies rash, fever, chills, sweating, dizziness, drowsiness, blurred vision, sore throat, or change in weight. No shortness of breath or chest pain. Denies nausea, vomiting, diarrhea, or blood in the stool or urine. No bowel or bladder incontinence. No dysuria. He is complaining of generalized body pain. SUBJECTIVE: Patient reports that the pain has continued to be severe and states that the Dilaudid continues to tolerate his pain to a moderate level. He has no new complaints at this time. Objective Last 24 Hour Vital Signs Date Time Temp Pulse Resp B/P (MAP) Pulse Ox O2 Delivery O2 Flow Rate FiO2 04/11/18 06:45 134/100 04/11/18 06:00 75 19 151/88 (109) 98 04/11/18 05:00 98 19 128/69 (88) 98 04/11/18 04:00 98.6 101 19 136/71 (92) 98 04/11/18 04:00 Room Air 04/11/18 03:00 90 14 119/79 (92) 98 04/11/18 02:00 86 14 85/70 (75) 98 04/11/18 01:00 97 14 83/49 (60) 98 04/11/18 00:00 58 04/11/18 00:00 98.4 106 16 78/37 (51) 98 04/11/18 00:00 Room Air 04/10/18 23:00 86 16 70/81 (77) 98 04/10/18 22:00 86 14 109/81 (90) 98 04/10/18 21:00 79 14 69/38 (48) 98 04/10/18 20:00 93 04/10/18 20:00 98.2 89 14 118/82 (94) 98 04/10/18 20:00 Room Air 04/10/18 18:00 98.8 82 15 115/60 (78) 98 04/10/18 17:00 85 14 115/65 (82) 98 04/10/18 16:00 80 14 105/68 (80) 98 04/10/18 16:00 64 04/10/18 16:00 Room Air 04/10/18 15:00 82 14 96/62 (73) 98 04/10/18 14:00 98.8 85 15 98/65 (76) 98 04/10/18 13:00 88 14 93/63 (73) 98 04/10/18 12:00 89 16 95/62 (73) 99 04/10/18 12:00 Room Air 04/10/18 12:00 94 04/10/18 11:00 88 19 110/65 (80) 99 04/10/18 10:00 85 19 104/60 (75) 99 04/10/18 09:30 88 19 105/65 (78) 99 04/10/18 09:00 98 19 115/70 (85) 99 Intake and Output 04/10/18 04/11/18 19:00 07:00 Intake Total 22.5 ml 390 ml Output Total 350 ml 570 ml Balance -327.5 ml -180 ml Intake Oral 0 ml 280 ml IV Total 22.5 ml 110 ml Other 350 ml 570 ml # Bowel Movements 5 Laboratory Tests 04/11/18 04:30: White Blood Count 8.5, Red Blood Count 4.19L, Hemoglobin 9.3L, Hematocrit 31.6L , Mean Corpuscular Volume 76L, Mean Corpuscular Hemoglobin 22.1L, Mean Corpuscular Hemoglobin Concent 29.3L, Red Cell Distribution Width 18.8H, Platelet Count 364, Mean Platelet Volume 4.3L, Neutrophils (%) (Auto) 68.6, Lymphocytes (%) (Auto) 20.6, Monocytes (%) (Auto) 6.8, Eosinophils (%) (Auto) 3.4H, Basophils (%) (Auto) 0.6, Sodium Level 140, Potassium Level 4.2, Chloride Level 106, Carbon Dioxide Level 25, Anion Gap 9, Blood Urea Nitrogen 28H, Creatinine 1.0, Estimat Glomerular Filtration Rate > 60, Glucose Level 112H, Calcium Level 8.6, Total Bilirubin < 0.1L, Aspartate Amino Transf (AST/SGOT) 14L , Alanine Aminotransferase (ALT/SGPT) 13, Alkaline Phosphatase 155H, Total Protein 7.6, Albumin 1.8L, Globulin 5.8, Albumin/Globulin Ratio 0.3L Height (Feet): 3 Height (Inches): 3.00 Weight (Pounds): 102 Objective GENERAL: Alert, awake, and oriented x3. LUNGS: Decreased breath sounds bilaterally. HEART: Regular. ABDOMEN: Colostomy and urostomy noted. Tenderness to palpation. EXTREMITIES: Lower extremity [id number] amputation noted bilaterally. Sharad Hillman Apr 11, 2018 08:50
[2018-04-11] MEDS: Heparin 5000 units/ml inj SUBQ SCH ×2 (09:00→20:45)
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
[2018-04-11] MEDS ORDERED: Ertapenem 1 GM in NS 55 ML IVPB SCH (10:00)
--- NOTE | 2018-04-11 13:05 | Surgery Progress Note ---
Surgery Progress Note Subjective Additional Comments CT noted. ostomy with output today Objective Last 24 Hour Vital Signs Date Time Temp Pulse Resp B/P (MAP) Pulse Ox O2 Delivery O2 Flow Rate FiO2 04/11/18 12:00 Room Air 04/11/18 12:00 75 19 106/72 (83) 98 04/11/18 11:00 75 19 155/82 (106) 98 04/11/18 10:00 75 19 123/79 (94) 98 04/11/18 09:06 98.6 04/11/18 09:00 104 17 83/57 (66) 99 04/11/18 08:00 110 14 113/74 (87) 98 04/11/18 08:00 Room Air 04/11/18 07:00 98.8 75 19 151/88 (109) 98 04/11/18 06:45 134/100 04/11/18 06:00 75 19 151/88 (109) 98 04/11/18 05:00 98 19 128/69 (88) 98 04/11/18 04:00 98.6 101 19 136/71 (92) 98 04/11/18 04:00 Room Air 04/11/18 03:00 90 14 119/79 (92) 98 04/11/18 02:00 86 14 85/70 (75) 98 04/11/18 01:00 97 14 83/49 (60) 98 04/11/18 00:00 58 04/11/18 00:00 98.4 106 16 78/37 (51) 98 04/11/18 00:00 Room Air 04/10/18 23:00 86 16 70/81 (77) 98 04/10/18 22:00 86 14 109/81 (90) 98 04/10/18 21:00 79 14 69/38 (48) 98 04/10/18 20:00 93 04/10/18 20:00 98.2 89 14 118/82 (94) 98 04/10/18 20:00 Room Air 04/10/18 18:00 98.8 82 15 115/60 (78) 98 04/10/18 17:00 85 14 115/65 (82) 98 04/10/18 16:00 80 14 105/68 (80) 98 04/10/18 16:00 64 04/10/18 16:00 Room Air 04/10/18 15:00 82 14 96/62 (73) 98 04/10/18 14:00 98.8 85 15 98/65 (76) 98 I&O Intake and Output 04/10/18 04/11/18 19:00 07:00 Intake Total 22.5 ml 390 ml Output Total 350 ml 570 ml Balance -327.5 ml -180 ml Intake Oral 0 ml 280 ml IV Total 22.5 ml 110 ml Other 350 ml 570 ml # Bowel Movements 5 Dressing: saturated Wound: other Drains: other Cardiovascular: RSR Respiratory: decreased breath sounds Abdomen: soft, present bowel sounds, other, non-distended Extremities: other Laboratory Tests Test 04/11/18 04:30 White Blood Count 8.5 K/UL (4.8-10.8) Red Blood Count 4.19 M/UL (4.70-6.10) L Hemoglobin 9.3 G/DL (14.2-18.0) L Hematocrit 31.6 % (42.0-52.0) L Mean Corpuscular Volume 76 FL (80-99) L Mean Corpuscular Hemoglobin 22.1 PG (27.0-31.0) L Mean Corpuscular Hemoglobin Concent 29.3 G/DL (32.0-36.0) L Red Cell Distribution Width 18.8 % (11.6-14.8) H Platelet Count 364 K/UL (150-450) Mean Platelet Volume 4.3 FL (6.5-10.1) L Neutrophils (%) (Auto) 68.6 % (45.0-75.0) Lymphocytes (%) (Auto) 20.6 % (20.0-45.0) Monocytes (%) (Auto) 6.8 % (1.0-10.0) Eosinophils (%) (Auto) 3.4 % (0.0-3.0) H Basophils (%) (Auto) 0.6 % (0.0-2.0) Sodium Level 140 MMOL/L (136-145) Potassium Level 4.2 MMOL/L (3.5-5.1) Chloride Level 106 MMOL/L (98-107) Carbon Dioxide Level 25 MMOL/L (21-32) Anion Gap 9 mmol/L (5-15) Blood Urea Nitrogen 28 mg/dL (7-18) H Creatinine 1.0 MG/DL (0.55-1.30) Estimat Glomerular Filtration Rate > 60 mL/min (>60) Glucose Level 112 MG/DL (74-106) H Calcium Level 8.6 MG/DL (8.5-10.1) Total Bilirubin < 0.1 MG/DL (0.2-1.0) L Aspartate Amino Transf (AST/SGOT) 14 U/L (15-37) L Alanine Aminotransferase (ALT/SGPT) 13 U/L (12-78) Alkaline Phosphatase 155 U/L (46-116) H Total Protein 7.6 G/DL (6.4-8.2) Albumin 1.8 G/DL (3.4-5.0) L Globulin 5.8 g/dL Albumin/Globulin Ratio 0.3 (1.0-2.7) L Plan Problems: (1) Decubital ulcer Assessment & Plan: Pt presents with complex pressure injuries involving buttocks extending into bilat groin areas that were surgically debrided last admission.Partial assessment of wound completed due to pt became diaphoretic while positioned on L side.Assessment of Buttocks to R groin completed (L)12cm x (W)18cm with mesurable depth at sacrum of 1.5cm and depth of 2.5cm at R groin area.scattered threads of yellow slough throughout base of wound with granular areas also noted. No odor noted. Moderate serous exudate noted.Full thickness pressure injuries(2 sites)in close proximity posterior R AKA (L)1.5cm x (W) 4.5cm x(D)1.6cm. Both wounds moist- viable.Minimal sanguineous exudate .Edges adherent and flat .Non-blanchable erythema periwound without induration or elevation in skin temp. Assessment of wound L buttocks and L groin not completed. Will attempt to see pt next rounds if stable. Cleanse wounds with Saline.Loose pack with Hydrogel impregnated Kerlix gauze.Apply Cavilon Skin Barrier periwound.Cover with ABD pads and secure with Tegaderms drsgs Daily and prn. Reposition at least every 2hours or as tolerated. Air fluidized mattress. CT ordered to ensure no intraabdominal pathology - pending results stable in ICU will follow with recs. thank you CT noted. wounds have improved since prior. he has extensive wounds without ability to flap. can only attempt best wound care. no gas forming active infection (2) Septic shock (3) Colostomy prolapse Assessment & Plan: resolved without recurrence since prior surgery. ostomy viable and functional now. looks good. Additional Comments Suspected acute on chronic osteomyelitis of a dislocated left hip with soft tissue air suspicious for gas gangrene. The left hip joint is chronically eroded and dislocated. Suspected acute on chronic osteomyelitis involving the medial portion of the right ilium adjacent to the residual sacroiliac joint, most of which is destroyed. Severe chronic osteomyelitis with erosion of the coccyx, most of the sacrum, ischia, and large portions of the iliac bones bilaterally. Status post total cystectomy with ureteral diversion as described above. Right lower quadrant urinary stoma noted. Resection of the sigmoid colon. Rectosigmoid stump with moderate wall thickening and retention of stool demonstrated once again. Left lower quadrant diverting colostomy again noted. Trace left pleural effusion Hiatal hernia. Atherosclerotic disease. Atrophic nonfunctional right kidney. Suggestion of bilateral renal cysts and nonobstructive stones. Atif Luna Apr 11, 2018 13:05
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
--- NOTE | 2018-04-11 14:25 | Pulmonolgy Critical Care Note ---
Critical Care - Asmt/Plan Assessment/Plan: Problem List: 1. Septic shock - improved 2. Infected stage IV decubitus ulcer 3. 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 chronic pain 5. microcytic anemia 6. multiple antibiotic allergies 7. Hx MRSA colonization 8. UTI Plan: -monitor off pressors -midodrine 5 mg tid, attempt to get down to home dose 2.5 mg tid -Abx per ID -decubitus ulcer wound care, surgery following -pain control but diludid dropping BP, consider switching to home meds with PO control especially if pain seems to be at chronic sites. -d/c planning Time Spent (Minutes): 40 Critical Care - Objective Last 24 Hour Vital Signs Date Time Temp Pulse Resp B/P (MAP) Pulse Ox O2 Delivery O2 Flow Rate FiO2 04/11/18 13:00 98.9 109 19 132/74 (93) 98 04/11/18 12:57 98.9 04/11/18 12:00 80 04/11/18 12:00 Room Air 04/11/18 12:00 75 19 106/72 (83) 98 04/11/18 11:00 75 19 155/82 (106) 98 04/11/18 10:00 75 19 123/79 (94) 98 04/11/18 09:00 104 17 83/57 (66) 99 04/11/18 08:00 110 14 113/74 (87) 98 04/11/18 08:00 Room Air 04/11/18 08:00 75 04/11/18 07:00 98.8 75 19 151/88 (109) 98 04/11/18 06:45 134/100 04/11/18 06:00 75 19 151/88 (109) 98 04/11/18 05:00 98 19 128/69 (88) 98 04/11/18 04:00 98.6 101 19 136/71 (92) 98 04/11/18 04:00 Room Air 04/11/18 03:00 90 14 119/79 (92) 98 04/11/18 02:00 86 14 85/70 (75) 98 04/11/18 01:00 97 14 83/49 (60) 98 04/11/18 00:00 58 04/11/18 00:00 98.4 106 16 78/37 (51) 98 04/11/18 00:00 Room Air 04/10/18 23:00 86 16 70/81 (77) 98 04/10/18 22:00 86 14 109/81 (90) 98 04/10/18 21:00 79 14 69/38 (48) 98 04/10/18 20:00 93 04/10/18 20:00 98.2 89 14 118/82 (94) 98 04/10/18 20:00 Room Air 04/10/18 18:00 98.8 82 15 115/60 (78) 98 04/10/18 17:00 85 14 115/65 (82) 98 04/10/18 16:00 80 14 105/68 (80) 98 04/10/18 16:00 64 04/10/18 16:00 Room Air 04/10/18 15:00 82 14 96/62 (73) 98 Status: awake HEENT: atraumatic Lungs: clear Heart: HR/BP stable Abdomen: soft Critical Care - Subjective ROS Limited/Unobtainable: No Interval Events: BP stable off pressors. Drops with IV dilaudid. No shortness of breath. Condition: stable EKG Rhythm: Sinus Rhythm FI02: 21 Sputum Amount: None I&O: Intake and Output 04/10/18 04/11/18 19:00 07:00 Intake Total 22.5 ml 390 ml Output Total 350 ml 570 ml Balance -327.5 ml -180 ml Intake Oral 0 ml 280 ml IV Total 22.5 ml 110 ml Other 350 ml 570 ml # Bowel Movements 5 Diego Saldaña MD Apr 11, 2018 14:25
[2018-04-11] MEDS ORDERED: TYGACIL50 MG IVPB (15:26)
[2018-04-11] MEDS ORDERED: INVANZ1 G1 IM (15:31)
[2018-04-11] MEDS ORDERED: Gastrograffin 30ml ORAL PRN (15:42)
[2018-04-11] MEDS ORDERED: Isovue-300 100ml vial INJ PRN (15:43)
--- NOTE | 2018-04-11 17:56 | General Progress Note ---
Assessment/Plan Assessment/Plan # Anemia of chronic disease due to underlying chronic medical issues --> Anemia panel has been reviewed, will trend as required --> hgb goal >7, transfuse on prn basis --> no etoh or drug abuse, meds reviewed --> Blood tx performed in the past --> consider iron once infection has cleared # Leukocytosis is likely due to cellulitis, does have sepsis, also could be due to decub --> Resolved/Improved wbc --> Remains on antibiotics --> smear peripheral has been reviewed --> no schistocytes are noted --> no evidence of malignancy --> blood culture is positive for gram cocci, management as per ID --> appreciate ID recs --> decub surgery as per surgery recs # LINDSEY -- currently worse --> continue to monitor # Quadriplegia --> weakness has been chronic # Colostomy care, s/p colostomy revision and bowel resection on 01/09/18 --> per surgery # Tobacco abuse --> cessation education # Dispo --> likely back to [facility] # DVT ppx with heparin sq Greatly appreciate consultation! Subjective Constitutional: Denies: no symptoms, chills, diaphoresis, fever, malaise, weakness, other HEENT: Denies: no symptoms, eye pain, blurred vision, tearing, double vision, ear pain, ear discharge, nose pain, nose congestion, throat pain, throat swelling, mouth pain, mouth swelling, other Cardiovascular: Denies: no symptoms, chest pain, edema, irregular heart rate, lightheadedness, palpitations, syncope, other Respiratory: Denies: no symptoms, cough, orthopnea, shortness of breath, SOB with excertion, SOB at rest, sputum, stridor, wheezing, other Gastrointestinal/Abdominal: Denies: no symptoms, abdomen distended, abdominal pain, black stools, tarry stools, blood in stool, constipated, diarrhea, difficulty swallowing, nausea, poor appetite, poor fluid intake, rectal bleeding , vomiting, other Genitourinary: Denies: no symptoms, burning, discharge, frequency, flank pain, hematuria, incontinence, pain, urgency, other Neurologic/Psychiatric: Denies: no symptoms, anxiety, depressed, emotional problems, headache, numbness, paresthesia, pre-existing deficit, seizure, tingling, tremors, weakness, other Endocrine: Denies: no symptoms, excessive sweating, flushing, intolerance to cold, intolerance to heat, increased hunger, increased thirst, increased urine, unexplained weight gain, unexplained weight loss, other Allergies: Coded Allergies: CEFTRIAXONE (Verified Allergy, Unknown, 01/01/18) CODEINE (Verified Allergy, Unknown, 01/01/18) MORPHINE (Verified Allergy, Unknown, 01/01/18) PIPERACILLIN (Verified Allergy, Unknown, 01/01/18) SULFAMETHOXAZOLE (Verified Allergy, Unknown, 01/01/18) TAZOBACTAM (Verified Allergy, Unknown, 01/01/18) TRIMETHOPRIM (Verified Allergy, Unknown, 01/01/18) VANCOMYCIN (Verified Allergy, Unknown, 01/01/18) Subjective 04/06: awake and comfortable, no fevers or chills, denies acute distress. hgb 7.6 , plt 383. 04/08: no acute events. leukocytosis resolved. comfortable. 04/09: seen by bedside, unable to wean levophed. Pain is in neck and abdomen but not complaining of pain at his decub site. 04/10: pt is seen in the room, resting in bed, awake, comfortable, no events 04/11: Pt is awake and comfortable, ostomy with output today . Objective Last 24 Hour Vital Signs Date Time Temp Pulse Resp B/P (MAP) Pulse Ox O2 Delivery O2 Flow Rate FiO2 04/11/18 16:00 97.7 91 18 124/83 (97) 100 04/11/18 15:00 76 19 121/79 (93) 98 04/11/18 14:00 71 19 141/82 (101) 98 04/11/18 13:00 98.9 109 19 132/74 (93) 98 04/11/18 12:57 98.9 04/11/18 12:00 80 04/11/18 12:00 Room Air 04/11/18 12:00 75 19 106/72 (83) 98 04/11/18 11:00 75 19 155/82 (106) 98 04/11/18 10:00 75 19 123/79 (94) 98 04/11/18 09:00 104 17 83/57 (66) 99 04/11/18 08:00 110 14 113/74 (87) 98 04/11/18 08:00 Room Air 04/11/18 08:00 75 04/11/18 07:00 98.8 75 19 151/88 (109) 98 04/11/18 06:45 134/100 04/11/18 06:00 75 19 151/88 (109) 98 04/11/18 05:00 98 19 128/69 (88) 98 04/11/18 04:00 98.6 101 19 136/71 (92) 98 04/11/18 04:00 Room Air 04/11/18 03:00 90 14 119/79 (92) 98 04/11/18 02:00 86 14 85/70 (75) 98 04/11/18 01:00 97 14 83/49 (60) 98 04/11/18 00:00 58 04/11/18 00:00 98.4 106 16 78/37 (51) 98 04/11/18 00:00 Room Air 04/10/18 23:00 86 16 70/81 (77) 98 04/10/18 22:00 86 14 109/81 (90) 98 04/10/18 21:00 79 14 69/38 (48) 98 04/10/18 20:00 93 04/10/18 20:00 98.2 89 14 118/82 (94) 98 04/10/18 20:00 Room Air 04/10/18 18:00 98.8 82 15 115/60 (78) 98 Intake and Output 04/10/18 04/11/18 19:00 07:00 Intake Total 22.5 ml 390 ml Output Total 350 ml 570 ml Balance -327.5 ml -180 ml Intake Oral 0 ml 280 ml IV Total 22.5 ml 110 ml Other 350 ml 570 ml # Bowel Movements 5 Laboratory Tests 04/11/18 04:30: White Blood Count 8.5, Red Blood Count 4.19L, Hemoglobin 9.3L, Hematocrit 31.6L , Mean Corpuscular Volume 76L, Mean Corpuscular Hemoglobin 22.1L, Mean Corpuscular Hemoglobin Concent 29.3L, Red Cell Distribution Width 18.8H, Platelet Count 364, Mean Platelet Volume 4.3L, Neutrophils (%) (Auto) 68.6, Lymphocytes (%) (Auto) 20.6, Monocytes (%) (Auto) 6.8, Eosinophils (%) (Auto) 3.4H, Basophils (%) (Auto) 0.6, Sodium Level 140, Potassium Level 4.2, Chloride Level 106, Carbon Dioxide Level 25, Anion Gap 9, Blood Urea Nitrogen 28H, Creatinine 1.0, Estimat Glomerular Filtration Rate > 60, Glucose Level 112H, Calcium Level 8.6, Total Bilirubin < 0.1L, Aspartate Amino Transf (AST/SGOT) 14L , Alanine Aminotransferase (ALT/SGPT) 13, Alkaline Phosphatase 155H, Total Protein 7.6, Albumin 1.8L, Globulin 5.8, Albumin/Globulin Ratio 0.3L Height (Feet): 3 Height (Inches): 3.00 Weight (Pounds): 102 Objective Physical Exam General Appearance: WD/WN, no apparent distress, alert Vitals: reviewed HEENT: normocephalic, atraumatic, dry muscous membranes Neck: non-tender, normal alignment, supple Respiratory/Chest: chest wall nt, lungs clear Cardiovascular/Chest: rrr, no gallop/murmur Abdomen: normal bowel sounds, non tender, soft, no organomegaly, no mass, other - urostomy with dark urine, colostomy with no feces, cystomy site clean Extremities: other - contracture of BL digits, Bilateral AKA Skin Exam: normal pigmentation, warm/dry 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
[2018-04-11] MEDS ORDERED: Dyna-Hex 2% Top Sol 2oz TOPIC SCH (20:00)
[2018-04-12] VITALS: BP 152/102
[2018-04-12] MEDS: Tigecycline 50 MG in NS 110 ML IVPB SCH ×2 (00:32→11:31)
[2018-04-12 04:00] VITALS: BP 100/71
--- NOTE | 2018-04-12 07:39 | General Progress Note ---
Assessment/Plan Status: stable Assessment/Plan #Septic Shock #Hypotension #Infected Decubitus Ulcer #Cellulitis #Stage IV Decubitus Ulcer #quadriplegia #MDR UTI - Invanz,and tigacil for 7 days - cont midodrine, remains asymptomatic - daily labs - tele - i/o - fluids - wound care, surgery eval - pain management consult #hypokalemia - stable #Microcytic Anemia - stable - no acute bleeding - hematology consult - iron panel ppx: hsq diet: regular Code Status: Full Hospital Classification Declaration: Based on this initial evaluation, and depending on the patient's clinical course, I anticipate that this patient will require hospitalization for 3-4 days for sepsis managemetn and close respiratory /hemodynamic monitoring. Disposition: Once the patient is stable to leave the hospital, I anticipate the patient will likely be discharged to the following environment: [facility] (from [facility]) I spent 43 minutes on this patient's case, counseling and/or care coordination and discharge/dispo planning. Discussed with patient/family, nursing staff, SW/ CM, and consultants regarding clinical status, treatment course, and disposition planning. Time of note may not reflect time of encounter. Subjective Date patient seen: Apr 12, 2018 Time patient seen: 07:37 Allergies: Coded Allergies: CEFTRIAXONE (Verified Allergy, Unknown, 01/01/18) CODEINE (Verified Allergy, Unknown, 01/01/18) MORPHINE (Verified Allergy, Unknown, 01/01/18) PIPERACILLIN (Verified Allergy, Unknown, 01/01/18) SULFAMETHOXAZOLE (Verified Allergy, Unknown, 01/01/18) TAZOBACTAM (Verified Allergy, Unknown, 01/01/18) TRIMETHOPRIM (Verified Allergy, Unknown, 01/01/18) VANCOMYCIN (Verified Allergy, Unknown, 01/01/18) Subjective f/u sepsis , hypotension bp stable on midodrine DU being managed by wound care on abx ID consulted, appreciate recs pain well controlled now denies any complaints, states pain well controlled pending dispo back to [facility] ROS: 14 point ROS neg except per above Objective Last 24 Hour Vital Signs Date Time Temp Pulse Resp B/P (MAP) Pulse Ox O2 Delivery O2 Flow Rate FiO2 04/12/18 04:00 97.9 67 19 100/71 (81) 100 04/12/18 01:04 97.7 04/12/18 00:00 97.6 87 19 152/102 (119) 99 04/11/18 21:40 99/66 (77) 04/11/18 21:00 Room Air 04/11/18 20:00 97.4 66 19 182/110 (134) 99 04/11/18 16:00 97.7 91 18 124/83 (97) 100 04/11/18 15:00 76 19 121/79 (93) 98 04/11/18 14:00 71 19 141/82 (101) 98 04/11/18 13:00 98.9 109 19 132/74 (93) 98 04/11/18 12:57 98.9 04/11/18 12:00 80 04/11/18 12:00 Room Air 04/11/18 12:00 75 19 106/72 (83) 98 04/11/18 11:00 75 19 155/82 (106) 98 04/11/18 10:00 75 19 123/79 (94) 98 04/11/18 09:00 104 17 83/57 (66) 99 04/11/18 08:00 110 14 113/74 (87) 98 04/11/18 08:00 Room Air 04/11/18 08:00 75 Intake and Output 04/11/18 04/12/18 18:59 06:59 Intake Total 60 ml 230 ml Output Total 580 ml 850 ml Balance -520 ml -620 ml Intake Oral 60 ml 120 ml IV Total 110 ml Output Stool Total 150 ml 200 ml Other 430 ml 650 ml # Bowel Movements 2 1 Height (Feet): 3 Height (Inches): 3.00 Weight (Pounds): 107 Objective General appearance: alert, cooperative, no distress, appears stated age Head: Normocephalic, without obvious abnormality, atraumatic Eyes: conjunctivae/corneas clear. PERRL, EOM's intact. Fundi benign Throat: Lips, mucosa, and tongue normal. Teeth and gums normal Neck: supple, symmetrical, trachea midline, no adenopathy, thyroid: not enlarged, symmetric, no tenderness/mass/nodules, no carotid bruit and no JVD Lungs: clear to auscultation bilaterally Heart: regular rate and rhythm, S1, S2 normal, no murmur, click, rub or gallop Abdomen: soft, non-tender. Bowel sounds normal. No masses, no organomegaly Extremities: extremities normal, atraumatic, no cyanosis or edema. stage 4 decub ulcers, sloughing, oozing Pulses: 2+ and symmetric Skin: Skin color, texture, turgor normal. No rashes or lesions Neurologic: Grossly normal Gissel Coe MD Apr 12, 2018 07:39
[2018-04-12 08:00] VITALS: BP 111/73
[2018-04-12] MEDS: Heparin 5000 units/ml inj SUBQ SCH (08:51)
--- NOTE | 2018-04-12 08:51 | General Progress Note ---
Assessment/Plan Assessment/Plan (1) Sacral decubitus ulcer (2) SCI (3) Quadriplegia (4) B/L AKA (5) Neuropathic pain Patient to be continued on Dilaudid D/w Dr. Pham and he concurred. Subjective Date patient seen: Apr 12, 2018 Time patient seen: 07:00 - am Allergies: Coded Allergies: CEFTRIAXONE (Verified Allergy, Unknown, 01/01/18) CODEINE (Verified Allergy, Unknown, 01/01/18) MORPHINE (Verified Allergy, Unknown, 01/01/18) PIPERACILLIN (Verified Allergy, Unknown, 01/01/18) SULFAMETHOXAZOLE (Verified Allergy, Unknown, 01/01/18) TAZOBACTAM (Verified Allergy, Unknown, 01/01/18) TRIMETHOPRIM (Verified Allergy, Unknown, 01/01/18) VANCOMYCIN (Verified Allergy, Unknown, 01/01/18) Subjective REVIEW OF SYSTEMS: Denies rash, fever, chills, sweating, dizziness, drowsiness, blurred vision, sore throat, or change in weight. No shortness of breath or chest pain. Denies nausea, vomiting, diarrhea, or blood in the stool or urine. No bowel or bladder incontinence. No dysuria. He is complaining of generalized body pain. SUBJECTIVE: Patient is doing better and pain is stable on the Dilaudid as needed. He has no new complaints at this time. Objective Last 24 Hour Vital Signs Date Time Temp Pulse Resp B/P (MAP) Pulse Ox O2 Delivery O2 Flow Rate FiO2 04/12/18 04:00 97.9 67 19 100/71 (81) 100 04/12/18 01:04 97.7 04/12/18 00:00 97.6 87 19 152/102 (119) 99 04/11/18 21:40 99/66 (77) 04/11/18 21:00 Room Air 04/11/18 20:00 97.4 66 19 182/110 (134) 99 04/11/18 16:00 97.7 91 18 124/83 (97) 100 04/11/18 15:00 76 19 121/79 (93) 98 04/11/18 14:00 71 19 141/82 (101) 98 04/11/18 13:00 98.9 109 19 132/74 (93) 98 04/11/18 12:57 98.9 04/11/18 12:00 80 04/11/18 12:00 Room Air 04/11/18 12:00 75 19 106/72 (83) 98 04/11/18 11:00 75 19 155/82 (106) 98 04/11/18 10:00 75 19 123/79 (94) 98 04/11/18 09:00 104 17 83/57 (66) 99 Intake and Output 04/11/18 04/12/18 18:59 06:59 Intake Total 60 ml 230 ml Output Total 580 ml 850 ml Balance -520 ml -620 ml Intake Oral 60 ml 120 ml IV Total 110 ml Output Stool Total 150 ml 200 ml Other 430 ml 650 ml # Bowel Movements 2 1 Height (Feet): 3 Height (Inches): 3.00 Weight (Pounds): 107 Objective GENERAL: Alert, awake, and oriented x3. LUNGS: Decreased breath sounds bilaterally. HEART: Regular. ABDOMEN: Colostomy and urostomy noted. Tenderness to palpation. EXTREMITIES: Lower extremity [id number] amputation noted bilaterally. Sharad Hillman Apr 12, 2018 08:51
[2018-04-12] MEDS ORDERED: Pantoprazole Inj IVP SCH (09:00)
[2018-04-12] MEDS ORDERED: Ertapenem 1 GM in NS 55 ML IVPB SCH (10:00)
[2018-04-12 12:00] VITALS: BP 157/97
--- NOTE | 2018-04-12 12:21 | Surgery Progress Note ---
Surgery Progress Note Subjective Additional Comments out of ICU. improving. comfortable. Objective Last 24 Hour Vital Signs Date Time Temp Pulse Resp B/P (MAP) Pulse Ox O2 Delivery O2 Flow Rate FiO2 04/12/18 12:00 97.2 18 157/97 (117) 100 04/12/18 09:00 Room Air 04/12/18 08:00 97.5 69 18 111/73 (86) 96 04/12/18 04:00 97.9 67 19 100/71 (81) 100 04/12/18 01:04 97.7 04/12/18 00:00 97.6 87 19 152/102 (119) 99 04/11/18 21:40 99/66 (77) 04/11/18 21:00 Room Air 04/11/18 20:00 97.4 66 19 182/110 (134) 99 04/11/18 16:00 97.7 91 18 124/83 (97) 100 04/11/18 15:00 76 19 121/79 (93) 98 04/11/18 14:00 71 19 141/82 (101) 98 04/11/18 13:00 98.9 109 19 132/74 (93) 98 04/11/18 12:57 98.9 I&O Intake and Output 04/11/18 04/12/18 19:00 07:00 Intake Total 60 ml 230 ml Output Total 550 ml 850 ml Balance -490 ml -620 ml Intake Oral 60 ml 120 ml IV Total 110 ml Output Stool Total 150 ml 200 ml Other 400 ml 650 ml # Bowel Movements 2 1 Dressing: other Wound: other Drains: other Cardiovascular: RSR Respiratory: clear Abdomen: soft, present bowel sounds, other, non-distended Extremities: other Plan Problems: (1) Decubital ulcer Assessment & Plan: Pt presents with complex pressure injuries involving buttocks extending into bilat groin areas that were surgically debrided last admission.Partial assessment of wound completed due to pt became diaphoretic while positioned on L side.Assessment of Buttocks to R groin completed (L)12cm x (W)18cm with mesurable depth at sacrum of 1.5cm and depth of 2.5cm at R groin area.scattered threads of yellow slough throughout base of wound with granular areas also noted. No odor noted. Moderate serous exudate noted.Full thickness pressure injuries(2 sites)in close proximity posterior R AKA (L)1.5cm x (W) 4.5cm x(D)1.6cm. Both wounds moist- viable.Minimal sanguineous exudate .Edges adherent and flat .Non-blanchable erythema periwound without induration or elevation in skin temp. Assessment of wound L buttocks and L groin not completed. Will attempt to see pt next rounds if stable. Cleanse wounds with Saline.Loose pack with Hydrogel impregnated Kerlix gauze.Apply Cavilon Skin Barrier periwound.Cover with ABD pads and secure with Tegaderms drsgs Daily and prn. Reposition at least every 2hours or as tolerated. Air fluidized mattress. CT ordered to ensure no intraabdominal pathology - pending results stable in ICU will follow with recs. thank you CT noted. wounds have improved since prior. he has extensive wounds without ability to flap. can only attempt best wound care. no gas forming active infection okay to d/c from surgical standpoint (2) Septic shock (3) Colostomy prolapse Assessment & Plan: resolved without recurrence since prior surgery. ostomy viable and functional now. looks good. Atif Luna Apr 12, 2018 12:21
[2018-04-12 15:16] VITALS: BP 143/92
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
[2018-04-12] MEDS ORDERED: Tubing IV Secondary IV ONE (17:57)
--- NOTE | 2018-04-12 19:24 | General Progress Note ---
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 --> folic acid 1mg po daily as outpatient --> Anemia panel has been reviewed, will trend as required --> hgb goal >7, transfuse on prn basis --> no etoh or drug abuse, meds reviewed --> Blood tx performed in the past --> consider iron once infection has cleared # Leukocytosis is likely due to cellulitis, does have sepsis, also could be due to decub --> Resolved/Improved wbc --> Remains on antibiotics --> smear peripheral has been reviewed --> no schistocytes are noted --> no evidence of malignancy --> blood culture is positive for gram cocci, management as per ID --> appreciate ID recs --> decub surgery as per surgery recs # LINDSEY -- currently worse --> continue to monitor # Quadriplegia --> weakness has been chronic # Colostomy care, s/p colostomy revision and bowel resection on 01/09/18 --> per surgery # Tobacco abuse --> cessation education # Dispo --> likely back to [facility] on d/c # DVT ppx with heparin sq Greatly appreciate consultation! Subjective Constitutional: Denies: no symptoms, chills, diaphoresis, fever, malaise, weakness, other HEENT: Denies: no symptoms, eye pain, blurred vision, tearing, double vision, ear pain, ear discharge, nose pain, nose congestion, throat pain, throat swelling, mouth pain, mouth swelling, other Cardiovascular: Denies: no symptoms, chest pain, edema, irregular heart rate, lightheadedness, palpitations, syncope, other Respiratory: Denies: no symptoms, cough, orthopnea, shortness of breath, SOB with excertion, SOB at rest, sputum, stridor, wheezing, other Gastrointestinal/Abdominal: Denies: no symptoms, abdomen distended, abdominal pain, black stools, tarry stools, blood in stool, constipated, diarrhea, difficulty swallowing, nausea, poor appetite, poor fluid intake, rectal bleeding , vomiting, other Genitourinary: Denies: no symptoms, burning, discharge, frequency, flank pain, hematuria, incontinence, pain, urgency, other Neurologic/Psychiatric: Denies: no symptoms, anxiety, depressed, emotional problems, headache, numbness, paresthesia, pre-existing deficit, seizure, tingling, tremors, weakness, other Endocrine: Denies: no symptoms, excessive sweating, flushing, intolerance to cold, intolerance to heat, increased hunger, increased thirst, increased urine, unexplained weight gain, unexplained weight loss, other Allergies: Coded Allergies: CEFTRIAXONE (Verified Allergy, Unknown, 01/01/18) CODEINE (Verified Allergy, Unknown, 01/01/18) MORPHINE (Verified Allergy, Unknown, 01/01/18) PIPERACILLIN (Verified Allergy, Unknown, 01/01/18) SULFAMETHOXAZOLE (Verified Allergy, Unknown, 01/01/18) TAZOBACTAM (Verified Allergy, Unknown, 01/01/18) TRIMETHOPRIM (Verified Allergy, Unknown, 01/01/18) VANCOMYCIN (Verified Allergy, Unknown, 01/01/18) Subjective 04/06: awake and comfortable, no fevers or chills, denies acute distress. hgb 7.6 , plt 383. 04/08: no acute events. leukocytosis resolved. comfortable. 04/09: seen by bedside, unable to wean levophed. Pain is in neck and abdomen but not complaining of pain at his decub site. 04/10: pt is seen in the room, resting in bed, awake, comfortable, no events 04/11: Pt is awake and comfortable, ostomy with output today . 04/12: dc planning for today, on abx, feeling better Objective Last 24 Hour Vital Signs Date Time Temp Pulse Resp B/P (MAP) Pulse Ox O2 Delivery O2 Flow Rate FiO2 04/12/18 15:16 98.1 71 18 143/92 (109) 96 04/12/18 12:00 97.2 18 157/97 (117) 100 04/12/18 09:00 Room Air 04/12/18 08:00 97.5 69 18 111/73 (86) 96 04/12/18 04:00 97.9 67 19 100/71 (81) 100 04/12/18 01:04 97.7 04/12/18 00:00 97.6 87 19 152/102 (119) 99 04/11/18 21:40 99/66 (77) 04/11/18 21:00 Room Air 04/11/18 20:00 97.4 66 19 182/110 (134) 99 Intake and Output 04/11/18 04/12/18 19:00 07:00 Intake Total 60 ml 230 ml Output Total 550 ml 850 ml Balance -490 ml -620 ml Intake Oral 60 ml 120 ml IV Total 110 ml Output Stool Total 150 ml 200 ml Other 400 ml 650 ml # Bowel Movements 2 1 Height (Feet): 3 Height (Inches): 3.00 Weight (Pounds): 107 Objective Physical Exam General Appearance: WD/WN, no apparent distress, alert Vitals: reviewed HEENT: normocephalic, atraumatic, dry muscous membranes Neck: non-tender, normal alignment, supple Respiratory/Chest: chest wall nt, lungs clear Cardiovascular/Chest: rrr, no gallop/murmur Abdomen: normal bowel sounds, non tender, soft, no organomegaly, no mass, other - urostomy with dark urine, colostomy with no feces, cystomy site clean Extremities: other - contracture of BL digits, Bilateral AKA Skin Exam: normal pigmentation, warm/dry 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
== END 2018-04-12 17:58 | DRG 871 ==
LOC: EDBD 21:05 → EDUNIT# 21:05 → EMR 22:08 → EDBEDREQ 04-05 02:13 → ICU 04-05 02:24 → EDBEDREQ 04-05 02:29 → 4E 04-11 16:38
PROC: B543ZZA Ultrasonography of Right Jugular Veins, Guidance (ICD-10-PCS; principal; 2018-04-05)
PROC: 05HM33Z Insertion of Infusion Device into Right Internal Jugular Vein, Percutaneous Approach (ICD-10-PCS; principal; 2018-04-05)
PROC: 3E033XZ Introduction of Vasopressor into Peripheral Vein, Percutaneous Approach (ICD-10-PCS; principal; 2018-04-05)
DX: A41.9 Sepsis, unspecified organism (principal); L89.154 Pressure ulcer of sacral region, stage 4; R65.21 Severe sepsis with septic shock; G82.50 Quadriplegia, unspecified; N17.9 Acute kidney failure, unspecified; N39.0 Urinary tract infection, site not specified; L03.317 Cellulitis of buttock; G90.4 Autonomic dysreflexia; B96.1 Klebsiella pneumoniae [K. pneumoniae] as the cause of diseases classified elsewhere; B96.4 Proteus (mirabilis) (morganii) as the cause of diseases classified elsewhere; B96.20 Unspecified Escherichia coli [E. coli] as the cause of diseases classified elsewhere; B95.61 Methicillin susceptible Staphylococcus aureus infection as the cause of diseases classified elsewhere; D72.829 Elevated white blood cell count, unspecified; D63.8 Anemia in other chronic diseases classified elsewhere; Z72.0 Tobacco use; Z89.612 Acquired absence of left leg above knee; F41.9 Anxiety disorder, unspecified; Z93.3 Colostomy status; Z89.611 Acquired absence of right leg above knee
CPT/HCPCS: 36415; 71045; 74176; 80048; 80053; 81003; 82550; 82553; 82728; 82746; 82784; 82962; 83540; 83550; 83605; 83615; 83735; 84165; 84484; 85007; 85025; 85044; 85060; 85610; 85730; 86334; 86710; 87040; 87070; 87081; 87086; 87181; 87205; 93005; 94664; 96361; 96365; 99291